=== PATIENT | male | born 1945 | race Caucasian/White ===

== ENCOUNTER 2017-05-05 11:49 | Emergency (ER) | payer MEDICARE, SELFPAY ==
[2017-05-05 11:52] VITALS: BP 142/60; PULSE 94; RESP 20; TEMP 36.6; O2SAT 94; BMI 39.5
--- NOTE | 2017-05-05 12:15 | ED.VISSUMM ---
- ER Visit Summary Date of Service: 05/05/17 Chief Complaint: [] History of Present Illness: The patient is a 72 M [] Physical Examination: [] Test Results: [] Emergency Department Course and Treatment: [] Treatment Plan: [] Disposition: [] Impression: [] This note was generated with [employer] dictation software. It may contain incorrect words, spelling, and punctuation that were not noted in review of the chart prior to signing ED Disposition - Plan for ED Patient: Chief Complaint: Wound Check Instructions: ED Infec Skin Cellulitis Prescriptions: Clindamycin HCl 300 mg PO TID #30 capsule Referrals: Jovani Mendez PA [Primary Care Provider] - Additional Instructions: come back in 24 hours if not better
--- NOTE | 2017-05-05 12:18 | ED.VISSUMM ---
- ER Visit Summary Date of Service: 05/05/17 Chief Complaint: Cellulitis History of Present Illness: The patient is a 72 M presenting with left lower extremity cellulitis. He has chronic edema of his lower extremities and states that that is no worse than usual. He has chronic stasis dermatitis changes in both legs but the left leg has not been red and warm for the past 2 days. It started gradually. No associated pain. No or swelling. No shortness of breath or orthopnea. Physical Examination: He does have approximately 2+ bilateral symmetric lower extremity edema. No tenderness along the lower extremity venous system, palpable cords, or other evidence of DVT. There is erythema and warmth on the lateral aspect of the left leg approximately 8 x 12 cm consistent with a cellulitis. There is no crepitus. He has a strong distal pulse. The right lower extremity has only minimal erythema and does not appear infected at this time. Test Results: None performed Emergency Department Course and Treatment: We discussed checking lab tests and admitting to the hospital but he really does not want to stay in the hospital. He states that when this happened in the past, he improved with oral antibiotics and did not require admission. He would like to go that route again. He does not want an IV antibiotic and would prefer to be started on oral clindamycin and come back in 24 hours if not worse. I think this is reasonable given the early course of his illness. He assures me that he will come back if he is not better or if he progresses at all today. Treatment Plan: Oral clindamycin Disposition: Home in stable condition Impression: Initial encounter acute left lower extremity cellulitis in the setting of chronic lower extremity edema This note was generated with [employer] dictation software. It may contain incorrect words, spelling, and punctuation that were not noted in review of the chart prior to signing ED Disposition - Plan for ED Patient: Chief Complaint: Wound Check Instructions: ED Infec Skin Cellulitis Prescriptions: Clindamycin HCl 300 mg PO TID #30 capsule Referrals: Jovani Mendez PA [Primary Care Provider] - Additional Instructions: come back in 24 hours if not better
[2017-05-05] MEDS: Clindamycin HCl 150 MG Capsule 300 MG PO (12:33)
== END 2017-05-05 12:33 | disposition home or self-care (01) ==
LOC: ED 12:19
PROVIDERS: Emergency Provider Emergency Medicine; Family Provider Physician Assistant; PCP Physician Assistant
DX: L03.116 Cellulitis of left lower limb (principal); R60.0 Localized edema; I11.0 Hypertensive heart disease with heart failure; I50.9 Heart failure, unspecified; E78.00 Pure hypercholesterolemia, unspecified; E11.9 Type 2 diabetes mellitus without complications; Z79.84 Long term (current) use of oral hypoglycemic drugs; Z79.899 Other long term (current) drug therapy
CPT/HCPCS: 99283

== ENCOUNTER 2017-05-08 10:28 | Emergency (ER) | payer MEDICARE, SELFPAY ==
[2017-05-08 10:29] VITALS: BP 161/88; PULSE 80; RESP 92; TEMP 37.1; BMI 40.3
--- NOTE | 2017-05-08 10:48 | ED.DCSUM_ITS ---
- ER Visit Summary Date of Service: 05/08/17 Chief Complaint: Left leg is still discolored History of Present Illness: The patient is a 72 M seen on May 05, 2017 for cellulitis and treated with clindamycin. He states he is compliant with the medication. He denies fever, chills night sweats. He is concerned because there still discoloration and swelling. He apparently sits and stands a lot. He is not very active. He denies any chest pain or shortness of breath. He denies orthopnea or PND. There is no history of trauma. Physical Examination: Vital signs remarkable for blood pressure 161/88. Respiratory rate is 12 and not 92 is documented by triage. Patient has bilateral pitting edema of the lower extremity with venous stasis dermatitis left greater than right. DP pulses palpable bilaterally but diminished. There is no popliteal or inguinal lymphadenopathy. There is no erythema, warmth, induration, fluctuance or crepitus. Test Results: None Emergency Department Course and Treatment: She was informed he has lymphedema secondary to sitting standing a lot and secondary to heart failure. Patient was told he needs to wear compressive hoses. He states he cannot put them on. He was also informed that he should keep his feet elevated and to expedite the return to normal he initially should elevate his feet above his nose. He also was referred to the wound clinic for evaluation to treat his chronic lymphedema with venous stasis dermatitis. Treatment Plan: Referral to wound clinic/lymphedema clinic Disposition: Discharged home Impression: Bilateral lower extremity lymphedema with venous stasis dermatitis Hypertension and known hypertensive patient Type 2 diabetes History of hypercholesterolemia History of congestive heart failure History of hypothyroidism History of benign prostatic hypertrophy This note was generated with [employer] dictation software. It may contain incorrect words, spelling, and punctuation that were not noted in review of the chart prior to signing ED Disposition - Plan for ED Patient: Disposition: Home or Assisted Living Chief Complaint: Cellulitis Instructions: ED Ulcer Venous Leg, ED Lymphedema Referrals: Jovani Mendez PA [Primary Care Provider] - 5-7 Days Clinic,Wound [None] - 3-5 Days Additional Instructions: Recommend you contact the wound center/lymphedema clinic for treatment.
== END 2017-05-08 11:01 | disposition home or self-care (01) ==
LOC: ED 10:55
PROVIDERS: Emergency Provider Emergency Medicine; Family Provider Physician Assistant; PCP Physician Assistant
DX: I89.0 Lymphedema, not elsewhere classified (principal); I87.2 Venous insufficiency (chronic) (peripheral); I11.0 Hypertensive heart disease with heart failure; I50.9 Heart failure, unspecified; E11.9 Type 2 diabetes mellitus without complications; Z79.84 Long term (current) use of oral hypoglycemic drugs; E03.9 Hypothyroidism, unspecified; E78.00 Pure hypercholesterolemia, unspecified; N40.0 Benign prostatic hyperplasia without lower urinary tract symptoms; E66.9 Obesity, unspecified; Z68.41 Body mass index [BMI] 40.0-44.9, adult; Z79.899 Other long term (current) drug therapy
CPT/HCPCS: 99282

== ENCOUNTER 2017-05-21 11:46 | Emergency (ER) | payer MEDICARE, SELFPAY ==
[2017-05-21 11:48] VITALS: BP 156/65; PULSE 82; RESP 28; TEMP 37; O2SAT 96; BMI 40.4
--- NOTE | 2017-05-21 12:49 | EKG12_ITS ---
Test Reason : SOB Blood Pressure : / mmHG Vent. Rate : 080 BPM Atrial Rate : 080 BPM P-R Int : 170 ms QRS Dur : 154 ms QT Int : 444 ms P-R-T Axes : 053 -79 041 degrees QTc Int : 512 ms Normal sinus rhythm Right bundle branch block Left anterior fascicular block Bifascicular block Abnormal ECG Confirmed by SANDRA CARDOSO, PRIETO ([id number]), video editor DUY BAR ([id number] on 05/24/2017 12:55:40 PM Referred By: LACIE Confirmed By:PRIETO FLORES MD
--- NOTE | 2017-05-21 12:50 | RAD_ITS ---
STUDY: X-RAY CHEST REASON FOR EXAM: Male, 72 years old. Cough. TECHNIQUE: PA and lateral views of the chest. COMPARISON: Comparison is made with prior study dated January 26, 2017. FINDINGS: Scattered calcified granulomas. Hyperinflation. Stable mild increased markings at the lung bases suggestive of scarring. There is no demonstrated pleural abnormality. Normal size heart. Normal mediastinum and shauna. Normal visualized pulmonary arteries. There is atherosclerotic calcification of the aortic arch with tortuosity. There is demineralization of the osseous structures. Normal visualized ribs, clavicles, and shoulders. There is no demonstrated abnormality of the visualized soft tissue structures of the upper abdomen. RAD/Chest PA and Lateral IMPRESSION: Hyperinflation. Mild increased markings at the bases suggestive of mild scarring. Electronically Signed: Wing Jeronimo MD at 14:12 EST Tel [phone], Service support ,
[2017-05-21 13:13] LABS: Absolute Lymphocyte Count 1.14 X10^3/ul (0.83-4.51); Absolute Neutrophil Count 3.3 X10^3/uL (2.0-7.7); Basophil# 0.05 X10^3/uL; Basophil% 0.9 % (0-1); Eosinophil# 0.12 X10^3/uL; Eosinophils% 2.2 % (0-5); Hematocrit 37.2 % (40-54); Hemoglobin 12.1 g/dl (13.0-16.5); Lymphocyte # 1.14 X10^3/ul (4.0); Lymphocyte % 20.8 % (19-41); Mean Corp Hgb Conc 32.5 g/gl (32-36); Mean Corpuscular Hgb 29.6 pg (27.0-32.0); Monocyte# 0.84 X10^3/uL; Monocyte% 15.3 % (0-10); Neutrophil % 60.1 % (47-70); POSITIVE COUNT NO; POSITIVE DIFFERENTIAL NO; POSITIVE MORPHOLOGY NO; Platelet Count 160 K/mm3 (150-450); RBC Distribution Width CV 15.9 % (11.6-14.6); RBC Distribution Width SD 51.4 fl (35.1-43.9); Red Blood Count 4.09 M/mm3 (4.6-6.2); White Blood Count 5.5 K/mm3 (4.4-11.0)
[2017-05-21] MEDS: Ipratropium/Albuterol Sulfate 3 ML AMPUL.NEB INHALATION (13:17)
[2017-05-21 13:19] VITALS: PULSE 82; RESP 24; O2SAT 97
[2017-05-21 13:33] LABS: Anion Gap 7 (5-15); BUN 10 mg/dL (7-18); BUN/Creat Ratio 14.9 RATIO (10-20); Calcium,Total 8.6 mg/dL (8.5-10.1); Chloride 100 mmol/L (98-107); Creatinine, Serum 0.67 mg/dL (0.70-1.30); EST Glomerular Filtration Rate 124 mL/min (>60); Est Glom Filt Rate - Afr Amer 150 mL/min (>60); Estimated Creatinine Clearance 55.09 ml/min; Glucose 231 mg/dL (74-106); Sodium Level 135 mmol/L (136-145)
[2017-05-21 14:55] VITALS: PULSE 78; RESP 20; RESP 22; O2SAT 97
[2017-05-21 14:59] VITALS: O2SAT 94
[2017-05-21 15:16] LABS: BNP,B-Type NATRIURETIC PEPTIDE 12.4 pg/mL (0-100)
--- NOTE | 2017-05-21 15:38 | ED.DCSUM_ITS ---
- ER Visit Summary Date of Service: 05/21/17 Chief Complaint: I think I got bronchitis History of Present Illness: The patient is a 72 M 3 of COPD and CHF. He presents with a productive cough for the last several days. He said it feels similar to usual bronchitis. He has also been wheezing but this does get better with his breathing treatments at home. Denies any other symptoms. No chest pain or increased lower extremity edema. It does not feel like his CHF. No body aches or fever/chills. Physical Examination: Not in distress. Neck supple. Heart tones regular without murmur. Pulse oximetry normal on room air. Lungs clear bilaterally except for faint end expiratory wheezing. No lower extremity edema or evidence of DVT Test Results: Labs basically within normal limits. No significant leukocytosis. Chest x-ray negative for infiltrate. Flu swab negative. Emergency Department Course and Treatment: He looks well. No evidence of pneumonia. Pulse ox normal on room air. He basically feels that he needs to be placed on antibiotics and steroids. He has breathing treatments at home and did not want one year. His pulse ox is nearly 100% on room air. No evidence of CHF exacerbation. I feel he can safely be discharged home Treatment Plan: Oral antibiotics and steroids Disposition: Stable condition Impression: Initial encounter COPD exacerbation secondary to lower respiratory tract infection/bronchitis This note was generated with [employer] dictation software. It may contain incorrect words, spelling, and punctuation that were not noted in review of the chart prior to signing ED Disposition - Plan for ED Patient: Chief Complaint: Shortness of Breath Instructions: ED Bronchitis Asthmatic Ch Prescriptions: Prednisone 40 mg PO DAILY 5 Days #10 tablet Doxycycline Monohydrate 100 mg PO BID #20 capsule Referrals: Jovani Mendez PA [Primary Care Provider] -
[2017-05-21] MEDS: Doxycycline 100 MG CAPSULE PO (15:49)
[2017-05-21 15:53] VITALS: BP 142/76; PULSE 81; RESP 16; O2SAT 95
== END 2017-05-21 15:53 | disposition home or self-care (01) ==
PROVIDERS: Emergency Provider Emergency Medicine; Family Provider Physician Assistant; PCP Physician Assistant
DX: J44.0 Chronic obstructive pulmonary disease with (acute) lower respiratory infection (principal); J20.9 Acute bronchitis, unspecified; J44.1 Chronic obstructive pulmonary disease with (acute) exacerbation; I50.9 Heart failure, unspecified; E78.00 Pure hypercholesterolemia, unspecified; E11.9 Type 2 diabetes mellitus without complications; Z79.84 Long term (current) use of oral hypoglycemic drugs; Z79.899 Other long term (current) drug therapy
CPT/HCPCS: 71046; 80048; 83880; 85025; 87804; 93005; 94640; 94760; 99285; A4216

== ENCOUNTER → 2017-06-08 11:35 | Outpatient (CLI) | payer MEDICARE, SELFPAY ==
[2017-06-08 13:29] LABS: Amphetamine Urine VISTA NEGATIVE (<1000 ng/mL); Barbiturate Urine VISTA NEGATIVE (< 200 ng/mL); Benzodiazepine Urine VISTA NEGATIVE (< 200 ng/mL); Cocaine Urine VISTA NEGATIVE (< 300 ng/mL); Ecstacy Urine VISTA NEGATIVE (< 500 ng/mL); Methadone Urine VISTA NEGATIVE (< 300 ng/mL); PCP Urine VISTA NEGATIVE (< 25 ng/mL); THC Urine VISTA NEGATIVE (< 50 ng/mL); Vista UDS pH Range 5
== END ==
PROVIDERS: Family Provider Physician Assistant; PCP Physician Assistant; Visit Provider Anesthesiology Pain Medicine
DX: F11.20 Opioid dependence, uncomplicated (principal)
CPT/HCPCS: 80307

== ENCOUNTER 2017-07-01 09:10 | Outpatient (RCR) | payer MEDICARE, SELFPAY ==
[2017-07-01 09:37] VITALS: BP 153/70; PULSE 79; RESP 22; TEMP 36.4; O2SAT 87
[2017-07-01 13:35] LABS: Absolute Lymphocyte Count 1.47 X10^3/ul (0.83-4.51); Absolute Neutrophil Count 4.1 X10^3/uL (2.0-7.7); Basophil# 0.02 X10^3/uL; Basophil% 0.3 % (0-1); Eosinophil# 0.15 X10^3/uL; Eosinophils% 2.4 % (0-5); Hematocrit 37.9 % (40-54); Lymphocyte # 1.47 X10^3/ul (4.0); Mean Corp Hgb Conc 31.7 g/gl (32-36); Mean Corpuscular Hgb 29.7 pg (27.0-32.0); Mean Corpuscular Volume 93.8 fL (80-94); Mean Platelet Vol. 10.8 fl (6.2-12.0); Monocyte# 0.58 X10^3/uL; Monocyte% 9.1 % (0-10); Neutrophil # 4.13 X10^3/uL (2.7-7.7); Neutrophil % 64.7 % (47-70); POSITIVE COUNT NO; POSITIVE DIFFERENTIAL NO; POSITIVE MORPHOLOGY NO; Platelet Count 126 K/mm3 (150-450); RBC Distribution Width CV 15.4 % (11.6-14.6); RBC Distribution Width SD 50.8 fl (35.1-43.9); Red Blood Count 4.04 M/mm3 (4.6-6.2); White Blood Count 6.4 K/mm3 (4.4-11.0)
--- NOTE | 2017-07-01 13:47 | HP.PCM_ITS ---
(1) Ulcer of left lower extremity with fat layer exposed Status: Acute Current Visit: Yes Code(s): L97.922 - Non-pressure chronic ulcer of unspecified part of left lower leg with fat layer exposed (2) PVD (peripheral vascular disease) Status: Acute Current Visit: Yes Code(s): I73.9 - Peripheral vascular disease, unspecified (3) Venous insufficiency Status: Suspected Current Visit: Yes Code(s): I87.2 - Venous insufficiency ( chronic) (peripheral) (4) Type 2 diabetes mellitus with diabetic polyneuropathy Status: Acute Current Visit: Yes Code(s): E11.42 - Type 2 diabetes mellitus with diabetic polyneuropathy (5) Malnutrition Status: Acute Current Visit: Yes Code(s): E46 - Unspecified protein-calorie malnutrition (6) Obesity Status: Acute Current Visit: Yes Code(s): E66.9 - Obesity, unspecified History of Present Illness Date of Service: 07/01/17 Chief Complaint: Non healing ulcer to left lower leg. History of Wound: This patient presents to wound center after being referred by primary care for some blistering and ulcer to left lower leg. Patient is a poor historian and it is hard to get any information from him. He is unsure exactly how long he has has the ulcer to his left lower leg. He says his lower legs are always swollen usually and that he does not use compression. He says there has been some slight clearish drainage that he has noticed, but he says he has not done much to treat or dress the area on his own because he cannot get down to his legs easily. Again, this patient is a very poor historian so it was hard to get a clear picture of his wound history. Patient currently denies any feelings of nausea, vomiting, fever, or chills. Past Medical History Past Medical History: Chronic Problems Hypothyroid (Chronic) Diabetes (Chronic) Allergies/Adverse Reactions: Allergies bee venom protein (honey bee) Allergy (Verified 07/01/17 10:04) Angioedema Penicillins Allergy (Verified 07/01/17 10:04) Rash acetaminophen [From Vicodin] Adverse Reaction (Verified 07/01/17 10:04) Itching hydrocodone bitartrate [From Vicodin] Adverse Reaction (Verified 07/01/17 10:04) Itching Home Medications: Ambulatory Orders Medication Instructions Recorded Levothyroxine [Synthroid] 112 mcg PO DAILY 09/10/13 Metformin HCl [Glucophage] 1,000 mg PO BIDCM 09/10/13 Tamsulosin HCl [Flomax] 0.4 mg PO DAILY 01/08/17 Atorvastatin Calcium [Lipitor] 20 mg PO QHS 01/16/17 Oxycodone HCl/Acetaminophen 1 tablet PO Q6H PRN PRN #12 tablet 01/31/17 [Percocet 5/325] Doxycycline Monohydrate 100 mg PO BID #20 capsule 05/21/17 Furosemide [Lasix] 20 mg PO DAILY 07/01/17 Omeprazole [Prilosec] 40 mg PO DAILY 07/01/17 - Family History Maternal Diabetes, - - colon cancer. Smoking Status: Former smoker Review of Systems Constitutional: Denies: Chills, Fever Cardiovascular: Denies: Chest Pain, Palpitations Respiratory: Reports: Shortness of Breath - 02 sat was lower when he got to clinic and he was given oxygen. Denies: Cough Skin: Reports: Wounds - left lower leg - Physical Exam Vital Signs Temp Pulse Resp BP Pulse Ox 97.5 F L 79 22 H 153/70 H 87 07/01/17 09:37 07/01/17 09:37 07/01/17 09:37 07/01/17 09:37 07/01/17 09:37 General: Alert, Oriented x3, Cooperative, No apparent distress Extremities: Capillary Refill Less than 3 Seconds, No Calf Tenderness - negative dayanara and block sign bilateral, Diminished Peripheral Pulses - DP and PT pulses non palpable due to edema, Edema - bilateral lower extremity pitting edema Skin: Ulcer/ Wound - Ulcer to left lower lateral leg. Measurements discussed in clinical pannel. Ulcer base is a mixture of grandular tissue, fibrin, biofilm, and slough with some hyperkeratotic skin as well. There is no probing, tracking , undermining noted. There is no extending cellulitis, malodor, purulent drainage appreciated. There is some slight surrounding erythema. There is also bilateral hemosideren deposit skin changes to lower legs. Wound Measurements and Assessment WC - Nurse 1 - General Ulcer Measurement Start: 07/01/17 09:21 Freq: Status: Active Protocol: Activity Type Activity Date Activity User E-Sign Co-Sign Detail Recorded Client Recorded Date Recorded By Document 07/01/17 09:37 DL [id number] 07/01/17 09:59 DL 07/01/17 09:37 Wound Center Nurse 1 [Ulcer Assessment] #2 L Lat LE -Current Size (cm) - Length 2.5 -Current Size (cm) - Width 2 -Current Size (cm) - Depth 0.1 -Total Square Cm 5.0 -Photo Taken Yes -Classification - Thickness Partial Thickness -Exudate Amt Small (1-33%) -Exudate Type Serosanguineous -Wound Margin Indistinct, Non -Visible -Granulation Amt Small (1-33%) -Granulation Quality Red -Necrosis Amt None Present (0 %) -Structure Exposed N/A -Texture (Genet-wound Skin Appearance) Localized Edema Scarring -Moisture (Genet-wound Skin Appearance Dry/Scaly ) -Color (Genet-wound Skin Appearance) Erythema -Temperature (Genet-wound Skin No Abnormality Appearance) (Pt Warm) -Tenderness on Palpation (Genet-wound Yes Skin Appearance) -Ulcer Cleansing Wound Cleanser -Foul Odor after Cleansing No -Anesthetic Used 4% Lidocaine Solution [Edema Assessment] -Right Calf (cm) 43.5 -Right Ankle (cm) 26 -Left Calf (cm) 44 -Left Ankle (cm) 26 WC - Nurse 2 - General Ulcer CM Notes Start: 07/01/17 09:21 Freq: Status: Active Protocol: Activity Type Activity Date Activity User E-Sign Co-Sign Detail Recorded Client Recorded Date Recorded By Document 07/01/17 11:13 MW [id number] 07/01/17 11:26 MW 07/01/17 11:13 Wound Center Nurse 2 [Procedure/Treatment] #2 L Lat LE -Time 11:14 -Correct Patient Yes -Correct Side, Site, Position Yes -Correct Procedure Yes -Procedure Performed Yes -Type of Procedure Debridement -Clinical Debridement Selective -Post Debridement Size (cm) - Length 10.0 -Post Debridement Size (cm) - Width 2.5 -Post Debridement Size (cm) - Depth 0.1 -Total Square Cm 25.00 -Wound/Ulcer Outcome Not Healed -Ulcer Cleansing Rinsed/ Irrigated with Saline -Foul Odor after Cleansing No -Bioengineered Tissue No -Bleeding Controlled with Pressure -Treatment Response Procedure Tolerated Well [See Physician Procedure note for Specifics] Pain Scale: 0-10 Numeric [Pain] -Is Patient Pain Free? Yes Musculoskeletal: No Tenderness to Palpation of Joints or Extremities Neurological: - - epicritic sensation grossly absent to bilateral lower extremities Psych/Mental Status: Normal Affect, Appropriate Debridement Note Post-Debridement Measurements/Treatment WC - Nurse 2 - General Ulcer CM Notes Start: 07/01/17 09:21 Freq: Status: Active Protocol: Activity Type Activity Date Activity User E-Sign Co-Sign Detail Recorded Client Recorded Date Recorded By Document 07/01/17 11:13 MW [id number] 07/01/17 11:26 MW 07/01/17 11:13 Wound Center Nurse 2 #2 L Lat LE -Time 11:14 -Correct Patient Yes -Correct Side, Site, Position Yes -Correct Procedure Yes -Procedure Performed Yes -Type of Procedure Debridement -Clinical Debridement Selective -Post Debridement Size (cm) - Length 10.0 -Post Debridement Size (cm) - Width 2.5 -Post Debridement Size (cm) - Depth 0.1 -Total Square Cm 25.00 -Wound/Ulcer Outcome Not Healed -Ulcer Cleansing Rinsed/ Irrigated with Saline -Foul Odor after Cleansing No -Bioengineered Tissue No -Bleeding Controlled with Pressure -Treatment Response Procedure Tolerated Well Pain Scale: 0-10 Numeric Is Patient Pain Free? Yes Wound debrided: left lower lateral leg Laterality: Left Type of Debridement: Selective debridement Anesthesia Used: 4% Lidocaine Solution Depth: in the subcutaneous layer Percentage of wound debrided: 100 Instrument Used: 5mm curette Tissue Removed: slough, biofilm, hyperkeratotic tissue Severity: Fat Layer Exposed Amount of bleeding with debridement: Mild Bleeding Controlled with: Pressure Patient tolerated procedure well Assessment/Plan Active Problems Ulcer of left lower extremity with fat layer exposed (Acute) PVD (peripheral vascular disease) (Acute) Type 2 diabetes mellitus with diabetic polyneuropathy (Acute) Malnutrition (Acute) Obesity (Acute) Assessment: Ulcer left lower leg, PVD, DM among other issues. Plan: Initial patient examination and evaluation was performed today. A selective debridement was perfomred as ntoed in the clinical panel. Silvercel was applied to the ulcer base, followed by dry sterile dressing. Patient is to have this dressing changed every other day by home health care, which was also ordered today. Light compression tubigrip also applied to bilateral lower extremities today. He was instructed to keep pressure off of this area. Baseline labwork was ordered today including CBC with diff, CPM, Hemoglibin a1c , and pre albumin. LEAS and bilateral venous doppler exams were ordered as well. All of these results will be reviewed prior to the patient's next visit. I suggested the patient have a diet high in protein to help optimize ulcer healing. Patient was educated on all signs and symptoms of local and systemic infection and was instructed to go to the ER immediately should he notice any. All other questions answered to the patient's satisfaction. He will follow up in clinic in one week, or sooner if needed.
[2017-07-01 14:05] LABS: ALB/GLOB Ratio 0.8 RATIO (0.9-2.4); AST(SGOT) 32 U/L (15-37); Alanine Aminotransfer ALT/SGPT 57 U/L (16-61); Albumin, Serum 3.2 g/dL (3.2-5.0); Alkaline Phosphatase 191 U/L (45-117); Anion Gap 7 (5-15); BUN 18 mg/dL (7-18); BUN/Creat Ratio 28.1 RATIO (10-20); Calcium,Total 8.6 mg/dL (8.5-10.1); Chloride 102 mmol/L (98-107); Creatinine, Serum 0.64 mg/dL (0.70-1.30); EST Glomerular Filtration Rate 130 mL/min (>60); Est Glom Filt Rate - Afr Amer 158 mL/min (>60); Globulin 3.9 g/dL (2.2-4.2); Glucose 257 mg/dL (74-106); Potassium 3.8 mmol/L (3.5-5.1); Prealbumin 20.7 mg/dL (20.0-40.0); Protein, Total 7.1 g/dL (6.4-8.2); Sodium Level 139 mmol/L (136-145)
[2017-07-01 14:15] LABS: Hemoglobin A1c 9.6 % (4.2-6.3)
== END 2017-07-03 23:59 ==
LOC: WC 09:10
PROVIDERS: Family Provider Physician Assistant; PCP Physician Assistant; Visit Provider Podiatrist
DX: E11.622 Type 2 diabetes mellitus with other skin ulcer (principal); E11.42 Type 2 diabetes mellitus with diabetic polyneuropathy; E11.51 Type 2 diabetes mellitus with diabetic peripheral angiopathy without gangrene; L97.822 Non-pressure chronic ulcer of other part of left lower leg with fat layer exposed; E66.9 Obesity, unspecified; Z79.84 Long term (current) use of oral hypoglycemic drugs; Z79.899 Other long term (current) drug therapy; Z87.891 Personal history of nicotine dependence
CPT/HCPCS: 36415; 80053; 83036; 84134; 85025; 97597; 99203; G0463

== ENCOUNTER 2017-07-03 22:04 | Emergency (ER) | payer MEDICARE, SELFPAY ==
[2017-07-03 22:05] VITALS: BP 125/82; PULSE 79; RESP 22; TEMP 36.9; O2SAT 97; BMI 33.3
--- NOTE | 2017-07-03 22:31 | ED.VISSUMM ---
- ER Visit Summary Date of Service: 07/03/17 Chief Complaint: [] Penile pain/dysuria History of Present Illness: The patient is a 72 M [] complaining of dysuria and discomfort at the head of the penis. Patient is a diabetic uncircumcised morbidly obese male. He does report us that he is scheduled to have a circumcision later in a few weeks. He reports having difficulty cleaning the area affected. Reports he still able to urinate but does have slight dysuria. Physical Examination: [] Morbidly obese elderly male in no acute distress. Examination of the penis reveals uncircumcised male with balanoposthitis. No obvious cellulitis or phimosis. No signs of Teresa's. Remainder of exam is unremarkable. Test Results: [] None. Emergency Department Course and Treatment: [] Patient was given first dose of clotrimazole/betamethasone cream was applied by the nurse copiously to the affected area. Patient was provided with the remainder of this tube to use 3 times a day for the next 5 days. He was encouraged to return should symptoms worsen. He reports that he might have difficulty applying the cream to the affected area. He requested oral pills however there is no suggested/approved oral regimen for antifungal treatment for this localized skin condition. Treatment Plan: [] Apply provided cream to the affected area. Return if symptoms worsen. Disposition: [] Discharge, stable. Impression: [] Balanoposthitis This note was generated with [employer] dictation software. It may contain incorrect words, spelling, and punctuation that were not noted in review of the chart prior to signing ED Disposition - Plan for ED Patient: Chief Complaint: Complaint Referrals: Jovani Mendez PA [Primary Care Provider] -
--- NOTE | 2017-07-03 22:34 | ED.DEP ---
ED Disposition - Plan for ED Patient: Disposition: Home or Assisted Living Chief Complaint: Complaint Instructions: ED Balanoposthitis Referrals: Jovani Mendez PA [Primary Care Provider] -
[2017-07-03] MEDS: Clotrimazole/Betamethasone 1 Tube 1 APPLIC TOPICAL (22:53)
[2017-07-03 23:35] VITALS: RESP 22
== END 2017-07-03 23:36 | disposition home or self-care (01) ==
LOC: ED 22:45
PROVIDERS: Emergency Provider Emergency Medicine; Family Provider Physician Assistant; PCP Physician Assistant
DX: N47.6 Balanoposthitis (principal); N48.89 Other specified disorders of penis; E66.01 Morbid (severe) obesity due to excess calories; Z68.33 Body mass index [BMI] 33.0-33.9, adult; E11.9 Type 2 diabetes mellitus without complications; Z79.84 Long term (current) use of oral hypoglycemic drugs; Z79.899 Other long term (current) drug therapy
CPT/HCPCS: 99282

== ENCOUNTER 2017-07-29 10:00 | Outpatient (RCR) | payer MEDICARE, SELFPAY ==
[2017-07-04 01:24] VITALS: PULSE 79; RESP 22; TEMP 36.4; O2SAT 87
[2017-07-08 08:50] VITALS: BP 141/61; PULSE 81; RESP 18; TEMP 36.6
--- NOTE | 2017-07-08 09:58 | PCM.WC.PN ---
(1) Ulcer of left lower extremity with fat layer exposed Status: Acute Current Visit: No Code(s): L97.922 - Non-pressure chronic ulcer of unspecified part of left lower leg with fat layer exposed (2) PVD (peripheral vascular disease) Status: Acute Current Visit: No Code(s): I73.9 - Peripheral vascular disease, unspecified (3) Venous insufficiency Status: Suspected Current Visit: No Code(s): I87.2 - Venous insufficiency (chronic) (peripheral) (4) Type 2 diabetes mellitus with diabetic polyneuropathy Status: Acute Current Visit: No Code(s): E11.42 - Type 2 diabetes mellitus with diabetic polyneuropathy (5) Malnutrition Status: Acute Current Visit: No Code(s): E46 - Unspecified protein-calorie malnutrition (6) Obesity Status: Acute Current Visit: No Code(s): E66.9 - Obesity, unspecified Type of Wound Date of Service: 07/08/17 Chief Complaint: Non healing ulcer to left lower leg. History of Wound: This patient presents to wound center after being referred by primary care for some blistering and ulcer to left lower leg. Patient is a poor historian and it is hard to get any information from him. He is unsure exactly how long he has has the ulcer to his left lower leg. He says his lower legs are always swollen usually and that he does not use compression. He says there has been some slight clearish drainage that he has noticed, but he says he has not done much to treat or dress the area on his own because he cannot get down to his legs easily. Again, this patient is a very poor historian so it was hard to get a clear picture of his wound history. Patient currently denies any feelings of nausea, vomiting, fever, or chills. Progress of Wound: Ulcer to the patients left lateral lower leg has shown some slight improvement since last week. Patient has left the same dressings on this week that he had put on last week. There was a mix up with home health care. He will start being seen by home health this week. Patient denies any feelings of nausea, vomiting, fever, or chills. - Physical Exam Vital Signs Temp Pulse Resp BP Pulse Ox 97.8 F 81 18 141/61 H 87 07/08/17 08:50 07/08/17 08:50 07/08/17 08:50 07/08/17 08:50 07/04/17 01:24 General: Alert, Oriented x3, Cooperative, No apparent distress Extremities: Capillary Refill Less than 3 Seconds, No Calf Tenderness - negative dayanara and block sign, Diminished Peripheral Pulses - DP and PT pulses non palpable today, Edema - bilateral pitting lower extremity edema Skin: Ulcer/ Wound - Ulcer to left lower lateral leg. Measurements discussed in clinical pannel. Ulcer base is a mixture of grandular tissue, fibrin, biofilm, and slough with some hyperkeratotic skin as well. There is no probing, tracking, undermining noted. There is no extending cellulitis, malodor, purulent drainage appreciated. There is some slight surrounding erythema. There is also bilateral hemosideren deposit skin changes to lower legs. Wound Measurements and Assessment WC - Nurse 1 - General Ulcer Measurement Start: 07/08/17 08:50 Freq: Status: Active Protocol: Activity Type Activity Date Activity User E-Sign Co-Sign Detail Recorded Client Recorded Date Recorded By Document 07/08/17 08:50 [email or web address] 07/08/17 08:56 07/08/17 08:50 Wound Center Nurse 1 [Ulcer Assessment] #2 L Lat LE -Combined with other wound No -Current Size (cm) - Length 2.0 -Current Size (cm) - Width 1.0 -Current Size (cm) - Depth 0.1 -Total Square Cm 2.00 -Photo Taken No -Epithelialization Large 67-100% -Tunneling No -Undermining/Tunneling No -Circular Undermining No -Classification - Thickness Full Thickness without Exposed Support Structure -Exudate Amt Small (1-33%) -Exudate Type Serosanguineous -Wound Margin Distinct, Outline Attached -Granulation Amt Medium (34-66%) -Granulation Quality [place] -Slough/Fibrin Yes -Necrosis Amt Medium (34-66%) -Necrotic Tissue Type Adherent Slough -Structure Exposed Fascia Fat Layer Exposed -Texture (Genet-wound Skin Appearance) Localized Edema Scarring -Moisture (Genet-wound Skin Appearance Dry/Scaly ) -Color (Genet-wound Skin Appearance) Erythema Hemosiderin Staining -Temperature (Genet-wound Skin No Abnormality Appearance) (Pt Warm) -Tenderness on Palpation (Genet-wound No Skin Appearance) -Ulcer Cleansing hibiclens -Foul Odor after Cleansing No -Anesthetic Used 4% Lidocaine Solution [Edema Assessment] -Lower Limb Edema Present Yes -Right Calf (cm) 44.2 -Right Ankle (cm) 25.4 -Left Calf (cm) 42.0 -Left Ankle (cm) 27.0 LÓPEZ - Nurse 2 - General Ulcer CM Notes Start: 07/08/17 08:50 Freq: Status: Active Protocol: Activity Type Activity Date Activity User E-Sign Co-Sign Detail Recorded Client Recorded Date Recorded By Document 07/08/17 09:16 MW [email or web address] 07/08/17 09:21 MW 07/08/17 09:16 Wound Center Nurse 2 [Procedure/Treatment] #2 L Lat LE -Time 09:17 -Correct Patient Yes -Correct Side, Site, Position Yes -Correct Procedure Yes -Procedure Performed Yes -Type of Procedure Debridement -Clinical Debridement Selective -Post Debridement Size (cm) - Length 4.0 -Post Debridement Size (cm) - Width 1.6 -Post Debridement Size (cm) - Depth 0.1 -Total Square Cm 6.40 -Wound/Ulcer Outcome Not Healed -Ulcer Cleansing Rinsed/ Irrigated with Saline -Foul Odor after Cleansing No -Bioengineered Tissue No -Bleeding Controlled with Pressure -Treatment Response Procedure Tolerated Well [See Physician Procedure note for Specifics] Pain Scale: 0-10 Numeric [Pain] -Is Patient Pain Free? Yes Musculoskeletal: No Tenderness to Palpation of Joints or Extremities Neurological: - - epicritic sensation grossly absent to bilateral lower extremities Psych/Mental Status: Normal Affect, Appropriate Debridement Note Post-Debridement Measurements/Treatment LÓPEZ - Nurse 2 - General Ulcer CM Notes Start: 07/08/17 08:50 Freq: Status: Active Protocol: Activity Type Activity Date Activity User E-Sign Co-Sign Detail Recorded Client Recorded Date Recorded By Document 07/08/17 09:16 MW [id number] 07/08/17 09:21 MW 07/08/17 09:16 Wound Center Nurse 2 #2 L Lat LE -Time 09:17 -Correct Patient Yes -Correct Side, Site, Position Yes -Correct Procedure Yes -Procedure Performed Yes -Type of Procedure Debridement -Clinical Debridement Selective -Post Debridement Size (cm) - Length 4.0 -Post Debridement Size (cm) - Width 1.6 -Post Debridement Size (cm) - Depth 0.1 -Total Square Cm 6.40 -Wound/Ulcer Outcome Not Healed -Ulcer Cleansing Rinsed/ Irrigated with Saline -Foul Odor after Cleansing No -Bioengineered Tissue No -Bleeding Controlled with Pressure -Treatment Response Procedure Tolerated Well Pain Scale: 0-10 Numeric Is Patient Pain Free? Yes Wound debrided: left lower lateral leg Laterality: Left Type of Debridement: Selective debridement Anesthesia Used: 4% Lidocaine Solution Depth: in the subcutaneous layer Percentage of wound debrided: 100 Instrument Used: 3mm curette Tissue Removed: slough, biofilm, hyperkeratotic tissue Severity: Fat Layer Exposed Amount of bleeding with debridement: Mild Bleeding Controlled with: Pressure Patient tolerated procedure well Assessment/Plan Assessment: Ulcer left lower leg, PVD, DM among other issues. Plan: Patient was again examined and evaluated today. A selective debridement was perfomred as ntoed in the clinical panel. Silvercel was applied to the ulcer base, followed by dry sterile dressing. Patient is to have this dressing changed every other day by home health care, which was also ordered again today, since there was an issue last week getting home health care coordinated. Light compression tubigrip also applied to bilateral lower extremities today. He was instructed to keep pressure off of this area. Baseline labwork was ordered last week and the results were reviwed. LEAS and bilateral venous doppler exams were ordered as well last week and the patient will have them completed on July 15. I suggested the patient have a diet high in protein to help optimize ulcer healing. Patient was educated on all signs and symptoms of local and systemic infection and was instructed to go to the ER immediately should he notice any. All other questions answered to the patient's satisfaction. He will follow up in clinic in one week, or sooner if needed.
--- NOTE | 2017-07-08 10:10 | PN.PCM_ITS ---
(1) Ulcer of left lower extremity with fat layer exposed Status: Acute Current Visit: No Code(s): L97.922 - Non-pressure chronic ulcer of unspecified part of left lower leg with fat layer exposed (2) PVD (peripheral vascular disease) Status: Acute Current Visit: No Code(s): I73.9 - Peripheral vascular disease , unspecified (3) Venous insufficiency Status: Suspected Current Visit: No Code(s): I87.2 - Venous insufficiency ( chronic) (peripheral) (4) Type 2 diabetes mellitus with diabetic polyneuropathy Status: Acute Current Visit: No Code(s): E11.42 - Type 2 diabetes mellitus with diabetic polyneuropathy (5) Malnutrition Status: Acute Current Visit: No Code(s): E46 - Unspecified protein-calorie malnutrition (6) Obesity Status: Acute Current Visit: No Code(s): E66.9 - Obesity, unspecified Type of Wound Date of Service: 07/08/17 Chief Complaint: Non healing ulcer to left lower leg. History of Wound: This patient presents to wound center after being referred by primary care for some blistering and ulcer to left lower leg. Patient is a poor historian and it is hard to get any information from him. He is unsure exactly how long he has has the ulcer to his left lower leg. He says his lower legs are always swollen usually and that he does not use compression. He says there has been some slight clearish drainage that he has noticed, but he says he has not done much to treat or dress the area on his own because he cannot get down to his legs easily. Again, this patient is a very poor historian so it was hard to get a clear picture of his wound history. Patient currently denies any feelings of nausea, vomiting, fever, or chills. Progress of Wound: Ulcer to the patients left lateral lower leg has shown some slight improvement since last week. Patient has left the same dressings on this week that he had put on last week. There was a mix up with home health care. He will start being seen by home health this week. Patient denies any feelings of nausea, vomiting, fever, or chills. - Physical Exam Vital Signs Temp Pulse Resp BP Pulse Ox 97.8 F 81 18 141/61 H 87 07/08/17 08:50 07/08/17 08:50 07/08/17 08:50 07/08/17 08:50 07/04/17 01:24 General: Alert, Oriented x3, Cooperative, No apparent distress Extremities: Capillary Refill Less than 3 Seconds, No Calf Tenderness - negative dayanara and block sign, Diminished Peripheral Pulses - DP and PT pulses non palpable today, Edema - bilateral pitting lower extremity edema Skin: Ulcer/ Wound - Ulcer to left lower lateral leg. Measurements discussed in clinical pannel. Ulcer base is a mixture of grandular tissue, fibrin, biofilm, and slough with some hyperkeratotic skin as well. There is no probing, tracking , undermining noted. There is no extending cellulitis, malodor, purulent drainage appreciated. There is some slight surrounding erythema. There is also bilateral hemosideren deposit skin changes to lower legs. Wound Measurements and Assessment WC - Nurse 1 - General Ulcer Measurement Start: 07/08/17 08:50 Freq: Status: Active Protocol: Activity Type Activity Date Activity User E-Sign Co-Sign Detail Recorded Client Recorded Date Recorded By Document 07/08/17 08:50 [email or web address] 07/08/17 08:56 07/08/17 08:50 Wound Center Nurse 1 [Ulcer Assessment] #2 L Lat LE -Combined with other wound No -Current Size (cm) - Length 2.0 -Current Size (cm) - Width 1.0 -Current Size (cm) - Depth 0.1 -Total Square Cm 2.00 -Photo Taken No -Epithelialization Large 67-100% -Tunneling No -Undermining/Tunneling No -Circular Undermining No -Classification - Thickness Full Thickness without Exposed Support Structure -Exudate Amt Small (1-33%) -Exudate Type Serosanguineous -Wound Margin Distinct, Outline Attached -Granulation Amt Medium (34-66%) -Granulation Quality [place] -Slough/Fibrin Yes -Necrosis Amt Medium (34-66%) -Necrotic Tissue Type Adherent Slough -Structure Exposed Fascia Fat Layer Exposed -Texture (Genet-wound Skin Appearance) Localized Edema Scarring -Moisture (Genet-wound Skin Appearance Dry/Scaly ) -Color (Genet-wound Skin Appearance) Erythema Hemosiderin Staining -Temperature (Genet-wound Skin No Abnormality Appearance) (Pt Warm) -Tenderness on Palpation (Genet-wound No Skin Appearance) -Ulcer Cleansing hibiclens -Foul Odor after Cleansing No -Anesthetic Used 4% Lidocaine Solution [Edema Assessment] -Lower Limb Edema Present Yes -Right Calf (cm) 44.2 -Right Ankle (cm) 25.4 -Left Calf (cm) 42.0 -Left Ankle (cm) 27.0 LÓPEZ - Nurse 2 - General Ulcer CM Notes Start: 07/08/17 08:50 Freq: Status: Active Protocol: Activity Type Activity Date Activity User E-Sign Co-Sign Detail Recorded Client Recorded Date Recorded By Document 07/08/17 09:16 MW [email or web address] 07/08/17 09:21 MW 07/08/17 09:16 Wound Center Nurse 2 [Procedure/Treatment] #2 L Lat LE -Time 09:17 -Correct Patient Yes -Correct Side, Site, Position Yes -Correct Procedure Yes -Procedure Performed Yes -Type of Procedure Debridement -Clinical Debridement Selective -Post Debridement Size (cm) - Length 4.0 -Post Debridement Size (cm) - Width 1.6 -Post Debridement Size (cm) - Depth 0.1 -Total Square Cm 6.40 -Wound/Ulcer Outcome Not Healed -Ulcer Cleansing Rinsed/ Irrigated with Saline -Foul Odor after Cleansing No -Bioengineered Tissue No -Bleeding Controlled with Pressure -Treatment Response Procedure Tolerated Well [See Physician Procedure note for Specifics] Pain Scale: 0-10 Numeric [Pain] -Is Patient Pain Free? Yes Musculoskeletal: No Tenderness to Palpation of Joints or Extremities Neurological: - - epicritic sensation grossly absent to bilateral lower extremities Psych/Mental Status: Normal Affect, Appropriate Debridement Note Post-Debridement Measurements/Treatment LÓPEZ - Nurse 2 - General Ulcer CM Notes Start: 07/08/17 08:50 Freq: Status: Active Protocol: Activity Type Activity Date Activity User E-Sign Co-Sign Detail Recorded Client Recorded Date Recorded By Document 07/08/17 09:16 MW [id number] 07/08/17 09:21 MW 07/08/17 09:16 Wound Center Nurse 2 #2 L Lat LE -Time 09:17 -Correct Patient Yes -Correct Side, Site, Position Yes -Correct Procedure Yes -Procedure Performed Yes -Type of Procedure Debridement -Clinical Debridement Selective -Post Debridement Size (cm) - Length 4.0 -Post Debridement Size (cm) - Width 1.6 -Post Debridement Size (cm) - Depth 0.1 -Total Square Cm 6.40 -Wound/Ulcer Outcome Not Healed -Ulcer Cleansing Rinsed/ Irrigated with Saline -Foul Odor after Cleansing No -Bioengineered Tissue No -Bleeding Controlled with Pressure -Treatment Response Procedure Tolerated Well Pain Scale: 0-10 Numeric Is Patient Pain Free? Yes Wound debrided: left lower lateral leg Laterality: Left Type of Debridement: Selective debridement Anesthesia Used: 4% Lidocaine Solution Depth: in the subcutaneous layer Percentage of wound debrided: 100 Instrument Used: 3mm curette Tissue Removed: slough, biofilm, hyperkeratotic tissue Severity: Fat Layer Exposed Amount of bleeding with debridement: Mild Bleeding Controlled with: Pressure Patient tolerated procedure well Assessment/Plan Assessment: Ulcer left lower leg, PVD, DM among other issues. Plan: Patient was again examined and evaluated today. A selective debridement was perfomred as ntoed in the clinical panel. Silvercel was applied to the ulcer base, followed by dry sterile dressing. Patient is to have this dressing changed every other day by home health care, which was also ordered again today , since there was an issue last week getting home health care coordinated. Light compression tubigrip also applied to bilateral lower extremities today. He was instructed to keep pressure off of this area. Baseline labwork was ordered last week and the results were reviwed. LEAS and bilateral venous doppler exams were ordered as well last week and the patient will have them completed on July 15. I suggested the patient have a diet high in protein to help optimize ulcer healing. Patient was educated on all signs and symptoms of local and systemic infection and was instructed to go to the ER immediately should he notice any. All other questions answered to the patient's satisfaction. He will follow up in clinic in one week, or sooner if needed.
[2017-07-22 11:21] VITALS: BP 145/62; PULSE 79; RESP 18; TEMP 36.8
--- NOTE | 2017-07-22 14:26 | PCM.WC.PN ---
(1) Ulcer of left lower extremity with fat layer exposed Status: Acute Current Visit: No Code(s): L97.922 - Non-pressure chronic ulcer of unspecified part of left lower leg with fat layer exposed (2) PVD (peripheral vascular disease) Status: Acute Current Visit: No Code(s): I73.9 - Peripheral vascular disease, unspecified (3) Venous insufficiency Status: Suspected Current Visit: No Code(s): I87.2 - Venous insufficiency (chronic) (peripheral) (4) Type 2 diabetes mellitus with diabetic polyneuropathy Status: Acute Current Visit: No Code(s): E11.42 - Type 2 diabetes mellitus with diabetic polyneuropathy (5) Malnutrition Status: Acute Current Visit: No Code(s): E46 - Unspecified protein-calorie malnutrition (6) Obesity Status: Acute Current Visit: No Code(s): E66.9 - Obesity, unspecified Type of Wound Date of Service: 07/22/17 Chief Complaint: Non healing ulcer to left lower leg. History of Wound: This patient presents to wound center after being referred by primary care for some blistering and ulcer to left lower leg. Patient is a poor historian and it is hard to get any information from him. He is unsure exactly how long he has has the ulcer to his left lower leg. He says his lower legs are always swollen usually and that he does not use compression. He says there has been some slight clearish drainage that he has noticed, but he says he has not done much to treat or dress the area on his own because he cannot get down to his legs easily. Again, this patient is a very poor historian so it was hard to get a clear picture of his wound history. Patient currently denies any feelings of nausea, vomiting, fever, or chills. Progress of Wound: Ulcer to the patients left lateral lower leg has shown some slight improvement since last visit. Patient says he has been having his dressing changed by home health. He says he has been trying to keep compression on the legs. Patient denies any feelings of nausea, vomiting, fever, or chills. - Physical Exam Vital Signs Temp Pulse Resp BP Pulse Ox 98.2 F 79 18 145/62 H 87 07/22/17 11:21 07/22/17 11:21 07/22/17 11:21 07/22/17 11:21 07/04/17 01:24 General: Alert, Oriented x3, Cooperative, No apparent distress Extremities: Capillary Refill Less than 3 Seconds, No Calf Tenderness - negative dayanara and block sign, Diminished Peripheral Pulses, Edema - Bilateral pitting lower extremity edema Skin: Ulcer/ Wound - Ulcer to left lower lateral leg. Measurements noted in clinical pannel. Ulcer base is a mixture of grandular tissue, fibrin, biofilm, and slough with some hyperkeratotic skin as well. There is no probing, tracking, undermining noted. There is no extending cellulitis, malodor, purulent drainage appreciated. There is some slight surrounding erythema. There is also bilateral hemosideren deposit skin changes to lower legs. Wound Measurements and Assessment WC - Nurse 1 - General Ulcer Measurement Start: 07/08/17 08:50 Freq: Status: Active Protocol: Activity Type Activity Date Activity User E-Sign Co-Sign Detail Recorded Client Recorded Date Recorded By Document 07/22/17 11:21 RB [id number] 07/22/17 11:38 RB 07/22/17 11:21 Wound Center Nurse 1 [Ulcer Assessment] #2 L Lat LE -Combined with other wound No -Current Size (cm) - Length 2 -Current Size (cm) - Width 4 -Current Size (cm) - Depth 0.1 -Total Square Cm 8 -Photo Taken No -Tunneling No -Undermining/Tunneling No -Circular Undermining No -Classification - Thickness Full Thickness without Exposed Support Structure -Exudate Amt Small (1-33%) -Exudate Type Serosanguineous -Wound Margin Distinct, Outline Attached -Granulation Amt Medium (34-66%) -Granulation Quality [place] -Slough/Fibrin Yes -Necrosis Amt Medium (34-66%) -Necrotic Tissue Type Adherent Slough -Structure Exposed N/A -Texture (Genet-wound Skin Appearance) Assessed -Moisture (Genet-wound Skin Appearance Assessed ) Dry/Scaly -Color (Genet-wound Skin Appearance) Assessed -Temperature (Genet-wound Skin No Abnormality Appearance) (Pt Warm) -Tenderness on Palpation (Genet-wound No Skin Appearance) -Ulcer Cleansing Wound Cleanser -Foul Odor after Cleansing No -Anesthetic Used 5% Lidocaine Gel [Edema Assessment] -Lower Limb Edema Present Yes -Right Calf (cm) 45 -Right Ankle (cm) 27 -Left Calf (cm) 44 -Left Ankle (cm) 27.5 WC - Nurse 2 - General Ulcer CM Notes Start: 07/08/17 08:50 Freq: Status: Active Protocol: Activity Type Activity Date Activity User E-Sign Co-Sign Detail Recorded Client Recorded Date Recorded By Document 07/22/17 12:19 MW [id number] 07/22/17 12:24 MW 07/22/17 12:19 Wound Center Nurse 2 [Procedure/Treatment] #2 L Lat LE -Time 12:19 -Correct Patient Yes -Correct Side, Site, Position Yes -Correct Procedure Yes -Procedure Performed Yes -Type of Procedure Debridement -Clinical Debridement Subcutaneous -Post Debridement Size (cm) - Length 1.8 -Post Debridement Size (cm) - Width 3.6 -Post Debridement Size (cm) - Depth 0.1 -Total Square Cm 6.48 -Wound/Ulcer Outcome Not Healed -Ulcer Cleansing Rinsed/ Irrigated with Saline -Foul Odor after Cleansing No -Bioengineered Tissue No -Bleeding Controlled with Pressure -Treatment Response Procedure Tolerated Well [See Physician Procedure note for Specifics] Pain Scale: 0-10 Numeric [Pain] -Is Patient Pain Free? Yes Musculoskeletal: No Tenderness to Palpation of Joints or Extremities Neurological: - - epicritic sensation grossly absent to bilateral lower extremities Psych/Mental Status: Normal Affect, Appropriate Debridement Note Post-Debridement Measurements/Treatment WC - Nurse 2 - General Ulcer CM Notes Start: 07/08/17 08:50 Freq: Status: Active Protocol: Activity Type Activity Date Activity User E-Sign Co-Sign Detail Recorded Client Recorded Date Recorded By Document 07/08/17 09:16 MW [id number] 07/08/17 09:21 MW Document 07/22/17 12:19 MW [id number] 07/22/17 12:24 MW 07/08/17 07/22/17 09:16 12:19 Wound Center Nurse 2 #2 L Lat LE -Time 09:17 12:19 -Correct Patient Yes Yes -Correct Side, Site, Position Yes Yes -Correct Procedure Yes Yes -Procedure Performed Yes Yes -Type of Procedure Debridement Debridement -Clinical Debridement Selective Subcutaneous -Post Debridement Size (cm) - Length 4.0 1.8 -Post Debridement Size (cm) - Width 1.6 3.6 -Post Debridement Size (cm) - Depth 0.1 0.1 -Total Square Cm 6.40 6.48 -Wound/Ulcer Outcome Not Healed Not Healed -Ulcer Cleansing Rinsed/ Rinsed/ Irrigated with Irrigated with Saline Saline -Foul Odor after Cleansing No No -Bioengineered Tissue No No -Bleeding Controlled with Pressure Pressure -Treatment Response Procedure Procedure Tolerated Well Tolerated Well Pain Scale: 0-10 Numeric Is Patient Pain Free? Yes Yes Wound debrided: Left lower lateral leg Laterality: Left Type of Debridement: Excisional debridement Anesthesia Used: 4% Lidocaine Solution Depth: in the subcutaneous layer Percentage of wound debrided: 100 Instrument Used: 5mm curette Tissue Removed: slough, biofilm, hyperkeratotic tissue Severity: Fat Layer Exposed Amount of bleeding with debridement: Mild Bleeding Controlled with: Pressure Patient tolerated procedure well Assessment/Plan Assessment: Ulcer left lower leg, PVD, DM among other issues. Plan: Patient was again examined and evaluated today. A subcutaneous debridement was perfomred as ntoed in the clinical panel. Silvercel was applied to the ulcer base, followed by dry sterile dressing. Patient is to have this dressing changed every other day by home health care. Light compression tubigrip also applied to bilateral lower extremities today. He was instructed to keep pressure off of this area. Baseline labwork was ordered last week and the results were reviwed. Patient appears to have never had his LEAS or venous doppler studies completed. I suggested the patient have a diet high in protein to help optimize ulcer healing. Patient was educated on all signs and symptoms of local and systemic infection and was instructed to go to the ER immediately should he notice any. All other questions answered to the patient's satisfaction. He will follow up in clinic in one week, or sooner if needed.
--- NOTE | 2017-07-22 14:32 | PN.PCM_ITS ---
(1) Ulcer of left lower extremity with fat layer exposed Status: Acute Current Visit: No Code(s): L97.922 - Non-pressure chronic ulcer of unspecified part of left lower leg with fat layer exposed (2) PVD (peripheral vascular disease) Status: Acute Current Visit: No Code(s): I73.9 - Peripheral vascular disease , unspecified (3) Venous insufficiency Status: Suspected Current Visit: No Code(s): I87.2 - Venous insufficiency ( chronic) (peripheral) (4) Type 2 diabetes mellitus with diabetic polyneuropathy Status: Acute Current Visit: No Code(s): E11.42 - Type 2 diabetes mellitus with diabetic polyneuropathy (5) Malnutrition Status: Acute Current Visit: No Code(s): E46 - Unspecified protein-calorie malnutrition (6) Obesity Status: Acute Current Visit: No Code(s): E66.9 - Obesity, unspecified Type of Wound Date of Service: 07/22/17 Chief Complaint: Non healing ulcer to left lower leg. History of Wound: This patient presents to wound center after being referred by primary care for some blistering and ulcer to left lower leg. Patient is a poor historian and it is hard to get any information from him. He is unsure exactly how long he has has the ulcer to his left lower leg. He says his lower legs are always swollen usually and that he does not use compression. He says there has been some slight clearish drainage that he has noticed, but he says he has not done much to treat or dress the area on his own because he cannot get down to his legs easily. Again, this patient is a very poor historian so it was hard to get a clear picture of his wound history. Patient currently denies any feelings of nausea, vomiting, fever, or chills. Progress of Wound: Ulcer to the patients left lateral lower leg has shown some slight improvement since last visit. Patient says he has been having his dressing changed by home health. He says he has been trying to keep compression on the legs. Patient denies any feelings of nausea, vomiting, fever, or chills. - Physical Exam Vital Signs Temp Pulse Resp BP Pulse Ox 98.2 F 79 18 145/62 H 87 07/22/17 11:21 07/22/17 11:21 07/22/17 11:21 07/22/17 11:21 07/04/17 01:24 General: Alert, Oriented x3, Cooperative, No apparent distress Extremities: Capillary Refill Less than 3 Seconds, No Calf Tenderness - negative dayanara and block sign, Diminished Peripheral Pulses, Edema - Bilateral pitting lower extremity edema Skin: Ulcer/ Wound - Ulcer to left lower lateral leg. Measurements noted in clinical pannel. Ulcer base is a mixture of grandular tissue, fibrin, biofilm, and slough with some hyperkeratotic skin as well. There is no probing, tracking , undermining noted. There is no extending cellulitis, malodor, purulent drainage appreciated. There is some slight surrounding erythema. There is also bilateral hemosideren deposit skin changes to lower legs. Wound Measurements and Assessment WC - Nurse 1 - General Ulcer Measurement Start: 07/08/17 08:50 Freq: Status: Active Protocol: Activity Type Activity Date Activity User E-Sign Co-Sign Detail Recorded Client Recorded Date Recorded By Document 07/22/17 11:21 RB [id number] 07/22/17 11:38 RB 07/22/17 11:21 Wound Center Nurse 1 [Ulcer Assessment] #2 L Lat LE -Combined with other wound No -Current Size (cm) - Length 2 -Current Size (cm) - Width 4 -Current Size (cm) - Depth 0.1 -Total Square Cm 8 -Photo Taken No -Tunneling No -Undermining/Tunneling No -Circular Undermining No -Classification - Thickness Full Thickness without Exposed Support Structure -Exudate Amt Small (1-33%) -Exudate Type Serosanguineous -Wound Margin Distinct, Outline Attached -Granulation Amt Medium (34-66%) -Granulation Quality [place] -Slough/Fibrin Yes -Necrosis Amt Medium (34-66%) -Necrotic Tissue Type Adherent Slough -Structure Exposed N/A -Texture (Genet-wound Skin Appearance) Assessed -Moisture (Genet-wound Skin Appearance Assessed ) Dry/Scaly -Color (Genet-wound Skin Appearance) Assessed -Temperature (Genet-wound Skin No Abnormality Appearance) (Pt Warm) -Tenderness on Palpation (Genet-wound No Skin Appearance) -Ulcer Cleansing Wound Cleanser -Foul Odor after Cleansing No -Anesthetic Used 5% Lidocaine Gel [Edema Assessment] -Lower Limb Edema Present Yes -Right Calf (cm) 45 -Right Ankle (cm) 27 -Left Calf (cm) 44 -Left Ankle (cm) 27.5 WC - Nurse 2 - General Ulcer CM Notes Start: 07/08/17 08:50 Freq: Status: Active Protocol: Activity Type Activity Date Activity User E-Sign Co-Sign Detail Recorded Client Recorded Date Recorded By Document 07/22/17 12:19 MW [id number] 07/22/17 12:24 MW 07/22/17 12:19 Wound Center Nurse 2 [Procedure/Treatment] #2 L Lat LE -Time 12:19 -Correct Patient Yes -Correct Side, Site, Position Yes -Correct Procedure Yes -Procedure Performed Yes -Type of Procedure Debridement -Clinical Debridement Subcutaneous -Post Debridement Size (cm) - Length 1.8 -Post Debridement Size (cm) - Width 3.6 -Post Debridement Size (cm) - Depth 0.1 -Total Square Cm 6.48 -Wound/Ulcer Outcome Not Healed -Ulcer Cleansing Rinsed/ Irrigated with Saline -Foul Odor after Cleansing No -Bioengineered Tissue No -Bleeding Controlled with Pressure -Treatment Response Procedure Tolerated Well [See Physician Procedure note for Specifics] Pain Scale: 0-10 Numeric [Pain] -Is Patient Pain Free? Yes Musculoskeletal: No Tenderness to Palpation of Joints or Extremities Neurological: - - epicritic sensation grossly absent to bilateral lower extremities Psych/Mental Status: Normal Affect, Appropriate Debridement Note Post-Debridement Measurements/Treatment WC - Nurse 2 - General Ulcer CM Notes Start: 07/08/17 08:50 Freq: Status: Active Protocol: Activity Type Activity Date Activity User E-Sign Co-Sign Detail Recorded Client Recorded Date Recorded By Document 07/08/17 09:16 MW [id number] 07/08/17 09:21 MW Document 07/22/17 12:19 MW [id number] 07/22/17 12:24 MW 07/08/17 07/22/17 09:16 12:19 Wound Center Nurse 2 #2 L Lat LE -Time 09:17 12:19 -Correct Patient Yes Yes -Correct Side, Site, Position Yes Yes -Correct Procedure Yes Yes -Procedure Performed Yes Yes -Type of Procedure Debridement Debridement -Clinical Debridement Selective Subcutaneous -Post Debridement Size (cm) - Length 4.0 1.8 -Post Debridement Size (cm) - Width 1.6 3.6 -Post Debridement Size (cm) - Depth 0.1 0.1 -Total Square Cm 6.40 6.48 -Wound/Ulcer Outcome Not Healed Not Healed -Ulcer Cleansing Rinsed/ Rinsed/ Irrigated with Irrigated with Saline Saline -Foul Odor after Cleansing No No -Bioengineered Tissue No No -Bleeding Controlled with Pressure Pressure -Treatment Response Procedure Procedure Tolerated Well Tolerated Well Pain Scale: 0-10 Numeric Is Patient Pain Free? Yes Yes Wound debrided: Left lower lateral leg Laterality: Left Type of Debridement: Excisional debridement Anesthesia Used: 4% Lidocaine Solution Depth: in the subcutaneous layer Percentage of wound debrided: 100 Instrument Used: 5mm curette Tissue Removed: slough, biofilm, hyperkeratotic tissue Severity: Fat Layer Exposed Amount of bleeding with debridement: Mild Bleeding Controlled with: Pressure Patient tolerated procedure well Assessment/Plan Assessment: Ulcer left lower leg, PVD, DM among other issues. Plan: Patient was again examined and evaluated today. A subcutaneous debridement was perfomred as ntoed in the clinical panel. Silvercel was applied to the ulcer base, followed by dry sterile dressing. Patient is to have this dressing changed every other day by home health care. Light compression tubigrip also applied to bilateral lower extremities today. He was instructed to keep pressure off of this area. Baseline labwork was ordered last week and the results were reviwed. Patient appears to have never had his LEAS or venous doppler studies completed. I suggested the patient have a diet high in protein to help optimize ulcer healing. Patient was educated on all signs and symptoms of local and systemic infection and was instructed to go to the ER immediately should he notice any. All other questions answered to the patient's satisfaction. He will follow up in clinic in one week, or sooner if needed.
[2017-07-29 09:48] VITALS: BP 148/68; PULSE 68; RESP 18; TEMP 36.3
--- NOTE | 2017-07-29 13:55 | PCM.WC.PN ---
(1) Ulcer of left lower extremity with fat layer exposed Status: Acute Current Visit: No Code(s): L97.922 - Non-pressure chronic ulcer of unspecified part of left lower leg with fat layer exposed (2) PVD (peripheral vascular disease) Status: Acute Current Visit: No Code(s): I73.9 - Peripheral vascular disease, unspecified (3) Venous insufficiency Status: Suspected Current Visit: No Code(s): I87.2 - Venous insufficiency (chronic) (peripheral) (4) Type 2 diabetes mellitus with diabetic polyneuropathy Status: Acute Current Visit: No Code(s): E11.42 - Type 2 diabetes mellitus with diabetic polyneuropathy (5) Malnutrition Status: Acute Current Visit: No Code(s): E46 - Unspecified protein-calorie malnutrition (6) Obesity Status: Acute Current Visit: No Code(s): E66.9 - Obesity, unspecified Type of Wound Date of Service: 07/29/17 Chief Complaint: Non healing ulcer to left lower leg. History of Wound: This patient presents to wound center after being referred by primary care for some blistering and ulcer to left lower leg. Patient is a poor historian and it is hard to get any information from him. He is unsure exactly how long he has has the ulcer to his left lower leg. He says his lower legs are always swollen usually and that he does not use compression. He says there has been some slight clearish drainage that he has noticed, but he says he has not done much to treat or dress the area on his own because he cannot get down to his legs easily. Again, this patient is a very poor historian so it was hard to get a clear picture of his wound history. Patient currently denies any feelings of nausea, vomiting, fever, or chills. Progress of Wound: Ulcer to the patients left lateral lower leg has shown some slight improvement again this week since last visit. Patient says he has been having his dressing changed by home health. He says he has been trying to keep compression on the legs. Patient denies any feelings of nausea, vomiting, fever, or chills. - Physical Exam Vital Signs Temp Pulse Resp BP Pulse Ox 97.3 F L 68 18 148/68 H 87 07/29/17 09:48 07/29/17 09:48 07/29/17 09:48 07/29/17 09:48 07/04/17 01:24 General: Alert, Oriented x3, Cooperative, No apparent distress Extremities: Capillary Refill Less than 3 Seconds, No Calf Tenderness - negative dayanara and block sign, Diminished Peripheral Pulses, Edema - Bilateral pitting lower extremity edema Skin: Ulcer/ Wound - Ulcer to left lower lateral leg. Measurements noted below. Ulcer base is noted to be a mixture of granular tissue, fibrin, biofilm, and adherent slough with some slight hyperkeratotic tissue noted as well. There is no probing, no tracking, no undermining appreciated at this time. There is no extending cellulitis, no malodor no purulent drainage, and no significant increase in warmth. There is bilateral hemosiderin deposit skin changes noted to the lower legs. Wound Measurements and Assessment WC - Nurse 1 - General Ulcer Measurement Start: 07/08/17 08:50 Freq: Status: Active Protocol: Activity Type Activity Date Activity User E-Sign Co-Sign Detail Recorded Client Recorded Date Recorded By Document 07/29/17 09:48 [id number] 07/29/17 09:52 07/29/17 09:48 Wound Center Nurse 1 [Ulcer Assessment] #2 L Lat LE -Combined with other wound No -Current Size (cm) - Length 1.0 -Current Size (cm) - Width 0.8 -Current Size (cm) - Depth 0.1 -Total Square Cm 0.80 -Photo Taken No -Epithelialization Small 1-33% -Tunneling No -Undermining/Tunneling No -Circular Undermining No -Classification - Thickness Full Thickness without Exposed Support Structure -Exudate Amt Small (1-33%) -Exudate Type Serosanguineous -Wound Margin Distinct, Outline Attached -Granulation Amt Large (67-100%) -Granulation Quality Red -Slough/Fibrin Yes -Necrosis Amt Small (1-33%) -Necrotic Tissue Type Adherent Slough -Structure Exposed Fascia Fat Layer Exposed -Texture (Genet-wound Skin Appearance) Localized Edema Scarring -Moisture (Genet-wound Skin Appearance Dry/Scaly ) -Color (Genet-wound Skin Appearance) Erythema Hemosiderin Staining -Temperature (Genet-wound Skin No Abnormality Appearance) (Pt Warm) -Tenderness on Palpation (Genet-wound No Skin Appearance) -Ulcer Cleansing Rinsed/ Irrigated with Saline -Foul Odor after Cleansing No -Anesthetic Used 5% Lidocaine Gel [Edema Assessment] -Lower Limb Edema Present Yes -Left Calf (cm) 45.0 -Left Ankle (cm) 29.0 LÓPEZ - Nurse 2 - General Ulcer CM Notes Start: 07/08/17 08:50 Freq: Status: Active Protocol: Activity Type Activity Date Activity User E-Sign Co-Sign Detail Recorded Client Recorded Date Recorded By Document 07/29/17 10:42 MW [id number] 07/29/17 10:45 MW 07/29/17 10:42 Wound Center Nurse 2 [Procedure/Treatment] #2 L Lat LE -Time 10:42 -Correct Patient Yes -Correct Side, Site, Position Yes -Correct Procedure Yes -Procedure Performed Yes -Type of Procedure Debridement -Clinical Debridement Selective -Post Debridement Size (cm) - Length 0.8 -Post Debridement Size (cm) - Width 2.1 -Post Debridement Size (cm) - Depth 0.1 -Total Square Cm 1.68 -Wound/Ulcer Outcome Not Healed -Ulcer Cleansing Rinsed/ Irrigated with Saline -Foul Odor after Cleansing No -Bioengineered Tissue No -Bleeding Controlled with Pressure -Treatment Response Procedure Tolerated Well [See Physician Procedure note for Specifics] Pain Scale: 0-10 Numeric [Pain] -Is Patient Pain Free? Yes Musculoskeletal: No Tenderness to Palpation of Joints or Extremities Neurological: - - Epicritic sensation grossly absent to bilateral lower extremities Psych/Mental Status: Normal Affect, Appropriate Debridement Note Post-Debridement Measurements/Treatment [id number] - Nurse 2 - General Ulcer CM Notes Start: 07/08/17 08:50 Freq: Status: Active Protocol: Activity Type Activity Date Activity User E-Sign Co-Sign Detail Recorded Client Recorded Date Recorded By Document 07/08/17 09:16 MW [id number] 07/08/17 09:21 MW Document 07/22/17 12:19 MW [id number] 07/22/17 12:24 MW Document 07/29/17 10:42 MW [id number] 07/29/17 10:45 MW 07/08/17 07/22/17 07/29/17 09:16 12:19 10:42 Wound Center Nurse 2 #2 L Lat LE -Time 09:17 12:19 10:42 -Correct Patient Yes Yes Yes -Correct Side, Site, Position Yes Yes Yes -Correct Procedure Yes Yes Yes -Procedure Performed Yes Yes Yes -Type of Procedure Debridement Debridement Debridement -Clinical Debridement Selective Subcutaneous Selective -Post Debridement Size (cm) - Length 4.0 1.8 0.8 -Post Debridement Size (cm) - Width 1.6 3.6 2.1 -Post Debridement Size (cm) - Depth 0.1 0.1 0.1 -Total Square Cm 6.40 6.48 1.68 -Wound/Ulcer Outcome Not Healed Not Healed Not Healed -Ulcer Cleansing Rinsed/ Rinsed/ Rinsed/ Irrigated with Irrigated with Irrigated with Saline Saline Saline -Foul Odor after Cleansing No No No -Bioengineered Tissue No No No -Bleeding Controlled with Pressure Pressure Pressure -Treatment Response Procedure Procedure Procedure Tolerated Well Tolerated Well Tolerated Well Pain Scale: 0-10 Numeric Is Patient Pain Free? Yes Yes Yes Wound debrided: Left lower lateral leg Laterality: Left Type of Debridement: Selective debridement Anesthesia Used: 4% Lidocaine Solution Depth: in the subcutaneous layer Percentage of wound debrided: 100 Instrument Used: 5mm curette Tissue Removed: Adherent slough, biofilm, hyperkeratotic tissue Severity: Fat Layer Exposed Amount of bleeding with debridement: Mild Bleeding Controlled with: Pressure Patient tolerated procedure well Assessment/Plan Assessment: Ulcer left lower leg, PVD, DM among other issues. Plan: Patient was again examined and evaluated today. A selective debridement was perfomred as ntoed in the clinical panel. Silvercel was applied to the ulcer base, followed by dry sterile dressing. Patient is to have this dressing changed every other day by home health care. Light compression tubigrip also applied to bilateral lower extremities today. He was instructed to keep pressure off of this area. Baseline labwork was ordered last week and the results were reviwed. Patient appears to have never had his LEAS or venous doppler studies completed. These two tests were reordered for the patient today and he will be notified of his appointment time for these. We will review the results once complete. I suggested the patient have a diet high in protein to help optimize ulcer healing. Patient was educated on all signs and symptoms of local and systemic infection and was instructed to go to the ER immediately should he notice any. All other questions answered to the patient's satisfaction. He will follow up in clinic in one week, or sooner if needed.
--- NOTE | 2017-07-29 14:05 | PN.PCM_ITS ---
(1) Ulcer of left lower extremity with fat layer exposed Status: Acute Current Visit: No Code(s): L97.922 - Non-pressure chronic ulcer of unspecified part of left lower leg with fat layer exposed (2) PVD (peripheral vascular disease) Status: Acute Current Visit: No Code(s): I73.9 - Peripheral vascular disease , unspecified (3) Venous insufficiency Status: Suspected Current Visit: No Code(s): I87.2 - Venous insufficiency ( chronic) (peripheral) (4) Type 2 diabetes mellitus with diabetic polyneuropathy Status: Acute Current Visit: No Code(s): E11.42 - Type 2 diabetes mellitus with diabetic polyneuropathy (5) Malnutrition Status: Acute Current Visit: No Code(s): E46 - Unspecified protein-calorie malnutrition (6) Obesity Status: Acute Current Visit: No Code(s): E66.9 - Obesity, unspecified Type of Wound Date of Service: 07/29/17 Chief Complaint: Non healing ulcer to left lower leg. History of Wound: This patient presents to wound center after being referred by primary care for some blistering and ulcer to left lower leg. Patient is a poor historian and it is hard to get any information from him. He is unsure exactly how long he has has the ulcer to his left lower leg. He says his lower legs are always swollen usually and that he does not use compression. He says there has been some slight clearish drainage that he has noticed, but he says he has not done much to treat or dress the area on his own because he cannot get down to his legs easily. Again, this patient is a very poor historian so it was hard to get a clear picture of his wound history. Patient currently denies any feelings of nausea, vomiting, fever, or chills. Progress of Wound: Ulcer to the patients left lateral lower leg has shown some slight improvement again this week since last visit. Patient says he has been having his dressing changed by home health. He says he has been trying to keep compression on the legs. Patient denies any feelings of nausea, vomiting, fever , or chills. - Physical Exam Vital Signs Temp Pulse Resp BP Pulse Ox 97.3 F L 68 18 148/68 H 87 07/29/17 09:48 07/29/17 09:48 07/29/17 09:48 07/29/17 09:48 07/04/17 01:24 General: Alert, Oriented x3, Cooperative, No apparent distress Extremities: Capillary Refill Less than 3 Seconds, No Calf Tenderness - negative dayanara and block sign, Diminished Peripheral Pulses, Edema - Bilateral pitting lower extremity edema Skin: Ulcer/ Wound - Ulcer to left lower lateral leg. Measurements noted below. Ulcer base is noted to be a mixture of granular tissue, fibrin, biofilm , and adherent slough with some slight hyperkeratotic tissue noted as well. There is no probing, no tracking, no undermining appreciated at this time. There is no extending cellulitis, no malodor no purulent drainage, and no significant increase in warmth. There is bilateral hemosiderin deposit skin changes noted to the lower legs. Wound Measurements and Assessment WC - Nurse 1 - General Ulcer Measurement Start: 07/08/17 08:50 Freq: Status: Active Protocol: Activity Type Activity Date Activity User E-Sign Co-Sign Detail Recorded Client Recorded Date Recorded By Document 07/29/17 09:48 [id number] 07/29/17 09:52 07/29/17 09:48 Wound Center Nurse 1 [Ulcer Assessment] #2 L Lat LE -Combined with other wound No -Current Size (cm) - Length 1.0 -Current Size (cm) - Width 0.8 -Current Size (cm) - Depth 0.1 -Total Square Cm 0.80 -Photo Taken No -Epithelialization Small 1-33% -Tunneling No -Undermining/Tunneling No -Circular Undermining No -Classification - Thickness Full Thickness without Exposed Support Structure -Exudate Amt Small (1-33%) -Exudate Type Serosanguineous -Wound Margin Distinct, Outline Attached -Granulation Amt Large (67-100%) -Granulation Quality Red -Slough/Fibrin Yes -Necrosis Amt Small (1-33%) -Necrotic Tissue Type Adherent Slough -Structure Exposed Fascia Fat Layer Exposed -Texture (Genet-wound Skin Appearance) Localized Edema Scarring -Moisture (Genet-wound Skin Appearance Dry/Scaly ) -Color (Genet-wound Skin Appearance) Erythema Hemosiderin Staining -Temperature (Genet-wound Skin No Abnormality Appearance) (Pt Warm) -Tenderness on Palpation (Genet-wound No Skin Appearance) -Ulcer Cleansing Rinsed/ Irrigated with Saline -Foul Odor after Cleansing No -Anesthetic Used 5% Lidocaine Gel [Edema Assessment] -Lower Limb Edema Present Yes -Left Calf (cm) 45.0 -Left Ankle (cm) 29.0 LÓPEZ - Nurse 2 - General Ulcer CM Notes Start: 07/08/17 08:50 Freq: Status: Active Protocol: Activity Type Activity Date Activity User E-Sign Co-Sign Detail Recorded Client Recorded Date Recorded By Document 07/29/17 10:42 MW [id number] 07/29/17 10:45 MW 07/29/17 10:42 Wound Center Nurse 2 [Procedure/Treatment] #2 L Lat LE -Time 10:42 -Correct Patient Yes -Correct Side, Site, Position Yes -Correct Procedure Yes -Procedure Performed Yes -Type of Procedure Debridement -Clinical Debridement Selective -Post Debridement Size (cm) - Length 0.8 -Post Debridement Size (cm) - Width 2.1 -Post Debridement Size (cm) - Depth 0.1 -Total Square Cm 1.68 -Wound/Ulcer Outcome Not Healed -Ulcer Cleansing Rinsed/ Irrigated with Saline -Foul Odor after Cleansing No -Bioengineered Tissue No -Bleeding Controlled with Pressure -Treatment Response Procedure Tolerated Well [See Physician Procedure note for Specifics] Pain Scale: 0-10 Numeric [Pain] -Is Patient Pain Free? Yes Musculoskeletal: No Tenderness to Palpation of Joints or Extremities Neurological: - - Epicritic sensation grossly absent to bilateral lower extremities Psych/Mental Status: Normal Affect, Appropriate Debridement Note Post-Debridement Measurements/Treatment [id number] - Nurse 2 - General Ulcer CM Notes Start: 07/08/17 08:50 Freq: Status: Active Protocol: Activity Type Activity Date Activity User E-Sign Co-Sign Detail Recorded Client Recorded Date Recorded By Document 07/08/17 09:16 MW [id number] 07/08/17 09:21 MW Document 07/22/17 12:19 MW [id number] 07/22/17 12:24 MW Document 07/29/17 10:42 MW [id number] 07/29/17 10:45 MW 07/08/17 07/22/17 07/29/17 09:16 12:19 10:42 Wound Center Nurse 2 #2 L Lat LE -Time 09:17 12:19 10:42 -Correct Patient Yes Yes Yes -Correct Side, Site, Position Yes Yes Yes -Correct Procedure Yes Yes Yes -Procedure Performed Yes Yes Yes -Type of Procedure Debridement Debridement Debridement -Clinical Debridement Selective Subcutaneous Selective -Post Debridement Size (cm) - Length 4.0 1.8 0.8 -Post Debridement Size (cm) - Width 1.6 3.6 2.1 -Post Debridement Size (cm) - Depth 0.1 0.1 0.1 -Total Square Cm 6.40 6.48 1.68 -Wound/Ulcer Outcome Not Healed Not Healed Not Healed -Ulcer Cleansing Rinsed/ Rinsed/ Rinsed/ Irrigated with Irrigated with Irrigated with Saline Saline Saline -Foul Odor after Cleansing No No No -Bioengineered Tissue No No No -Bleeding Controlled with Pressure Pressure Pressure -Treatment Response Procedure Procedure Procedure Tolerated Well Tolerated Well Tolerated Well Pain Scale: 0-10 Numeric Is Patient Pain Free? Yes Yes Yes Wound debrided: Left lower lateral leg Laterality: Left Type of Debridement: Selective debridement Anesthesia Used: 4% Lidocaine Solution Depth: in the subcutaneous layer Percentage of wound debrided: 100 Instrument Used: 5mm curette Tissue Removed: Adherent slough, biofilm, hyperkeratotic tissue Severity: Fat Layer Exposed Amount of bleeding with debridement: Mild Bleeding Controlled with: Pressure Patient tolerated procedure well Assessment/Plan Assessment: Ulcer left lower leg, PVD, DM among other issues. Plan: Patient was again examined and evaluated today. A selective debridement was perfomred as ntoed in the clinical panel. Silvercel was applied to the ulcer base, followed by dry sterile dressing. Patient is to have this dressing changed every other day by home health care. Light compression tubigrip also applied to bilateral lower extremities today. He was instructed to keep pressure off of this area. Baseline labwork was ordered last week and the results were reviwed. Patient appears to have never had his LEAS or venous doppler studies completed. These two tests were reordered for the patient today and he will be notified of his appointment time for these. We will review the results once complete. I suggested the patient have a diet high in protein to help optimize ulcer healing. Patient was educated on all signs and symptoms of local and systemic infection and was instructed to go to the ER immediately should he notice any. All other questions answered to the patient's satisfaction. He will follow up in clinic in one week, or sooner if needed.
== END 2017-08-02 23:59 ==
LOC: WC 10:00
PROVIDERS: Family Provider Physician Assistant; PCP Physician Assistant; Visit Provider Podiatrist
DX: E11.622 Type 2 diabetes mellitus with other skin ulcer (principal); E11.51 Type 2 diabetes mellitus with diabetic peripheral angiopathy without gangrene; E11.42 Type 2 diabetes mellitus with diabetic polyneuropathy; E66.9 Obesity, unspecified; Z71.3 Dietary counseling and surveillance; L97.822 Non-pressure chronic ulcer of other part of left lower leg with fat layer exposed
CPT/HCPCS: 11042; 97597; 99212; G0463

== ENCOUNTER 2017-08-07 17:21 | Emergency (ER) | payer MEDICARE, SELFPAY ==
[2017-08-07 17:23] VITALS: BP 151/63; PULSE 91; RESP 22; TEMP 36.6; O2SAT 90; BMI 39.0
--- NOTE | 2017-08-07 17:30 | CT_ITS ---
STUDY: CT BRAIN WITHOUT CONTRAST REASON FOR EXAM: Male, 72 years old. Closed head injury after falling last evening. Patient has abrasions to nose and forehead. RADIATION DOSAGE (If Supplied By Facility): CTDIvol = ( 44.99 ) mGy, DLP = ( 711.75 ) mGycm TECHNIQUE: Transaxial CT imaging of the brain was performed without administration of intravenous contrast material. Multiplanar reformations are submitted for interpretation. Individualized dose optimization techniques were used for this CT. COMPARISON: None. FINDINGS: Normal soft tissue structures. Normal calvarium. There is mild cerebral atrophy with widening of the extra-axial spaces and ventricular dilatation. There are areas of decreased attenuation within the white matter tracts of the supratentorial brain, consistent with microvascular disease changes. Normal basal ganglia and thalami. Normal brainstem. Normal cerebellum. There is no intracranial hemorrhage. There are no findings of an acute ischemic infarction. Normal visualized paranasal sinuses. CT/Brain/Head without Contrast IMPRESSION: No CT evidence of acute intracranial hemorrhage. Electronically Signed: Jossie Arnold MD at 18:50 EDT , Service support ,
--- NOTE | 2017-08-07 17:30 | CT_ITS ---
STUDY: CT FACIAL BONES WITHOUT CONTRAST REASON FOR EXAM: Male, 72 years old. Recent fall last evening with facial trauma.. RADIATION DOSAGE (If Supplied By Facility): CTDIvol = ( 29.38 ) mGy, DLP = ( 576.84 ) mGycm TECHNIQUE: The patient was scanned in a multi detector CT scanner. Sagittal and coronal images were reconstructed. Individualized dose optimization techniques were used for this CT. COMPARISON: None. FINDINGS: Normal soft tissue structures. Normal orbital love and orbital contents. Normal nasal bones and anterior nasal spine. The love of frontal sinuses, love of maxillary sinuses, zygomatic arches, pterygoid plates and mandible have a normal appearance. There is no demonstrated fracture. Normal visualized paranasal sinuses. There is multilevel degenerative disc disease of the imaged cervical spine. Patient is edentulous. CT/Sinus/Facial Bone IMPRESSION: No CT evidence of acute facial bone fracture. Electronically Signed: Jossie Arnold MD at 18:54 EDT , Service support ,
--- NOTE | 2017-08-07 17:34 | ED.VISSUMM ---
- ER Visit Summary Date of Service: 08/07/17 Chief Complaint: Fall History of Present Illness: The patient is a 72 M presenting after fall which occurred last night. Patient states he was in bed and he rolled over and he rolled too far. He fell to the floor. He is unsure if he lost consciousness. He complains of pain in his nose and forehead. Denies other injury. He has been able to ambulate. He is not on any anticoagulants. He took Advil today with some improvement. His tetanus is up-to-date. Physical Examination: Vitals are stable. Patient is afebrile. Alert no acute distress. GCS 15 HEENT exam: abrasion to the nose and middle forehead. No septal hematoma. No hemotympanum. Midface is stable. Neck is nontender Lungs are clear and equal bilaterally. Heart is regular rate and rhythm. Abdomen is soft nontender nondistended. Extremities are unremarkable. Skin is warm and dry. No focal neurologic deficit. Remainder of exam is unremarkable. Emergency Department Course and Treatment: CT head and facial bones show no acute process. He is given an ice pack. Advised to follow-up with his primary care physician. Advised head injury instructions. Advised return to ED if worsening complaints. Disposition: Discharge home Impression: Status post mechanical fall, closed head injury, facial abrasion This note was generated with [employer] dictation software. It may contain incorrect words, spelling, and punctuation that were not noted in review of the chart prior to signing ED Disposition - Plan for ED Patient: Chief Complaint: Fall Instructions: ED Mechanical Fall, ED Head Injury Closed Referrals: Jovani Mendez PA [Primary Care Provider] -
--- NOTE | 2017-08-07 18:56 | ED.DEP ---
ED Disposition - Plan for ED Patient: Chief Complaint: Fall Instructions: ED Mechanical Fall, ED Head Injury Closed Referrals: Jovani Mendez PA [Primary Care Provider] -
[2017-08-07 19:04] VITALS: BP 140/60; PULSE 76; RESP 19; O2SAT 93
--- NOTE | 2017-08-07 19:04 | ED.RN ---
pt given written and verbal discharge instructions. pt educated by dr. cat on proper advil medication dosing. pt verbalizes understanding and ambulates out of dept without assistance from staff.
== END 2017-08-07 19:06 | disposition home or self-care (01) ==
PROVIDERS: Emergency Provider Emergency Medicine; Family Provider Physician Assistant; PCP Physician Assistant
DX: S00.31XA Abrasion of nose, initial encounter (principal); S00.81XA Abrasion of other part of head, initial encounter; W06.XXXA Fall from bed, initial encounter; Y93.9 Activity, unspecified; Y92.9 Unspecified place or not applicable; I50.9 Heart failure, unspecified; I73.9 Peripheral vascular disease, unspecified; E78.00 Pure hypercholesterolemia, unspecified; E11.9 Type 2 diabetes mellitus without complications; E03.9 Hypothyroidism, unspecified; Z79.84 Long term (current) use of oral hypoglycemic drugs; Z79.899 Other long term (current) drug therapy
CPT/HCPCS: 70450; 70486; 99282

== ENCOUNTER 2017-08-13 12:57 | Emergency (ER) | payer MEDICARE, SELFPAY ==
[2017-08-13 12:58] VITALS: BP 149/72; PULSE 80; RESP 28; TEMP 36.9; O2SAT 96; BMI 45.3
--- NOTE | 2017-08-13 13:10 | EKG12_ITS ---
Test Reason : SOB/PAINFUL INSPIRAT Blood Pressure : / mmHG Vent. Rate : 080 BPM Atrial Rate : 080 BPM P-R Int : 168 ms QRS Dur : 152 ms QT Int : 432 ms P-R-T Axes : 054 -70 034 degrees QTc Int : 498 ms Normal sinus rhythm Right bundle branch block Left anterior fascicular block Bifascicular block Abnormal ECG Confirmed by JENNIFER CARDOSO, LIZ ([id number]), editor sound DUY BAR ([id number]) on 08/17/2017 1:58:11 PM Referred By: Confirmed By:LIZ RODRIGUEZ MD
--- NOTE | 2017-08-13 13:10 | RAD_ITS ---
STUDY: X-RAY CHEST REASON FOR EXAM: Male, 72 years old. Increasing shortness of breath and chest pain. TECHNIQUE: AP and lateral views of the chest. COMPARISON: Comparison is made with prior study dated May 21, 2017. FINDINGS: EKG electrodes are seen. The lungs are clear and expanded. There is no demonstrated pleural abnormality. There is moderate cardiac enlargement. Normal mediastinum and shauna. Normal visualized pulmonary arteries. Normal visualized aortic arch and descending thoracic aorta. Normal visualized thoracic spine. There is degenerative osteoarthritis of the bilateral shoulders. There is no demonstrated abnormality of the visualized soft tissue structures of the upper abdomen. RAD/Chest PA and Lateral IMPRESSION: Cardiomegaly. Electronically Signed: Wing Jeronimo MD at 14:14 EDT Tel [phone], Service support ,
[2017-08-13 13:19] VITALS: BP 153/59; PULSE 79; RESP 20; O2SAT 93
--- NOTE | 2017-08-13 13:20 | ED.DCSUM_ITS ---
- ER Visit Summary Date of Service: 08/13/17 Chief Complaint: Per triage shortness of breath, wheezing and chest pain History of Present Illness: The patient is a 72 M who presents because he states he is wheezing and it hurts in here . He points to his chest. He also complains of shortness of breath. He denies orthopnea. He does report pedal edema. This is a chronic issue. He denies fever, chills night sweats. He has a mild cough which is nonproductive. He denies headache, visual disturbance, runny nose, congestion, postnasal drainage, sore throat or earache. He denies any abdominal pain. Denies nausea, vomiting diarrhea. He denies any urologic symptoms. Review of prior records indicates patient has history of chronic chest pain. He also has history of congestive heart failure , type 2 diabetes, vascular disease, venous stasis and hypothyroidism. Physical Examination: Vital signs are remarkable for a blood pressure 149/72. BMI is 45.4. Patient is breathing and abnormal and unnatural way which produces abnormal sound which was interpreted as wheezing and is actually upper airway. When patient is told to stop breathing as he is there is no abnormal sounds noted and there is no stridor noted on inspiration or expiration with auscultation of the neck. Head is atraumatic normal cephalic. There is mild exopthalmosis. TMs are normal. Trachea is midline. Lungs are clear to auscultation with good move air bilaterally. Heart is regular without murmur, gallop or rub. Abdomen is prominent with no tenderness. He has dermatologic changes consist with venous stasis and lower extremity and significant pitting edema bilaterally. He is alert oriented. Patient became angry and upset when I informed him that he is not having any wheezing. He yelled I am to having chest pain right here . I informed the patient I am not doubting whether he is having chest pain. I am telling you that your breathing is not abnormal. Test Results: G reveals a sinus rhythm rate of 80 with a right bundle branch block and a left anterior fascicular block and unchanged from May 21, 2017. Two-view chest x-ray reveals chronic changes and unchanged from May 21, 2017. H&H 10.6 and 30.6, which is baseline. Glucose elevated to 68. Troponin is less than 0.015. Emergency Department Course and Treatment: Since patient is a poor informant elderly with medical problems EKG, chest x-ray appropriate blood work was obtained to evaluate his symptoms. Treatment Plan: Patient had multiple admissions for chest pain with no determine etiology. Since his workup was unremarkable and he is causing himself to have expiratory stridor will discharge to home. Of note he does have history of anxiety disorder. Disposition: Discharged home in stable condition Impression: 1. Dyspnea 2. Anxiety 3. Chest pain unknown etiology 4. History of diabetes 5. History of congestive heart failure 6. History of hypothyroidism This note was generated with [employer]Model dictation software. It may contain incorrect words, spelling, and punctuation that were not noted in review of the chart prior to signing ED Disposition - Plan for ED Patient: Disposition: Home or Assisted Living Chief Complaint: Shortness of Breath Instructions: ED Dyspnea Shortness of Breath, ED Chest Pain NonCardiac Referrals: Jovani Mendez PA [Primary Care Provider] - 3-5 Days
[2017-08-13 13:26] LABS: Absolute Lymphocyte Count 1.45 X10^3/ul (0.83-4.51); Absolute Neutrophil Count 3.9 X10^3/uL (2.0-7.7); Basophil# 0.01 X10^3/uL; Basophil% 0.2 % (0-1); Eosinophil# 0.14 X10^3/uL; Eosinophils% 2.3 % (0-5); Hematocrit 33.6 % (40-54); Hemoglobin 10.6 g/dl (13.0-16.5); Lymphocyte # 1.45 X10^3/ul (4.0); Lymphocyte % 24.3 % (19-41); Mean Corp Hgb Conc 31.5 g/gl (32-36); Mean Corpuscular Hgb 29.3 pg (27.0-32.0); Mean Corpuscular Volume 92.8 fL (80-94); Monocyte% 8.4 % (0-10); Neutrophil # 3.85 X10^3/uL (2.7-7.7); Neutrophil % 64.6 % (47-70); POSITIVE COUNT NO; POSITIVE DIFFERENTIAL NO; POSITIVE MORPHOLOGY NO; Platelet Count 127 K/mm3 (150-450); RBC Distribution Width CV 14.9 % (11.6-14.6); RBC Distribution Width SD 50.7 fl (35.1-43.9); Red Blood Count 3.62 M/mm3 (4.6-6.2)
[2017-08-13 13:39] VITALS: O2SAT 96
[2017-08-13 13:41] LABS: Anion Gap 7 (5-15); BUN 21 mg/dL (7-18); BUN/Creat Ratio 28.4 RATIO (10-20); Chloride 103 mmol/L (98-107); Creatinine, Serum 0.74 mg/dL (0.70-1.30); EST Glomerular Filtration Rate 110 mL/min (>60); Est Glom Filt Rate - Afr Amer 133 mL/min (>60); Estimated Creatinine Clearance 48.67 ml/min; Glucose 268 mg/dL (74-106); Sodium Level 139 mmol/L (136-145)
[2017-08-13 14:06] VITALS: RESP 20
== END 2017-08-13 14:07 | disposition home or self-care (01) ==
PROVIDERS: Emergency Provider Emergency Medicine; Family Provider Physician Assistant; PCP Physician Assistant
DX: R06.00 Dyspnea, unspecified (principal); F41.9 Anxiety disorder, unspecified; R07.9 Chest pain, unspecified; G89.29 Other chronic pain; E11.9 Type 2 diabetes mellitus without complications; I50.9 Heart failure, unspecified; E03.9 Hypothyroidism, unspecified; I87.8 Other specified disorders of veins; I73.9 Peripheral vascular disease, unspecified; E66.9 Obesity, unspecified; Z68.42 Body mass index [BMI] 45.0-49.9, adult; Z79.84 Long term (current) use of oral hypoglycemic drugs; Z79.899 Other long term (current) drug therapy; Z87.891 Personal history of nicotine dependence
CPT/HCPCS: 71046; 80048; 84484; 85025; 93005; 99284

== ENCOUNTER 2017-08-20 10:02 | Emergency (ER) | payer MEDICARE, SELFPAY ==
[2017-08-20 10:03] VITALS: BP 144/46; PULSE 79; RESP 18; TEMP 36.8; O2SAT 92; BMI 42.5
--- NOTE | 2017-08-20 10:35 | ED.VISSUMM ---
- ER Visit Summary Date of Service: 08/20/17 Chief Complaint: Ruptured blister left lower leg History of Present Illness: The patient is a 72 M has chronic swelling of venous insufficiency that is treated the wound care center. He also has a history of diabetes. He had a blister rupture in his left lower leg today. He wanted wound care to have it evaluated and they were unable to see him because it have an appointment they were busy. They were happy to reschedule him for next week when he became upset and came to the ER. He denies any fever. Her pus. Physical Examination: Well appearing older male. Vital signs are stable afebrile. No acute distress. H EENT exam unremarkable. Neck nontender. Lungs clear to auscultation bilaterally. Heart regular rhythm no murmur. Abdomen soft obese nontender normal bowel sounds no peritoneal signs. He is moving all 4 extremities. Neurovascular intact. He does have venous insufficiency chronic edema both lower extremities. There is chronic skin changes and redness but not acute cellulitis bilaterally lower shins. It is equal and symmetrical. He had a quarter size blister on the left lower lateral leg rupture. There is no bleeding. No pus. It is not acutely infected. Dorsi and plantar flexion is intact. DP pulses are intact. His feet are warm and have normal sensation. Test Results: None Emergency Department Course and Treatment: Nurses will clean and dress the wound. Currently is not infected. Treatment Plan: Follow-up of wound care center next week. Watch for any signs of infection. Disposition: Discharge Impression: Left lower leg wound. History of plt-yhugxlj-becjihmwd diabetes. History of chronic bilateral lower extremity edema and venous insufficiency This note was generated with [employer] dictation software. It may contain incorrect words, spelling, and punctuation that were not noted in review of the chart prior to signing ED Disposition - Plan for ED Patient: Chief Complaint: Wound Referrals: Jovani Mendez PA [Primary Care Provider] -
--- NOTE | 2017-08-20 10:38 | ED.DCSUM_ITS ---
- ER Visit Summary Date of Service: 08/20/17 Chief Complaint: Ruptured blister left lower leg History of Present Illness: The patient is a 72 M has chronic swelling of venous insufficiency that is treated the wound care center. He also has a history of diabetes. He had a blister rupture in his left lower leg today. He wanted wound care to have it evaluated and they were unable to see him because it have an appointment they were busy. They were happy to reschedule him for next week when he became upset and came to the ER. He denies any fever. Her pus. Physical Examination: Well appearing older male. Vital signs are stable afebrile. No acute distress. H EENT exam unremarkable. Neck nontender. Lungs clear to auscultation bilaterally. Heart regular rhythm no murmur. Abdomen soft obese nontender normal bowel sounds no peritoneal signs. He is moving all 4 extremities. Neurovascular intact. He does have venous insufficiency chronic edema both lower extremities. There is chronic skin changes and redness but not acute cellulitis bilaterally lower shins. It is equal and symmetrical. He had a quarter size blister on the left lower lateral leg rupture. There is no bleeding. No pus. It is not acutely infected. Dorsi and plantar flexion is intact. DP pulses are intact. His feet are warm and have normal sensation. Test Results: None Emergency Department Course and Treatment: Nurses will clean and dress the wound. Currently is not infected. Treatment Plan: Follow-up of wound care center next week. Watch for any signs of infection. Disposition: Discharge Impression: Left lower leg wound. History of aog-alwbczg-sajmtkgpi diabetes. History of chronic bilateral lower extremity edema and venous insufficiency This note was generated with [employer] dictation software. It may contain incorrect words, spelling, and punctuation that were not noted in review of the chart prior to signing ED Disposition - Plan for ED Patient: Chief Complaint: Wound Referrals: Jovani Mendez PA [Primary Care Provider] -
--- NOTE | 2017-08-20 10:38 | ED.DEP ---
ED Disposition - Plan for ED Patient: Disposition: Home or Assisted Living Chief Complaint: Wound Instructions: Discharge Instructions: Caring for Your Wound Additional Instructions: Keep wound clean. Apply antibiotic ointment twice daily. Watch for any signs of infection. Call and follow-up with wound care center next week.
[2017-08-20 11:03] VITALS: PULSE 91; RESP 24; O2SAT 94
--- NOTE | 2017-08-20 11:04 | ED.RN ---
THIS NURSE REVIEWED D/C INSTRUCTIONS WITH PT. PT VERBALIZED UNDERSTANDING OF INSTRUCTIONS. PT DENIES FURTHER NEEDS OR QUESTIONS AT THIS TIME. PT AMBULATES FROM ROOM ON OWN WITHOUT ASSISTANCE FROM STAFF
== END 2017-08-20 11:05 | disposition home or self-care (01) ==
PROVIDERS: Emergency Provider Emergency Medicine; Family Provider Physician Assistant; PCP Physician Assistant
DX: S80.822A Blister (nonthermal), left lower leg, initial encounter (principal); X58.XXXA Exposure to other specified factors, initial encounter; Y93.9 Activity, unspecified; Y92.9 Unspecified place or not applicable; I87.2 Venous insufficiency (chronic) (peripheral); E11.9 Type 2 diabetes mellitus without complications; R60.0 Localized edema; Z79.84 Long term (current) use of oral hypoglycemic drugs; Z79.899 Other long term (current) drug therapy
CPT/HCPCS: 99282

== ENCOUNTER 2017-09-02 09:15 | Outpatient (RCR) | payer MEDICARE, SELFPAY ==
[2017-08-03 01:02] VITALS: PULSE 68; RESP 18; TEMP 36.3; O2SAT 87
[2017-08-05 11:12] VITALS: BP 143/73; PULSE 78; RESP 20; TEMP 37.1
--- NOTE | 2017-08-05 14:38 | PCM.WC.PN ---
(1) Ulcer of left lower extremity with fat layer exposed Status: Acute Current Visit: No Code(s): L97.922 - Non-pressure chronic ulcer of unspecified part of left lower leg with fat layer exposed (2) PVD (peripheral vascular disease) Status: Acute Current Visit: No Code(s): I73.9 - Peripheral vascular disease, unspecified (3) Venous insufficiency Status: Suspected Current Visit: No Code(s): I87.2 - Venous insufficiency (chronic) (peripheral) (4) Type 2 diabetes mellitus with diabetic polyneuropathy Status: Acute Current Visit: No Code(s): E11.42 - Type 2 diabetes mellitus with diabetic polyneuropathy (5) Malnutrition Status: Acute Current Visit: No Code(s): E46 - Unspecified protein-calorie malnutrition (6) Obesity Status: Acute Current Visit: No Code(s): E66.9 - Obesity, unspecified Type of Wound Date of Service: 08/05/17 Chief Complaint: Non healing ulcer to left lower leg. History of Wound: This patient presents to wound center after being referred by primary care for some blistering and ulcer to left lower leg. Patient is a poor historian and it is hard to get any information from him. He is unsure exactly how long he has has the ulcer to his left lower leg. He says his lower legs are always swollen usually and that he does not use compression. He says there has been some slight clearish drainage that he has noticed, but he says he has not done much to treat or dress the area on his own because he cannot get down to his legs easily. Again, this patient is a very poor historian so it was hard to get a clear picture of his wound history. Patient currently denies any feelings of nausea, vomiting, fever, or chills. Progress of Wound: Ulcer to the patients left lateral lower leg appears to be healed soon. Patient says he has been having his dressing changed by home health. He says he has been trying to keep compression on the legs. Patient denies any feelings of nausea, vomiting, fever, or chills. - Physical Exam Vital Signs Temp Pulse Resp BP Pulse Ox 98.7 F 78 20 H 143/73 H 87 08/05/17 11:12 08/05/17 11:12 08/05/17 11:12 08/05/17 11:12 08/03/17 01:02 General: Alert, Oriented x3, Cooperative, No apparent distress Extremities: Capillary Refill Less than 3 Seconds, No Calf Tenderness - Negative Yehuda and Tomlinson sign, Diminished Peripheral Pulses, Edema - Bilateral pitting lower extremity edema Skin: Ulcer/ Wound - Ulcer to left lower lateral leg appears to be healed today. There is no extending cellulitis or any other signs of local infection noted. Wound Measurements and Assessment WC - Nurse 1 - General Ulcer Measurement Start: 08/05/17 11:12 Freq: Status: Active Protocol: Activity Type Activity Date Activity User E-Sign Co-Sign Detail Recorded Client Recorded Date Recorded By Document 08/05/17 11:15 SANIA [id number] 08/05/17 11:29 SANIA 08/05/17 11:15 Wound Center Nurse 1 [Ulcer Assessment] #2 L Lat LE -Combined with other wound No -Current Size (cm) - Length 0.1 -Current Size (cm) - Width 0.1 -Current Size (cm) - Depth 0.1 -Total Square Cm 0.01 -Date of Last Picture (Recall this 08/05/17 field) -Photo Taken Yes -Epithelialization Small 1-33% -Tunneling No -Undermining/Tunneling No -Circular Undermining No -Classification - Thickness Full Thickness without Exposed Support Structure -Change in Wound Grade/Stage No Query Text:If change please identify the Stage/Grade in the comment (ie. S2 G3) -Exudate Amt Small (1-33%) -Exudate Type Serosanguineous -Wound Margin Distinct, Outline Attached -Granulation Amt Small (1-33%) -Granulation Quality Red -Slough/Fibrin Yes -Necrosis Amt None Present (0 %) -Necrotic Tissue Type Adherent Slough -Structure Exposed Fascia Fat Layer Exposed -Texture (Genet-wound Skin Appearance) Localized Edema -Moisture (Genet-wound Skin Appearance No Abnormality ) -Color (Genet-wound Skin Appearance) Hemosiderin Staining -Temperature (Genet-wound Skin No Abnormality Appearance) (Pt Warm) -Tenderness on Palpation (Genet-wound No Skin Appearance) -Ulcer Cleansing Rinsed/ Irrigated with Saline -Foul Odor after Cleansing No -Anesthetic Used 4% Lidocaine Solution [Edema Assessment] -Lower Limb Edema Present Yes -Right Calf (cm) 44.5 -Right Ankle (cm) 29.5 -Left Calf (cm) 44.5 -Left Ankle (cm) 28.5 WC - Nurse 2 - General Ulcer CM Notes Start: 08/05/17 11:12 Freq: Status: Active Protocol: Activity Type Activity Date Activity User E-Sign Co-Sign Detail Recorded Client Recorded Date Recorded By Document 08/05/17 11:53 MW [id number] 08/05/17 11:54 MW 08/05/17 11:53 Wound Center Nurse 2 [Procedure/Treatment] #2 L Lat LE -Time 11:53 -Correct Patient Yes -Correct Side, Site, Position Yes -Correct Procedure Yes -Procedure Performed No -Post Debridement Size (cm) - Length 0 -Post Debridement Size (cm) - Width 0 -Post Debridement Size (cm) - Depth 0 -Total Square Cm 0 -Wound/Ulcer Outcome Healed- Epithelialized -Ulcer Cleansing Not Cleansed -Foul Odor after Cleansing No -Bleeding Controlled with NA -Treatment Response Procedure Tolerated Well [See Physician Procedure note for Specifics] Musculoskeletal: No Tenderness to Palpation of Joints or Extremities Neurological: - - Epicritic sensation grossly absent to bilateral lower extremities Psych/Mental Status: Normal Affect, Appropriate Debridement Note Post-Debridement Measurements/Treatment WC - Nurse 2 - General Ulcer CM Notes Start: 08/05/17 11:12 Freq: Status: Active Protocol: Activity Type Activity Date Activity User E-Sign Co-Sign Detail Recorded Client Recorded Date Recorded By Document 08/05/17 11:53 MW [id number] 08/05/17 11:54 MW 08/05/17 11:53 Wound Center Nurse 2 #2 L Lat LE -Time 11:53 -Correct Patient Yes -Correct Side, Site, Position Yes -Correct Procedure Yes -Procedure Performed No -Post Debridement Size (cm) - Length 0 -Post Debridement Size (cm) - Width 0 -Post Debridement Size (cm) - Depth 0 -Total Square Cm 0 -Wound/Ulcer Outcome Healed- Epithelialized -Ulcer Cleansing Not Cleansed -Foul Odor after Cleansing No -Bleeding Controlled with NA -Treatment Response Procedure Tolerated Well No debridement was completed today Assessment/Plan Assessment: Ulcer left lower leg, PVD, DM among other issues. Plan: Patient was again examined and evaluated today. Patient's ulcer appears to be healed at this time with no signs of infection appreciated currently. Light compression tubigrip also applied to bilateral lower extremities today and he was educated on the importance of wearing these in order to prevent the ulcers from reopening. I suggested the patient continue to have a diet high in protein to help optimize ulcer healing. Patient was educated on all signs and symptoms of local and systemic infection and was instructed to go to the ER immediately should he notice any. All other questions answered to the patient's satisfaction. He will be discharged at this time and will follow up on an as needed basis.
--- NOTE | 2017-08-05 14:44 | PN.PCM_ITS ---
(1) Ulcer of left lower extremity with fat layer exposed Status: Acute Current Visit: No Code(s): L97.922 - Non-pressure chronic ulcer of unspecified part of left lower leg with fat layer exposed (2) PVD (peripheral vascular disease) Status: Acute Current Visit: No Code(s): I73.9 - Peripheral vascular disease , unspecified (3) Venous insufficiency Status: Suspected Current Visit: No Code(s): I87.2 - Venous insufficiency ( chronic) (peripheral) (4) Type 2 diabetes mellitus with diabetic polyneuropathy Status: Acute Current Visit: No Code(s): E11.42 - Type 2 diabetes mellitus with diabetic polyneuropathy (5) Malnutrition Status: Acute Current Visit: No Code(s): E46 - Unspecified protein-calorie malnutrition (6) Obesity Status: Acute Current Visit: No Code(s): E66.9 - Obesity, unspecified Type of Wound Date of Service: 08/05/17 Chief Complaint: Non healing ulcer to left lower leg. History of Wound: This patient presents to wound center after being referred by primary care for some blistering and ulcer to left lower leg. Patient is a poor historian and it is hard to get any information from him. He is unsure exactly how long he has has the ulcer to his left lower leg. He says his lower legs are always swollen usually and that he does not use compression. He says there has been some slight clearish drainage that he has noticed, but he says he has not done much to treat or dress the area on his own because he cannot get down to his legs easily. Again, this patient is a very poor historian so it was hard to get a clear picture of his wound history. Patient currently denies any feelings of nausea, vomiting, fever, or chills. Progress of Wound: Ulcer to the patients left lateral lower leg appears to be healed soon. Patient says he has been having his dressing changed by home health. He says he has been trying to keep compression on the legs. Patient denies any feelings of nausea, vomiting, fever, or chills. - Physical Exam Vital Signs Temp Pulse Resp BP Pulse Ox 98.7 F 78 20 H 143/73 H 87 08/05/17 11:12 08/05/17 11:12 08/05/17 11:12 08/05/17 11:12 08/03/17 01:02 General: Alert, Oriented x3, Cooperative, No apparent distress Extremities: Capillary Refill Less than 3 Seconds, No Calf Tenderness - Negative Yehuda and Tomlinson sign, Diminished Peripheral Pulses, Edema - Bilateral pitting lower extremity edema Skin: Ulcer/ Wound - Ulcer to left lower lateral leg appears to be healed today. There is no extending cellulitis or any other signs of local infection noted. Wound Measurements and Assessment WC - Nurse 1 - General Ulcer Measurement Start: 08/05/17 11:12 Freq: Status: Active Protocol: Activity Type Activity Date Activity User E-Sign Co-Sign Detail Recorded Client Recorded Date Recorded By Document 08/05/17 11:15 SANIA [id number] 08/05/17 11:29 SANIA 08/05/17 11:15 Wound Center Nurse 1 [Ulcer Assessment] #2 L Lat LE -Combined with other wound No -Current Size (cm) - Length 0.1 -Current Size (cm) - Width 0.1 -Current Size (cm) - Depth 0.1 -Total Square Cm 0.01 -Date of Last Picture (Recall this 08/05/17 field) -Photo Taken Yes -Epithelialization Small 1-33% -Tunneling No -Undermining/Tunneling No -Circular Undermining No -Classification - Thickness Full Thickness without Exposed Support Structure -Change in Wound Grade/Stage No Query Text:If change please identify the Stage/Grade in the comment (ie. S2 G3) -Exudate Amt Small (1-33%) -Exudate Type Serosanguineous -Wound Margin Distinct, Outline Attached -Granulation Amt Small (1-33%) -Granulation Quality Red -Slough/Fibrin Yes -Necrosis Amt None Present (0 %) -Necrotic Tissue Type Adherent Slough -Structure Exposed Fascia Fat Layer Exposed -Texture (Genet-wound Skin Appearance) Localized Edema -Moisture (Genet-wound Skin Appearance No Abnormality ) -Color (Genet-wound Skin Appearance) Hemosiderin Staining -Temperature (Genet-wound Skin No Abnormality Appearance) (Pt Warm) -Tenderness on Palpation (Genet-wound No Skin Appearance) -Ulcer Cleansing Rinsed/ Irrigated with Saline -Foul Odor after Cleansing No -Anesthetic Used 4% Lidocaine Solution [Edema Assessment] -Lower Limb Edema Present Yes -Right Calf (cm) 44.5 -Right Ankle (cm) 29.5 -Left Calf (cm) 44.5 -Left Ankle (cm) 28.5 WC - Nurse 2 - General Ulcer CM Notes Start: 08/05/17 11:12 Freq: Status: Active Protocol: Activity Type Activity Date Activity User E-Sign Co-Sign Detail Recorded Client Recorded Date Recorded By Document 08/05/17 11:53 MW [id number] 08/05/17 11:54 MW 08/05/17 11:53 Wound Center Nurse 2 [Procedure/Treatment] #2 L Lat LE -Time 11:53 -Correct Patient Yes -Correct Side, Site, Position Yes -Correct Procedure Yes -Procedure Performed No -Post Debridement Size (cm) - Length 0 -Post Debridement Size (cm) - Width 0 -Post Debridement Size (cm) - Depth 0 -Total Square Cm 0 -Wound/Ulcer Outcome Healed- Epithelialized -Ulcer Cleansing Not Cleansed -Foul Odor after Cleansing No -Bleeding Controlled with NA -Treatment Response Procedure Tolerated Well [See Physician Procedure note for Specifics] Musculoskeletal: No Tenderness to Palpation of Joints or Extremities Neurological: - - Epicritic sensation grossly absent to bilateral lower extremities Psych/Mental Status: Normal Affect, Appropriate Debridement Note Post-Debridement Measurements/Treatment WC - Nurse 2 - General Ulcer CM Notes Start: 08/05/17 11:12 Freq: Status: Active Protocol: Activity Type Activity Date Activity User E-Sign Co-Sign Detail Recorded Client Recorded Date Recorded By Document 08/05/17 11:53 MW [id number] 08/05/17 11:54 MW 08/05/17 11:53 Wound Center Nurse 2 #2 L Lat LE -Time 11:53 -Correct Patient Yes -Correct Side, Site, Position Yes -Correct Procedure Yes -Procedure Performed No -Post Debridement Size (cm) - Length 0 -Post Debridement Size (cm) - Width 0 -Post Debridement Size (cm) - Depth 0 -Total Square Cm 0 -Wound/Ulcer Outcome Healed- Epithelialized -Ulcer Cleansing Not Cleansed -Foul Odor after Cleansing No -Bleeding Controlled with NA -Treatment Response Procedure Tolerated Well No debridement was completed today Assessment/Plan Assessment: Ulcer left lower leg, PVD, DM among other issues. Plan: Patient was again examined and evaluated today. Patient's ulcer appears to be healed at this time with no signs of infection appreciated currently. Light compression tubigrip also applied to bilateral lower extremities today and he was educated on the importance of wearing these in order to prevent the ulcers from reopening. I suggested the patient continue to have a diet high in protein to help optimize ulcer healing. Patient was educated on all signs and symptoms of local and systemic infection and was instructed to go to the ER immediately should he notice any. All other questions answered to the patient's satisfaction. He will be discharged at this time and will follow up on an as needed basis.
[2017-08-26 09:37] VITALS: BP 150/68; PULSE 85; RESP 19; TEMP 36.4
--- NOTE | 2017-08-26 14:18 | PCM.WC.PN ---
(1) Ulcer of left lower extremity with fat layer exposed Status: Acute Current Visit: No Code(s): L97.922 - Non-pressure chronic ulcer of unspecified part of left lower leg with fat layer exposed (2) PVD (peripheral vascular disease) Status: Acute Current Visit: No Code(s): I73.9 - Peripheral vascular disease, unspecified (3) Venous insufficiency Status: Suspected Current Visit: No Code(s): I87.2 - Venous insufficiency (chronic) (peripheral) (4) Type 2 diabetes mellitus with diabetic polyneuropathy Status: Acute Current Visit: No Code(s): E11.42 - Type 2 diabetes mellitus with diabetic polyneuropathy (5) Malnutrition Status: Acute Current Visit: No Code(s): E46 - Unspecified protein-calorie malnutrition (6) Obesity Status: Acute Current Visit: No Code(s): E66.9 - Obesity, unspecified Type of Wound Date of Service: 08/26/17 Chief Complaint: Non healing ulcer to left lower leg. History of Wound: This patient presents to wound center after being referred by primary care for some blistering and ulcer to left lower leg. Patient is a poor historian and it is hard to get any information from him. He is unsure exactly how long he has has the ulcer to his left lower leg. He says his lower legs are always swollen usually and that he does not use compression. He says there has been some slight clearish drainage that he has noticed, but he says he has not done much to treat or dress the area on his own because he cannot get down to his legs easily. Again, this patient is a very poor historian so it was hard to get a clear picture of his wound history. Patient currently denies any feelings of nausea, vomiting, fever, or chills. Progress of Wound: Ulcer to the patients left lateral lower leg has opened back up. Patient says he was unable to keep compression at all times on his lower legs without help. He says he has been trying to keep compression on the legs. Patient denies any feelings of nausea, vomiting, fever, or chills. - Physical Exam Vital Signs Temp Pulse Resp BP Pulse Ox 97.6 F L 85 19 H 150/68 H 87 08/26/17 09:37 08/26/17 09:37 08/26/17 09:37 08/26/17 09:37 08/03/17 01:02 General: Alert, Oriented x3, Cooperative, No apparent distress Extremities: Capillary Refill Less than 3 Seconds, No Calf Tenderness - Negative Yehuda and Tomlinson sign, Diminished Peripheral Pulses, Edema - Bilateral pitting lower extremity edema Skin: Ulcer/ Wound - Ulcer to the left lower lateral leg. Measurements are noted below. Ulcer base is again a mixture of granular tissue, fibrin, biofilm and adherent slough. There are slight areas of hyperkeratotic tissue also noted. There is no purulence, no malodor, no extending cellulitis, no significant increase in warmth, no probing, no tracking, no undermining appreciated at this time. There is bilateral hemosiderin deposits skin changes appreciated to the lower legs. Wound Measurements and Assessment WC - Nurse 1 - General Ulcer Measurement Start: 08/05/17 11:12 Freq: Status: Active Protocol: Activity Type Activity Date Activity User E-Sign Co-Sign Detail Recorded Client Recorded Date Recorded By Document 08/26/17 09:37 AKI [id number] 08/26/17 09:42 DL 08/26/17 09:37 Wound Center Nurse 1 [Edema Assessment] -Right Calf (cm) 43.5 -Right Ankle (cm) 28.5 -Left Calf (cm) 45.3 -Left Ankle (cm) 29 WC - Nurse 2 - General Ulcer CM Notes Start: 08/05/17 11:12 Freq: Status: Active Protocol: Activity Type Activity Date Activity User E-Sign Co-Sign Detail Recorded Client Recorded Date Recorded By Document 08/26/17 10:56 SANIA [id number] 08/26/17 11:01 SANIA 08/26/17 10:56 Wound Center Nurse 2 [Procedure/Treatment] #2 L Lat LE -Time 10:56 -Correct Patient Yes -Correct Side, Site, Position Yes -Correct Procedure Yes -Procedure Performed Yes -Type of Procedure Debridement -Clinical Debridement Selective -Post Debridement Size (cm) - Length 4.4 -Post Debridement Size (cm) - Width 2.7 -Post Debridement Size (cm) - Depth 0.1 -Total Square Cm 11.88 -Wound/Ulcer Outcome Not Healed -Ulcer Cleansing Rinsed/ Irrigated with Saline -Bioengineered Tissue No -Topical Lidocaine (%) 4 -Lidocaine (ml) 5 -Bleeding Controlled with NA -Treatment Response Procedure Tolerated Well [See Physician Procedure note for Specifics] Pain Scale: 0-10 Numeric [Pain] -Is Patient Pain Free? Yes Musculoskeletal: No Tenderness to Palpation of Joints or Extremities Neurological: - - Epicritic sensation grossly absent bilateral lower extremities Psych/Mental Status: Normal Affect, Appropriate Debridement Note Post-Debridement Measurements/Treatment WC - Nurse 2 - General Ulcer CM Notes Start: 08/05/17 11:12 Freq: Status: Active Protocol: Activity Type Activity Date Activity User E-Sign Co-Sign Detail Recorded Client Recorded Date Recorded By Document 08/05/17 11:53 MW [id number] 08/05/17 11:54 MW Document 08/26/17 10:56 JS [id number] 08/26/17 11:01 JS 08/05/17 08/26/17 11:53 10:56 Wound Center Nurse 2 #2 L Lat LE -Time 11:53 10:56 -Correct Patient Yes Yes -Correct Side, Site, Position Yes Yes -Correct Procedure Yes Yes -Procedure Performed No Yes -Type of Procedure Debridement -Clinical Debridement Selective -Post Debridement Size (cm) - Length 0 4.4 -Post Debridement Size (cm) - Width 0 2.7 -Post Debridement Size (cm) - Depth 0 0.1 -Total Square Cm 0 11.88 -Wound/Ulcer Outcome Healed- Not Healed Epithelialized -Ulcer Cleansing Not Cleansed Rinsed/ Irrigated with Saline -Foul Odor after Cleansing No -Bioengineered Tissue No -Topical Lidocaine (%) 4 -Lidocaine (ml) 5 -Bleeding Controlled with NA NA -Treatment Response Procedure Procedure Tolerated Well Tolerated Well Pain Scale: 0-10 Numeric Is Patient Pain Free? Yes Wound debrided: Left lower lateral leg Laterality: Left Type of Debridement: Selective debridement Anesthesia Used: 4% Lidocaine Solution Depth: in the subcutaneous layer Percentage of wound debrided: 100 Instrument Used: 5mm curette Tissue Removed: Adherent slough, biofilm, hyperkeratotic tissue, fibrin Severity: Fat Layer Exposed Amount of bleeding with debridement: Mild Bleeding Controlled with: Pressure Patient tolerated procedure well Assessment/Plan Assessment: Ulcer left lower leg, PVD, DM among other issues. Plan: Patient was again examined and evaluated today. A selective debridement was performed as noted in the clinical panel. Silver cell was applied to the ulcer base followed by a dry sterile dressing, as this helped heal the patient the last time he was in clinic. The patient is to have these dressings changed every other day by home health care. Home health care was again applied for today, along with dressing supplies. Compression Tubigrip's were also applied to bilateral lower extremities again today. The patient never had his LEAS for venous duplex studies performed. We will look into reordering these in the future. I suggest the patient have a diet high in protein to continue to optimize his ulcer healing potential. Patient was instructed again on the importance of keeping compression to the area. The patient was educated on all signs and symptoms of local and systemic infection and was instructed to go to the ER immediately should he notice any of these. All questions were answered to the patient's satisfaction today. The patient will follow up in clinic in 1 week, or sooner if needed.
--- NOTE | 2017-08-26 14:26 | PN.PCM_ITS ---
(1) Ulcer of left lower extremity with fat layer exposed Status: Acute Current Visit: No Code(s): L97.922 - Non-pressure chronic ulcer of unspecified part of left lower leg with fat layer exposed (2) PVD (peripheral vascular disease) Status: Acute Current Visit: No Code(s): I73.9 - Peripheral vascular disease , unspecified (3) Venous insufficiency Status: Suspected Current Visit: No Code(s): I87.2 - Venous insufficiency ( chronic) (peripheral) (4) Type 2 diabetes mellitus with diabetic polyneuropathy Status: Acute Current Visit: No Code(s): E11.42 - Type 2 diabetes mellitus with diabetic polyneuropathy (5) Malnutrition Status: Acute Current Visit: No Code(s): E46 - Unspecified protein-calorie malnutrition (6) Obesity Status: Acute Current Visit: No Code(s): E66.9 - Obesity, unspecified Type of Wound Date of Service: 08/26/17 Chief Complaint: Non healing ulcer to left lower leg. History of Wound: This patient presents to wound center after being referred by primary care for some blistering and ulcer to left lower leg. Patient is a poor historian and it is hard to get any information from him. He is unsure exactly how long he has has the ulcer to his left lower leg. He says his lower legs are always swollen usually and that he does not use compression. He says there has been some slight clearish drainage that he has noticed, but he says he has not done much to treat or dress the area on his own because he cannot get down to his legs easily. Again, this patient is a very poor historian so it was hard to get a clear picture of his wound history. Patient currently denies any feelings of nausea, vomiting, fever, or chills. Progress of Wound: Ulcer to the patients left lateral lower leg has opened back up. Patient says he was unable to keep compression at all times on his lower legs without help. He says he has been trying to keep compression on the legs. Patient denies any feelings of nausea, vomiting, fever, or chills. - Physical Exam Vital Signs Temp Pulse Resp BP Pulse Ox 97.6 F L 85 19 H 150/68 H 87 08/26/17 09:37 08/26/17 09:37 08/26/17 09:37 08/26/17 09:37 08/03/17 01:02 General: Alert, Oriented x3, Cooperative, No apparent distress Extremities: Capillary Refill Less than 3 Seconds, No Calf Tenderness - Negative Yehuda and Tomlinson sign, Diminished Peripheral Pulses, Edema - Bilateral pitting lower extremity edema Skin: Ulcer/ Wound - Ulcer to the left lower lateral leg. Measurements are noted below. Ulcer base is again a mixture of granular tissue, fibrin, biofilm and adherent slough. There are slight areas of hyperkeratotic tissue also noted. There is no purulence, no malodor, no extending cellulitis, no significant increase in warmth, no probing, no tracking, no undermining appreciated at this time. There is bilateral hemosiderin deposits skin changes appreciated to the lower legs. Wound Measurements and Assessment WC - Nurse 1 - General Ulcer Measurement Start: 08/05/17 11:12 Freq: Status: Active Protocol: Activity Type Activity Date Activity User E-Sign Co-Sign Detail Recorded Client Recorded Date Recorded By Document 08/26/17 09:37 AKI [id number] 08/26/17 09:42 DL 08/26/17 09:37 Wound Center Nurse 1 [Edema Assessment] -Right Calf (cm) 43.5 -Right Ankle (cm) 28.5 -Left Calf (cm) 45.3 -Left Ankle (cm) 29 WC - Nurse 2 - General Ulcer CM Notes Start: 08/05/17 11:12 Freq: Status: Active Protocol: Activity Type Activity Date Activity User E-Sign Co-Sign Detail Recorded Client Recorded Date Recorded By Document 08/26/17 10:56 SANIA [id number] 08/26/17 11:01 SANIA 08/26/17 10:56 Wound Center Nurse 2 [Procedure/Treatment] #2 L Lat LE -Time 10:56 -Correct Patient Yes -Correct Side, Site, Position Yes -Correct Procedure Yes -Procedure Performed Yes -Type of Procedure Debridement -Clinical Debridement Selective -Post Debridement Size (cm) - Length 4.4 -Post Debridement Size (cm) - Width 2.7 -Post Debridement Size (cm) - Depth 0.1 -Total Square Cm 11.88 -Wound/Ulcer Outcome Not Healed -Ulcer Cleansing Rinsed/ Irrigated with Saline -Bioengineered Tissue No -Topical Lidocaine (%) 4 -Lidocaine (ml) 5 -Bleeding Controlled with NA -Treatment Response Procedure Tolerated Well [See Physician Procedure note for Specifics] Pain Scale: 0-10 Numeric [Pain] -Is Patient Pain Free? Yes Musculoskeletal: No Tenderness to Palpation of Joints or Extremities Neurological: - - Epicritic sensation grossly absent bilateral lower extremities Psych/Mental Status: Normal Affect, Appropriate Debridement Note Post-Debridement Measurements/Treatment WC - Nurse 2 - General Ulcer CM Notes Start: 08/05/17 11:12 Freq: Status: Active Protocol: Activity Type Activity Date Activity User E-Sign Co-Sign Detail Recorded Client Recorded Date Recorded By Document 08/05/17 11:53 MW [id number] 08/05/17 11:54 MW Document 08/26/17 10:56 JS [id number] 08/26/17 11:01 JS 08/05/17 08/26/17 11:53 10:56 Wound Center Nurse 2 #2 L Lat LE -Time 11:53 10:56 -Correct Patient Yes Yes -Correct Side, Site, Position Yes Yes -Correct Procedure Yes Yes -Procedure Performed No Yes -Type of Procedure Debridement -Clinical Debridement Selective -Post Debridement Size (cm) - Length 0 4.4 -Post Debridement Size (cm) - Width 0 2.7 -Post Debridement Size (cm) - Depth 0 0.1 -Total Square Cm 0 11.88 -Wound/Ulcer Outcome Healed- Not Healed Epithelialized -Ulcer Cleansing Not Cleansed Rinsed/ Irrigated with Saline -Foul Odor after Cleansing No -Bioengineered Tissue No -Topical Lidocaine (%) 4 -Lidocaine (ml) 5 -Bleeding Controlled with NA NA -Treatment Response Procedure Procedure Tolerated Well Tolerated Well Pain Scale: 0-10 Numeric Is Patient Pain Free? Yes Wound debrided: Left lower lateral leg Laterality: Left Type of Debridement: Selective debridement Anesthesia Used: 4% Lidocaine Solution Depth: in the subcutaneous layer Percentage of wound debrided: 100 Instrument Used: 5mm curette Tissue Removed: Adherent slough, biofilm, hyperkeratotic tissue, fibrin Severity: Fat Layer Exposed Amount of bleeding with debridement: Mild Bleeding Controlled with: Pressure Patient tolerated procedure well Assessment/Plan Assessment: Ulcer left lower leg, PVD, DM among other issues. Plan: Patient was again examined and evaluated today. A selective debridement was performed as noted in the clinical panel. Silver cell was applied to the ulcer base followed by a dry sterile dressing, as this helped heal the patient the last time he was in clinic. The patient is to have these dressings changed every other day by home health care. Home health care was again applied for today, along with dressing supplies. Compression Tubigrip's were also applied to bilateral lower extremities again today. The patient never had his LEAS for venous duplex studies performed. We will look into reordering these in the future. I suggest the patient have a diet high in protein to continue to optimize his ulcer healing potential. Patient was instructed again on the importance of keeping compression to the area. The patient was educated on all signs and symptoms of local and systemic infection and was instructed to go to the ER immediately should he notice any of these. All questions were answered to the patient's satisfaction today. The patient will follow up in clinic in 1 week, or sooner if needed.
[2017-09-02 09:24] VITALS: BP 143/74; PULSE 78; RESP 22; TEMP 36.1
--- NOTE | 2017-09-02 12:07 | PCM.WC.PN ---
(1) Ulcer of left lower extremity with fat layer exposed Status: Acute Current Visit: No Code(s): L97.922 - Non-pressure chronic ulcer of unspecified part of left lower leg with fat layer exposed (2) PVD (peripheral vascular disease) Status: Acute Current Visit: No Code(s): I73.9 - Peripheral vascular disease, unspecified (3) Venous insufficiency Status: Suspected Current Visit: No Code(s): I87.2 - Venous insufficiency (chronic) (peripheral) (4) Type 2 diabetes mellitus with diabetic polyneuropathy Status: Acute Current Visit: No Code(s): E11.42 - Type 2 diabetes mellitus with diabetic polyneuropathy (5) Malnutrition Status: Acute Current Visit: No Code(s): E46 - Unspecified protein-calorie malnutrition (6) Obesity Status: Acute Current Visit: No Code(s): E66.9 - Obesity, unspecified Type of Wound Date of Service: 09/02/17 Chief Complaint: Non healing ulcer to left lower leg. History of Wound: This patient presents to wound center after being referred by primary care for some blistering and ulcer to left lower leg. Patient is a poor historian and it is hard to get any information from him. He is unsure exactly how long he has has the ulcer to his left lower leg. He says his lower legs are always swollen usually and that he does not use compression. He says there has been some slight clearish drainage that he has noticed, but he says he has not done much to treat or dress the area on his own because he cannot get down to his legs easily. Again, this patient is a very poor historian so it was hard to get a clear picture of his wound history. Patient currently denies any feelings of nausea, vomiting, fever, or chills. Progress of Wound: Patient seen again for ulcer to the patients left lateral lower leg. Patient has tried his best to keep compression to lower extremity even though he has not had home health out yet to help. Patient denies any feelings of nausea, vomiting, fever, or chills. - Physical Exam Vital Signs Temp Pulse Resp BP Pulse Ox 97 F L 78 22 H 143/74 H 87 09/02/17 09:24 09/02/17 09:24 09/02/17 09:24 09/02/17 09:24 08/03/17 01:02 General: Alert, Oriented x3, Cooperative, No apparent distress Extremities: Capillary Refill Less than 3 Seconds, No Calf Tenderness - Negative Yehuda and Tomlinson sign, Diminished Peripheral Pulses, Edema - Bilateral pitting lower extremity edema Skin: Ulcer/ Wound - Ulcer to left lower lateral leg. Measurements noted below. The base continues to be a mixture of granular tissue, fibrin, biofilm and adherent slough. Some dryness to the skin appreciated. There continues to be no purulence, no malodor, no ascending cellulitis, no increase in warmth, as well as no probing or tracking or undermining. There is bilateral hemosiderin deposits skin changes appreciated bilateral lower extremities. Wound Measurements and Assessment WC - Nurse 1 - General Ulcer Measurement Start: 08/05/17 11:12 Freq: Status: Active Protocol: Activity Type Activity Date Activity User E-Sign Co-Sign Detail Recorded Client Recorded Date Recorded By Document 09/02/17 09:24 SANIA [id number] 09/02/17 09:35 SANIA 09/02/17 09:24 Wound Center Nurse 1 [Ulcer Assessment] #2 L Lat LE -Current Size (cm) - Length 0.1 -Current Size (cm) - Width 0.1 -Current Size (cm) - Depth 0.1 -Total Square Cm 0.01 -Photo Taken No -Exudate Amt None Present (0 %) -Wound Margin Flat & Intact -Granulation Amt Small (1-33%) -Granulation Quality [place] -Necrosis Amt Small (1-33%) -Necrotic Tissue Type Adherent Slough -Structure Exposed N/A -Texture ([place]-wound Skin Appearance) Localized Edema Scarring -Moisture ([place]-wound Skin Appearance No Abnormality ) -Color (Genet-wound Skin Appearance) Erythema Hemosiderin Staining -Temperature ([place]et-wound Skin No Abnormality Appearance) (Pt Warm) -Ulcer Cleansing Wound Cleanser -Foul Odor after Cleansing No -Anesthetic Used 4% Lidocaine Solution [Edema Assessment] -Right Calf (cm) 41 -Right Ankle (cm) 27 -Left Calf (cm) 45.5 -Left Ankle (cm) 26.2 WC - Nurse 2 - General Ulcer CM Notes Start: 08/05/17 11:12 Freq: Status: Active Protocol: Activity Type Activity Date Activity User E-Sign Co-Sign Detail Recorded Client Recorded Date Recorded By Document 09/02/17 10:16 [id number] 09/02/17 10:37 09/02/17 10:16 Wound Center Nurse 2 [Procedure/Treatment] #2 L Lat LE -Time 10:16 -Correct Patient Yes -Correct Side, Site, Position Yes -Correct Procedure Yes -Procedure Performed Yes -Type of Procedure Debridement -Clinical Debridement Selective -Post Debridement Size (cm) - Length 0.1 -Post Debridement Size (cm) - Width 0.1 -Post Debridement Size (cm) - Depth 0.1 -Total Square Cm 0.01 -Wound/Ulcer Outcome Not Healed -Ulcer Cleansing Rinsed/ Irrigated with Saline -Foul Odor after Cleansing No -Topical Lidocaine (%) 4 -Lidocaine (ml) 5 -Bleeding Controlled with NA -Treatment Response Procedure Tolerated Well [See Physician Procedure note for Specifics] Pain Scale: 0-10 Numeric [Pain] -Is Patient Pain Free? Yes Musculoskeletal: No Tenderness to Palpation of Joints or Extremities Neurological: - - Epicritic sensation grossly absent to bilateral lower extremities Psych/Mental Status: Normal Affect, Appropriate Debridement Note Post-Debridement Measurements/Treatment WC - Nurse 2 - General Ulcer CM Notes Start: 08/05/17 11:12 Freq: Status: Active Protocol: Activity Type Activity Date Activity User E-Sign Co-Sign Detail Recorded Client Recorded Date Recorded By Document 08/05/17 11:53 MW [id number] 08/05/17 11:54 MW Document 08/26/17 10:56 [id number] 08/26/17 11:01 Document 09/02/17 10:16 [id number] 09/02/17 10:37 08/05/17 08/26/17 09/02/17 11:53 10:56 10:16 Wound Center Nurse 2 #2 L [facility] LE -Time 11:53 10:56 10:16 -Correct Patient Yes Yes Yes -Correct Side, Site, Position Yes Yes Yes -Correct Procedure Yes Yes Yes -Procedure Performed No Yes Yes -Type of Procedure Debridement Debridement -Clinical Debridement Selective Selective -Post Debridement Size (cm) - Length 0 4.4 0.1 -Post Debridement Size (cm) - Width 0 2.7 0.1 -Post Debridement Size (cm) - Depth 0 0.1 0.1 -Total Square Cm 0 11.88 0.01 -Wound/Ulcer Outcome Healed- Not Healed Not Healed Epithelialized -Ulcer Cleansing Not Cleansed Rinsed/ Rinsed/ Irrigated with Irrigated with Saline Saline -Foul Odor after Cleansing No No -Bioengineered Tissue No -Topical Lidocaine (%) 4 4 -Lidocaine (ml) 5 5 -Bleeding Controlled with NA NA NA -Treatment Response Procedure Procedure Procedure Tolerated Well Tolerated Well Tolerated Well Pain Scale: 0-10 Numeric Is Patient Pain Free? Yes Yes Wound debrided: Left lower lateral leg Laterality: Left Type of Debridement: Selective debridement Anesthesia Used: 4% Lidocaine Solution Depth: Down to and including healthy tissue, in the subcutaneous layer Percentage of wound debrided: 100 Instrument Used: 5mm curette Tissue Removed: Adherent slough, fibrin, biofilm, hyperkeratotic tissue Severity: Fat Layer Exposed Amount of bleeding with debridement: Mild Bleeding Controlled with: Pressure Patient tolerated procedure well Assessment/Plan Assessment: Ulcer left lower leg, PVD, DM among other issues. Plan: Patient was again examined and evaluated today. Another selective debridement was performed as noted in the clinical panel. Silver cell was applied to the ulcer base followed by a dry sterile dressing. The patient is to have these dressings changed every other day by home health care. Home health care was again applied for today, along with dressing supplies, and the patient will be seen by them within a couple of days. Compression Tubigrip's were also applied to bilateral lower extremities again today. The patient never had his LEAS for venous duplex studies performed. These were rescheduled for him on September 14. I suggest the patient have a diet high in protein to continue to optimize his ulcer healing potential. Patient was instructed again on the importance of keeping compression to the area. The patient was educated on all signs and symptoms of local and systemic infection and was instructed to go to the ER immediately should he notice any of these. All questions were answered to the patient's satisfaction today. The patient will follow up in clinic in 2 weeks, or sooner if needed.
--- NOTE | 2017-09-02 12:15 | PN.PCM_ITS ---
(1) Ulcer of left lower extremity with fat layer exposed Status: Acute Current Visit: No Code(s): L97.922 - Non-pressure chronic ulcer of unspecified part of left lower leg with fat layer exposed (2) PVD (peripheral vascular disease) Status: Acute Current Visit: No Code(s): I73.9 - Peripheral vascular disease , unspecified (3) Venous insufficiency Status: Suspected Current Visit: No Code(s): I87.2 - Venous insufficiency ( chronic) (peripheral) (4) Type 2 diabetes mellitus with diabetic polyneuropathy Status: Acute Current Visit: No Code(s): E11.42 - Type 2 diabetes mellitus with diabetic polyneuropathy (5) Malnutrition Status: Acute Current Visit: No Code(s): E46 - Unspecified protein-calorie malnutrition (6) Obesity Status: Acute Current Visit: No Code(s): E66.9 - Obesity, unspecified Type of Wound Date of Service: 09/02/17 Chief Complaint: Non healing ulcer to left lower leg. History of Wound: This patient presents to wound center after being referred by primary care for some blistering and ulcer to left lower leg. Patient is a poor historian and it is hard to get any information from him. He is unsure exactly how long he has has the ulcer to his left lower leg. He says his lower legs are always swollen usually and that he does not use compression. He says there has been some slight clearish drainage that he has noticed, but he says he has not done much to treat or dress the area on his own because he cannot get down to his legs easily. Again, this patient is a very poor historian so it was hard to get a clear picture of his wound history. Patient currently denies any feelings of nausea, vomiting, fever, or chills. Progress of Wound: Patient seen again for ulcer to the patients left lateral lower leg. Patient has tried his best to keep compression to lower extremity even though he has not had home health out yet to help. Patient denies any feelings of nausea, vomiting, fever, or chills. - Physical Exam Vital Signs Temp Pulse Resp BP Pulse Ox 97 F L 78 22 H 143/74 H 87 09/02/17 09:24 09/02/17 09:24 09/02/17 09:24 09/02/17 09:24 08/03/17 01:02 General: Alert, Oriented x3, Cooperative, No apparent distress Extremities: Capillary Refill Less than 3 Seconds, No Calf Tenderness - Negative Yehuda and Tomlinson sign, Diminished Peripheral Pulses, Edema - Bilateral pitting lower extremity edema Skin: Ulcer/ Wound - Ulcer to left lower lateral leg. Measurements noted below. The base continues to be a mixture of granular tissue, fibrin, biofilm and adherent slough. Some dryness to the skin appreciated. There continues to be no purulence, no malodor, no ascending cellulitis, no increase in warmth, as well as no probing or tracking or undermining. There is bilateral hemosiderin deposits skin changes appreciated bilateral lower extremities. Wound Measurements and Assessment WC - Nurse 1 - General Ulcer Measurement Start: 08/05/17 11:12 Freq: Status: Active Protocol: Activity Type Activity Date Activity User E-Sign Co-Sign Detail Recorded Client Recorded Date Recorded By Document 09/02/17 09:24 SANIA [id number] 09/02/17 09:35 SANIA 09/02/17 09:24 Wound Center Nurse 1 [Ulcer Assessment] #2 L Lat LE -Current Size (cm) - Length 0.1 -Current Size (cm) - Width 0.1 -Current Size (cm) - Depth 0.1 -Total Square Cm 0.01 -Photo Taken No -Exudate Amt None Present (0 %) -Wound Margin Flat & Intact -Granulation Amt Small (1-33%) -Granulation Quality [place] -Necrosis Amt Small (1-33%) -Necrotic Tissue Type Adherent Slough -Structure Exposed N/A -Texture (Genet-wound Skin Appearance) Localized Edema Scarring -Moisture ([place]et-wound Skin Appearance No Abnormality ) -Color (Genet-wound Skin Appearance) Erythema Hemosiderin Staining -Temperature (Genet-wound Skin No Abnormality Appearance) (Pt Warm) -Ulcer Cleansing Wound Cleanser -Foul Odor after Cleansing No -Anesthetic Used 4% Lidocaine Solution [Edema Assessment] -Right Calf (cm) 41 -Right Ankle (cm) 27 -Left Calf (cm) 45.5 -Left Ankle (cm) 26.2 WC - Nurse 2 - General Ulcer CM Notes Start: 08/05/17 11:12 Freq: Status: Active Protocol: Activity Type Activity Date Activity User E-Sign Co-Sign Detail Recorded Client Recorded Date Recorded By Document 09/02/17 10:16 [id number] 09/02/17 10:37 09/02/17 10:16 Wound Center Nurse 2 [Procedure/Treatment] #2 L Lat LE -Time 10:16 -Correct Patient Yes -Correct Side, Site, Position Yes -Correct Procedure Yes -Procedure Performed Yes -Type of Procedure Debridement -Clinical Debridement Selective -Post Debridement Size (cm) - Length 0.1 -Post Debridement Size (cm) - Width 0.1 -Post Debridement Size (cm) - Depth 0.1 -Total Square Cm 0.01 -Wound/Ulcer Outcome Not Healed -Ulcer Cleansing Rinsed/ Irrigated with Saline -Foul Odor after Cleansing No -Topical Lidocaine (%) 4 -Lidocaine (ml) 5 -Bleeding Controlled with NA -Treatment Response Procedure Tolerated Well [See Physician Procedure note for Specifics] Pain Scale: 0-10 Numeric [Pain] -Is Patient Pain Free? Yes Musculoskeletal: No Tenderness to Palpation of Joints or Extremities Neurological: - - Epicritic sensation grossly absent to bilateral lower extremities Psych/Mental Status: Normal Affect, Appropriate Debridement Note Post-Debridement Measurements/Treatment WC - Nurse 2 - General Ulcer CM Notes Start: 08/05/17 11:12 Freq: Status: Active Protocol: Activity Type Activity Date Activity User E-Sign Co-Sign Detail Recorded Client Recorded Date Recorded By Document 08/05/17 11:53 MW [id number] 08/05/17 11:54 MW Document 08/26/17 10:56 [id number] 08/26/17 11:01 Document 09/02/17 10:16 [id number] 09/02/17 10:37 08/05/17 08/26/17 09/02/17 11:53 10:56 10:16 Wound Center Nurse 2 #2 L [facility] LE -Time 11:53 10:56 10:16 -Correct Patient Yes Yes Yes -Correct Side, Site, Position Yes Yes Yes -Correct Procedure Yes Yes Yes -Procedure Performed No Yes Yes -Type of Procedure Debridement Debridement -Clinical Debridement Selective Selective -Post Debridement Size (cm) - Length 0 4.4 0.1 -Post Debridement Size (cm) - Width 0 2.7 0.1 -Post Debridement Size (cm) - Depth 0 0.1 0.1 -Total Square Cm 0 11.88 0.01 -Wound/Ulcer Outcome Healed- Not Healed Not Healed Epithelialized -Ulcer Cleansing Not Cleansed Rinsed/ Rinsed/ Irrigated with Irrigated with Saline Saline -Foul Odor after Cleansing No No -Bioengineered Tissue No -Topical Lidocaine (%) 4 4 -Lidocaine (ml) 5 5 -Bleeding Controlled with NA NA NA -Treatment Response Procedure Procedure Procedure Tolerated Well Tolerated Well Tolerated Well Pain Scale: 0-10 Numeric Is Patient Pain Free? Yes Yes Wound debrided: Left lower lateral leg Laterality: Left Type of Debridement: Selective debridement Anesthesia Used: 4% Lidocaine Solution Depth: Down to and including healthy tissue, in the subcutaneous layer Percentage of wound debrided: 100 Instrument Used: 5mm curette Tissue Removed: Adherent slough, fibrin, biofilm, hyperkeratotic tissue Severity: Fat Layer Exposed Amount of bleeding with debridement: Mild Bleeding Controlled with: Pressure Patient tolerated procedure well Assessment/Plan Assessment: Ulcer left lower leg, PVD, DM among other issues. Plan: Patient was again examined and evaluated today. Another selective debridement was performed as noted in the clinical panel. Silver cell was applied to the ulcer base followed by a dry sterile dressing. The patient is to have these dressings changed every other day by home health care. Home health care was again applied for today, along with dressing supplies, and the patient will be seen by them within a couple of days. Compression Tubigrip's were also applied to bilateral lower extremities again today. The patient never had his LEAS for venous duplex studies performed. These were rescheduled for him on September 14. I suggest the patient have a diet high in protein to continue to optimize his ulcer healing potential. Patient was instructed again on the importance of keeping compression to the area. The patient was educated on all signs and symptoms of local and systemic infection and was instructed to go to the ER immediately should he notice any of these. All questions were answered to the patient's satisfaction today. The patient will follow up in clinic in 2 weeks, or sooner if needed.
== END 2017-09-02 23:59 ==
LOC: WC 09:15
PROVIDERS: Family Provider Physician Assistant; PCP Physician Assistant; Visit Provider Podiatrist
DX: L97.922 Non-pressure chronic ulcer of unspecified part of left lower leg with fat layer exposed (principal); I73.9 Peripheral vascular disease, unspecified; I87.2 Venous insufficiency (chronic) (peripheral); E11.42 Type 2 diabetes mellitus with diabetic polyneuropathy; E46 Unspecified protein-calorie malnutrition; E66.9 Obesity, unspecified
CPT/HCPCS: 97597; 99212; G0463

== ENCOUNTER 2017-09-12 07:00 | Emergency (ER) | payer MEDICARE, SELFPAY ==
--- NOTE | 2017-09-12 07:00 | DT_ITS ---
This patient was seen during an EMR downtime September 06, 2017 - September 13, 2017. This patient may have a combination of paper and electronic documentation or all paper documentation. All documentation is viewable within the e-chart portion of [employer] for each patient visit.
== END 2017-09-12 08:55 | disposition home or self-care (01) ==
LOC: ED 19:51
PROVIDERS: Emergency Provider Emergency Medicine; Family Provider Physician Assistant; PCP Physician Assistant
DX: J02.9 Acute pharyngitis, unspecified (principal); E11.9 Type 2 diabetes mellitus without complications; I50.9 Heart failure, unspecified; Z86.79 Personal history of other diseases of the circulatory system; Z86.39 Personal history of other endocrine, nutritional and metabolic disease; Z87.891 Personal history of nicotine dependence
CPT/HCPCS: 99282

== ENCOUNTER 2017-09-23 11:00 | Outpatient (RCR) | payer MEDICARE, SELFPAY ==
[2017-09-03 00:52] VITALS: BP 143/74; PULSE 78; RESP 22; TEMP 36.1; O2SAT 87
[2017-09-23 09:19] VITALS: RESP 20; TEMP 36
--- NOTE | 2017-09-23 09:58 | PCM.WC.PN ---
(1) Ulcer of left lower extremity with fat layer exposed Status: Acute Current Visit: No Code(s): L97.922 - Non-pressure chronic ulcer of unspecified part of left lower leg with fat layer exposed (2) PVD (peripheral vascular disease) Status: Acute Current Visit: No Code(s): I73.9 - Peripheral vascular disease, unspecified (3) Venous insufficiency Status: Suspected Current Visit: No Code(s): I87.2 - Venous insufficiency (chronic) (peripheral) (4) Type 2 diabetes mellitus with diabetic polyneuropathy Status: Acute Current Visit: No Code(s): E11.42 - Type 2 diabetes mellitus with diabetic polyneuropathy (5) Malnutrition Status: Acute Current Visit: No Code(s): E46 - Unspecified protein-calorie malnutrition (6) Obesity Status: Acute Current Visit: No Code(s): E66.9 - Obesity, unspecified Type of Wound Date of Service: 09/23/17 Chief Complaint: Non healing ulcer to left lower leg. History of Wound: This patient presents to wound center after being referred by primary care for some blistering and ulcer to left lower leg. Patient is a poor historian and it is hard to get any information from him. He is unsure exactly how long he has has the ulcer to his left lower leg. He says his lower legs are always swollen usually and that he does not use compression. He says there has been some slight clearish drainage that he has noticed, but he says he has not done much to treat or dress the area on his own because he cannot get down to his legs easily. Again, this patient is a very poor historian so it was hard to get a clear picture of his wound history. Patient currently denies any feelings of nausea, vomiting, fever, or chills. Progress of Wound: Patient seen again for ulcer to the patients left lateral lower leg. Patient has been trying to keep compression on the best he can, but was discharged from home health care. Patient appears healed today and is pleased with his progress agin. Patient denies any feelings of nausea, vomiting, fever, or chills. - Physical Exam Vital Signs Temp Pulse Resp BP Pulse Ox 96.8 F L 78 20 H 143/74 H 87 09/23/17 09:19 09/03/17 00:52 09/23/17 09:19 09/03/17 00:52 09/03/17 00:52 General: Alert, Oriented x3, Cooperative, No apparent distress Extremities: Capillary Refill Less than 3 Seconds, No Calf Tenderness, Diminished Peripheral Pulses, Edema - lower extremity edema Skin: Ulcer/ Wound - ulcer to left lateral lower lateral leg is healed at this time with no signs of local bacterial infection appreciated. Wound Measurements and Assessment WC - Nurse 1 - General Ulcer Measurement Start: 09/16/17 11:11 Freq: Status: Active Protocol: Activity Type Activity Date Activity User E-Sign Co-Sign Detail Recorded Client Recorded Date Recorded By Document 09/23/17 09:19 [email or web address] 09/23/17 09:31 09/23/17 09:19 Wound Center Nurse 1 [Ulcer Assessment] #2 L Lat LE -Combined with other wound No -Current Size (cm) - Length 0.1 -Current Size (cm) - Width 0.1 -Current Size (cm) - Depth 0.1 -Total Square Cm 0.01 -Date of Last Picture (Recall this 09/23/17 field) -Photo Taken Yes [Edema Assessment] -Lower Limb Edema Present Yes -Right Calf (cm) 44.6 -Right Ankle (cm) 29 -Left Calf (cm) 41.3 -Left Ankle (cm) 28.6 WC - Nurse 2 - General Ulcer CM Notes Start: 09/16/17 11:11 Freq: Status: Active Protocol: Activity Type Activity Date Activity User E-Sign Co-Sign Detail Recorded Client Recorded Date Recorded By Document 09/23/17 09:47 [id number] 09/23/17 09:51 09/23/17 09:47 Wound Center Nurse 2 [Procedure/Treatment] #2 L Lat LE -Time 09:48 -Post Debridement Size (cm) - Length 0 -Post Debridement Size (cm) - Width 0 -Post Debridement Size (cm) - Depth 0 -Total Square Cm 0 -Wound/Ulcer Outcome Healed- Epithelialized [See Physician Procedure note for Specifics] Pain Scale: 0-10 Numeric [Pain] -Is Patient Pain Free? Yes Musculoskeletal: - - Patient denies tenderness with lower leg palpation Neurological: - - epicritic sensation grossly absent to lower extremity Psych/Mental Status: Normal Affect, Appropriate Debridement Note Post-Debridement Measurements/Treatment WC - Nurse 2 - General Ulcer CM Notes Start: 09/16/17 11:11 Freq: Status: Active Protocol: Activity Type Activity Date Activity User E-Sign Co-Sign Detail Recorded Client Recorded Date Recorded By Document 09/23/17 09:47 [id number] 09/23/17 09:51 09/23/17 09:47 Wound Center Nurse 2 #2 L Lat LE -Time 09:48 -Post Debridement Size (cm) - Length 0 -Post Debridement Size (cm) - Width 0 -Post Debridement Size (cm) - Depth 0 -Total Square Cm 0 -Wound/Ulcer Outcome Healed- Epithelialized Pain Scale: 0-10 Numeric Is Patient Pain Free? Yes No debridement was completed today Assessment/Plan Assessment: Ulcer left lower leg, PVD, DM among other issues. Plan: Patient was again examined and evaluated today. His ulcer site is healed at this time. Compression Tubigrip's were also applied to bilateral lower extremities again today. The patient never had his LEAS for venous duplex studies performed. These were rescheduled for him on September 14, and he did not go to these either. I suggest the patient have a diet high in protein to continue to optimize his ulcer healing potential. Patient was instructed again on the importance of keeping compression to the area. He says he is going to go to [facility] to get a pair of compression stockings with zippers. The patient was educated on all signs and symptoms of local and systemic infection and was instructed to go to the ER immediately should he notice any of these. All questions were answered to the patient's satisfaction today. The patient will be discharged again today from the wound healing center, but is to call the office should any problems or issues arise.
--- NOTE | 2017-09-23 10:07 | PN.PCM_ITS ---
(1) Ulcer of left lower extremity with fat layer exposed Status: Acute Current Visit: No Code(s): L97.922 - Non-pressure chronic ulcer of unspecified part of left lower leg with fat layer exposed (2) PVD (peripheral vascular disease) Status: Acute Current Visit: No Code(s): I73.9 - Peripheral vascular disease , unspecified (3) Venous insufficiency Status: Suspected Current Visit: No Code(s): I87.2 - Venous insufficiency ( chronic) (peripheral) (4) Type 2 diabetes mellitus with diabetic polyneuropathy Status: Acute Current Visit: No Code(s): E11.42 - Type 2 diabetes mellitus with diabetic polyneuropathy (5) Malnutrition Status: Acute Current Visit: No Code(s): E46 - Unspecified protein-calorie malnutrition (6) Obesity Status: Acute Current Visit: No Code(s): E66.9 - Obesity, unspecified Type of Wound Date of Service: 09/23/17 Chief Complaint: Non healing ulcer to left lower leg. History of Wound: This patient presents to wound center after being referred by primary care for some blistering and ulcer to left lower leg. Patient is a poor historian and it is hard to get any information from him. He is unsure exactly how long he has has the ulcer to his left lower leg. He says his lower legs are always swollen usually and that he does not use compression. He says there has been some slight clearish drainage that he has noticed, but he says he has not done much to treat or dress the area on his own because he cannot get down to his legs easily. Again, this patient is a very poor historian so it was hard to get a clear picture of his wound history. Patient currently denies any feelings of nausea, vomiting, fever, or chills. Progress of Wound: Patient seen again for ulcer to the patients left lateral lower leg. Patient has been trying to keep compression on the best he can, but was discharged from home health care. Patient appears healed today and is pleased with his progress agin. Patient denies any feelings of nausea, vomiting , fever, or chills. - Physical Exam Vital Signs Temp Pulse Resp BP Pulse Ox 96.8 F L 78 20 H 143/74 H 87 09/23/17 09:19 09/03/17 00:52 09/23/17 09:19 09/03/17 00:52 09/03/17 00:52 General: Alert, Oriented x3, Cooperative, No apparent distress Extremities: Capillary Refill Less than 3 Seconds, No Calf Tenderness, Diminished Peripheral Pulses, Edema - lower extremity edema Skin: Ulcer/ Wound - ulcer to left lateral lower lateral leg is healed at this time with no signs of local bacterial infection appreciated. Wound Measurements and Assessment WC - Nurse 1 - General Ulcer Measurement Start: 09/16/17 11:11 Freq: Status: Active Protocol: Activity Type Activity Date Activity User E-Sign Co-Sign Detail Recorded Client Recorded Date Recorded By Document 09/23/17 09:19 [id number] 09/23/17 09:31 09/23/17 09:19 Wound Center Nurse 1 [Ulcer Assessment] #2 L Lat LE -Combined with other wound No -Current Size (cm) - Length 0.1 -Current Size (cm) - Width 0.1 -Current Size (cm) - Depth 0.1 -Total Square Cm 0.01 -Date of Last Picture (Recall this 09/23/17 field) -Photo Taken Yes [Edema Assessment] -Lower Limb Edema Present Yes -Right Calf (cm) 44.6 -Right Ankle (cm) 29 -Left Calf (cm) 41.3 -Left Ankle (cm) 28.6 WC - Nurse 2 - General Ulcer CM Notes Start: 09/16/17 11:11 Freq: Status: Active Protocol: Activity Type Activity Date Activity User E-Sign Co-Sign Detail Recorded Client Recorded Date Recorded By Document 09/23/17 09:47 [id number] 09/23/17 09:51 09/23/17 09:47 Wound Center Nurse 2 [Procedure/Treatment] #2 L Lat LE -Time 09:48 -Post Debridement Size (cm) - Length 0 -Post Debridement Size (cm) - Width 0 -Post Debridement Size (cm) - Depth 0 -Total Square Cm 0 -Wound/Ulcer Outcome Healed- Epithelialized [See Physician Procedure note for Specifics] Pain Scale: 0-10 Numeric [Pain] -Is Patient Pain Free? Yes Musculoskeletal: - - Patient denies tenderness with lower leg palpation Neurological: - - epicritic sensation grossly absent to lower extremity Psych/Mental Status: Normal Affect, Appropriate Debridement Note Post-Debridement Measurements/Treatment WC - Nurse 2 - General Ulcer CM Notes Start: 09/16/17 11:11 Freq: Status: Active Protocol: Activity Type Activity Date Activity User E-Sign Co-Sign Detail Recorded Client Recorded Date Recorded By Document 09/23/17 09:47 [id number] 09/23/17 09:51 09/23/17 09:47 Wound Center Nurse 2 #2 L Lat LE -Time 09:48 -Post Debridement Size (cm) - Length 0 -Post Debridement Size (cm) - Width 0 -Post Debridement Size (cm) - Depth 0 -Total Square Cm 0 -Wound/Ulcer Outcome Healed- Epithelialized Pain Scale: 0-10 Numeric Is Patient Pain Free? Yes No debridement was completed today Assessment/Plan Assessment: Ulcer left lower leg, PVD, DM among other issues. Plan: Patient was again examined and evaluated today. His ulcer site is healed at this time. Compression Tubigrip's were also applied to bilateral lower extremities again today. The patient never had his LEAS for venous duplex studies performed. These were rescheduled for him on September 14, and he did not go to these either. I suggest the patient have a diet high in protein to continue to optimize his ulcer healing potential. Patient was instructed again on the importance of keeping compression to the area. He says he is going to go to [facility] to get a pair of compression stockings with zippers. The patient was educated on all signs and symptoms of local and systemic infection and was instructed to go to the ER immediately should he notice any of these. All questions were answered to the patient's satisfaction today. The patient will be discharged again today from the wound healing center, but is to call the office should any problems or issues arise.
== END 2017-10-02 23:59 ==
LOC: WC 11:00
PROVIDERS: Family Provider Physician Assistant; PCP Physician Assistant; Visit Provider Podiatrist
DX: Z09 Encounter for follow-up examination after completed treatment for conditions other than malignant neoplasm (principal); E11.42 Type 2 diabetes mellitus with diabetic polyneuropathy; E11.51 Type 2 diabetes mellitus with diabetic peripheral angiopathy without gangrene; E66.9 Obesity, unspecified; Z71.3 Dietary counseling and surveillance
CPT/HCPCS: 99211; G0463

== ENCOUNTER 2018-08-10 20:58 | Emergency (ER) | payer MEDICARE, SELFPAY ==
[2018-08-10 20:58] VITALS: BMI 40.3
[2018-08-10 20:59] VITALS: BP 140/70; PULSE 81; RESP 20; TEMP 36.6; O2SAT 92; BMI 44.4
--- NOTE | 2018-08-10 21:41 | ED.VISSUMM ---
- ER Visit Summary Date of Service: 08/10/18 Chief Complaint: Bee sting possible allergic reaction History of Present Illness: The patient is a 73 M reportedly history of allergies to bee stings. Also diabetic. Patient states at 5:00 he was stung in the left moderate by a bleed. Please have allergic reaction. Denies any swelling to his lips or tongue. No wheezing. Physical Examination: Older male no acute distress. Vital signs are stable and afebrile. His pulse ox 92% on room air no signs of hypoxia. HEENT exam unremarkable. Lips and tongue are not swollen. No trouble swallowing or breathing. No distress. Neck nontender no lymphadenopathy. No JVD. Lungs clear to auscultation bilaterally. No rales rhonchi or wheezing. Equal symmetrical. Heart regular rhythm no murmur. Rate about 80. Abdomen morbidly obese but soft nontender normal bowel sounds no peritoneal signs. Remedies moves all 4. His left buttock skin is normal. I do not see any signs of an allergic reaction or bee sting. There is no swelling redness or warmth. There is no signs of any abscess or other skin abnormality. Neurologically is awake and alert with no focal motor deficits. Patient is moving all 4 extremities. There is no focal motor deficits. Test Results: None Emergency Department Course and Treatment: Clinically patient looks fine. I do not see any signs of systemic or a local allergic reaction. Will be given 1 Benadryl to use at home. Treatment Plan: Ice to the area. Return if worse. Follow-up with your doctor as needed. Disposition: Discharge Impression: Bee sting left buttock This note was generated with [employer] dictation software. It may contain incorrect words, spelling, and punctuation that were not noted in review of the chart prior to signing ED Disposition - Plan for ED Patient: Referrals: Jovani Mendez PA [Primary Care Provider] -
--- NOTE | 2018-08-10 21:45 | ED.DEP ---
ED Disposition - Plan for ED Patient: Disposition: Home or Assisted Living Instructions: ED Bite Sting Insect Local Allergic React Referrals: Jovani Mendez PA [Primary Care Provider] - As Needed Additional Instructions: Ice to your left buttock. Benadryl when you get home.
[2018-08-10] MEDS: DiphenhydrAMINE 25 MG Capsule PO (21:52)
--- NOTE | 2018-08-10 21:55 | ED.RN ---
pt sent home with tablet for benadryl per dr. carcamo verbal order and as printed on discharge instructions. pt educated on side effects and use. verbalizes understanding. pt denies any further questions. pt ambulates out of dept by self.
[2018-08-10 21:57] VITALS: PULSE 83; RESP 18; O2SAT 93
== END 2018-08-10 21:58 | disposition home or self-care (01) ==
LOC: ED 21:53
PROVIDERS: Emergency Provider Emergency Medicine; Family Provider Physician Assistant; PCP Physician Assistant
DX: T63.441A Toxic effect of venom of bees, accidental (unintentional), initial encounter (principal); Y92.9 Unspecified place or not applicable; E11.9 Type 2 diabetes mellitus without complications; Z79.84 Long term (current) use of oral hypoglycemic drugs; Z79.899 Other long term (current) drug therapy
CPT/HCPCS: 99283

== ENCOUNTER 2018-08-12 09:06 | Emergency (ER) | payer MEDICARE, SELFPAY ==
[2018-08-12 09:07] VITALS: BP 147/47; PULSE 84; RESP 16; TEMP 36.4; O2SAT 93; BMI 40.8
[2018-08-12 09:28] VITALS: O2SAT 92
--- NOTE | 2018-08-12 09:28 | EKG12_ITS ---
Test Reason : COUGH Blood Pressure : / mmHG Vent. Rate : 078 BPM Atrial Rate : 078 BPM P-R Int : 176 ms QRS Dur : 156 ms QT Int : 418 ms P-R-T Axes : 051 -76 058 degrees QTc Int : 476 ms Sinus rhythm with Fusion complexes Right bundle branch block Left anterior fascicular block Bifascicular block Abnormal ECG Confirmed by ISMAEL VAIL ([id number]), photographic editor YULISA WILLARD ([id number]) on 08/15/2018 1:58:59 PM Referred By: RYLAN Confirmed By:ISMAEL VAIL
[2018-08-12 09:40] VITALS: PULSE 76; RESP 18
[2018-08-12] MEDS: Ipratropium/Albuterol Sulfate 3 ML AMPUL.NEB INHALATION (09:40)
[2018-08-12 09:50] LABS: Absolute Lymphocyte Count 1.94 X10^3/ul (0.83-4.51); Absolute Neutrophil Count 5.5 X10^3/uL (2.0-7.7); Basophil# 0.04 X10^3/uL; Basophil% 0.5 % (0-1); Eosinophil# 0.32 X10^3/uL; Eosinophils% 3.8 % (0-5); Hematocrit 34.1 % (40-54); Lymphocyte # 1.94 X10^3/ul (4.0); Lymphocyte % 22.8 % (19-41); Mean Corp Hgb Conc 32.3 g/gl (32-36); Mean Corpuscular Hgb 29.8 pg (27.0-32.0); Mean Corpuscular Volume 92.4 fL (80-94); Mean Platelet Vol. 10.1 fl (6.2-12.0); Monocyte# 0.68 X10^3/uL; Neutrophil # 5.48 X10^3/uL (2.7-7.7); Neutrophil % 64.2 % (47-70); Platelet Count 175 K/mm3 (150-450); RBC Distribution Width CV 15.1 % (11.6-14.6); RBC Distribution Width SD 51.1 fl (35.1-43.9); Red Blood Count 3.69 M/mm3 (4.6-6.2); White Blood Count 8.5 K/mm3 (4.4-11.0)
[2018-08-12 09:51] LABS: POSITIVE COUNT NO; POSITIVE DIFFERENTIAL NO; POSITIVE MORPHOLOGY NO
[2018-08-12] MEDS: MethylPREDNISolone 125 MG/2 ML Vial IV (09:51)
[2018-08-12 09:53] VITALS: PULSE 78; RESP 20; O2SAT 95
--- NOTE | 2018-08-12 09:57 | RAD_ITS ---
STUDY: X-RAY CHEST REASON FOR EXAM: Male, 73 years old. Chest pain. TECHNIQUE: PA and lateral views of the chest. COMPARISON: Comparison is made with prior examination dated August 13, 2017. FINDINGS: EKG electrodes are seen. Hyperinflation. Scattered calcified granulomas. Stable mild increased markings at the lung bases suggestive of mild bibasilar scarring. There is no demonstrated pleural abnormality. Normal size heart. Normal mediastinum and shauna. Normal visualized pulmonary arteries. There is atherosclerotic tortuosity of the aortic arch and descending thoracic aorta. There is demineralization of the osseous structures. Normal visualized ribs, clavicles, and shoulders. There is no demonstrated abnormality of the visualized soft tissue structures of the upper abdomen. RAD/Chest PA and Lateral IMPRESSION: Stable mild increased linear markings at the lung bases suggestive of scarring. Electronically Signed: Wing Jeronimo, at 10:16 EDT , Service support ,
[2018-08-12 10:14] LABS: Anion Gap 8 (5-15); BUN 20 mg/dL (7-18); BUN/Creat Ratio 22.1 RATIO (10-20); Calcium,Total 8.9 mg/dL (8.5-10.1); Chloride 102 mmol/L (98-107); Creatinine, Serum 0.91 mg/dL (0.70-1.30); EST Glomerular Filtration Rate 87 mL/min (>60); Est Glom Filt Rate - Afr Amer 105 mL/min (>60); Estimated Creatinine Clearance 57.32 ml/min; Glucose 192 mg/dL (74-106); Potassium 3.9 mmol/L (3.5-5.1); Sodium Level 141 mmol/L (136-145)
[2018-08-12] MEDS: Acetaminophen 325 MG Tablet 650 MG PO (10:20)
--- NOTE | 2018-08-12 10:40 | ED.VISSUMM ---
- ER Visit Summary Date of Service: 08/12/18 Chief Complaint: [Cough and shortness of breath] History of Present Illness: The patient is a 73 M [presents to the emergency department for cough that started yesterday. Patient was seen in the primary care physician's office today by Dr. Gabriel and referred to the emergency department. Patient had an albuterol aerosol and afterwards was noted to have a pulse ox in the upper 80s. Patient tells me that he does have a history of COPD. Patient has home O2 but just wears it as needed. Patient states that he has a nebulizer at home but it is broken and he needs a new one. Patient denies any fever. Cough at times productive of some yellow sputum. He denies any chest pain.] Physical Examination: [HEENT-PERRLA, EOMI. Cranial nerves II through XII grossly intact. TMs clear. Mucous membranes moist. No adenopathy. Cardiovascular-regular rate and rhythm without murmur or ectopy Lungs-decreased breath sounds bilaterally in the bases. He has some faint expiratory wheezes. No accessory muscle use or retractions. At rest his O2 sat is in the low 90s and with ambulation it drops down to 88%. Abdomen-normoactive bowel sounds, soft, nontender, no rebound or rigidity, no peritoneal signs. Extremities-intact ?4, normal range of motion, normal pulses, atraumatic] Test Results: [EKG obtained arrival shows sinus rhythm with a ventricular rate of 78 bpm with a right bundle branch block and left anterior fascicular block. CBC with differential showed a normal white count of 8.5, hemoglobin 11, hematocrit 34, placed 175. Chemistries unremarkable. Troponin is less than 0.015. Chest x-ray showed some scarring in both bases otherwise nothing acute.] Emergency Department Course and Treatment: [Patient was given a DuoNeb aerosol and started on Solu-Medrol 125 mg IV. Patient was given a dose of doxycycline.] Treatment Plan: [Patient looks well and does not want to be admitted at this time. Patient does have home O2 as needed and I will order a nebulizer for him for home. I will also dispense an albuterol MDI. Patient will be started on prednisone and doxycycline. Advised to follow-up with primary care physician within next 3 to 5 days. Patient advised to return if increasing shortness of breath or condition should worsen anyway.] Disposition: Discharged home stable condition, patient advised to return if increasing shortness of breath or condition should worsen anyway.] Impression: [COPD exacerbation.] This note was generated with [employer] dictation software. It may contain incorrect words, spelling, and punctuation that were not noted in review of the chart prior to signing ED Disposition - Plan for ED Patient: Referrals: Jovani Mendez PA [Primary Care Provider] -
--- NOTE | 2018-08-12 10:44 | ED.DEP ---
ED Disposition - Plan for ED Patient: Instructions: ED COPD Flare Prescriptions: Albuterol Aerosols [Ventolin Aerosols] 2.5 mg INHALATION Q4H PRN #25 vial Doxycycline 100 mg PO BID #20 cap Prednisone [Deltasone] 20 mg PO BID #10 tab Referrals: Jovani Mendez PA [Primary Care Provider] - 3-5 Days
[2018-08-12] MEDS: Doxycycline 100 MG CAPSULE PO (10:56)
[2018-08-12 10:57] VITALS: PULSE 78; RESP 18; O2SAT 92
== END 2018-08-12 11:01 | disposition home or self-care (01) ==
LOC: ED 10:13
PROVIDERS: Emergency Provider Emergency Medicine; Family Provider Physician Assistant; PCP Physician Assistant
DX: J44.1 Chronic obstructive pulmonary disease with (acute) exacerbation (principal); Z99.81 Dependence on supplemental oxygen; I45.2 Bifascicular block; I50.9 Heart failure, unspecified; I73.9 Peripheral vascular disease, unspecified; E03.9 Hypothyroidism, unspecified; E11.9 Type 2 diabetes mellitus without complications; Z79.84 Long term (current) use of oral hypoglycemic drugs; Z79.899 Other long term (current) drug therapy
CPT/HCPCS: 71046; 80048; 84484; 85025; 93005; 94640; 94664; 96374; 99285; A4216

== ENCOUNTER 2018-08-29 11:27 | Emergency (ER) | payer MEDICARE, SELFPAY ==
[2018-08-29 11:29] VITALS: BP 141/95; PULSE 79; RESP 16; TEMP 36.9; O2SAT 95; BMI 33.3
--- NOTE | 2018-08-29 12:07 | ED.VISSUMM ---
- ER Visit Summary Date of Service: 08/29/18 Chief Complaint: [] Painful penis status post surgery at [facility] by urology circumcision History of Present Illness: The patient is a 73 M [] poor historian indicates he had what he believes was a circumcision at [facility] by urology about 7 to 10 days ago, related to the fact he could not urinate he indicates it has pain in the penis since the procedure indicates his next appointment is not till September 15 he is out of his pain medications, he was seen by [place] [facility] because there was no local [place] urologist to see him he otherwise reports he is been doing well Physical Examination: [] vsigns within normal range afebrile General, no distress resting comfortably does complain of pain around his penis HEENT is generally unremarkable The neck is supple no adenopathy Cardiovascular, regular rate and rhythm Lungs, clear bilateral Abdomen, soft nontender nondistended nontender exam is black and blue discoloration around the shaft the penis the tip of the penis the testicles in the general perineum this area is generally not tender there is no fluctuance or subcu air, over the shaft of his penis is tender there appears to be what appears to be a dressing that is potentially covered with scab old blood that is circular around the shaft of the penis, to some degree, distressing or what ever this debris was was removed completely so we could completely examine the shaft the penis once this apparatus was removed this after the penis appeared pink there was some beefy granulation tissue around the skin there is no signs of infection or crepitance indicates his he is able to void through his urethra without difficulty and again the testicles are nontender as is the perineum he is complaining just of pain around the penile shaft Extremities, no clubbing cyanosis or edema Neurologic, awake alert answering questions appropriately moving all 4 extremities Test Results: [] Emergency Department Course and Treatment: [] Explained all of this to the patient I explained that we should transfer him to [facility] today so he can be seen by urology given the protracted nature of his pain he does not wish to do that, he understands the concept of postoperative process infection complication necrosis sepsis and , additional surgery but he does not wish to be transferred or go by himself to [facility], he drove here by himself so his pain management slightly complicated, at this time we are trying to contact identify the urologist who saw him and discussed the case with them Treatment Plan: [] I spoke with Dr. Puga urologist playground monitor at [place], was able to confirm through medical record review that the patient did not fact have a circumcision due to severe phimosis, at this time they are happy to see the patient for follow-up I explained the patient does not wish to be transferred or go to [place] now, at this time will apply a dressing to the area which will include some lidocaine jelly Dr. Puga agreed to provide the patient 10 additional Percocet tablets and asked the patient call the office tomorrow for follow-up appointment this week I explained all this the patient he agreed to this plan is resting comfortably the bed and he understands to follow-up as soon as possible with his urologist Disposition: [] Impression: [] Status post circumcision with postoperative pain This note was generated with [employer] dictation software. It may contain incorrect words, spelling, and punctuation that were not noted in review of the chart prior to signing ED Disposition - Plan for ED Patient: Referrals: Jovani Mendez PA [Primary Care Provider] -
--- NOTE | 2018-08-29 12:12 | ED.DCSUM_ITS ---
- ER Visit Summary Date of Service: 08/29/18 Chief Complaint: [] Painful penis status post surgery at [facility] by urology circumcision History of Present Illness: The patient is a 73 M [] poor historian indicates he had what he believes was a circumcision at [facility] by urology about 7 to 10 days ago, related to the fact he could not urinate he indicates it has pain in the penis since the procedure indicates his next appointment is not till September 15 he is out of his pain medications, he was seen by [place] [facility] because there was no local [place] urologist to see him he otherwise reports he is been doing well Physical Examination: [] vsigns within normal range afebrile General, no distress resting comfortably does complain of pain around his penis HEENT is generally unremarkable The neck is supple no adenopathy Cardiovascular, regular rate and rhythm Lungs, clear bilateral Abdomen, soft nontender nondistended nontender exam is black and blue discoloration around the shaft the penis the tip of the penis the testicles in the general perineum this area is generally not tender there is no fluctuance or subcu air, over the shaft of his penis is tender there appears to be what appears to be a dressing that is potentially covered with scab old blood that is circular around the shaft of the penis, to some degree, distressing or what ever this debris was was removed completely so we could completely examine the shaft the penis once this apparatus was removed this after the penis appeared pink there was some beefy granulation tissue around the skin there is no signs of infection or crepitance indicates his he is able to void through his urethra without difficulty and again the testicles are nontender as is the perineum he is complaining just of pain around the penile shaft Extremities, no clubbing cyanosis or edema Neurologic, awake alert answering questions appropriately moving all 4 extremities Test Results: [] Emergency Department Course and Treatment: [] Explained all of this to the patient I explained that we should transfer him to [facility] today so he can be seen by urology given the protracted nature of his pain he does not wish to do that, he understands the concept of postoperative process infection complication necrosis sepsis and , additional surgery but he does not wish to be transferred or go by himself to [facility], he drove here by himself so his pain management slightly complicated, at this time we are trying to contact identify the urologist who saw him and discussed the case with them Treatment Plan: [] I spoke with Dr. Puga urologist front load trash truck driver at [place], was able to confirm through medical record review that the patient did not fact have a circumcision due to severe phimosis, at this time they are happy to see the patient for follow-up I explained the patient does not wish to be transferred or go to [place] now, at this time will apply a dressing to the area which will include some lidocaine jelly Dr. Puga agreed to provide the patient 10 additional Percocet tablets and asked the patient call the office tomorrow for follow-up appointment this week I explained all this the patient he agreed to this plan is resting comfortably the bed and he understands to follow-up as soon as possible with his urologist Disposition: [] Impression: [] Status post circumcision with postoperative pain This note was generated with [employer] dictation software. It may contain incorrect words, spelling, and punctuation that were not noted in review of the chart prior to signing ED Disposition - Plan for ED Patient: Referrals: Jovani Mendez PA [Primary Care Provider] -
--- NOTE | 2018-08-29 13:03 | ED.DEP ---
ED Disposition - Plan for ED Patient: Instructions: ED Wound Check Post Op Bleeding, ED Post Op Pain Prescriptions: Oxycodone HCl/Acetaminophen [Percocet 5/325] 1 tab PO Q6H PRN PRN 3 Days #10 tab PRN Reason: Pain Referrals: Jovani Mendez PA [Primary Care Provider] - Additional Instructions: Call your urologist tomorrow to get a follow-up appointment as soon as possible continue your Bactrim medicine return for change in symptoms
[2018-08-29 13:28] VITALS: BP 128/84; PULSE 73; RESP 15; O2SAT 96
== END 2018-08-29 13:30 | disposition home or self-care (01) ==
LOC: ED 12:30
PROVIDERS: Emergency Provider Emergency Medicine; Family Provider Physician Assistant; PCP Physician Assistant
DX: N48.89 Other specified disorders of penis (principal); G89.18 Other acute postprocedural pain
CPT/HCPCS: 99282

== ENCOUNTER 2019-01-08 20:07 | Emergency (ER) | payer MEDICARE, SELFPAY ==
[2019-01-08 20:08] VITALS: BP 196/89; PULSE 105; RESP 18; TEMP 36.4; O2SAT 93; BMI 41.6
[2019-01-08] MEDS: Mixture 30 ML Bottle 20 ML TOPICAL (20:30)
--- NOTE | 2019-01-08 20:44 | ED.VIS.GEN ---
History of Present Illness Chief Complaint: Nosebleed Informant: Patient Onset: Today Context: Sudden Onset Timing: Continuous Quality: Red blood Location: Left knee ears Current Severity: Mild Maximum Severity: Moderate Worsened by: Possible blunt trauma Relieved by: Nothing Associated Symptoms: No associated symptoms Narrative: Patient is an elderly male who presents with epistaxis. Uncertain if he bumped his nose or not. He is on no anticoagulant. He has had nosebleeds in the past. He states his bleeding from the left side. He denies bleeding easily. He denies throat pain. He denies rhinorrhea, congestion or postnasal drainage. He denies ear pain, decreased hearing or ringing in his ears. He denies cardiac or respiratory symptoms. Prior similar symptoms: Yes Recent Illness/Hospitalization: No - Past Medical History (1) CHF (congestive heart failure) Status: Acute (2) Obesity Status: Acute (3) PVD (peripheral vascular disease) Status: Acute (4) Type 2 diabetes mellitus with diabetic polyneuropathy Status: Acute (5) Ulcer of left lower extremity with fat layer exposed Status: Acute (6) Hypothyroid Status: Chronic (7) Venous insufficiency Status: Suspected Past Medical History - Allergies and Home Meds Allergies/Adverse Reactions: Allergies bee venom protein (honey bee) Allergy (Verified 08/29/18 11:31) Angioedema Penicillins Allergy (Verified 08/29/18 11:31) Rash acetaminophen [From Vicodin] Adverse Reaction (Verified 08/29/18 11:31) Itching hydrocodone bitartrate [From Vicodin] Adverse Reaction (Verified 08/29/18 11:31) Itching Primary Care Physician: Jovani Mendez PA [Primary Care Provider] - Prior records reviewed: Yes Surgical History: noncontributory Lives: Alone Smoking Status: Never smoker Alcohol: None Drugs: None - Family History Maternal Family History: Reports: Diabetes, - - colon cancer. Review of Systems General: Denies: Chills, Fever, Malaise, Sweats Eyes: Denies: Visual changes - bilaterally, Blurred Vision - bilaterally, Diplopia ENT: Reports: - - Bleeding from left naris. Denies: Bilateral ear pain, Rhinorrhea, Sore throat Cardiovascular: Denies: Chest pain, Palpitations Respiratory: Denies: Dyspnea, Cough, Dyspnea on exertion Gastrointestinal: Denies: Abdominal pain, Nausea, Vomiting, Diarrhea, Melena, Hematochezia Musculoskeletal: Denies: Myalgias, Arthralgias, Neck pain, Back pain Neurological: Denies: Weakness, Parasthesia, Numbness Psych: Reports: Anxiety Hematologic: Denies: Easy bruising, Easy bleeding Allergy: Denies: Uticaria, Swelling of the mouth, Swelling of the tongue Physical Exam Vital Signs/Narrative: Vital Signs Temp Pulse Resp BP Pulse Ox 01/08/19 20:08 97.5 F L 105 H 18 196/89 H 93 Inital Vital Signs reviewed: Yes General: Well nourished, Well developed, Unkempt, No Acute Distress Head: Normocephalic, Atraumatic Eyes: Perrl, EOMI. Negative for: Pale conjunctiva, Scleral icterus ENT: Moist mucous membranes, No rhinorrhea, TM's clear, - - Blood noted left nares. Neck: Supple, Nontender, No lymphadenopathy, No JVD Cardiovascular: Regular rate, Regular rhythm, No murmurs, Normal S1, Normal S2 Respiratory: No distress, CTA bilaterally, Chest nontender Back: Nontender, Normal Inspection Extremities: Nontender, No edema, - - Amputation left lower extremity Skin: Normal color, No rash, No Trauma. Negative for: Cyanosis, Diaphoresis, Jaundice Neurological: Alert, Oriented x3, Cranial nerves II-XII grossly intact, Normal Strength, Normal Sensation Psychological: - - Anxious Diagnostic/Tx/Re-eval - Medical Decision Making Noted left nares and minimal amount of blood posterior pharynx. Nares was cleared. The nostril was anesthetized using Yajaira solution. Cotton was saturated with anesthetic solution and loosely packed left naris. Patient was reexamined 10 minutes later. There is a small clot noted middle of Molly box plexus. Procedures Procedure(s): Teary epistaxis with bleeding source left buttocks plexus. Area was cauterized using silver nitrate. Patient tolerated procedure well and there is no further bleeding. ED Disposition - Plan for ED Patient: Disposition: Home or Assisted Living Diagnosis: Acute anterior epistaxis Instructions: Nosebleed Referrals: Jovani Mendez PA [Primary Care Provider] - Marlo Sanchez MD [STAFF PHYSICIAN] - 3-5 Days
[2019-01-08] MEDS: Silver Nitrate (BKC) 3 EACH TOPICAL (21:22)
[2019-01-08 21:29] VITALS: BP 140/60; PULSE 80; RESP 16
== END 2019-01-08 21:32 | disposition home or self-care (01) ==
PROVIDERS: Emergency Provider Emergency Medicine; Family Provider Physician Assistant; PCP Physician Assistant
DX: R04.0 Epistaxis (principal); I50.9 Heart failure, unspecified; E03.9 Hypothyroidism, unspecified; I87.2 Venous insufficiency (chronic) (peripheral); E11.42 Type 2 diabetes mellitus with diabetic polyneuropathy; E11.51 Type 2 diabetes mellitus with diabetic peripheral angiopathy without gangrene; E66.9 Obesity, unspecified; Z79.84 Long term (current) use of oral hypoglycemic drugs; Z79.899 Other long term (current) drug therapy
CPT/HCPCS: 30901; 99284

== ENCOUNTER 2019-02-23 02:32 | Emergency (ER) | payer MEDICARE, SELFPAY ==
[2019-02-23 02:33] VITALS: BP 210/78; PULSE 92; RESP 18; TEMP 36.7; O2SAT 94; BMI 45.7
--- NOTE | 2019-02-23 02:57 | EKG12_ITS ---
Test Reason : CP Blood Pressure : / mmHG Vent. Rate : 091 BPM Atrial Rate : 091 BPM P-R Int : 162 ms QRS Dur : 150 ms QT Int : 414 ms P-R-T Axes : 048 -76 046 degrees QTc Int : 509 ms Normal sinus rhythm Right bundle branch block Left anterior fascicular block Bifascicular block Abnormal ECG Confirmed by AIDA CARDOSO, IRVIN ([id number]), purchasing expeditor MEGA VALENTINE ([id number]) on 02/27/2019 9:13:03 AM Referred By: MARY Confirmed By:COLLETTE PARRA MD
--- NOTE | 2019-02-23 02:57 | RAD_ITS ---
HISTORY: CPChest PainRAD - Chest ADDITIONAL HISTORY: None provided. COMPARISON: 08/12/2018 TECHNIQUE: Frontal and lateral chest radiographs. Number of images including paperwork: 2 FINDINGS: LUNGS AND PLEURA: No consolidation, mass or pleural effusion. Mild linear bibasilar opacities appear similar, likely scarring. Hyperinflation. CARDIAC SILHOUETTE: Stable. MEDIASTINUM AND ANTOLIN: Stable. UPPER ABDOMEN: Unremarkable. SKELETON AND SOFT TISSUES: No acute findings. Degenerative changes. OTHER DEVICES AND HARDWARE: None. RAD/Chest PA and Lateral IMPRESSION: No acute cardiopulmonary abnormality. at 0327 Reported and signed by: Shila Almanzar MD Electronically Signed: Shila Almanzar MD at 3:27 EST Tel , Service support ,
--- NOTE | 2019-02-23 02:58 | ED.DCSUM_ITS ---
History of Present Illness Chief Complaint: Chest Pain Informant: Patient Onset: Days - 3 Timing: Continuous Quality: Pressure, Tightness Worsened By: Nothing Relieved By: Nothing Associated Symptoms: Cough Narrative: Patient is a 73-year-old male with history including insulin-dependent diabetes mellitus, COPD and hyperlipidemia presenting with chest tightness. Patient states he feels that he has bronchitis. He states he has had a cough for the past 3 days. He states is intimately productive of yellow sputum. He has associated chest tightness. He came in because of the chest pain. He states is been unchanged over the past few days. Patient does not feel short of breath however he does not like to lay back because it makes his chest tightness worse. He denies any worsening swelling of his legs. He denies any fever or chills. He denies any nausea, vomiting or abdominal pain. Patient denies any other complaints at this time. CVD Risk Factors: Diabetes, Hypercholesterolemia Past Medical History - Allergies and Home Meds Allergies/Adverse Reactions: Allergies bee venom protein (honey bee) Allergy (Verified 02/23/19 02:36) Angioedema Penicillins Allergy (Verified 02/23/19 02:36) Rash acetaminophen [From Vicodin] Adverse Reaction (Verified 02/23/19 02:36) Itching hydrocodone bitartrate [From Vicodin] Adverse Reaction (Verified 02/23/19 02:36) Itching Primary Care Physician: Jovani Mendez PA [Primary Care Provider] - Past Medical History: - - Diabetes mellitus, hyperlipidemia, COPD Surgical History: noncontributory Smoking Status: Former smoker - Family History Maternal Family History: Reports: Diabetes, - - colon cancer. Review of Systems General: Denies: Chills, Fever, Sweats Eyes: Denies: Visual changes - bilaterally, Diplopia ENT: Denies: Rhinorrhea, Sore throat Cardiovascular: Reports: Chest pain. Denies: Palpitations Respiratory: Reports: Dyspnea, Cough, Sputum, Orthopnea. Denies: Dyspnea on exertion Gastrointestinal: Denies: Abdominal pain, Nausea, Vomiting, Diarrhea, Melena, Hematochezia Genitourinary: Denies: Dysuria, Hematuria, Frequency Musculoskeletal: Denies: Back pain, Extremity Pain Skin: Denies: Rash, Wounds Neurological: Denies: Headache, Weakness, Numbness Physical Exam Vital Signs/Narrative: Vital Signs Temp Pulse Resp BP Pulse Ox 02/23/19 02:33 98.0 F 92 18 210/78 H 94 Inital Vital Signs reviewed: Yes General: Well nourished, Well developed, Obese, No Acute Distress Head: Normocephalic, Atraumatic Eyes: Perrl, EOMI ENT: Moist mucous membranes, No rhinorrhea, TM's clear Neck: Supple, Nontender, No lymphadenopathy, No JVD Cardiovascular: Regular rate, Regular rhythm, No murmurs Respiratory: No distress, CTA bilaterally, Chest nontender, Diminished - Bilaterally- mild . Negative for: Rales, Rhonchi, Wheezing, Decreased Air Movement Abdomen: Soft, Nontender, Nondistended, Normal bowel sounds Back: Nontender, Normal Inspection Extremities: Nontender, Edema - 2+ bilateral pretibial edema up to mid black Skin: Normal color, No rash, - - Chronic skin changes of the lower extremities consistent with venous stasis Neurological: Alert, Oriented x3, Cranial nerves II-XII grossly intact, Normal Strength, Normal Sensation Psychological: Normal affect, Normal Mood Diagnostic/Tx/Re-eval Chest X-Ray - ED: 2 View, Read by ED Physician, Read by Radiologist, No Acute Disease Clinical Impression(s) from Imaging Studies Chest X-Ray 02/23/19 02:57 IMPRESSION: No acute cardiopulmonary abnormality. at 0327 Reported and signed by: Shila Almanzar MD Electronically Signed: Shila Almanzar MD at 3:27 EST Tel , Service support , Laboratory Data 02/23/19 02/23/19 02/23/19 02:35 02:35 02:35 WBC 9.9 RBC 4.09 L Hgb 12.6 L Hct 38.5 L MCV 94.1 H MCH 30.8 MCHC 32.7 RDW Std Deviation 48.5 H RDW Coeff of Emili 14.4 Plt Count 186 MPV 10.7 Immature Gran % (Auto) 1.200 H Neut % (Auto) 83.6 H Lymph % (Auto) 11.5 L [place] % (Auto) 1.4 Eos % (Auto) 2.0 Baso % (Auto) 0.3 Absolute Neuts (auto) 8.2 H Absolute Lymphs (auto) 1.13 Nucleated RBC % 0 Sodium 136 Potassium 4.2 Chloride 96 L Carbon Dioxide 28.0 Anion Gap 12 BUN 22 H Creatinine 0.95 Estim Creat Clear Calc 59.34 Est GFR (MDRD) Af Amer 100 Est GFR (MDRD) Non-Af 82 BUN/Creatinine Ratio 23.2 H Glucose 285 H Calcium 8.9 Troponin I < 0.015 B-Natriuretic Peptide 49.1 - Rhythm Strip Rhythm Strip: Sinus Rhythm Rate: 91 Ectopy: None - EKG Initial EKG Interpretation: Sinus Rhythm, - - Normal sinus rhythm at a rate of 91 Right bundle branch block Left anterior fascicular block LA interval 162 QRS 150 QTC 509 Left axis deviation Nonspecific ST segment changes No change compared to prior EKG on 08/12/2018 - Medical Decision Making Patient checks in for the complaint of chest pain. He goes on to state he has had chest tightness for the past 3 days associated cough. Patient appears nontoxic in no acute distress. Initial vital signs are significant for hypertension but otherwise normal. Patient has slightly diminished breath sounds but they are otherwise clear. He does not have any crackles, JVD or tachypnea. He does not have any wheezing on respiratory exam. Chest x-ray shows no acute process. Troponin is negative. EKG does not show any dynamic changes. CBC normal. BMP remarkable for hyperglycemia with normal anion gap. Patient is ambulated and his O2 saturation does not go below 93%. He states he feels fine. He is no longer complain of any chest pain. Patient states that he was prescribed medications by his doctor couple days ago would like me to review them. He gets them and they are prednisone and Mucinex. I suspect patient was previously diagnosed with URI and the reason he is not wheezing and appears well is because he is already treated for it. He does not require further intervention at this time. He does not require antibiotics he does not appear to have a pneumonia or other acute infiltrate. Patient is counseled that at this time I feel that he is safe to be discharged home. He does not have a significant cough. He states that he has nebulizer and plenty of albuterol solution to be used as needed at home. Patient is encouraged to follow-up with his primary care doctor. His chest pain is likely more respiratory, has been present for 3 days and he has a negative troponin. I do not think this is ACS. Patient is counseled on signs and symptoms requiring return to the emergency room. Patient verbalizes agreement and understand this plan. Patient discharged home in stable and improved condition. ED Disposition - Plan for ED Patient: Disposition: Home or Assisted Living Diagnosis: Viral bronchitis Instructions: Acute Bronchitis Referrals: Jovani Mendez PA [Primary Care Provider] - Additional Instructions: You are already on appropriate medication to treat bronchitis. I think the medicines are working well. Continue taking them as prescribed. You do not have any signs of a heart attack or other more serious process today. Call your primary care doctor for follow-up. Return to the emergency room if you develop any worsening symptoms.
[2019-02-23] MEDS: Aspirin 81 MG TAB.CHEW 324 MG PO (03:02)
[2019-02-23 03:06] LABS: Absolute Lymphocyte Count 1.13 X10^3/uL (0.83-4.51); Absolute Neutrophil Count 8.2 X10^3/uL (2.0-7.7); Basophil# 0.03 X10^3/uL; Basophil% 0.3 % (0-1); Hematocrit 38.5 % (40-54); Hemoglobin 12.6 g/dL (13.0-16.5); Lymphocyte # 1.13 X10^3/ul (4.0); Lymphocyte % 11.5 % (19-41); Mean Corp Hgb Conc 32.7 g/dL (32-36); Mean Corpuscular Hgb 30.8 pg (27.0-32.0); Mean Corpuscular Volume 94.1 fL (80-94); Mean Platelet Vol. 10.7 fl (6.2-12.0); Monocyte# 0.14 X10^3/uL; Monocyte% 1.4 % (0-10); NRBC Flagged by Analyzer 0 % (0-5); Neutrophil # 8.24 X10^3/uL (2.7-7.7); Neutrophil % 83.6 % (47-70); Platelet Count 186 K/mm3 (150-450); RBC Distribution Width CV 14.4 % (11.6-14.6); RBC Distribution Width SD 48.5 fl (35.1-43.9); Red Blood Count 4.09 M/mm3 (4.6-6.2); White Blood Count 9.9 K/mm3 (4.4-11.0)
[2019-02-23 03:25] LABS: Anion Gap 12 (5-15); BUN 22 mg/dL (7-18); BUN/Creat Ratio 23.2 RATIO (10-20); Calcium,Total 8.9 mg/dL (8.5-10.1); Chloride 96 mmol/L (98-107); Creatinine, Serum 0.95 mg/dL (0.70-1.30); EST Glomerular Filtration Rate 82 mL/min (>60); Est Glom Filt Rate - Afr Amer 100 mL/min (>60); Estimated Creatinine Clearance 59.34 ml/min; Glucose 285 mg/dL (74-106); Potassium 4.2 mmol/L (3.5-5.1); Sodium Level 136 mmol/L (136-145)
[2019-02-23 03:34] LABS: BNP,B-Type NATRIURETIC PEPTIDE 49.1 pg/mL (0-100)
[2019-02-23 03:50] VITALS: BP 162/69; PULSE 82; RESP 18; O2SAT 92; O2SAT 93
[2019-02-23 04:18] VITALS: BP 162/69; PULSE 82; RESP 18; O2SAT 93
== END 2019-02-23 04:18 | disposition home or self-care (01) ==
PROVIDERS: Emergency Provider Emergency Medicine; Family Provider Physician Assistant; PCP Physician Assistant
DX: J44.0 Chronic obstructive pulmonary disease with (acute) lower respiratory infection (principal); J20.8 Acute bronchitis due to other specified organisms; E11.9 Type 2 diabetes mellitus without complications; E78.5 Hyperlipidemia, unspecified; E78.00 Pure hypercholesterolemia, unspecified; E66.9 Obesity, unspecified; Z68.42 Body mass index [BMI] 45.0-49.9, adult; Z79.4 Long term (current) use of insulin; Z79.84 Long term (current) use of oral hypoglycemic drugs; Z79.899 Other long term (current) drug therapy; Z87.891 Personal history of nicotine dependence
CPT/HCPCS: 71046; 80048; 83880; 84484; 85025; 93005; 99285; A4216

== ENCOUNTER 2019-04-23 20:41 | Emergency (ER) | payer MEDICARE, SELFPAY ==
[2019-04-23 20:43] VITALS: BP 162/80; PULSE 89; RESP 24; TEMP 36.6; O2SAT 95; BMI 46.4
--- NOTE | 2019-04-23 21:03 | EKG12_ITS ---
Test Reason : DYSRHYTHMIA Blood Pressure : / mmHG Vent. Rate : 092 BPM Atrial Rate : 092 BPM P-R Int : 150 ms QRS Dur : 146 ms QT Int : 416 ms P-R-T Axes : 030 -78 057 degrees QTc Int : 514 ms Normal sinus rhythm Right bundle branch block Left anterior fascicular block Bifascicular block Abnormal ECG Confirmed by JENNIFER CARDOSO, LIZ ([id number]), editorial cartoonist MEGA VALENTINE ([id number]) on 04/25/2019 11:28:04 AM Referred By: CATE Confirmed By:LIZ RODRIGUEZ MD
[2019-04-23 21:15] VITALS: PULSE 87; RESP 20
[2019-04-23] MEDS: Ipratropium/Albuterol Sulfate 3 ML AMPUL.NEB INHALATION (21:15)
[2019-04-23] MEDS: MethylPREDNISolone 125 MG/2 ML Vial IV (21:17)
[2019-04-23 21:27] LABS: Absolute Lymphocyte Count 1.22 X10^3/uL (0.83-4.51); Absolute Neutrophil Count 3.7 X10^3/uL (2.0-7.7); Basophil# 0.03 X10^3/uL; Basophil% 0.5 % (0-1); Eosinophil# 0.16 X10^3/uL; Eosinophils% 2.8 % (0-5); Hematocrit 36.3 % (40-54); Hemoglobin 11.5 g/dL (13.0-16.5); Lymphocyte # 1.22 X10^3/ul (4.0); Lymphocyte % 21.5 % (19-41); Mean Corp Hgb Conc 31.7 g/dL (32-36); Mean Corpuscular Hgb 30.3 pg (27.0-32.0); Mean Corpuscular Volume 95.8 fL (80-94); Mean Platelet Vol. 10.4 fl (6.2-12.0); Monocyte# 0.47 X10^3/uL; Monocyte% 8.3 % (0-10); NRBC Flagged by Analyzer 0 % (0-5); Neutrophil # 3.74 X10^3/uL (2.7-7.7); Neutrophil % 65.8 % (47-70); Platelet Count 148 K/mm3 (150-450); RBC Distribution Width CV 15.1 % (11.6-14.6); RBC Distribution Width SD 51.8 fl (35.1-43.9); Red Blood Count 3.79 M/mm3 (4.6-6.2); White Blood Count 5.7 K/mm3 (4.4-11.0)
--- NOTE | 2019-04-23 21:40 | RAD_ITS ---
STUDY: X-RAY CHEST REASON FOR EXAM: Male, 74 years old. Cough and chest pain TECHNIQUE: Frontal and lateral views of the chest. COMPARISON: 02/23/2019. FINDINGS: There is hyperinflation of the lungs consistent with chronic obstructive lung disease (COPD). No infiltrates or effusions. There is no demonstrated pleural abnormality. There is borderline cardiomegaly. Normal mediastinum and shauna. Normal visualized pulmonary arteries. Normal visualized aortic arch and descending thoracic aorta. Normal visualized thoracic spine. Several old right rib fractures are seen, stable. There is no demonstrated abnormality of the visualized soft tissue structures of the upper abdomen. RAD/Chest PA and Lateral IMPRESSION: There are findings consistent with COPD. There is no evidence of acute chest disease. Electronically Signed: Arnold Romo MD at 22:13 EST , Service support ,
[2019-04-23 21:43] LABS: Anion Gap 6 (5-15); BUN 21 mg/dL (7-18); BUN/Creat Ratio 22.3 RATIO (10-20); Calcium,Total 8.3 mg/dL (8.5-10.1); Chloride 105 mmol/L (98-107); Creatinine, Serum 0.94 mg/dL (0.70-1.30); EST Glomerular Filtration Rate 83 mL/min (>60); Est Glom Filt Rate - Afr Amer 101 mL/min (>60); Estimated Creatinine Clearance 100.19 ml/min; Glucose 149 mg/dL (74-106); Potassium 4.7 mmol/L (3.5-5.1); Sodium Level 140 mmol/L (136-145)
[2019-04-23 22:03] LABS: BNP,B-Type NATRIURETIC PEPTIDE 32.2 pg/mL (0-100)
--- NOTE | 2019-04-23 22:26 | ED.VISSUMM ---
- ER Visit Summary Date of Service: 04/23/19 Chief Complaint: Cough History of Present Illness: The patient is a 74 M who sees Brian Mendez. He reports he has a cough that began 3 to 4 days ago. Is productive yellow sputum without blood. He denies any fever, chills, or chest pain. However, he reports he has been shortness of breath. He reports this is moderate and is worsened by lying flat or coughing. It is relieved by albuterol. He reports he had similar symptoms previously with bronchitis. Physical Examination: Vitals: Stable. Afebrile. General: Well-nourished and well-developed. Head: Normocephalic atraumatic. Neck: Supple, no lymphadenopathy. No JVD. Nontender. Cardiovascular: Regular rate and rhythm. No murmurs. Respiratory: No respiratory distress. Mild end expiratory wheezing bilaterally with decreased air movement. Abdominal: Soft, nontender, nondistended, normal bowel sounds. No guarding, rebound, or peritoneal signs. Back: Nontender. Extremities: Nontender, 2+ pitting edema lower extremities bilaterally. Skin: Normal color, no rash. Neurologic: Alert and oriented ?3. Cranial nerves II through XII are intact. Normal strength and sensation. Psych: Normal affect. Test Results: EKG is sinus at 92 with right bundle branch block and left anterior fascicular block. Nonspecific ST changes. Is unchanged from February of last year. Troponin is negative. Chem-7 shows a BUN of 21, glucose 149, calcium of 8.3. CBC shows an H&H 11.5 36.3, platelets 148, immature granulocytes 1.1%. Clinical Impression(s) from Imaging Studies Chest X-Ray 04/23/19 21:40 IMPRESSION: There are findings consistent with COPD. There is no evidence of acute chest disease. Electronically Signed: Arnold Romo MD at 22:13 EST , Service support , Emergency Department Course and Treatment: Patient treated albuterol and Atrovent aerosol. He was given prednisone and Zithromax p.o. He is resting comfortably and would like to go home. Treatment Plan: Patient be discharged on a 5-day burst of prednisone and Zithromax. He has a nebulizer at home. Instructed to follow-up his primary care physician in 3 to 5 days if not improving. Return to the emergency department for any worsening symptoms. Disposition: To home in improved and stable condition. Impression: 1. URI. This note was generated with [employer] dictation software. It may contain incorrect words, spelling, and punctuation that were not noted in review of the chart prior to signing ED Disposition - Plan for ED Patient: Disposition: Home or Assisted Living Instructions: BRONCHITIS, Antiobiotic Treatment (Adult) Prescriptions: Prednisone [Deltasone] 40 mg PO DAILY #10 tab Prescription Printed Azithromycin [Zithromax] 250 mg PO DAILY #4 tab Prescription Printed Referrals: Jovani Mendez PA [Primary Care Provider] - 3-5 Days if not improving
[2019-04-23] MEDS: Azithromycin 250 MG Tablet 500 MG PO (22:37)
[2019-04-23 22:40] VITALS: RESP 20; O2SAT 94
== END 2019-04-23 22:41 | disposition home or self-care (01) ==
LOC: ED 21:23
PROVIDERS: Emergency Provider Emergency Medicine; PCP Physician Assistant
DX: J06.9 Acute upper respiratory infection, unspecified (principal); R06.02 Shortness of breath; I45.2 Bifascicular block; E11.9 Type 2 diabetes mellitus without complications; E03.9 Hypothyroidism, unspecified; R60.9 Edema, unspecified; E66.9 Obesity, unspecified; Z79.84 Long term (current) use of oral hypoglycemic drugs; Z79.899 Other long term (current) drug therapy
CPT/HCPCS: 71046; 80048; 83880; 84484; 85025; 87804; 93005; 94640; 96374; 99285; A4216

== ENCOUNTER → 2020-01-04 17:32 | Outpatient (CLI) | payer MEDICARE, MEDICAID, SELFPAY ==
[2020-01-04 18:23] LABS: Color, Urine Yellow (Yellow); Glucose, Dipstick Normal (Normal); Ketone-Dipstick Negative (Negative); Leukocyte Esterase-Dipstick 500 /ul (Negative); Nitrite-Dipstick Negative (Negative); Occult Blood-Urine 250 /ul (Negative); Protein-Dipstick 100 mg/dl (Negative); Specific Gravity, Urine 1.015 (1.002-1.030); Urine Bilirubin Dipstick Negative (Negative); Urine Clarity Cloudy (Clear); Urine Urobilinogen Normal (Normal)
== END ==
PROVIDERS: PCP Physician Assistant; Referring Provider Physician Assistant; Visit Provider Physician Assistant
DX: R30.0 Dysuria (principal)
CPT/HCPCS: 81002; 87086

== ENCOUNTER 2020-01-17 13:28 | Emergency (ER) | payer MEDICARE, MEDICAID, SELFPAY ==
[2020-01-17 13:29] VITALS: BP 189/73; PULSE 68; RESP 18; TEMP 36.3; O2SAT 94; BMI 44.9
--- NOTE | 2020-01-17 13:47 | CT_ITS ---
STUDY: CT ABDOMEN AND PELVIS WITHOUT CONTRAST REASON FOR EXAM: Male, 74 years old. Bilateral flank pain x days, hematuria. Prior hernia. RADIATION DOSAGE (If Supplied By Facility): CTDIvol = ( 22.33 ) mGy, DLP = ( 1171.69 ) mGycm TECHNIQUE: Transaxial images were obtained from the dome of the diaphragm to the symphysis pubis without oral contrast, and without intravenous contrast. Sagittal and coronal images were reconstructed. Individualized dose optimization techniques were used for this CT. COMPARISON: Comparison is made with prior examination dated 01/20/2017. FINDINGS: Minimal increased markings at the right lung base suggestive of atelectasis and/or scarring. Coronary artery calcification. Calcification of the mitral valve annulus. Calcified granuloma in the left lobe of the liver. Mildly distended gallbladder. Low-level densities are seen within the gallbladder. This may represent either sludge or tiny gallstones. There is a focal 6.2 mm soft tissue density along the medial aspect of the wall of the gallbladder. This may represent a small polyp. There are multiple benign calcified granulomata of the spleen. Normal pancreas. Normal bilateral adrenal glands. Scattered right intrarenal calculi. The largest is in the mid pole portion of the kidney and measures 5.7 mm. Normal left kidney. Normal visualized stomach. Normal small intestine. Normal colon. The appendix is visualized and appears normal. There is scattered atherosclerotic calcification of the abdominal aorta, without a demonstrated aneurysm. Normal inferior vena cava. There is borderline retroperitoneal lymphadenopathy with enlarged nodes no greater than 10mm in the short axis diameter. Contracted urinary bladder with diffuse thickening of the bladder wall. There are prostatic calcifications. There is a small umbilical hernia containing fat. There are degenerative changes of the visualized lumbar spine. Stable Schmorl''s node in the left side of the superior endplate of the L4 vertebrae. CT/Abdomen/Pelvis without Cont IMPRESSION: Mild distention of the gallbladder with the findings suggestive of sludge or tiny gallstones. Stable focal density along the medial wall of the gallbladder suggestive of a polyp. Nonobstructive right intrarenal calculi. Bladder wall thickening. Electronically Signed: Wing Jeronimo, at 15:00 EDT , Service support ,
--- NOTE | 2020-01-17 13:50 | ED.VIS.GEN ---
History of Present Illness Chief Complaint: Other, Pain/Inj Informant: Patient Onset: Days Context: Gradual Onset Current Severity: Mild Maximum Severity: Moderate Narrative: Patient presents with pain to his bilateral sides. He points to the anterolateral surface of the lower ribs and describing his area of pain. He states he first noted a couple days ago. He had the same pain approximate 20 years ago that he states was treated with some kind of medicine. He denies central chest pain or shortness of breath. He denies urinary symptoms. It is noted that the patient went to the restroom just after my initial exam and was noted to have hematuria. Patient states he had not noted this at home. - Past Medical History (1) CHF (congestive heart failure) Status: Chronic (2) PVD (peripheral vascular disease) Status: Chronic (3) Type 2 diabetes mellitus with diabetic polyneuropathy Status: Chronic (4) Hypothyroid Status: Chronic Past Medical History - Allergies and Home Meds Allergies/Adverse Reactions: Allergies bee venom protein (honey bee) Allergy (Verified 01/17/20 13:32) Angioedema Penicillins Allergy (Verified 01/17/20 13:32) Rash acetaminophen [From Vicodin] Adverse Reaction (Verified 01/17/20 13:32) Itching hydrocodone bitartrate [From Vicodin] Adverse Reaction (Verified 01/17/20 13:32) Itching Primary Care Physician: Jovani Mendez, PA [Primary Care Provider] - Prior records reviewed: Yes Surgical History: noncontributory Smoking Status: Former smoker - Family History Maternal Family History: Reports: Diabetes, - - colon cancer. Review of Systems General: Denies: Chills, Fever Eyes: Denies: Visual changes - bilaterally ENT: Denies: Bilateral ear pain Cardiovascular: Reports: Chest pain - Bilateral lower rib pain Respiratory: Denies: Dyspnea, Cough Gastrointestinal: Reports: Abdominal pain. Denies: Nausea, Vomiting, Diarrhea Genitourinary: Reports: Hematuria. Denies: Dysuria Musculoskeletal: Denies: Extremity Pain Neurological: Denies: Headache Hematologic: Denies: Easy bruising, Easy bleeding Allergy: Denies: Uticaria Physical Exam Vital Signs/Narrative: Vital Signs Temp Pulse Resp BP Pulse Ox 01/17/20 13:29 97.4 F L 68 18 189/73 H 94 Inital Vital Signs reviewed: Yes General: Well nourished, Well developed Head: Normocephalic ENT: Moist mucous membranes Neck: Supple Cardiovascular: Regular rate, Regular rhythm Respiratory: No distress, CTA bilaterally, Chest tenderness - Mild tenderness in the lateral lower ribs and upper abdomen. No overlying skin change. Abdomen: Soft, Tender - Tenderness in the bilateral upper quadrants laterally. Back: Nontender Extremities: Nontender Skin: Normal color Neurological: Alert, Oriented x3 Psychological: Normal affect Diagnostic/Tx/Re-eval Impressions Abdomen/Pelvis CT 01/17/20 13:47 IMPRESSION: Mild distention of the gallbladder with the findings suggestive of sludge or tiny gallstones. Stable focal density along the medial wall of the gallbladder suggestive of a polyp. Nonobstructive right intrarenal calculi. Bladder wall thickening. Electronically Signed: Wing Jeronimo, at 15:00 EDT , Service support , 01/17/20 13:47 Abdomen/Pelvis without Cont [CT] Stat Laboratory Results 01/17/20 01/17/20 01/17/20 14:05 14:05 14:15 WBC 8.5 RBC 3.63 L Hgb 11.2 L Hct 35.3 L MCV 97.2 H MCH 30.9 MCHC 31.7 L RDW Std Deviation 51.8 H RDW Coeff of Emili 14.6 Plt Count 171 MPV 9.7 Immature Gran % (Auto) 2.500 H Neut % (Auto) 69.2 Lymph % (Auto) 16.9 L Cuming % (Auto) 7.3 Eos % (Auto) 3.4 Baso % (Auto) 0.7 Absolute Neuts (auto) 5.9 Absolute Lymphs (auto) 1.44 Nucleated RBC % 0 Sodium 138 Potassium 3.8 Chloride 103 Carbon Dioxide 27.0 Anion Gap 8 BUN 31 H Creatinine 1.03 Estim Creat Clear Calc 45.84 Est GFR (MDRD) Af Amer 90 Est GFR (MDRD) Non-Af 75 BUN/Creatinine Ratio 30.1 H Glucose 208 H Calcium 8.5 Urine Color Brown Urine Clarity Cloudy Urine pH 6.0 Ur Specific [place] 1.020 Urine Protein 100 H Urine Glucose (UA) 50 H Urine Ketones Negative Urine Occult Blood 250 H Urine Nitrite Negative Urine Bilirubin Negative Urine Urobilinogen Normal Ur Leukocyte Esterase 500 H Urine RBC > 100 SEEN Urine WBC >100 SEEN Ur Squamous Epith Cells 0 SEEN Urine Bacteria 0 SEEN Urine Mucus 0 SEEN - Medical Decision Making Patient was given 50 mg of Toradol to help with pain. On repeat evaluation he is resting comfortably. Test results discussed with him. He does have greater than 100 whites and red cells in his urine. Urine culture was sent and he will be covered with antibiotics. He will also be given Toradol tabs as well as a refill of his nitroglycerin pills. ED Disposition - Plan for ED Patient: Disposition: Home or Assisted Living Diagnosis: Bilateral flank pain, UTI (urinary tract infection) Instructions: ED CYSTITIS Male Adult, ED Flank Pain Uncertain Cause Prescriptions: Smz/Tmp Ds [Bactrim Ds] 1 tab PO BID #6 tab Transmission Status: Pending to [facility] #30 Nitroglycerin 0.4 mg SL TID PRN PRN #20 tab.subl PRN Reason: Pain Score 4-10 Transmission Status: Pending to [facility] Ketorolac [Toradol] 10 mg PO Q12H PRN #10 tab PRN Reason: Pain Score 4-10 Transmission Status: Pending to [facility] Referrals: Jovani Mendez PA [Primary Care Provider] - 3-5 Days if not improving
[2020-01-17] MEDS: Ketorolac 15 MG/ML Vial IV (14:11)
[2020-01-17 14:12] LABS: Absolute Lymphocyte Count 1.44 X10^3/uL (0.83-4.51); Absolute Neutrophil Count 5.9 X10^3/uL (2.0-7.7); Basophil# 0.06 X10^3/uL; Basophil% 0.7 % (0-1); Eosinophil# 0.29 X10^3/uL; Eosinophils% 3.4 % (0-5); Hematocrit 35.3 % (40-54); Hemoglobin 11.2 g/dL (13.0-16.5); Lymphocyte # 1.44 X10^3/ul (4.0); Lymphocyte % 16.9 % (19-41); Mean Corp Hgb Conc 31.7 g/dL (32-36); Mean Corpuscular Hgb 30.9 pg (27.0-32.0); Mean Corpuscular Volume 97.2 fL (80-94); Mean Platelet Vol. 9.7 fl (6.2-12.0); Monocyte# 0.62 X10^3/uL; Monocyte% 7.3 % (0-10); NRBC Flagged by Analyzer 0 % (0-5); Neutrophil # 5.91 X10^3/uL (2.7-7.7); Neutrophil % 69.2 % (47-70); Platelet Count 171 K/mm3 (150-450); RBC Distribution Width CV 14.6 % (11.6-14.6); RBC Distribution Width SD 51.8 fl (35.1-43.9); Red Blood Count 3.63 M/mm3 (4.6-6.2); White Blood Count 8.5 K/mm3 (4.4-11.0)
[2020-01-17 14:19] LABS: Bacteria 0 SEEN /hpf (None Seen); Mucous, Urine 0 SEEN /hpf (<or=2+); Squamous Epithelial Cells - UA 0 SEEN /hpf (0-5)
[2020-01-17 14:22] LABS: Color, Urine Brown (Yellow); Glucose, Dipstick 50 mg/dl (Normal); Ketone-Dipstick Negative (Negative); Leukocyte Esterase-Dipstick 500 /ul (Negative); Nitrite-Dipstick Negative (Negative); Occult Blood-Urine 250 /ul (Negative); Protein-Dipstick 100 mg/dl (Negative); Urine Bilirubin Dipstick Negative (Negative); Urine Clarity Cloudy (Clear); Urine Urobilinogen Normal (Normal)
[2020-01-17 14:24] LABS: Anion Gap 8 (5-15); BUN 31 mg/dL (7-18); BUN/Creat Ratio 30.1 RATIO (10-20); Calcium,Total 8.5 mg/dL (8.5-10.1); Chloride 103 mmol/L (98-107); Creatinine, Serum 1.03 mg/dL (0.70-1.30); EST Glomerular Filtration Rate 75 mL/min (>60); Est Glom Filt Rate - Afr Amer 90 mL/min (>60); Estimated Creatinine Clearance 45.84 ml/min; Glucose 208 mg/dL (74-106); Potassium 3.8 mmol/L (3.5-5.1); Sodium Level 138 mmol/L (136-145)
[2020-01-17 14:28] LABS: Red Blood Cells-Urine > 100 SEEN /hpf (0-5); White Blood Cells >100 SEEN /hpf (0-5)
[2020-01-17 15:13] VITALS: BP 120/66
[2020-01-17] MEDS: Smz/Tmp Ds Tablet 1 TABLET PO (15:48)
== END 2020-01-17 15:49 | disposition home or self-care (01) ==
PROVIDERS: Emergency Provider Emergency Medicine; PCP Physician Assistant
DX: R10.9 Unspecified abdominal pain (principal); N39.0 Urinary tract infection, site not specified; E03.9 Hypothyroidism, unspecified; E11.42 Type 2 diabetes mellitus with diabetic polyneuropathy; E11.51 Type 2 diabetes mellitus with diabetic peripheral angiopathy without gangrene; Z79.84 Long term (current) use of oral hypoglycemic drugs; Z87.891 Personal history of nicotine dependence
CPT/HCPCS: 74176; 80048; 81001; 85025; 87086; 96374; 99281; 99284; A4216

== ENCOUNTER 2020-01-22 10:12 | Emergency (ER) | payer MEDICARE, MEDICAID, SELFPAY ==
[2020-01-22 10:13] VITALS: BP 211/84; PULSE 87; RESP 21; TEMP 36.1; O2SAT 95; BMI 41.1
--- NOTE | 2020-01-22 10:27 | RAD_ITS ---
STUDY: X-RAY CHEST REASON FOR EXAM: Male, 74 years old. COUGH,SOB, TECHNIQUE: Single AP portable view of the chest. COMPARISON: Comparison is made with prior study dated 04/23/2019. FINDINGS: Hyperinflation. Stable minimal increased markings at the left lung base suggests scarring. There is no demonstrated pleural abnormality. Normal size heart. Normal mediastinum and shauna. Normal visualized pulmonary arteries. Normal visualized aortic arch and descending thoracic aorta. Normal visualized thoracic spine. Normal visualized ribs, clavicles, and shoulders. There is no demonstrated abnormality of the visualized soft tissue structures of the upper abdomen. RAD/Chest 1 View (Portable) IMPRESSION: Hyperinflation. Mild linear scarring at the left lung base. Electronically Signed: Wing Jeronimo, at 11:14 EDT , Service support ,
--- NOTE | 2020-01-22 10:28 | ED.VIS.GEN ---
History of Present Illness Chief Complaint: Cough Informant: Patient Narrative: Patient presents to the emergency department with a chief complaint of runny nose, cough, sore throat, and chest soreness from coughing of 2-3 day duration. He tells me that he is unable to see his doctor until February because the paperwork he last received from them stated his next appointment was in February. He has not called them to see if he can be seen for this illness. He is not sure but he thinks he may have a history of asthma. He states that he usually gets bronchitis. He denies any change in chronic leg swelling or weight gain no orthopnea. (History of CHF) he denies any fevers. - Past Medical History (1) Obesity Status: Chronic (2) CHF (congestive heart failure) Status: Chronic (3) Diabetes Status: Chronic (4) Hypothyroid Status: Chronic (5) PVD (peripheral vascular disease) Status: Chronic (6) Type 2 diabetes mellitus with diabetic polyneuropathy Status: Chronic (7) Venous insufficiency Status: Chronic Past Medical History - Allergies and Home Meds Allergies/Adverse Reactions: Allergies bee venom protein (honey bee) Allergy (Verified 01/22/20 10:12) Angioedema Penicillins Allergy (Verified 01/22/20 10:12) Rash acetaminophen [From Vicodin] Adverse Reaction (Verified 01/22/20 10:12) Itching hydrocodone bitartrate [From Vicodin] Adverse Reaction (Verified 01/22/20 10:12) Itching Primary Care Physician: Jovani Mendez PA [Primary Care Provider] - 1 Week if not improving Prior records reviewed: Yes Surgical History: noncontributory Smoking Status: Former smoker Drugs: None - Family History Maternal Family History: Reports: Diabetes, - - colon cancer. Review of Systems General: Denies: Chills, Fever, Sweats Eyes: Denies: Visual changes - bilaterally, Diplopia ENT: Reports: Rhinorrhea, Sore throat Cardiovascular: Reports: Chest pain. Denies: Palpitations Respiratory: Reports: Cough, Sputum - yellow sputum. Denies: Dyspnea, Dyspnea on exertion Gastrointestinal: Denies: Abdominal pain, Nausea, Vomiting, Diarrhea, Melena, Hematochezia Genitourinary: Denies: Dysuria, Hematuria, Frequency Musculoskeletal: Denies: Back pain, Extremity Pain Skin: Denies: Rash, Wounds Neurological: Denies: Headache, Weakness, Numbness Physical Exam Vital Signs/Narrative: Vital Signs Temp Pulse Resp BP Pulse Ox 01/22/20 10:13 97 F L 87 21 H 211/84 H 95 Inital Vital Signs reviewed: Yes General: Well nourished, Well developed, Obese, No Acute Distress Head: Normocephalic, Atraumatic Eyes: Perrl, EOMI ENT: Moist mucous membranes, Nasal congestion Neck: Supple, Nontender Cardiovascular: Regular rate, Regular rhythm, No murmurs Respiratory: No distress, CTA bilaterally, Chest nontender Abdomen: Soft, Nontender, Nondistended, Normal bowel sounds Back: Nontender, Normal Inspection Extremities: Nontender, Edema - Symmetric Skin: Normal color, No rash Neurological: Alert, Oriented x3, Cranial nerves II-XII grossly intact, Normal Strength, Normal Sensation Psychological: Normal affect, Normal Mood Diagnostic/Tx/Re-eval Clinical Impression(s) from Imaging Studies Chest X-Ray 01/22/20 10:27 IMPRESSION: Hyperinflation. Mild linear scarring at the left lung base. Electronically Signed: Wing Jeronimo, at 11:14 EDT , Service support , - Medical Decision Making Chest x-ray is negative for acute. We will swab him for COVID-19. [address] him on azithromycin and albuterol MDI. Or Motrin for his chest soreness. he will follow up with primary care. The patient actually refuses being swabbed for Covid stating that he does not want anything up his nose. ED Disposition - Plan for ED Patient: Disposition: Home or Assisted Living Diagnosis: Bronchitis Instructions: Acute Bronchitis Prescriptions: Albuterol Inhaler [Ventolin Hfa] 2 puff INHALATION Q4H PRN PRN #1 inhaler PRN Reason: Wheezing Transmission Status: Received by [facility] #30 Azithromycin [Zithromax Z-Gerardo] 250 mg PO UD #1 box Transmission Status: Received by [facility]30 Referrals: Jovani Mendez PA [Primary Care Provider] - 1 Week if not improving Additional Instructions: Your COVID-19 test will be back in a couple days. Until then it is recommended that you self isolate and limit exposure to people to help prevent the spread of the disease
[2020-01-22 10:56] VITALS: BP 156/78
--- NOTE | 2020-01-22 11:31 | ED.RN ---
pt refused covid swab
== END 2020-01-22 11:31 | disposition home or self-care (01) ==
LOC: ED 11:27
PROVIDERS: PCP Physician Assistant
DX: J40 Bronchitis, not specified as acute or chronic (principal); E66.9 Obesity, unspecified
CPT/HCPCS: 71045; 99282

== ENCOUNTER 2020-02-06 19:57 | Emergency (ER) | payer MEDICARE, MEDICAID, SELFPAY ==
[2020-02-06 19:57] VITALS: BP 167/65; PULSE 87; RESP 28; TEMP 35.6; O2SAT 93; BMI 42.0
[2020-02-06 20:01] VITALS: BP 167/65; PULSE 89; RESP 28; TEMP 35.6; O2SAT 93
[2020-02-06 20:57] VITALS: BP 133/90; PULSE 93; RESP 24; TEMP 37.1; O2SAT 90; O2SAT 93
[2020-02-06 21:00] VITALS: BP 157/47; PULSE 94; RESP 18; TEMP 37.1; O2SAT 94
--- NOTE | 2020-02-06 21:15 | RAD_ITS ---
STUDY: X-RAY CHEST REASON FOR EXAM: Male, 74 years old. shortness of breath TECHNIQUE: Single frontal view of the chest. COMPARISON: 01/22/2020 FINDINGS: The lungs are clear and expanded. There is no demonstrated pleural abnormality. Cardiomegaly. Normal mediastinum and shauna. Normal visualized pulmonary arteries. Normal visualized aortic arch and descending thoracic aorta. Normal visualized thoracic spine. Normal visualized ribs, clavicles, and shoulders. There is no demonstrated abnormality of the visualized soft tissue structures of the upper abdomen. RAD/Chest 1 View (Portable) IMPRESSION: No acute disease Electronically Signed: Lucian Pena MD at 21:34 EST , Service support ,
[2020-02-06 21:22] VITALS: PULSE 106; RESP 26
[2020-02-06] MEDS: Ipratropium/Albuterol Sulfate 3 ML AMPUL.NEB INHALATION (21:22)
[2020-02-06] MEDS: predniSONE 20 MG Tablet 60 MG PO (21:27)
--- NOTE | 2020-02-06 21:31 | ED.VIS.GEN ---
History of Present Illness Chief Complaint: Shortness of Breath Informant: Patient Narrative: 74-year-old male resents to the emergency department stating that his bronchitis is acting up on him. He states for the past 2 days he has had a cough that is occasionally productive. He denies any chest pain. He states he wears home oxygen and takes breathing treatments at home. He tells me he has asthma. No fevers, diarrhea, loss of smell or taste, rashes, vomiting, or headaches. He does not wish to be swabbed for Covid. He was treated with antibiotics approximately 2 weeks ago. - Past Medical History (1) Hypoxemia Status: Chronic (2) CHF (congestive heart failure) Status: Chronic (3) Diabetes Status: Chronic (4) Hypothyroid Status: Chronic (5) Obesity Status: Chronic (6) PVD (peripheral vascular disease) Status: Chronic (7) Type 2 diabetes mellitus with diabetic polyneuropathy Status: Chronic (8) Venous insufficiency Status: Chronic Past Medical History - Allergies and Home Meds Allergies/Adverse Reactions: Allergies bee venom protein (honey bee) Allergy (Verified 01/22/20 10:12) Angioedema Penicillins Allergy (Verified 01/22/20 10:12) Rash acetaminophen [From Vicodin] Adverse Reaction (Verified 01/22/20 10:12) Itching hydrocodone bitartrate [From Vicodin] Adverse Reaction (Verified 01/22/20 10:12) Itching Primary Care Physician: Jovani Mendez PA [Primary Care Provider] - As soon as possible Prior records reviewed: Yes Surgical History: noncontributory Smoking Status: Former smoker - Family History Maternal Family History: Reports: Diabetes, - - colon cancer. Review of Systems General: Denies: Chills, Fever, Sweats Eyes: Denies: Visual changes - bilaterally, Diplopia ENT: Denies: Rhinorrhea, Sore throat Cardiovascular: Denies: Chest pain, Palpitations Respiratory: Reports: Cough. Denies: Dyspnea, Dyspnea on exertion Gastrointestinal: Denies: Abdominal pain, Nausea, Vomiting, Diarrhea, Melena, Hematochezia Genitourinary: Denies: Dysuria, Hematuria, Frequency Musculoskeletal: Denies: Back pain, Extremity Pain Skin: Denies: Rash, Wounds Neurological: Denies: Headache, Weakness, Numbness Physical Exam Vital Signs/Narrative: Vital Signs Temp Pulse Resp BP Pulse Ox 11/03/20 21:00 98.8 F 94 18 157/47 H 94 02/06/20 20:57 98.8 F 93 24 H 133/90 H 90 02/06/20 20:01 96.1 F L 89 28 H 167/65 H 93 02/06/20 19:57 96.1 F L 87 28 H 167/65 H 93 Inital Vital Signs reviewed: Yes General: Well nourished, Well developed, Obese, No Acute Distress Head: Normocephalic, Atraumatic Eyes: Perrl, EOMI ENT: Moist mucous membranes, No rhinorrhea Neck: Supple, Nontender Cardiovascular: Regular rate, Regular rhythm, No murmurs Respiratory: No distress, Chest nontender, Wheezing - mild expiratory Abdomen: Soft, Nontender, Nondistended, Normal bowel sounds Back: Nontender, Normal Inspection Extremities: Nontender, No edema Skin: Normal color, No rash Neurological: Alert, Oriented x3, Cranial nerves II-XII grossly intact, Normal Strength, Normal Sensation Psychological: Normal affect, Normal Mood Diagnostic/Tx/Re-eval Clinical Impression(s) from Imaging Studies Chest X-Ray 02/06/20 21:15 IMPRESSION: No acute disease Electronically Signed: Lucian Pena MD at 21:34 EST , Service support , - Medical Decision Making Chest x-ray was negative for infiltrate. Patient received a breathing treatment and a dose of prednisone. He should continue to do breathing treatments at home and will continue the prednisone for the next couple days. I have asked that he please follow-up with his doctor. ED Disposition - Plan for ED Patient: Disposition: Home or Assisted Living Diagnosis: Bronchitis Instructions: Acute Bronchitis Prescriptions: predniSONE tablet 60 mg PO DAILY #12 tab Prescription Printed Referrals: Jovani Mendez PA [Primary Care Provider] - As soon as possible Additional Instructions: I would recommend you use your inhaler 2 puffs every 2-3 hours. As discussed prednisone will make your blood sugars rise temporarily.
--- NOTE | 2020-02-06 21:45 | CPS ---
Pt. put poor effort with breathing tx.; he continually stopped his tx. to talk and had to be constantly reminded to focus on slow, deep breathing during the duration of his tx.
[2020-02-06 22:03] VITALS: PULSE 96; RESP 18; O2SAT 95
== END 2020-02-06 22:06 | disposition home or self-care (01) ==
LOC: ED 22:02
PROVIDERS: Emergency Provider Emergency Medicine; PCP Physician Assistant
DX: J40 Bronchitis, not specified as acute or chronic (principal); E11.9 Type 2 diabetes mellitus without complications; E03.9 Hypothyroidism, unspecified; Z87.891 Personal history of nicotine dependence; Z79.84 Long term (current) use of oral hypoglycemic drugs
CPT/HCPCS: 71045; 94640; 99283

== ENCOUNTER 2020-02-09 15:04 | Inpatient (IN) | payer MEDICARE, MEDICAID, SELFPAY ==
[2020-02-09] VITALS (22 sets, daily range): BP systolic 114–161; BP diastolic 49–71; PULSE 80–102; RESP 12–25; TEMP 36.6–37.2; O2SAT 88–98; BMI 34.3; BMI 42.2
--- NOTE | 2020-02-09 16:44 | EKG12_ITS ---
Test Reason : SOB Blood Pressure : / mmHG Vent. Rate : 086 BPM Atrial Rate : 086 BPM P-R Int : 162 ms QRS Dur : 104 ms QT Int : 340 ms P-R-T Axes : 000 224 016 degrees QTc Int : 406 ms Consider Right Sided ECG Possible Sinus Rhythm Consider Limb Lead Misplacement Recommend repeat ECG Confirmed by SANDRA CARDOSO, PRIETO ([id number]), film editor supervisor MEGA VALENTINE ([id number]) on 02/12/2020 2:12:38 PM Referred By: Ada Ramon Confirmed By:PRIETO FLORES MD
--- NOTE | 2020-02-09 16:46 | ED.VIS.GEN ---
History of Present Illness Chief Complaint: Shortness of Breath Informant: Patient Narrative: 74-year-old male with past medical history of oxygen dependent COPD, hypertension, diabetes presents with concern for cough and shortness of breath. States is been present for 1 week. Patient seen 3 days ago and started on prednisone. Patient states that he has pain in his chest when he exerts himself. It is aching in nature. Denies any fever, chills, nausea, vomiting, diaphoresis. Past Medical History - Allergies and Home Meds Allergies/Adverse Reactions: Allergies bee venom protein (honey bee) Allergy (Verified 01/22/20 10:12) Angioedema Penicillins Allergy (Verified 01/22/20 10:12) Rash acetaminophen [From Vicodin] Adverse Reaction (Verified 01/22/20 10:12) Itching hydrocodone bitartrate [From Vicodin] Adverse Reaction (Verified 01/22/20 10:12) Itching Past Medical History: - - HTN, DM, CHF, COPD Surgical History: noncontributory Lives: Alone Smoking Status: Former smoker Alcohol: None Drugs: None - Family History Maternal Family History: Reports: Diabetes, - - colon cancer. Review of Systems General: Denies: Chills, Fever, Sweats Eyes: Denies: Visual changes - bilaterally, Diplopia ENT: Denies: Rhinorrhea, Sore throat Cardiovascular: Reports: Chest pain. Denies: Palpitations Respiratory: Reports: Dyspnea, Cough. Denies: Dyspnea on exertion Gastrointestinal: Denies: Abdominal pain, Nausea, Vomiting, Diarrhea, Melena, Hematochezia Genitourinary: Denies: Dysuria, Hematuria, Frequency Musculoskeletal: Denies: Back pain, Extremity Pain Skin: Denies: Rash, Wounds Neurological: Denies: Headache, Weakness, Numbness Physical Exam Vital Signs/Narrative: Vital Signs Temp Pulse Resp BP Pulse Ox 02/09/20 16:36 83 18 98 02/09/20 15:56 98.2 F 85 18 114/55 L 88 Inital Vital Signs reviewed: Yes General: Well nourished, Well developed, No Acute Distress Head: Normocephalic, Atraumatic Eyes: Perrl, EOMI ENT: Moist mucous membranes, No rhinorrhea Neck: Supple, Nontender Cardiovascular: Regular rate, Regular rhythm, No murmurs Respiratory: No distress, Chest nontender, - - BL expiratory wheezing. Abdomen: Soft, Nontender, Nondistended, Normal bowel sounds Back: Nontender, - - BL lower extremity edema 3+ pitting Extremities: Nontender, No edema Skin: Normal color, No rash Neurological: Alert, Oriented x3, Cranial nerves II-XII grossly intact, Normal Strength, Normal Sensation Psychological: Normal affect, Normal Mood Diagnostic/Tx/Re-eval Clinical Impression(s) from Imaging Studies Chest X-Ray 02/09/20 18:30 IMPRESSION: Question mild cardiac failure Electronically Signed: Odin Ott DO at 18:51 EST Tel [phone], Service support , Laboratory Data 02/09/20 02/09/20 02/09/20 17:00 17:00 17:00 WBC 20.3 H RBC 1.51 L Hgb 4.8 L* Hct 15.9 L MCV 105.3 H MCH 31.8 MCHC 30.2 L RDW Std Deviation 63.4 H RDW Coeff of Emili 17.5 H Plt Count 327 MPV 10.5 Neut % (Auto) Not Reportable Absolute Neuts (auto) 17.1 H Absolute Lymphs (auto) 3.25 Total Counted 100 Neutrophils % (Manual) 82 H Band Neutrophils % 2 Lymphocytes % (Manual) 16 L Diff Path Review May foll Platelet Estimate ADEQUATE Hypochromasia 2+ Anisocytosis 1+ Macrocytosis 1+ PT INR APTT Sodium 129 L Potassium 4.5 Chloride 96 L Carbon Dioxide 23.0 Anion Gap 10 BUN 91 H Creatinine 1.79 H Estim Creat Clear Calc 29.86 Est GFR (MDRD) Af Amer 48 L Est GFR (MDRD) Non-Af 40 L BUN/Creatinine Ratio 50.8 H Glucose 737 H* Calcium 8.0 L Troponin I 9.070 H* B-Natriuretic Peptide 317.7 H Blood Type Antibody Screen Crossmatch 02/09/20 02/09/20 02/09/20 17:00 17:42 17:42 WBC RBC Hgb Hct MCV MCH MCHC RDW Std Deviation RDW Coeff of Emili Plt Count MPV Neut % (Auto) Absolute Neuts (auto) Absolute Lymphs (auto) Total Counted Neutrophils % (Manual) Band Neutrophils % Lymphocytes % (Manual) Diff Path Review Platelet Estimate Hypochromasia Anisocytosis Macrocytosis PT 13.1 INR 1.0 APTT 22.7 L Sodium Potassium Chloride Carbon Dioxide Anion Gap BUN Creatinine Estim Creat Clear Calc Est GFR (MDRD) Af Amer Est GFR (MDRD) Non-Af BUN/Creatinine Ratio Glucose Calcium Troponin I B-Natriuretic Peptide Blood Type O NEGATIVE O NEGATIVE Antibody Screen NEGATIVE NEGATIVE Crossmatch See Detail See Detail - Rhythm Strip Rhythm Strip: Sinus Rhythm Rate: 77 Ectopy: None - EKG Initial EKG Interpretation: Sinus Rhythm - Sinus rhythm at 77 bpm. NH interval of 160 ms. QTC of [address] depression in V2 through V6. Follow-up EKG Interpretation: Sinus Rhythm - Normal sinus rhythm at 86 bpm. Evidence of elevation in the lateral leads. This is a posterior EKG. Acute STEMI. - Medical Decision Making Patient appears ill and toxic. Pale. EKG concerning for posterior STEMI. Posterior EKG confirms acute STEMI. At roughly the same time patient's blood work came back with a hemoglobin of approximately 4. Spoke with cardiology who suggested no coagulation or aspirin at this time. Patient will not go for emergent catheterization. Patient was given 2 units of O- packed red blood cells. This did improve the patient's symptoms. Chest x-ray shows no significant change. Other lab work shows acute renal insufficiency. Troponin significantly elevated. Coronavirus negative. Black stool on rectal exam. Patient given Protonix. Spoke with surgery Dr. Mckeon who was agreeable with admission to hospitalist. Patient will be given another 2 units of packed red blood cells. Patient was given Lasix given concern for his significant CHF. She also has a significantly elevated blood glucose. No significant gap or acidosis. Cannot receive significant fluid resuscitation given his CHF. Will be given insulin. Patient will be admitted to the ICU for further treatment and evaluation. Impression: 1. Posterior STEMI 2. CHF exacerbation 3. GIB 4. Acute blood loss anemia 5. Acute renal insufficiency 6. Hyperglycemia - Critical Care Time Critical care time (excluding procedures): 30-74 minutes, Discussing w/Patient &/or Family/Explosive Ordnance Technician, Discussing w/Consultants, Arranging Admission or Transfer, Performing Direct Patient Care at Bedside ED Disposition - Plan for ED Patient: Disposition: [facility]
[2020-02-09] MEDS: Albuterol 2.5 MG/3 ML VIAL.NEB. INHALATION (17:02)
[2020-02-09] MEDS: Ipratropium/Albuterol Sulfate 3 ML AMPUL.NEB INHALATION (17:02)
[2020-02-09] MEDS: MethylPREDNISolone 125 MG/2 ML Vial IV (17:07)
--- NOTE | 2020-02-09 17:17 | EKG12_ITS ---
Test Reason : SOB Blood Pressure : / mmHG Vent. Rate : 077 BPM Atrial Rate : 077 BPM P-R Int : 160 ms QRS Dur : 152 ms QT Int : 446 ms P-R-T Axes : 057 -50 001 degrees QTc Int : 504 ms Normal sinus rhythm Right bundle branch block Left anterior fascicular block Bifascicular block T wave abnormality, consider lateral ischemia Abnormal ECG Confirmed by SANDRA CARDOSO, PRIETO ([id number]), assistant editor MEGA VALENTINE ([id number]) on 02/12/2020 2:12:54 PM Referred By: Ada Ramon Confirmed By:PRIETO FLORES MD
[2020-02-09 17:21] LABS: Hematocrit 15.9 % (40-54); Mean Corp Hgb Conc 30.2 g/dL (32-36); Mean Corpuscular Hgb 31.8 pg (27.0-32.0); Mean Corpuscular Volume 105.3 fL (80-94); Mean Platelet Vol. 10.5 fl (6.2-12.0); POSITIVE COUNT YES; POSITIVE MORPHOLOGY YES; Platelet Count 327 K/mm3 (150-450); RBC Distribution Width CV 17.5 % (11.6-14.6); RBC Distribution Width SD 63.4 fl (35.1-43.9); Red Blood Count 1.51 M/mm3 (4.6-6.2); White Blood Count 20.3 K/mm3 (4.4-11.0)
[2020-02-09 17:25] LABS: Differential Indicated MANUAL DIFF
[2020-02-09 17:26] LABS: Hemoglobin 4.8 g/dL (13.0-16.5)
[2020-02-09 17:49] LABS: Partial Thromboplast Time 22.7 Seconds (24.1-36.2); Prothrombin Time (Protime)PT. 13.1 SECONDS (11.7-14.9)
[2020-02-09 17:53] LABS: Lymphocyte 16 % (19-41); Neutrophil-Band 2 % (0-5); Neutrophil-Segmented 82 % (47-70); Total Cells Counted 100 (MANUAL DIFF)
[2020-02-09 17:54] LABS: Hypochromasia 2+; Macrocytosis 1+
[2020-02-09 17:55] LABS: Anisocytosis 1+
[2020-02-09 17:56] LABS: Platelet Estimate ADEQUATE (ADEQ)
[2020-02-09 17:58] LABS: Absolute Lymphocyte Count 3.25 X10^3/uL (0.83-4.51); Absolute Neutrophil Count 17.1 X10^3/uL (2.0-7.7)
[2020-02-09] MEDS: Furosemide 100 MG/10 ML Vial 80 MG IV (17:59)
[2020-02-09 18:12] LABS: Anion Gap 10 (5-15); BUN 91 mg/dL (7-18); BUN/Creat Ratio 50.8 RATIO (10-20); Chloride 96 mmol/L (98-107); Creatinine, Serum 1.79 mg/dL (0.70-1.30); EST Glomerular Filtration Rate 40 mL/min (>60); Est Glom Filt Rate - Afr Amer 48 mL/min (>60); Estimated Creatinine Clearance 29.86 ml/min; Glucose 737 mg/dL (74-106); Potassium 4.5 mmol/L (3.5-5.1); Sodium Level 129 mmol/L (136-145)
[2020-02-09 18:15] LABS: BNP,B-Type NATRIURETIC PEPTIDE 317.7 pg/mL (0-100)
--- NOTE | 2020-02-09 18:30 | RAD_ITS ---
STUDY: X-RAY CHEST REASON FOR EXAM: Male, 74 years old. Shortness of breath for 3 days. TECHNIQUE: Single AP portable view of the chest. COMPARISON: None. FINDINGS: The lungs are hypoexpanded. There is minimal interstitial prominence. There is no demonstrated pleural abnormality. The heart is enlarged. Normal mediastinum and shauna. Mild central vascular prominence. Normal visualized aortic arch and descending thoracic aorta. The thoracic spine is obscured by the mediastinum. There is degenerative osteoarthritis of the bilateral shoulders. There is no demonstrated abnormality of the visualized soft tissue structures of the upper abdomen. RAD/Chest 1 View (Portable) IMPRESSION: Question mild cardiac failure Electronically Signed: Odin Ott DO at 18:51 EST Tel [phone], Service support ,
--- NOTE | 2020-02-09 19:17 | PCM.HP.STD ---
Problem List (1) GI bleed Status: Acute Qualifiers: GI bleed type/associated pathology: unspecified gastrointestinal hemorrhage type Qualified Code(s): K92.2 - Gastrointestinal hemorrhage, unspecified (2) STEMI (ST elevation myocardial infarction) Status: Acute Qualifiers: Involved coronary artery: unspecified coronary artery Qualified Code(s): I21.3 - ST elevation (STEMI) myocardial infarction of unspecified site (3) COPD exacerbation Status: Acute (4) Decompensated heart failure Status: Acute (5) Type 2 diabetes mellitus with hyperglycemia Status: Acute Qualifiers: Diabetes mellitus retirement insulin use: without rodent exterminator use Qualified Code(s): E11.65 - Type 2 diabetes mellitus with hyperglycemia (6) Acute kidney injury Status: Acute (7) Chronic respiratory failure with hypoxia Status: Chronic (8) Morbid obesity Status: Chronic (9) Hypothyroidism Status: Chronic Qualifiers: Hypothyroidism type: unspecified Qualified Code(s): E03.9 - Hypothyroidism, unspecified (10) Hyperlipidemia Status: Chronic Qualifiers: Hyperlipidemia type: unspecified Qualified Code(s): E78.5 - Hyperlipidemia, unspecified (11) Former tobacco use Status: Chronic History of Present Illness Date of Admission: 02/09/20 Chief Complaint: Dyspnea, cough, wheezing, fatigue and weakness The patient is a 74 y/o M w/ PMHx: Former Tobacco use, Obesity, Chronic COPD with chronic hypoxic respiratory failure, Diabetes mellitus type II, Hypothyroidism who presents to the [facility] ED on 02/09/20 with history of approximately 1 week of cough, dyspnea, wheezing, chest discomfort noted to be more pleuritic in nature, worse with certain activity, across the chest but notes worse midsternal, worse dyspnea and discomfort in the chest with exertion and wheezing seen approximately 3 days prior to current presentation with diagnosis of COPD exacerbation at that time with initiation of antibiotic therapy and prednisone taper however patient has had ongoing worsening symptoms in addition to pleuritic discomfort in his chest, worse with activity and aching in nature with no recent fever, chills, nausea, emesis or diaphoresis. Patient has been having ongoing black stools but cannot give timeline. Patient admits to orthopnea and worsening lower extremity edema concurrently. ED evaluation with noted black stools. Patient is also had recent falls secondary to his fatigue and weakness with various abrasions. In the ED included T 98.2, heart rate is 85, BP 114/55, respiratory rate 18, initially 88% on room air upon presentation with most current vital signs heart rate 88, BP 129/49, respiratory rate 18, 96% on 2 L nasal cannula, CBC with WBC 20.3, hemoglobin 4.8 noted to most recently be 11.2 on 01/17/2020, MCV 105.3, platelets 327 with left shift with concurrent lymphopenia, coags with PT 13.1, INR 1.0, PTT 22.7, BMP with sodium 129, chloride 96, BUN/creatinine 91/1.79, glucose 737, calcium 8, troponin 9.070, BNP 317.7, positive occult stool, COVID-19 Ag rapid negative, pending rapid influenza, chest x-ray with questionable mild congestion, ED initiated PRBC transfusion of 2 unit, EKG initial concerning for posterior STEMI, confirmed on posterior EKG. Additionally in the ED patient ministered DuoNeb therapy, Lasix 80 mg IV x1, Solu-Medrol 125 mg IV x1, Protonix 80 mg bolus x1. Past Medical History Past Medical History (Chronic Problems): Chronic Problems PVD (peripheral vascular disease) (Chronic) Venous insufficiency (Chronic) Type 2 diabetes mellitus with diabetic polyneuropathy (Chronic) Obesity (Chronic) Chronic respiratory failure with hypoxia (Chronic) Morbid obesity (Chronic) Hypothyroidism (Chronic) Hyperlipidemia (Chronic) Former tobacco use (Chronic) Hypoxemia (Chronic) Hypothyroid (Chronic) Diabetes (Chronic) CHF (congestive heart failure) (Chronic) Allergies bee venom protein (honey bee) Allergy (Verified 01/22/20 10:12) Angioedema Penicillins Allergy (Verified 01/22/20 10:12) Rash acetaminophen [From Vicodin] Adverse Reaction (Verified 01/22/20 10:12) Itching hydrocodone bitartrate [From Vicodin] Adverse Reaction (Verified 01/22/20 10:12) Itching Home Medications: Ambulatory Orders Medication Instructions Recorded Levothyroxine [Synthroid] 112 mcg PO DAILY 09/10/13 metFORMIN HCl [Glucophage] 1,000 mg PO BIDCM 09/10/13 Atorvastatin Calcium [Lipitor] 20 mg PO QHS 01/16/17 Nitroglycerin 0.4 mg SL TID PRN PRN #20 tab.subl 01/17/20 Albuterol Inhaler [Ventolin Hfa] 2 puff INHALATION Q4H PRN PRN #1 01/22/20 inhaler predniSONE tablet 60 mg PO DAILY #12 tab 02/06/20 Cefuroxime Axetil [Cefuroxime] 500 mg PO BID 02/09/20 Furosemide [Lasix] 20 mg PO DAILY 02/09/20 Tizanidine HCl [Zanaflex] 4 mg PO TID PRN 02/09/20 Surgical History: noncontributory, - - Umbilical hernia repair, penile foreskin surgery. Psychiatric History: No pertinent psych hx Lives: Alone Smoking Status: Former smoker - Patient noted quitting cigarette tobacco usage approximately 6 years prior. Tobacco Use: Non-smoker Alcohol: Occasional - Patient notes occasional beer intake. Drugs: None - *Family History Maternal History Items: Cancer - Mother with history of colon cancer., Diabetes Paternal History Items: - - Patient denies any market paternal family history including heart disease, diabetes, cancer. Review of Systems Constitutional: Reports: Anorexia, Malaise, Weakness, Fatigue. Denies: Chills, Fever, Weight Change HEENT: Denies: Head Aches, Sinus Congestion, Sinus Drainage Cardiovascular: Reports: Chest Pain, Edema, Orthopnea. Denies: Chest Pressure, Chest Tightness, Light Headedness, Palpitations, Syncope Respiratory: Reports: Cough, Shortness of Breath, Shortness of breath upon exertion, Sputum production, Wheezing. Denies: Shortness of breath at rest Gastrointestinal: Reports: - - Patient notes his stools have been dark but unclear timeline.. Denies: Abdominal Pain, Nausea, Vomiting Genitourinary: Denies: Dysuria Musculoskeletal: Reports: Joint Pain. Denies: Joint Tenderness Skin: Denies: Rash, Wounds Neurological: Denies: Numbness, Tingling, Focal weakness Psychiatric: Denies: Anxiety, Depression, Homicidal Ideations, Suicidal Ideations Hematologic/ Lymphatic: Reports: Anemia. Denies: Easy Bruising, Easy Bleeding VTE Information - Inpt Only VTE Present on Admission: No VTE Mechan Device Prophylaxis: SCD's VTE Pharm Prophylaxis ordered?: No Reason prophylaxis not ordered:: Medical Contraindication Patient Problems: Active and Suspected Problems GI bleed (Acute) STEMI (ST elevation myocardial infarction) (Acute) COPD exacerbation (Acute) Decompensated heart failure (Acute) Type 2 diabetes mellitus with hyperglycemia (Acute) Acute kidney injury (Acute) Subjective: Patient seated in the ED bed, ill-appearing, pale, fatigued, notes still feeling short of breath. Objective: Physical Examination: General: awake, alert, oriented x 3 and remains cooperative but irritable about having to be admitted despite severity of presentation, seated upright in the ED bed, fatigued and ill-appearing, pale. Skin: Pale color, normal turgor, no icterus, no cyanosis, notable bilateral lower extremity chronic venous stasis skin changes and some scarring on the upper chest, occasional abrasion. HEENT: AT/NC, EOMI, PERRLA, dry MM, no carotid bruits, difficult to assess JVD given thickened neck. Lungs: Diminished breath sounds, greater bases, increased respiratory rate with any movement in the bed, increased effort, mild rales bases, occasional end expiratory wheezing very tight, no rhonchi. Heart: Regular rate and rhythm; no gallop, rub audible. Abdomen: soft, morbidly obese, no obvious tenderness to palpation, difficult to assess distention given morbidly obese habitus, mildly hyperactive bowel sounds, unable to discern HSM secondary to habitus. Extremities: no cyanosis, no clubbing, see skin, significant 3+ pedal to proximal black pitting edema. Neurological: patient awake, alert, oriented as noted; cognitive function intact; pupils equally reactive to light and accomodation; cranial nerves II-XII grossly normal, moving all 4 extremities, no focal deficits, strength severely global decrease secondary to acute presentation. Psychiatric: affect appears irritable, uncomfortable, no acute evidence of depressive or anxiety feelings. - Physical Exam Vitals/I&O's: Vital Signs Temp Pulse Resp BP Pulse Ox 99.0 F 88 18 129/49 H 96 02/09/20 18:56 02/09/20 19:03 02/09/20 19:03 02/09/20 19:03 02/09/20 19:03 Oxygen Flow Rate (L/min) 2 Oxygen Delivery Method Nasal Cannula Weight: 200 lb Body Mass Index (BMI) 34.3 Finger Stick Blood Glucose 298 Intake and Output for Last 24 Hours 02/07/20 02/08/20 02/09/20 23:59 23:59 23:59 Intake Total 835 / 835 Balance 835 / 835 Microbiology Past 72 Hours 02/09/20 15:45 Stool Stool Occult Blood (CLOTILDE) - Final Occult Blood Positive 02/09/20 16:54 Mucosa - Nasopharyngeal - Final Laboratory Results 02/09/20 17:00: WBC 20.3 H, RBC 1.51 L, Hgb 4.8 L*, Hct 15.9 L, MCV 105.3 H, MCH 31.8, MCHC 30.2 L, RDW Std Deviation 63.4 H, RDW Coeff of Emili 17.5 H, Plt Count 327, MPV 10.5, Neut % (Auto) Not Reportable, Absolute Neuts (auto) 17.1 H, Absolute Lymphs (auto) 3.25, Total Counted 100, Neutrophils % (Manual) 82 H, Band Neutrophils % 2, Lymphocytes % (Manual) 16 L, Diff Path Review August, Platelet Estimate ADEQUATE, Hypochromasia 2+, Anisocytosis 1+, Macrocytosis 1+ 02/09/20 17:00: Sodium 129 L, Potassium 4.5, Chloride 96 L, Carbon Dioxide 23.0, Anion Gap 10, BUN 91 H, Creatinine 1.79 H, Estim Creat Clear Calc 29.86, Est GFR (MDRD) Af Amer 48 L, Est GFR (MDRD) Non-Af 40 L, BUN/Creatinine Ratio 50.8 H, Glucose 737 H*, Calcium 8.0 L, Troponin I 9.070 H* 02/09/20 17:00: B-Natriuretic Peptide 317.7 H 02/09/20 17:00: PT 13.1, INR 1.0, APTT 22.7 L 02/09/20 17:42: Blood Type O NEGATIVE, Antibody Screen NEGATIVE, Crossmatch See Detail 02/09/20 17:42: Blood Type O NEGATIVE, Antibody Screen NEGATIVE, Crossmatch See Detail Assessment/Plan All Active Problems Ulcer of left lower extremity with fat layer exposed (Acute) Malnutrition (Acute) GI bleed (Acute) STEMI (ST elevation myocardial infarction) (Acute) COPD exacerbation (Acute) Decompensated heart failure (Acute) Type 2 diabetes mellitus with hyperglycemia (Acute) Acute kidney injury (Acute) Abdominal pain (Acute) Chest pain (Acute) The patient is a 74 y/o M w/ PMHx: Former Tobacco use, Obesity, Chronic COPD with chronic hypoxic respiratory failure, Diabetes mellitus type II, Hypothyroidism who presents to the [facility] ED on 02/09/20 with history of approximately 1 week of cough, dyspnea, chest discomfort with worsening symptoms despite PCP evaluation and initiation of abx therapy and steroid taper. 1. Acute GI Bleed w/ resultant Acute Blood Loss Anemia: Will admit to ICU, maintain on IVFs, obtain serial H+H q 6 hours, obtain T+S w/ cross for PRBC administration if appropriate (2 u trauma blood) and planned 2 additional PRBC, maintain on IV PPI. GI consulted, Dr. Mckeon. 2. Chest Pain w/ Acute STEMI: EKG in ED w/ evidence posterior STEMI, CXR w/ evidence of mild congestion. Trop elevated, 9.07. Will maintain on a monitored bed, continue serial cardiac enzymes and EKGs. Obtain magnesium level upon admission. Continue medical management as able except hold asa, hold any addition of JAMES inhibitor or beta-chivo given CHUY and also low BPs with acute presentation, statin w/ AM FLP. ECHO requested. Cardiology consulted, no plan for cardiac catheterization, planned deferral of ASA, anticoagulation. 3. Acute on chronic COPD exacerbation w/ Chronic Hypoxic Respiratory Failure: CXR with congested appearance, will maintain on oxygen with wean as tolerated to home oxygen supplementation, continue ATC duonebs, PRN albuterol, IV methylprednisolone, HOB, IS parameters, IV rocephin with pending viral panel and sputum cultures. COVID negative, pending rapid influenza. 4. Acute Decompensated CHF, Unclear type: CXR obtained in the ED w/ congested appearance. Patient administered IV lasix in the ED, maintain on cardiac telemetry obtain cardiac enzyme series, obtain serial EKGs, continue IV lasix diuresis, monitor I/Os, maintain on intake restriction, continue medical therapy as able given #1, obtain TSH and magnesium level, ECHO. Cardiology consulted, pending. 5. Hyperglycemia with history of Diabetes mellitus type II: Hold oral home regimen, will obtain hemoglobin A1c, possibly elevated secondary to stress response, anion gap normal at 10, n.p.o. status given presentation with every 6 hours planned accu checks w/ ISS. 6. Acute kidney injury: Secondary to presentation as noted #1, #2, #3, #4. Admission BUN/Cr 91/1.79, prior baseline creatinine noted to be 0.7-0.9. Given appearance CHF will defer IVFs, cautiously diuresing and will trend renal function. 7. Hypothyroidism: We will continue patient home Synthroid regimen, TSH and free T4 pending given above. 8. Hyperlipidemia: We will continue patient on statin regimen, FLP in AM. 9. Former tobacco use: We will encourage continued tobacco cessation. 10. DVT prophylaxis: SCDs, defer chemoprophylaxis given acute presentation as noted. 11. 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 Patient reticent to discuss these items but given presentation and severity discussed CODE status at length including difference between FULL code, DNR-CCA and DNR-CC status. Following discussions about the differences in these status, requested Full Code status. Advanced Care Planning Face to Face Time: 16 minutes. Inpatient E&M: 26696 Init Hosp L3 Procedures: 79017 Advncd Care Plan 30 Min
[2020-02-09 22:00] LABS: Magnesium 2.3 mg/dL (1.6-2.6)
[2020-02-09] MEDS: Insulin Lispro 100 UNIT/ML INSULN.PEN 20 UNIT SC (22:41)
[2020-02-09] MEDS: Atorvastatin Calcium 20 MG Tablet PO (22:47)
[2020-02-09 22:50] LABS: Bedside Glucose > 500 mg/dL (70-110)
[2020-02-09] MEDS: 0.9% Saline Lock 10 ML Syringe IV (22:54)
[2020-02-09] MEDS: LORazepam 2 MG/ML Syringe 0.5 MG IV (22:54)
[2020-02-09 23:54] LABS: Glucose 665 mg/dL (74-106)
[2020-02-10] VITALS (14 sets, daily range): BP systolic 126–152; BP diastolic 56–118; PULSE 74–94; RESP 14–20; TEMP 36.4–37; O2SAT 87–99
[2020-02-10] MEDS: Insulin Lispro 100 UNIT/ML INSULN.PEN 20 UNIT SC (00:15)
--- NOTE | 2020-02-10 01:19 | ED.RN ---
ON TRIAGE PT REPORTS TO THIS RN THAT HE IS INCONTINENT OF STOOL AND URINE. PT ARRIVES TO DEPT ON ROOM AIR, IS PLACED ON NASAL CANNULA, ASSISTED TO STAND. THIS RN ASSISTS PT IN REMOVING SOILED CLOTHES AND CLEANING PT WITH BATH WIPES. PT IMPATIENT TRYING TO LUNDY RN, AND SPREADING STOOL THROUGHOUT ROOM. THIS RN INSTRUCTS PT TO WAIT, PT NEEDS TO BE CLEANED BEFORE SITTING BACK IN WHEELCHAIR. PT WITH DIFFICULTY FOLLOWING DIRECTIONS. PT PLACED IN ATTEND, NEW GOWN AND RETURNED TO WHEELCHAIR. PT AWAITING ROOM.
[2020-02-10 02:39] LABS: Hematocrit 27.6 % (40-54); Hemoglobin 8.9 g/dL (13.0-16.5)
[2020-02-10] MEDS: Levothyroxine 112 MCG Tablet PO (05:09)
[2020-02-10] MEDS: Insulin Lispro 100 UNIT/ML INSULN.PEN SC (05:09)
[2020-02-10] MEDS: 0.9% Saline Lock 10 ML Syringe IV (05:10)
[2020-02-10 05:16] LABS: Bedside Glucose 444 mg/dL (70-110)
--- NOTE | 2020-02-10 05:49 | CON.PCM_ITS ---
Reason for Consult Date of Consultation: 02/10/20 Reason for Consultation: GI bleed, STEMI, CHUY, COPD, CHF History of Present Illness: The patient is a 74-year-old male, with a history as outlined below, who presented to the emergency department on February 08 with worsening shortness of breath and chest pain. The patient has an apparent history of COPD of unknown severity and chronic hypoxemic respiratory failure. The patient had recently been diagnosed with a COPD exacerbation 3 days prior to presentation and was started on antimicrobials and prednisone. The patient reports that he does utilize inhalers at home but is unable to tell me their names. He does have a prior smoking history. He utilizes 2 L/min of supplemental oxygen at his baseline. He does report that he has had melanotic stools over the course of the last week. He denies any current shortness of breath or chest pain. On presentation to the emergency department, the patient was noted to be afebrile and hemodynamically stable. Laboratory evaluation revealed an elevated white blood cell count to 20,000. Hemoglobin was noted to be 4.8 g/dL. The patient had a hemoglobin of 11 in mid January 2020. Chemistry profile was notable for a sodium of 129, chloride of 96 and creatinine of 1.79. Glucose was significantly elevated to 737. Troponin was increased to 9.070. BNP was elevated to 317. EKG obtained in the emergency department was concerning for posterior STEMI. The case was reviewed with cardiology and general surgery. The patient received IV Lasix and Protonix and was subsequently admitted to the medical intensive care unit. Overnight, the patient has remained hemodynamically stable. He remains on scheduled bronchodilators, antimicrobials and IV Lasix. The patient was transfused a total of 4 units of packed red blood cells. Hemoglobin is stable this morning at 8.9 g/dL. Troponin continues to rise and is currently 12.4. Past Medical History Past Medical History (Chronic Problems): Chronic Problems PVD (peripheral vascular disease) (Chronic) Venous insufficiency (Chronic) Type 2 diabetes mellitus with diabetic polyneuropathy (Chronic) Obesity (Chronic) Chronic respiratory failure with hypoxia (Chronic) Morbid obesity (Chronic) Hypothyroidism (Chronic) Hyperlipidemia (Chronic) Former tobacco use (Chronic) Hypoxemia (Chronic) Hypothyroid (Chronic) Diabetes (Chronic) CHF (congestive heart failure) (Chronic) Allergies bee venom protein (honey bee) Allergy (Verified 01/22/20 10:12) Angioedema Penicillins Allergy (Verified 01/22/20 10:12) Rash acetaminophen [From Vicodin] Adverse Reaction (Verified 01/22/20 10:12) Itching hydrocodone bitartrate [From Vicodin] Adverse Reaction (Verified 01/22/20 10:12) Itching Home Medications: Ambulatory Orders Medication Instructions Recorded Levothyroxine [Synthroid] 112 mcg PO DAILY 09/10/13 metFORMIN HCl [Glucophage] 1,000 mg PO BIDCM 09/10/13 Atorvastatin Calcium [Lipitor] 20 mg PO QHS 01/16/17 Nitroglycerin 0.4 mg SL TID PRN PRN #20 tab.subl 01/17/20 Albuterol Inhaler [Ventolin Hfa] 2 puff INHALATION Q4H PRN PRN #1 01/22/20 inhaler predniSONE tablet 60 mg PO DAILY #12 tab 02/06/20 Cefuroxime Axetil [Cefuroxime] 500 mg PO BID 02/09/20 Furosemide [Lasix] 20 mg PO DAILY 02/09/20 Tizanidine HCl [Zanaflex] 4 mg PO TID PRN 02/09/20 Surgical History: noncontributory, - - Umbilical hernia repair, penile foreskin surgery. Psychiatric History: No pertinent psych hx Lives: Alone Smoking Status: Former smoker Tobacco Use: Non-smoker Alcohol: Occasional - Patient notes occasional beer intake. Drugs: None - *Family History Maternal History Items: Cancer - Mother with history of colon cancer., Diabetes Paternal History Items: - - Patient denies any market paternal family history including heart disease, diabetes, cancer. Review of Systems Constitutional: Reports: Fatigue. Denies: Chills, Fever Eyes: Denies: Blurred vision, Double vision HEENT: Denies: Head Aches, Sinus Congestion, Sinus Drainage Cardiovascular: Reports: Chest Pain Respiratory: Reports: Shortness of Breath Gastrointestinal: Reports: Melena Genitourinary: Denies: Dysuria Musculoskeletal: Denies: Joint Pain, Joint Tenderness Neurological: Denies: Numbness, Tingling, Focal weakness Psychiatric: Denies: Anxiety, Depression, Homicidal Ideations, Suicidal Ideations Hematologic/ Lymphatic: Reports: Anemia, Hx of blood transfusion Patient Problems: Active and Suspected Problems GI bleed (Acute) STEMI (ST elevation myocardial infarction) (Acute) COPD exacerbation (Acute) Decompensated heart failure (Acute) Type 2 diabetes mellitus with hyperglycemia (Acute) Acute kidney injury (Acute) Objective: The patient's most recent lab work, culture data and imaging studies have all been personally reviewed. Stool for occult blood was positive. Respiratory viral panel was negative. - Physical Exam Vitals/I&O's: Vital Signs Temp Pulse Resp BP Pulse Ox 97.9 F 80 15 149/57 H 94 02/10/20 05:00 02/10/20 05:00 02/10/20 05:00 02/10/20 05:00 02/10/20 05:00 Oxygen Flow Rate (L/min) 2 Oxygen Delivery Method Nasal Cannula Weight: 248 lb 7.375 oz Body Mass Index (BMI) 42.2 Finger Stick Blood Glucose 298 Intake and Output for Last 24 Hours 02/08/20 02/09/20 02/10/20 23:59 23:59 23:59 Intake Total 1515 / 1515 460 / 460 Output Total 2700 / 2950 1150 / 1150 Balance -1185 / -1435 -690 / -690 General: Alert, Cooperative, No apparent distress, - - Hard of hearing. HEENT: Atraumatic, Normocephalic Oral: No Gingival or Mucosal Lesions/ Ulcerations Neck: Supple, No Nodes, Trachea Midline Lungs: No rhonchi, No wheeze, No rales, Diminished Cardiovascular: Regular rate, Regular Rhythm, Murmur Abdomen: Bowel Sounds Present, Soft, Non Tender, Obese Extremities: No clubbing, No cyanosis, Edema Skin: - - Wrapped lower extremities. Musculoskeletal: No Muscle Wasting Lymphatic: No Cervical, Supraclavicular, or Inguinal Adenopathy Neurological: Cranial nerves II-XII grossly intact, Neuro grossly intact Psych/Mental Status: Normal Affect, Appropriate Labs (Last 48 Hours) 02/09/20 02/09/20 02/09/20 17:00 17:00 17:00 WBC 20.3 H RBC 1.51 L Hgb 4.8 L* Hct 15.9 L MCV 105.3 H MCH 31.8 MCHC 30.2 L RDW Std Deviation 63.4 H RDW Coeff of Emili 17.5 H Plt Count 327 MPV 10.5 Neut % (Auto) Not Reportable Absolute Neuts (auto) 17.1 H Absolute Lymphs (auto) 3.25 Total Counted 100 Neutrophils % (Manual) 82 H Band Neutrophils % 2 Lymphocytes % (Manual) 16 L Diff Path Review May foll Platelet Estimate ADEQUATE Hypochromasia 2+ Anisocytosis 1+ Macrocytosis 1+ PT INR APTT Sodium 129 L Potassium 4.5 Chloride 96 L Carbon Dioxide 23.0 Anion Gap 10 BUN 91 H Creatinine 1.79 H Estim Creat Clear Calc 29.86 Est GFR (MDRD) Af Amer 48 L Est GFR (MDRD) Non-Af 40 L BUN/Creatinine Ratio 50.8 H Glucose 737 H* Hemoglobin A1c Calcium 8.0 L Magnesium Total Bilirubin AST ALT Alkaline Phosphatase Troponin I 9.070 H* B-Natriuretic Peptide 317.7 H Total Protein Albumin Triglycerides Cholesterol LDL Cholesterol VLDL Cholesterol HDL Cholesterol TSH Free T4 POC Glucose Blood Type Antibody Screen Crossmatch 02/09/20 02/09/20 02/09/20 17:00 17:00 17:42 WBC RBC Hgb Hct MCV MCH MCHC RDW Std Deviation RDW Coeff of Emili Plt Count MPV Neut % (Auto) Absolute Neuts (auto) Absolute Lymphs (auto) Total Counted Neutrophils % (Manual) Band Neutrophils % Lymphocytes % (Manual) Diff Path Review Platelet Estimate Hypochromasia Anisocytosis Macrocytosis PT 13.1 INR 1.0 APTT 22.7 L Sodium Potassium Chloride Carbon Dioxide Anion Gap BUN Creatinine Estim Creat Clear Calc Est GFR (MDRD) Af Amer Est GFR (MDRD) Non-Af BUN/Creatinine Ratio Glucose Hemoglobin A1c Calcium Magnesium 2.3 Total Bilirubin AST ALT Alkaline Phosphatase Troponin I B-Natriuretic Peptide Total Protein Albumin Triglycerides Cholesterol LDL Cholesterol VLDL Cholesterol HDL Cholesterol TSH Free T4 POC Glucose Blood Type O NEGATIVE Antibody Screen NEGATIVE Crossmatch See Detail 02/09/20 02/09/20 02/09/20 17:42 17:42 22:14 WBC RBC Hgb Hct MCV MCH MCHC RDW Std Deviation RDW Coeff of Emili Plt Count MPV Neut % (Auto) Absolute Neuts (auto) Absolute Lymphs (auto) Total Counted Neutrophils % (Manual) Band Neutrophils % Lymphocytes % (Manual) Diff Path Review Platelet Estimate Hypochromasia Anisocytosis Macrocytosis PT INR APTT Sodium Potassium Chloride Carbon Dioxide Anion Gap BUN Creatinine Estim Creat Clear Calc Est GFR (MDRD) Af Amer Est GFR (MDRD) Non-Af BUN/Creatinine Ratio Glucose Hemoglobin A1c Calcium Magnesium Total Bilirubin AST ALT Alkaline Phosphatase Troponin I B-Natriuretic Peptide Total Protein Albumin Triglycerides Cholesterol LDL Cholesterol VLDL Cholesterol HDL Cholesterol TSH Free T4 POC Glucose > 500 H* Blood Type O NEGATIVE Antibody Screen NEGATIVE Crossmatch See Detail See Detail 02/09/20 02/09/20 02/10/20 22:35 22:35 02:20 WBC RBC Hgb 8.9 L Hct 27.6 L MCV MCH MCHC RDW Std Deviation RDW Coeff of Emili Plt Count MPV Neut % (Auto) Absolute Neuts (auto) Absolute Lymphs (auto) Total Counted Neutrophils % (Manual) Band Neutrophils % Lymphocytes % (Manual) Diff Path Review Platelet Estimate Hypochromasia Anisocytosis Macrocytosis PT INR APTT Sodium Potassium Chloride Carbon Dioxide Anion Gap BUN Creatinine Estim Creat Clear Calc Est GFR (MDRD) Af Amer Est GFR (MDRD) Non-Af BUN/Creatinine Ratio Glucose 665 H* Hemoglobin A1c Calcium Magnesium Total Bilirubin AST ALT Alkaline Phosphatase Troponin I 10.700 H* B-Natriuretic Peptide Total Protein Albumin Triglycerides Cholesterol LDL Cholesterol VLDL Cholesterol HDL Cholesterol TSH Free T4 POC Glucose Blood Type Antibody Screen Crossmatch 02/10/20 02/10/20 02/10/20 02:20 05:08 05:40 WBC Pending RBC Pending Hgb Pending Hct Pending MCV Pending MCH Pending MCHC Pending RDW Std Deviation Pending RDW Coeff of Emili Pending Plt Count Pending MPV Neut % (Auto) Pending Absolute Neuts (auto) Pending Absolute Lymphs (auto) Total Counted Neutrophils % (Manual) Band Neutrophils % Lymphocytes % (Manual) Diff Path Review Platelet Estimate Hypochromasia Anisocytosis Macrocytosis PT INR APTT Sodium Potassium Chloride Carbon Dioxide Anion Gap BUN Creatinine Estim Creat Clear Calc Est GFR (MDRD) Af Amer Est GFR (MDRD) Non-Af BUN/Creatinine Ratio Glucose Hemoglobin A1c Calcium Magnesium Total Bilirubin AST ALT Alkaline Phosphatase Troponin I 10.900 H* B-Natriuretic Peptide Total Protein Albumin Triglycerides Cholesterol LDL Cholesterol VLDL Cholesterol HDL Cholesterol TSH Free T4 POC Glucose 444 H Blood Type Antibody Screen Crossmatch 02/10/20 02/10/20 02/10/20 05:40 05:40 05:40 WBC RBC Hgb Hct MCV MCH MCHC RDW Std Deviation RDW Coeff of Emili Plt Count MPV Neut % (Auto) Absolute Neuts (auto) Absolute Lymphs (auto) Total Counted Neutrophils % (Manual) Band Neutrophils % Lymphocytes % (Manual) Diff Path Review Platelet Estimate Hypochromasia Anisocytosis Macrocytosis PT INR APTT Sodium Pending Potassium Pending Chloride Pending Carbon Dioxide Pending Anion Gap Pending BUN Pending Creatinine Pending Estim Creat Clear Calc Est GFR (MDRD) Af Amer Pending Est GFR (MDRD) Non-Af Pending BUN/Creatinine Ratio Pending Glucose Pending Hemoglobin A1c Pending Calcium Pending Magnesium Total Bilirubin Pending AST Pending ALT Pending Alkaline Phosphatase Pending Troponin I Pending B-Natriuretic Peptide Total Protein Pending Albumin Pending Triglycerides Pending Cholesterol Pending LDL Cholesterol Pending VLDL Cholesterol Pending HDL Cholesterol Pending TSH Pending Free T4 Pending POC Glucose Blood Type Antibody Screen Crossmatch Microbiology 02/09/20 23:05 Mucosa - Nasopharyngeal Respiratory Panel (PCR) - Final 02/09/20 19:05 Mucosa - Nasopharyngeal Influenza Types A,B Direct FA (CLOTILDE) - Final 02/09/20 15:45 Stool Stool Occult Blood (CLOTILDE) - Final Occult Blood Positive 02/09/20 16:54 Mucosa - Nasopharyngeal - Final Clinical Impression(s) from Imaging Studies Chest X-Ray 02/09/20 18:30 IMPRESSION: Question mild cardiac failure Electronically Signed: Odin Ott DO at 18:51 EST Tel [phone], Service support , Chest X-Ray 02/10/20 05:55 IMPRESSION: No significant interval change. at 0538 Reported and signed by: Shila Almanzar MD Electronically Signed: Shila Almanzar MD at 5:37 EST Tel , Service support , Current Medications Acetaminophen (Acetaminophen 325 Mg Tablet) 650 mg PO Q6H PRN PRN PRN Reason: Pain Score 1-10/Temp > 100.7 F Albuterol Sulfate (Albuterol 2.5 Mg/3 Ml Vial.Neb.) 2.5 mg INHALATION Q2H PRN PRN PRN Reason: Dyspnea, wheezing Albuterol/Ipratropium (Ipratropium/Albuterol Sulfate 3 Ml Ampul.Neb) 3 ml INHALATION Q4HWA.RT CEHRYL Atorvastatin Calcium (Atorvastatin Calcium 20 Mg Tablet) 20 mg PO QHS [facility] Last Admin: 02/09/20 22:47 Dose: 20 mg Documented by: Dextrose (Dextrose 50%-Water 25 Gm/50 Ml Disp.Syrin) 0 gm IV X1 PRN; Protocol PRN Reason: Hypoglycemia Furosemide (Furosemide 40 Mg/4 Ml Vial) 40 mg IV BID@1000,1800 [facility] Glucagon (Glucagon 1 Mg/Ml Syringe) 1 mg IM .X1 PRN PRN Reason: Hypoglycemia Guaifenesin (Guaifenesin 10 Ml Udc (200mg/10ml)) 10 ml PO Q4H PRN PRN PRN Reason: COUGH Hydralazine HCl (Hydralazine 20 Mg/Ml Vial) 10 mg IV Q4H PRN PRN PRN Reason: SBP > 160 Ceftriaxone Sodium 2 gm/ (Sodium Chloride) 50 mls @ 100 mls/hr IV Q24H [facility] Last Infusion: 02/09/20 23:28 Dose: Infused Documented by: Pantoprazole Sodium 40 mg/ (Sodium Chloride) 110 mls @ 330 mls/hr IV Q12 [facility] Last Infusion: 02/09/20 23:04 Dose: Infused Documented by: Sodium Chloride () 250 mls @ 15 mls/hr IV .[id number] PRN PRN Reason: Saline Flush Sodium Chloride () 250 mls @ 15 mls/hr IV .[id number] PRN PRN Reason: Additional IVPB Infusion Insulin Glargine (Insulin Glargine 100 Units/Ml Pen) 20 units SC BID [facility] Last Admin: 02/10/20 00:49 Dose: 20 u Documented by: Insulin Human Lispro (Insulin Lispro 100 Unit/Ml Insuln.Pen) 0 unit SC Q6 [facility]; Protocol Last Admin: 02/10/20 05:09 Dose: 16 u Documented by: Levothyroxine Sodium (Levothyroxine 112 Mcg Tablet) 112 mcg PO DAILY@0600 [facility] Last Admin: 02/10/20 05:09 Dose: 112 mcg Documented by: Lorazepam (Lorazepam 2 Mg/Ml Syringe) 0.5 mg IV Q4H PRN PRN PRN Reason: SEVERE AGITATION Last Admin: 02/09/20 22:54 Dose: 0.5 mg Documented by: Melatonin (Melatonin 3 Mg Tablet) 3 mg PO QHS PRN PRN PRN Reason: INSOMNIA Methylprednisolone (Methylprednisolone 40 Mg/Ml Vial) 40 mg IV Q8 [facility] Last Admin: 02/10/20 05:10 Dose: 40 mg Documented by: Morphine Sulfate (Morphine 2 Mg/Ml Syringe) 2 mg IV Q3H PRN PRN PRN Reason: Pain Score 6-10 Ondansetron HCl (Ondansetron 4 Mg/2 Ml Vial) 4 mg IV Q8H PRN PRN PRN Reason: NAUSEA/VOMITING Oxycodone HCl (Oxycodone 5 Mg Tablet) 5 mg PO Q4H PRN PRN PRN Reason: Pain Score 4-5 Prochlorperazine Edisylate (Prochlorperazine 10 Mg/2 Ml Vial) 5 mg IV Q4H PRN PRN PRN Reason: Breakthrough Nausea/Vomiting Sodium Chloride (0.9% Saline Lock 10 Ml Syringe) 10 - 40 ml IV UD PRN PRN Reason: SALINE FLUSH Last Admin: 02/10/20 05:10 Dose: 20 ml Documented by: Throat Lozenges (Benzocaine/Menthol 1 Lozenge) 1 lozenge MUCOUS MEM Q2H PRN PRN PRN Reason: SORE THROAT Tizanidine HCl (Tizanidine Hcl 2 Mg Tablet) 4 mg PO TID PRN PRN PRN Reason: MUSCLE SPASM Assessment/Plan Active and Suspected Problems GI bleed (Acute) STEMI (ST elevation myocardial infarction) (Acute) COPD exacerbation (Acute) Decompensated heart failure (Acute) Type 2 diabetes mellitus with hyperglycemia (Acute) Acute kidney injury (Acute) RECOMMENDATIONS: 1. Continue to monitor H&H with plans to transfuse if hemoglobin drops below 7 g/dL. 2. Discontinue IV steroids and antimicrobials. 3. Continue PPI therapy twice daily. 4. Continue diuretic therapy as tolerated by hemodynamics and renal function. 5. Obtain echocardiogram. 6. Cardiology and general surgery consultations are pending. 7. If the patient remains stable from a hemoglobin perspective today, he can be transferred out of the intensive care unit. IMPRESSIONS: 1. Acute blood loss anemia The patient presented with a hemoglobin of 4.8 along with a recent history of melanotic stools concerning for gastrointestinal blood loss. The patient has been transfused a total of 4 units of packed red blood cells with appropriate improvement in his blood counts. The patient has remained hemodynamically stable. He remains on PPI therapy twice daily. General surgery consultation is pending. I would recommend continuing to monitor his hemoglobin, with plans to transfuse if it drops below 7 g/dL. 2. Chest pain/STEMI Cardiology consultation is currently pending. Echocardiogram is pending. 3. Self-reported COPD of unknown severity/chronic hypoxemic respiratory failure The patient has a self-reported history of COPD of unknown severity along with a baseline 2 L/min oxygen requirement. He states that he only utilizes an inhaler at his baseline on an intermittent basis. I do not feel that the pat ient is currently in a state of COPD exacerbation and therefore steroids will be discontinued. 4. Possible acute decompensated heart failure Given the patient's radiographic findings on chest x-ray coupled with his mildly elevated BNP, there is concern for possible decompensated heart failure. The patient will be continued on diuretics as tolerated by hemodynamics and renal function. Echocardiogram is pending. Cardiology consultation is pending. 5. Acute kidney injury Likely secondary to #1. Continue to monitor urine output. No current indication for renal replacement therapy. 6. Diabetes mellitus/hypothyroidism/hyperlipidemia/tobacco dependency in remission/obesity Complicates care, management, recovery and prognosis. Continue Lantus and sliding scale insulin coverage. Continue Synthroid as ordered. This note was generated with [employer]) dictation software. It may contain incorrect words, spelling, and punctuation that were not noted in checking the note before signing. Inpatient E&M: 17299 Init Hosp L3
[2020-02-10 05:51] LABS: Hematocrit 27.9 % (40-54); Hemoglobin 8.9 g/dL (13.0-16.5); Mean Corp Hgb Conc 31.9 g/dL (32-36); Mean Corpuscular Hgb 30.7 pg (27.0-32.0); Mean Corpuscular Volume 96.2 fL (80-94); POSITIVE COUNT YES; POSITIVE MORPHOLOGY YES; Platelet Count 264 K/mm3 (150-450); RBC Distribution Width SD 57.8 fl (35.1-43.9); White Blood Count 21.8 K/mm3 (4.4-11.0)
--- NOTE | 2020-02-10 05:55 | RAD_ITS ---
HISTORY: Dyspnea, cough. ADDITIONAL HISTORY: None provided. EXAMINATION/TECHNIQUE: XR Chest 1 View AP/PA Number of images including paperwork: 1 COMPARISON: 02/09/2020 FINDINGS: LUNGS AND PLEURA: No dense consolidation. Minimal interstitial prominence. No sizable pleural effusion or pneumothorax. CARDIAC SILHOUETTE: Stably enlarged. MEDIASTINUM AND ANTOLIN: Stable. UPPER ABDOMEN: Unremarkable. SKELETON AND SOFT TISSUES: No acute skeletal findings. Degenerative changes. OTHER DEVICES AND HARDWARE: None. RAD/Chest 1 View (Portable) IMPRESSION: No significant interval change. at 0538 Reported and signed by: Shila Almanzar MD Electronically Signed: Shila Almanzar MD at 5:37 EST Tel , Service support ,
--- NOTE | 2020-02-10 05:55 | EKG12_ITS ---
Test Reason : AM EKG Blood Pressure : / mmHG Vent. Rate : 082 BPM Atrial Rate : 082 BPM P-R Int : 146 ms QRS Dur : 152 ms QT Int : 438 ms P-R-T Axes : 061 -61 061 degrees QTc Int : 511 ms Sinus rhythm with frequent Premature ventricular complexes Right bundle branch block Left anterior fascicular block Bifascicular block Abnormal ECG When compared with ECG of 23-APR-2019 20:55, Premature ventricular complexes are now Present Confirmed by JENNIFER CARDOSO, LIZ ([id number]), marketing editor YULISA WILLARD ([id number]) on 02/13/2020 11:06:17 AM Referred By: Ada Ramon Confirmed By:LIZ RODRIGUEZ MD
[2020-02-10 05:59] LABS: Differential Indicated MANUAL DIFF
[2020-02-10 06:25] LABS: Lymphocyte 5 % (19-41); Metamyelocyte 5 % (0-1); Monocyte 3 % (0-10); Neutrophil-Band 11 % (0-5); Neutrophil-Segmented 76 % (47-70); Total Cells Counted 100 (MANUAL DIFF)
[2020-02-10 06:27] LABS: ALB/GLOB Ratio 0.8 RATIO (0.9-2.4); AST(SGOT) 54 U/L (15-37); Absolute Lymphocyte Count 1.09 X10^3/uL (0.83-4.51); Alanine Aminotransfer ALT/SGPT 47 U/L (16-61); Albumin, Serum 3.1 g/dL (3.2-5.0); Alkaline Phosphatase 152 U/L (45-117); Anion Gap 7 (5-15); BUN 73 mg/dL (7-18); BUN/Creat Ratio 46.8 RATIO (10-20); Calcium,Total 7.9 mg/dL (8.5-10.1); Chloride 98 mmol/L (98-107); Cholesterol 135 mg/dL (200); Creatinine, Serum 1.56 mg/dL (0.70-1.30); EST Glomerular Filtration Rate 46 mL/min (>60); Est Glom Filt Rate - Afr Amer 56 mL/min (>60); Estimated Creatinine Clearance 34.26 ml/min; Globulin 3.9 g/dL (2.2-4.2); Glucose 410 mg/dL (74-106); High Density Lipoprotein 40 mg/dL; Lymphocyte # 1.09 X10^3/ul (4.0); Neutrophil # 18.97 X10^3/uL (2.7-7.7); Platelet Estimate ADEQUATE (ADEQ); Potassium 3.9 mmol/L (3.5-5.1); Sodium Level 136 mmol/L (136-145); T4 Free Direct 1.09 ng/dL (0.76-1.46); Thyroid Stim Hormone (TSH) 1.05 uIU/mL (0.358-3.74); Triglycerides 227 mg/dL; Very Low Density Lipoprotein 45 mg/dL (5-40)
[2020-02-10 06:28] LABS: Anisocytosis 1+; Macrocytosis 1+; Polychromasia RARE
--- NOTE | 2020-02-10 09:42 | CON.PCM_ITS ---
Problem List (1) GI bleed Status: Acute Qualifiers: GI bleed type/associated pathology: unspecified gastrointestinal hemorrhage type Qualified Code(s): K92.2 - Gastrointestinal hemorrhage, unspecified Reason for Consult Date of Consultation: 02/10/20 History of Present Illness: The patient is a 74 y/o M w/ PMHx: Former Tobacco use, Obesity, Chronic COPD with chronic hypoxic respiratory failure, Diabetes mellitus type II, Hypothyroidism who presents to the [facility] ED on 02/09/20 with history of approximately 1 week of cough, dyspnea, wheezing, chest discomfort noted to be more pleuritic in nature, worse with certain activity, across the chest but notes worse midsternal, worse dyspnea and discomfort in the chest with exertion and wheezing seen approximately 3 days prior to current presentation with di agnosis of COPD exacerbation at that time with initiation of antibiotic therapy and prednisone taper however patient has had ongoing worsening symptoms in addition to pleuritic discomfort in his chest, worse with activity and aching in nature with no recent fever, chills, nausea, emesis or diaphoresis. Patient has been having ongoing black stools but cannot give timeline. Patient admits to orthopnea and worsening lower extremity edema concurrently. ED evaluation with noted black stools. Patient is also had recent falls secondary to his fatigue and weakness with various abrasions. In the ED included T 98.2, heart rate is 85, BP 114/55, respiratory rate 18, initially 88% on room air upon presentation with most current vital signs heart rate 88, BP 129/49, respiratory rate 18, 96% on 2 L nasal cannula, CBC with WBC 20.3, hemoglobin 4.8 noted to most recently be 11.2 on 01/17/2020, MCV 105.3, platelets 327 with left shift with concurrent lymphopenia, coags with PT 13.1, INR 1.0, PTT 22.7, BMP with sodium 129, chloride 96, BUN/creatinine 91/1.79, glucose 737, calcium 8, troponin 9.070, BNP 317.7, positive occult stool, COVID-19 Ag rapid negative, pending rapid influenza, chest x-ray with questionable mild congestion, ED initiated PRBC transfusion of 2 unit, EKG initial concerning for posterior STEMI, confirmed on posterior EKG. Additionally in the ED patient ministered DuoNeb therapy, Lasix 80 mg IV x1, Solu-Medrol 125 mg IV x1, Protonix 80 mg bolus x1. While in the intensive care unit the patient is not complaining of anything he said no bloody bowel movements he has no abdominal pain and he wants to go home. Past Medical History Past Medical History (Chronic Problems): Chronic Problems PVD (peripheral vascular disease) (Chronic) Venous insufficiency (Chronic) Type 2 diabetes mellitus with diabetic polyneuropathy (Chronic) Obesity (Chronic) Chronic respiratory failure with hypoxia (Chronic) Morbid obesity (Chronic) Hypothyroidism (Chronic) Hyperlipidemia (Chronic) Former tobacco use (Chronic) Hypoxemia (Chronic) Hypothyroid (Chronic) Diabetes (Chronic) CHF (congestive heart failure) (Chronic) Allergies bee venom protein (honey bee) Allergy (Verified 01/22/20 10:12) Angioedema Penicillins Allergy (Verified 01/22/20 10:12) Rash acetaminophen [From Vicodin] Adverse Reaction (Verified 01/22/20 10:12) Itching hydrocodone bitartrate [From Vicodin] Adverse Reaction (Verified 01/22/20 10:12) Itching Home Medications: Ambulatory Orders Medication Instructions Recorded Levothyroxine [Synthroid] 112 mcg PO DAILY 09/10/13 metFORMIN HCl [Glucophage] 1,000 mg PO BIDCM 09/10/13 Atorvastatin Calcium [Lipitor] 20 mg PO QHS 01/16/17 Nitroglycerin 0.4 mg SL TID PRN PRN #20 tab.subl 01/17/20 Albuterol Inhaler [Ventolin Hfa] 2 puff INHALATION Q4H PRN PRN #1 01/22/20 inhaler predniSONE tablet 60 mg PO DAILY #12 tab 02/06/20 Cefuroxime Axetil [Cefuroxime] 500 mg PO BID 02/09/20 Furosemide [Lasix] 20 mg PO DAILY 02/09/20 Tizanidine HCl [Zanaflex] 4 mg PO TID PRN 02/09/20 Surgical History: noncontributory, - - Umbilical hernia repair, penile foreskin surgery. Psychiatric History: No pertinent psych hx Lives: Alone Smoking Status: Former smoker Tobacco Use: Non-smoker Alcohol: Occasional - Patient notes occasional beer intake. Drugs: None - *Family History Maternal History Items: Cancer - Mother with history of colon cancer., Diabetes Paternal History Items: - - Patient denies any market paternal family history including heart disease, diabetes, cancer. Review of Systems Constitutional: Denies: Chills, Fever, Weight Change Cardiovascular: Denies: Chest Pain, Chest Pressure, Chest Tightness, Palpitations Respiratory: Denies: Cough, Hemoptysis, Shortness of breath at rest, Shortness of breath upon exertion, Wheezing Gastrointestinal: Reports: Melena. Denies: Abdominal Pain, Constipation, Diarrhea, Hematemesis, Nausea, Vomiting Patient Problems: Active and Suspected Problems GI bleed (Acute) STEMI (ST elevation myocardial infarction) (Acute) COPD exacerbation (Acute) Decompensated heart failure (Acute) Type 2 diabetes mellitus with hyperglycemia (Acute) Acute kidney injury (Acute) - Physical Exam Vitals/I&O's: Vital Signs Temp Pulse Resp BP Pulse Ox 97.6 F L 76 15 143/75 H 91 02/10/20 07:00 02/10/20 08:00 02/10/20 07:00 02/10/20 07:00 02/10/20 07:52 Oxygen Flow Rate (L/min) 2 Oxygen Delivery Method Nasal Cannula Weight: 248 lb 7.375 oz Body Mass Index (BMI) 42.2 Finger Stick Blood Glucose 298 Intake and Output for Last 24 Hours 02/08/20 02/09/20 02/10/20 23:59 23:59 23:59 Intake Total 1515 / 1515 460 / 460 Output Total 2700 / 2950 1150 / 1150 Balance -1185 / -1435 -690 / -690 General: Alert, Oriented x3 Lungs: Clear to auscultation Cardiovascular: Regular rate, Regular Rhythm, No murmurs Abdomen: Bowel Sounds Present, Soft, Non Tender, Non-Distended Microbiology Past 72 Hours 02/09/20 23:05 Mucosa - Nasopharyngeal Respiratory Panel (PCR) - Final 02/09/20 19:05 Mucosa - Nasopharyngeal Influenza Types A,B Direct FA (CLOTILDE) - Final 02/09/20 15:45 Stool Stool Occult Blood (CLOTILDE) - Final Occult Blood Positive 02/09/20 16:54 Mucosa - Nasopharyngeal - Final Laboratory Results 02/09/20 17:00: WBC 20.3 H, RBC 1.51 L, Hgb 4.8 L*, Hct 15.9 L, MCV 105.3 H, MCH 31.8, MCHC 30.2 L, RDW Std Deviation 63.4 H, RDW Coeff of Emili 17.5 H, Plt Count 327, MPV 10.5, Neut % (Auto) Not Reportable, Absolute Neuts (auto) 17.1 H, Absolute Lymphs (auto) 3.25, Total Counted 100, Neutrophils % (Manual) 82 H, Band Neutrophils % 2, Lymphocytes % (Manual) 16 L, Diff Path Review August, Platelet Estimate ADEQUATE, Hypochromasia 2+, Anisocytosis 1+, Macrocytosis 1+ 02/09/20 17:00: Sodium 129 L, Potassium 4.5, Chloride 96 L, Carbon Dioxide 23.0, Anion Gap 10, BUN 91 H, Creatinine 1.79 H, Estim Creat Clear Calc 29.86, Est GFR (MDRD) Af Amer 48 L, Est GFR (MDRD) Non-Af 40 L, BUN/Creatinine Ratio 50.8 H , Glucose 737 H*, Calcium 8.0 L, Troponin I 9.070 H* 02/09/20 17:00: B-Natriuretic Peptide 317.7 H 02/09/20 17:00: PT 13.1, INR 1.0, APTT 22.7 L 02/09/20 17:00: Magnesium 2.3 02/09/20 17:42: Blood Type O NEGATIVE, Antibody Screen NEGATIVE, Crossmatch See Detail 02/09/20 17:42: Blood Type O NEGATIVE, Antibody Screen NEGATIVE, Crossmatch See Detail 02/09/20 17:42: Crossmatch See Detail 02/09/20 22:14: POC Glucose > 500 H* 02/09/20 22:35: Troponin I 10.700 H* 02/09/20 22:35: Glucose 665 H* 02/10/20 02:20: Hgb 8.9 L, Hct 27.6 L 02/10/20 02:20: Troponin I 10.900 H* 02/10/20 05:08: POC Glucose 444 H 02/10/20 05:40: WBC 21.8 H, RBC 2.90 L, Hgb 8.9 L, Hct 27.9 L, MCV 96.2 H D, MCH 30.7, MCHC 31.9 L D, RDW Std Deviation 57.8 H, RDW Coeff of Emili 18.0 H, Plt Count 264, MPV 10.0, Neut % (Auto) Not Reportable, Absolute Neuts (auto) 19.0 H, Absolute Lymphs (auto) 1.09, Total Counted 100, Neutrophils % (Manual) 76 H, Band Neutrophils % 11 H, Lymphocytes % (Manual) 5 L, Monocytes % (Manual) 3, Metamyelocytes % 5 H, Diff Path Review May foll, Platelet Estimate ADEQUATE, Polychromasia RARE, Anisocytosis 1+, Macrocytosis 1+ 02/10/20 05:40: Sodium 136, Potassium 3.9, Chloride 98, Carbon Dioxide 31.0, Anion Gap 7, BUN 73 H, Creatinine 1.56 H, Estim Creat Clear Calc 34.26, Est GFR (MDRD) Af Amer 56 L, Est GFR (MDRD) Non-Af 46 L, BUN/Creatinine Ratio 46.8 H, Glucose 410 H, Calcium 7.9 L, Total Bilirubin 0.60, AST 54 H, ALT 47, Alkaline Phosphatase 152 H, Total Protein 7.0, Albumin 3.1 L, Globulin 3.9, Albumin/Globulin Ratio 0.8 L, Triglycerides 227 H, Cholesterol 135, LDL Emili sterol 50, VLDL Cholesterol 45 H, HDL Cholesterol 40, TSH 1.05, Free T4 1.09 02/10/20 05:40: Hemoglobin A1c 7.0 H 02/10/20 05:40: Troponin I 12.400 H* Current Medications Acetaminophen (Acetaminophen 325 Mg Tablet) 650 mg PO Q6H PRN PRN PRN Reason: Pain Score 1-10/Temp > 100.7 F Albuterol Sulfate (Albuterol 2.5 Mg/3 Ml Vial.Neb.) 2.5 mg INHALATION Q2H PRN PRN PRN Reason: Dyspnea, wheezing Albuterol/Ipratropium (Ipratropium/Albuterol Sulfate 3 Ml Ampul.Neb) 3 ml INHALATION Q4HWA.RT CHERYL Atorvastatin Calcium (Atorvastatin Calcium 20 Mg Tablet) 20 mg PO QHS CHERYL Last Admin: 02/09/20 22:47 Dose: 20 mg Documented by: Dextrose (Dextrose 50%-Water 25 Gm/50 Ml Disp.Syrin) 0 gm IV X1 PRN; Protocol PRN Reason: Hypoglycemia Furosemide (Furosemide 40 Mg/4 Ml Vial) 40 mg IV BID@1000,1800 CHERYL Glucagon (Glucagon 1 Mg/Ml Syringe) 1 mg IM .X1 PRN PRN Reason: Hypoglycemia Guaifenesin (Guaifenesin 10 Ml Udc (200mg/10ml)) 10 ml PO Q4H PRN PRN PRN Reason: COUGH Hydralazine HCl (Hydralazine 20 Mg/Ml Vial) 10 mg IV Q4H PRN PRN PRN Reason: SBP > 160 Pantoprazole Sodium 40 mg/ (Sodium Chloride) 110 mls @ 330 mls/hr IV Q12 [facility] [place] Last Infusion: 02/09/20 23:04 Dose: Infused Documented by: Sodium Chloride () 250 mls @ 15 mls/hr IV .[id number] PRN PRN Reason: Saline Flush Sodium Chloride () 250 mls @ 15 mls/hr IV .[id number] PRN PRN Reason: Additional IVPB Infusion Insulin Glargine (Insulin Glargine 100 Units/Ml Pen) 20 units SC BID [facility] [place] Last Admin: 02/10/20 00:49 Dose: 20 u Documented by: Insulin Human Lispro (Insulin Lispro 100 Unit/Ml Insuln.Pen) 0 unit SC Q6 [facility] [place]; Protocol Last Admin: 02/10/20 05:09 Dose: 16 u Documented by: Levothyroxine Sodium (Levothyroxine 112 Mcg Tablet) 112 mcg PO DAILY@0600 [facility] [place] Last Admin: 02/10/20 05:09 Dose: 112 mcg Documented by: Lorazepam (Lorazepam 2 Mg/Ml Syringe) 0.5 mg IV Q4H PRN PRN PRN Reason: SEVERE AGITATION Last Admin: 02/09/20 22:54 Dose: 0.5 mg Documented by: Ondansetron HCl (Ondansetron 4 Mg/2 Ml Vial) 4 mg IV Q8H PRN PRN PRN Reason: NAUSEA/VOMITING Prochlorperazine Edisylate (Prochlorperazine 10 Mg/2 Ml Vial) 5 mg IV Q4H PRN PRN PRN Reason: Breakthrough Nausea/Vomiting Sodium Chloride (0.9% Saline Lock 10 Ml Syringe) 10 - 40 ml IV UD PRN PRN Reason: SALINE FLUSH Last Admin: 02/10/20 05:10 Dose: 20 ml Documented by: Throat Lozenges (Benzocaine/Menthol 1 Lozenge) 1 lozenge MUCOUS MEM Q2H PRN PRN PRN Reason: SORE THROAT Tizanidine HCl (Tizanidine Hcl 2 Mg Tablet) 4 mg PO TID PRN PRN PRN Reason: MUSCLE SPASM Assessment/Plan All Active Problems Ulcer of left lower extremity with fat layer exposed (Acute) Malnutrition (Acute) GI bleed (Acute) STEMI (ST elevation myocardial infarction) (Acute) COPD exacerbation (Acute) Decompensated heart failure (Acute) Type 2 diabetes mellitus with hyperglycemia (Acute) Acute kidney injury (Acute) Abdominal pain (Acute) Chest pain (Acute) Patient has had a stable hemoglobin after 4 units of blood. At this point he is on proton pump therapy. I do not have any intentions of doing any scopes on him at this time will more like seeing him in an outpatient and do both an upper and lower scope on him on an outpatient basis. Patient states he has never had a colonoscopy before. Office Visits / Consults: [id number] IP Consult [phone]
--- NOTE | 2020-02-10 10:10 | PCM.CONS.C ---
Problem List (1) STEMI (ST elevation myocardial infarction) Status: Acute Qualifiers: Involved coronary artery: unspecified coronary artery Qualified Code(s): I21.3 - ST elevation (STEMI) myocardial infarction of unspecified site (2) Hyperlipidemia Status: Chronic Qualifiers: Hyperlipidemia type: unspecified Qualified Code(s): E78.5 - Hyperlipidemia, unspecified (3) Type 2 diabetes mellitus with hyperglycemia Status: Acute Qualifiers: Diabetes mellitus superintendent terminal insulin use: without half-way use Qualified Code(s): E11.65 - Type 2 diabetes mellitus with hyperglycemia (4) Anemia Status: Acute (5) GI bleed Status: Acute Qualifiers: GI bleed type/associated pathology: unspecified gastrointestinal hemorrhage type Qualified Code(s): K92.2 - Gastrointestinal hemorrhage, unspecified (6) Obesity Status: Chronic Reason for Consult Date of Consultation: 02/10/20 History of Present Illness: The patient is a 74 year [id number]-rfe white male with a history of hyperlipidemia, diabetes mellitus, COPD, who presents for concerns of shortness of breath/dyspnea who was thought to be experiencing a STEMI and was found to have concerns of marked anemia thought secondary to GI bleed who is now in the ICU undergoing evaluation and care. He presented with concerns of shortness of breath/dyspnea. He does not recall any ongoing chest discomfort. He was evaluated in the emergency department. He had an initial troponin I level which was considered abnormal. He had an ECG that demonstrated the appearance of sinus rhythm with a left axis deviation with a right bundle branch block pattern and a left anterior fascicular block pattern and ST changes concerning for myocardial ischemia in the lateral distribution. He subsequently had a repeat ECG which was reported as a posterior ECG. Based upon review of that ECG it appeared he had underlying probable sinus rhythm with concern of limb lead misplacement (giving the suggestion of ST segment elevation in the high lateral limb leads) and low voltage QRS in the precordial leads compatible with a right sided ECG. A repeat ECG was performed which demonstrated sinus rhythm with left axis deviation with a right bundle branch block pattern and left anterior fascicular block with occasional PVCs. During this time his laboratory studies demonstrated that his hemoglobin was markedly low at 4.8 and his BUN and creatinine levels were elevated. His case was reported as being discussed with interventional cardiology who based upon the aforementioned findings and concerns recommended conservative medical management and not urgent/emergent diagnostic cardiac catheterization. Thus the was placed in the CDU for further evaluation and care. This morning he states he feels fine, is thirsty, is hungry, and wants to go home. He states he has chronic shortness of breath. He also has chronic lower extremity peripheral pitting edema. He has denied any ongoing palpitations. There has been no near syncope or syncope. He states he follows with [facility] primary care. He notes that they have been evaluating his lower extremity edema and wrapping them . Since being in the ICU he has been followed. His cardiac enzymes have trended up. His cardiac rhythm is demonstrated sinus rhythm with PVCs. Since being in the ICU he has been receiving PRBCs. He has received multiple PRBC units. His H&H has improved. [] Past Medical History Allergies/Adverse Reactions: Allergies bee venom protein (honey bee) Allergy (Verified 01/22/20 10:12) Angioedema Penicillins Allergy (Verified 01/22/20 10:12) Rash acetaminophen [From Vicodin] Adverse Reaction (Verified 01/22/20 10:12) Itching hydrocodone bitartrate [From Vicodin] Adverse Reaction (Verified 01/22/20 10:12) Itching Home Medications: Ambulatory Orders Medication Instructions Recorded Levothyroxine [Synthroid] 112 mcg PO DAILY 09/10/13 metFORMIN HCl [Glucophage] 1,000 mg PO BIDCM 09/10/13 Atorvastatin Calcium [Lipitor] 20 mg PO QHS 01/16/17 Nitroglycerin 0.4 mg SL TID PRN PRN #20 tab.subl 01/17/20 Albuterol Inhaler [Ventolin Hfa] 2 puff INHALATION Q4H PRN PRN #1 01/22/20 inhaler predniSONE tablet 60 mg PO DAILY #12 tab 02/06/20 Cefuroxime Axetil [Cefuroxime] 500 mg PO BID 02/09/20 Furosemide [Lasix] 20 mg PO DAILY 02/09/20 Tizanidine HCl [Zanaflex] 4 mg PO TID PRN 02/09/20 Past Medical History (Chronic Problems): Chronic Problems PVD (peripheral vascular disease) (Chronic) Venous insufficiency (Chronic) Type 2 diabetes mellitus with diabetic polyneuropathy (Chronic) Obesity (Chronic) Chronic respiratory failure with hypoxia (Chronic) Morbid obesity (Chronic) Hypothyroidism (Chronic) Hyperlipidemia (Chronic) Former tobacco use (Chronic) Hypoxemia (Chronic) Hypothyroid (Chronic) Diabetes (Chronic) CHF (congestive heart failure) (Chronic) Surgical History: noncontributory, - - Umbilical hernia repair, penile foreskin surgery. Psychiatric History: No pertinent psych hx - *Family History Maternal History Items: Cancer - Mother with history of colon cancer., Diabetes Paternal History Items: - - Patient denies any market paternal family history including heart disease, diabetes, cancer. Lives: Alone Smoking Status: Former smoker Tobacco Use: Non-smoker Alcohol: Occasional - Patient notes occasional beer intake. Drugs: None Review of Systems - Review of Systems General: Denies: Fever, Night Sweats, Fatigue Cardiovascular: Reports: Shortness of Breath, Shortness of Breath at Rest, Shortness of Breath with Exertion, Peripheral Edema. Denies: Chest Discomfort, Orthopnea, PND, Palpitations, Lightheadedness, Dizziness, Near Syncope, Syncope Respiratory: Reports: Shortness of Breath. Denies: Cough, Sputum Production, Hemoptysis Gastrointestinal: Denies: Hematemesis, Hematochezia, Melena Genitourinary: Denies: Dysuria, Hematuria Skin: Denies: Rash Subjectve: This is a 74-year-old hard of hearing white male who appears to be resting comfortably at the moment in no acute distress. Objective: Vital Signs Temp Pulse Resp BP Pulse Ox 97.8 F 77 18 135/118 H 90 02/10/20 10:00 02/10/20 10:00 02/10/20 10:00 02/10/20 10:00 02/10/20 10:00 Oxygen Flow Rate (L/min) 2 Oxygen Delivery Method Room Air Weight: 248 lb 7.375 oz Body Mass Index (BMI) 42.2 Finger Stick Blood Glucose 298 Intake and Output for Last 24 Hours 02/08/20 02/09/20 02/10/20 23:59 23:59 23:59 Intake Total 1515 / 1515 460 / 460 Output Total 2700 / 2950 1150 / 1150 Balance -1185 / -1435 -690 / -690 General: Awake, Alert, Oriented x 3, No Acute Distress, Obese HEENT: Atraumatic, Normocephalic, PERRL, EOMI, Sclera Non Icteric Neck: Supple, Good ROM, No JVD Lungs: Diminished Jesús Bases Cardiovascular: Regular Rhythm, Premature Ectopic Beats, Normal S1, Normal S2 Murmur Murmur: Grade 2/6, Harsh, Mid Systolic, LLSB, LVOT, Sternal Notch Vascular: No Carotid Bruits Abdomen: Bowel Sounds Present, Soft, Non Tender, Obese Extremities: Severe RLE Edema, Severe LLE Edema Psych/Mental Status: Appropriate 02/09/20 17:00: WBC 20.3 H, RBC 1.51 L, Hgb 4.8 L*, Hct 15.9 L, MCV 105.3 H, MCH 31.8, MCHC 30.2 L, Plt Count 327, MPV 10.5, Neut % (Auto) Not Reportable, Absolute Neuts (auto) 17.1 H, Total Counted 100, Neutrophils % (Manual) 82 H, Band Neutrophils % 2, Lymphocytes % (Manual) 16 L 02/09/20 17:00: Sodium 129 L, Potassium 4.5, Chloride 96 L, Carbon Dioxide 23.0, Anion Gap 10, BUN 91 H, Creatinine 1.79 H, Est GFR (MDRD) Af Amer 48 L, Est GFR (MDRD) Non-Af 40 L, BUN/Creatinine Ratio 50.8 H, Glucose 737 H*, Calcium 8.0 L, Troponin I 9.070 H* 02/09/20 17:00: B-Natriuretic Peptide 317.7 H 02/09/20 17:00: PT 13.1, INR 1.0, APTT 22.7 L 02/09/20 17:00: Magnesium 2.3 02/09/20 22:35: Troponin I 10.700 H* 02/09/20 22:35: Glucose 665 H* 02/10/20 02:20: Hgb 8.9 L, Hct 27.6 L 02/10/20 02:20: Troponin I 10.900 H* 02/10/20 05:40: WBC 21.8 H, RBC 2.90 L, Hgb 8.9 L, Hct 27.9 L, MCV 96.2 H D, MCH 30.7, MCHC 31.9 L D, Plt Count 264, MPV 10.0, Neut % (Auto) Not Reportable, Absolute Neuts (auto) 19.0 H, Total Counted 100, Neutrophils % (Manual) 76 H, Band Neutrophils % 11 H, Lymphocytes % (Manual) 5 L, Monocytes % (Manual) 3, Metamyelocytes % 5 H 02/10/20 05:40: Sodium 136, Potassium 3.9, Chloride 98, Carbon Dioxide 31.0, Anion Gap 7, BUN 73 H, Creatinine 1.56 H, Est GFR (MDRD) Af Amer 56 L, Est GFR (MDRD) Non-Af 46 L, BUN/Creatinine Ratio 46.8 H, Glucose 410 H, Calcium 7.9 L, Total Bilirubin 0.60, Triglycerides 227 H, Cholesterol 135, LDL Cholesterol 50, VLDL Cholesterol 45 H, HDL Cholesterol 40 02/10/20 05:40: Hemoglobin A1c 7.0 H 02/10/20 05:40: Troponin I 12.400 H* Rhythm: Sinus rhythm; PVCs EKG: As noted above Stress Test: 01-08-2017 Stress Test Report: Lexiscan EKG: Resting EKG: Normal sinus rhythm, right bundle branch block, left anterior hemiblock, no evidence of previous myocardial infarction. Lexiscan EKG the patient received regadenoson per protocol. During infusion the patient's heart rate essentially remained the same. Patient had rare PACs and a bigeminal pattern. Patient had no dynamic EKG changes to suggest ischemia. Conclusions normal adequate regular Nishant on EKG. Negative for ischemia by EKG criteria. No anginal symptoms noted. Rare PACs noted in a bigeminal pattern. MPI infusion to follow. Patient tolerated the procedure well. The nuclear imaging was reported by radiology as being negative for stress-induced myocardial ischemia CXR: Per radiology there was a question of mild heart failure . Assessment/Plan 1. STEMI versus non-STEMI The patient was reported as having concerns for an acute STEMI based upon his second ECG which was reported as a posterior ECG. However this ECG appeared to have the suggestion of limb lead misplacement which appeared to give the suggestion of an element of ST segment elevation. This was not appreciated on the prior or subsequent ECG. There was concern of ST segment changes compatible with myocardial ischemia. Thus it is not conclusive that the patient experienced a STEMI. However, based upon his other objective findings with respect to his cardiac enzymes he does appear to have experienced at least a non-STEMI. With respect to an acute coronary syndrome injury it is unclear whether this was a primary event versus being a type II supply demand mismatch event brought out by his marked anemia which is thought to be secondary to a GI bleeding process. At the present time the patient is being monitored. His cardiac enzymes and ECG can be followed. He has been asked to have an echocardiogram in attempt to evaluate his left ventricular wall motion and systolic function. Based upon his marked anemia he was not placed on antiplatelet therapy or anticoagulant therapy. He can be given nitrates as needed, be placed on beta-blockers, and be placed on lipid-lowering agents. Ideally he should be considered for further evaluation with diagnostic cardiac catheterization, however, this is on hold secondary to concerns of his marked anemia from a GI bleeding process that requires further evaluation and care. This process would limit him with respect to coronary revascularization procedures based upon not being able to be placed on medical therapy such as aspirin or antiplatelet therapy or anticoagulant therapy. Thus from a cardiac standpoint he is continuing conservative medical management at this time. 2. Hyperlipidemia The patient should continue cardiovascular risk factor evaluation and care and lipid-lowering therapy. 3. Diabetes mellitus Patient will continue evaluation care per internal medicine 4. Anemia The patient was found to be markedly anemic. They are concerned this is related to GI bleeding process. This may have exacerbated his underlying cardiovascular findings. He has received multiple PRBCs which hopefully will benefit his cardiovascular process. 5. GI bleed There is concerns patient has an underlying GI bleeding process. He will need to be evaluated by gastroenterology/general surgery. He would be considered, based upon his acute coronary syndrome condition at high risk for adverse cardiovascular events from a noncardiac surgical procedure at this time. 6. Obesity Unfortunately the patient is obese. This does not help his underlying cardiovascular risk factors. Comment: The patient's case was discussed and reviewed with the patient and Dr. Noel of the [facility] ICU staff. This note was generated using a voice recognition system and there may be incorrect words, spelling or punctuation that were not noted when reviewing the office note prior to saving.
--- NOTE | 2020-02-10 10:33 | CM.UR ---
DAMION OSORIO assessment: Face to Face with patient for initial transition planning/care coordination assessment. DAMION OSORIO introduced self and role at [facility], pt voices understanding and consents to assessment at this time. Pt is A/Ox4 at this time and answers all questions appropriately at this time. Pt is sitting in chair at this time. No distress at this time. Care providers, pharmacy, and demographics verified at this time. Presentation: Pt c/o increased SOB Admitting dx: CHF/COPD exac PCP: Dr. Mendez Specialists: Denies [facility] Insurance: [place] [place] [employer] [facility] Prescription Benefit: Yes. Denies any concerns obtaining/paying for medications. Living Will/HPOA: Pt states does not have LW/HPOA and declines AD info at this time. Living Arrangements: Pt states in a mobile home. States ramp to get in. Denies use of AD. Transportation: Pt states drives self and states no transportation concerns at this time. DME: Cane, Oxygen, shower chair, grab bars and ramp. Pt states no need for any further DME at this time. Patient cannot tell me where he gets his oxygen. Just states, I've had it a long time. HHC/SNF: Pt states he currently has [employer] but he cannot tell me her name, the agency she is coming from or his case fitter name. Denies ever being in a SNF. Pt states no concerns with going home at time of discharge with resumption of his [employer]. Per EMS report patient lives in deplorable conditions. States that he had dried fecal material on his feet and legs. Concerned about patient returning to living conditions. Alerted LAUREEN Garcia Pt Goal: Home Plan: Home Devante Vieira RN, CCM.
[2020-02-10] MEDS: Furosemide 40 MG/4 ML Vial IV (10:35)
[2020-02-10] MEDS: Ipratropium/Albuterol Sulfate 3 ML AMPUL.NEB INHALATION (11:15)
--- NOTE | 2020-02-10 13:04 | NURSING ---
patient refused echo, troponin, and blood sugar.
--- NOTE | 2020-02-10 14:08 | NURSING ---
1300 patient expressed that he wanted to leave against medical advice. Dr Al notified of patient wishes stated patient would need to sign AMA form. Patient signed AMA form see chart for documentation
--- NOTE | 2020-02-10 14:16 | NURSING ---
patient refusing blood sugar and medication. patient sighned out ama with Lay eduardo. patient discharge ama via wheelchair to [facility] per patient request.
--- NOTE | 2020-02-10 14:22 | DS.PCM_ITS ---
Discharge Date and Diagnosis - Problem List Patient Problems: Active and Suspected Problems GI bleed (Acute) STEMI (ST elevation myocardial infarction) (Acute) COPD exacerbation (Acute) Decompensated heart failure (Acute) Type 2 diabetes mellitus with hyperglycemia (Acute) Acute kidney injury (Acute) Anemia (Acute) Date of Admission: 02/09/20 Date of Discharge: 02/10/20 - Primary Discharge Diagnosis Acute Problems: Active Problems GI bleed (Acute) STEMI (ST elevation myocardial infarction) (Acute) COPD exacerbation (Acute) Decompensated heart failure (Acute) Type 2 diabetes mellitus with hyperglycemia (Acute) Acute kidney injury (Acute) Anemia (Acute) - Secondary Discharge Diagnosis Chronic Problems: Chronic Problems PVD (peripheral vascular disease) (Chronic) Venous insufficiency (Chronic) Type 2 diabetes mellitus with diabetic polyneuropathy (Chronic) Obesity (Chronic) Chronic respiratory failure with hypoxia (Chronic) Morbid obesity (Chronic) Hypothyroidism (Chronic) Hyperlipidemia (Chronic) Former tobacco use (Chronic) Hypoxemia (Chronic) Hypothyroid (Chronic) Diabetes (Chronic) CHF (congestive heart failure) (Chronic) Hospital Course and Treatment Imaging Results: 02/10/20 05:55 Chest 1 View (Portable) [RAD] AM (NON MEDS) Diagnostic Data Chest X-Ray 02/10/20 05:55 IMPRESSION: No significant interval change. at 0538 Reported and signed by: Shila Almanzar MD Electronically Signed: Shila Almanzar MD at 5:37 EST Tel , Service support , Operations: None Procedures: None Summary of Care Provided: The patient is a 74 year old M with a past medical history as outlined was admitted through the ED on 02/09/2020 with a complaint of worsening shortness of breath and chest pain. Patient had recently been diagnosed with COPD exacerbation 3 days prior to presentation and started on antibiotics and prednisone. Patient used 2 L of oxygen at home chronically. He also complained of dark stools over the course of the week. On admission white cell count was elevated at 20,000 and hemoglobin was 4.8. Last known hemoglobin was 11 in O ct2019. Chemistry showed sodium of 129 with chloride of 96 and creatinine of 1.79 and glucose was markedly elevated at 737. Troponin was 9.07 and BNP was 317. EKG done in the ED was concerning for posterior ST elevation FL. Cardiology and general surgery were consulted and patient was admitted and managed for ST elevation FL, acute anemia likely due to GI bleed and acute decompensated heart failure with unknown EF as well as hypoglycemia in a patient with a history of diabetes mellitus and CHUY as well. Patient was transfused with 2 units of packed red blood cells and started on IV Protonix. He was also started on IV Lasix. Critical care was also consulted and he was admitted to the ICU. 1 is continued to rise and peaked at 12.4. He was transfused a total of 4 units of packed red blood cells and hemoglobin on the morning of admission was 8.9. Cardiology reviewed patient and 2D echo was ordered. Antibiotics and steroids were also discontinued. Patient however adamantly refused to have 2D echo and insisted on leaving AGAINST MEDICAL ADVICE. Despite extensive counseling about how sick he was and how tenuous his health was, patient insisted that he was fine and did not want to stay in the hospital. Patient therefore signed out AGAINST MEDICAL ADVICE on 02/10/2020. Patient was seen and examined prior to discharge. Patient said he felt well and wanted to leave AGAINST MEDICAL ADVICE. Hospitalist counseled patient that he was very sick and had had a massive heart attack and would be prudent for him to stay in the hospital for complete work-up of his GI bleed and acute on chronic anemia as well as heart attack. Patient however refused and said he was going to leave and nobody could make him stay. Labs and vitals reviewed. O/E: Vital Signs Temp Pulse Resp BP Pulse Ox 97.8 F 83 20 H 135/118 H 90 02/10/20 10:00 02/10/20 11:25 02/10/20 11:25 02/10/20 10:00 02/10/20 10:00 General: Alert, Cooperative, No apparent distress, - -very hard of [place] HEENT: Atraumatic, Normocephalic Oral: No Gingival or Mucosal Lesions/ Ulcerations Neck: Supple, No Nodes, Trachea Midline Lungs: No rhonchi, No wheeze, No rales, Diminished breath sounds bibasally, no wheezes or crackles. Cardiovascular: Regular rate, Regular Rhythm, Murmur Abdomen: Bowel Sounds Present, Soft, Non Tender, Obese Extremities: No clubbing, No cyanosis, Edema Skin: - - Wrapped lower extremities. Musculoskeletal: No Muscle Wasting Lymphatic: No Cervical, Supraclavicular, or Inguinal Adenopathy Neurological: Cranial nerves II-XII grossly intact, Neuro grossly intact Psych/Mental Status: Normal Affect, Appropriate Patient insisted on signing out AGAINST MEDICAL ADVICE and signed the papers on 02/10/2020. Patient Problems: Active and Suspected Problems GI bleed (Acute) STEMI (ST elevation myocardial infarction) (Acute) COPD exacerbation (Acute) Decompensated heart failure (Acute) Type 2 diabetes mellitus with hyperglycemia (Acute) Acute kidney injury (Acute) Anemia (Acute) - Physical Exam Vitals/I&O's: Vital Signs Temp Pulse Resp BP Pulse Ox 97.8 F 83 20 H 135/118 H 90 02/10/20 10:00 02/10/20 11:25 02/10/20 11:25 02/10/20 10:00 02/10/20 10:00 Oxygen Flow Rate (L/min) 2 Oxygen Delivery Method Room Air Weight: 248 lb 7.375 oz Body Mass Index (BMI) 42.2 Finger Stick Blood Glucose 298 Intake and Output for Last 24 Hours 02/08/20 02/09/20 02/10/20 23:59 23:59 23:59 Intake Total 1515 / 1515 570 / 570 Output Total 2700 / 2950 1150 / 1150 Balance -1185 / -1435 -580 / -580 Microbiology Past 72 Hours 02/09/20 23:05 Mucosa - Nasopharyngeal Respiratory Panel (PCR) - Final 02/09/20 19:05 Mucosa - Nasopharyngeal Influenza Types A,B Direct FA (CLOTILDE) - Final 02/09/20 15:45 Stool Stool Occult Blood (CLOTILDE) - Final Occult Blood Positive 02/09/20 16:54 Mucosa - Nasopharyngeal - Final Laboratory Results 02/09/20 17:00: WBC 20.3 H, RBC 1.51 L, Hgb 4.8 L*, Hct 15.9 L, MCV 105.3 H, MCH 31.8, MCHC 30.2 L, RDW Std Deviation 63.4 H, RDW Coeff of Emili 17.5 H, Plt Count 327, MPV 10.5, Neut % (Auto) Not Reportable, Absolute Neuts (auto) 17.1 H, Absolute Lymphs (auto) 3.25, Total Counted 100, Neutrophils % (Manual) 82 H, Band Neutrophils % 2, Lymphocytes % (Manual) 16 L, Diff Path Review August, Platelet Estimate ADEQUATE, Hypochromasia 2+, Anisocytosis 1+, Macrocytosis 1+ 02/09/20 17:00: Sodium 129 L, Potassium 4.5, Chloride 96 L, Carbon Dioxide 23.0, Anion Gap 10, BUN 91 H, Creatinine 1.79 H, Estim Creat Clear Calc 29.86, Est GFR (MDRD) Af Amer 48 L, Est GFR (MDRD) Non-Af 40 L, BUN/Creatinine Ratio 50.8 H , Glucose 737 H*, Calcium 8.0 L, Troponin I 9.070 H* 02/09/20 17:00: B-Natriuretic Peptide 317.7 H 02/09/20 17:00: PT 13.1, INR 1.0, APTT 22.7 L 02/09/20 17:00: Magnesium 2.3 02/09/20 17:42: Blood Type O NEGATIVE, Antibody Screen NEGATIVE, Crossmatch See Detail 02/09/20 17:42: Blood Type O NEGATIVE, Antibody Screen NEGATIVE, Crossmatch See Detail 02/09/20 17:42: Crossmatch See Detail 02/09/20 22:14: POC Glucose > 500 H* 02/09/20 22:35: Troponin I 10.700 H* 02/09/20 22:35: Glucose 665 H* 02/10/20 02:20: Hgb 8.9 L, Hct 27.6 L 02/10/20 02:20: Troponin I 10.900 H* 02/10/20 05:08: POC Glucose 444 H 02/10/20 05:40: WBC 21.8 H, RBC 2.90 L, Hgb 8.9 L, Hct 27.9 L, MCV 96.2 H D, MCH 30.7, MCHC 31.9 L D, RDW Std Deviation 57.8 H, RDW Coeff of Emili 18.0 H, Plt Count 264, MPV 10.0, Neut % (Auto) Not Reportable, Absolute Neuts (auto) 19.0 H, Absolute Lymphs (auto) 1.09, Total Counted 100, Neutrophils % (Manual) 76 H, Band Neutrophils % 11 H, Lymphocytes % (Manual) 5 L, Monocytes % (Manual) 3, Metamyelocytes % 5 H, Diff Path Review May foll, Platelet Estimate ADEQUATE, Polychromasia RARE, Anisocytosis 1+, Macrocytosis 1+ 02/10/20 05:40: Sodium 136, Potassium 3.9, Chloride 98, Carbon Dioxide 31.0, Anion Gap 7, BUN 73 H, Creatinine 1.56 H, Estim Creat Clear Calc 34.26, Est GFR (MDRD) Af Amer 56 L, Est GFR (MDRD) Non-Af 46 L, BUN/Creatinine Ratio 46.8 H, Glucose 410 H, Calcium 7.9 L, Total Bilirubin 0.60, AST 54 H, ALT 47, Alkaline Phosphatase 152 H, Total Protein 7.0, Albumin 3.1 L, Globulin 3.9, Albumin/Globulin Ratio 0.8 L, Triglycerides 227 H, Cholesterol 135, LDL Cholesterol 50, VLDL Cholesterol 45 H, HDL Cholesterol 40, TSH 1.05, Free T4 1.09 02/10/20 05:40: Hemoglobin A1c 7.0 H 02/10/20 05:40: Troponin I 12.400 H* Current Medications Acetaminophen (Acetaminophen 325 Mg Tablet) 650 mg PO Q6H PRN PRN PRN Reason: Pain Score 1-10/Temp > 100.7 F Albuterol Sulfate (Albuterol 2.5 Mg/3 Ml Vial.Neb.) 2.5 mg INHALATION Q2H PRN PRN PRN Reason: Dyspnea, wheezing Albuterol/Ipratropium (Ipratropium/Albuterol Sulfate 3 Ml Ampul.Neb) 3 ml INHALATION Q4HWA.RT [facility] Last Admin: 02/10/20 11:15 Dose: 3 ml Documented by: Atorvastatin Calcium (Atorvastatin Calcium 20 Mg Tablet) 20 mg PO QHS [facility] Last Admin: 02/09/20 22:47 Dose: 20 mg Documented by: Dextrose (Dextrose 50%-Water 25 Gm/50 Ml Disp.Syrin) 0 gm IV X1 PRN; Protocol PRN Reason: Hypoglycemia Furosemide (Furosemide 40 Mg/4 Ml Vial) 40 mg IV BID@1000,1800 [facility] Last Admin: 02/10/20 10:35 Dose: 40 mg Documented by: Glucagon (Glucagon 1 Mg/Ml Syringe) 1 mg IM .X1 PRN PRN Reason: Hypoglycemia Guaifenesin (Guaifenesin 10 Ml Udc (200mg/10ml)) 10 ml PO Q4H PRN PRN PRN Reason: COUGH Hydralazine HCl (Hydralazine 20 Mg/Ml Vial) 10 mg IV Q4H PRN PRN PRN Reason: SBP > 160 Pantoprazole Sodium 40 mg/ (Sodium Chloride) 110 mls @ 330 mls/hr IV Q12 [facility] Last Infusion: 02/10/20 11:14 Dose: Infused Documented by: Sodium Chloride () 250 mls @ 15 mls/hr IV .[id number] PRN PRN Reason: Saline Flush Sodium Chloride () 250 mls @ 15 mls/hr IV .[id number] PRN PRN Reason: Additional IVPB Infusion Insulin Glargine (Insulin Glargine 100 Units/Ml Pen) 20 units SC BID [facility] Last Admin: 02/10/20 10:36 Dose: 20 u Documented by: Insulin Human Lispro (Insulin Lispro 100 Unit/Ml Insuln.Pen) 0 unit SC Q6 [facility]; Protocol Last Admin: 02/10/20 14:15 Dose: Not Given Documented by: Levothyroxine Sodium (Levothyroxine 112 Mcg Tablet) 112 mcg PO DAILY@0600 [facility] Last Admin: 02/10/20 05:09 Dose: 112 mcg Documented by: Lorazepam (Lorazepam 2 Mg/Ml Syringe) 0.5 mg IV Q4H PRN PRN PRN Reason: SEVERE AGITATION Last Admin: 02/09/20 22:54 Dose: 0.5 mg Documented by: Metoprolol Tartrate (Metoprolol Tartrate 25 Mg Tablet) 25 mg PO BID [facility] Last Admin: 02/10/20 14:15 Dose: Not Given Documented by: Ondansetron HCl (Ondansetron 4 Mg/2 Ml Vial) 4 mg IV Q8H PRN PRN PRN Reason: NAUSEA/VOMITING Prochlorperazine Edisylate (Prochlorperazine 10 Mg/2 Ml Vial) 5 mg IV Q4H PRN PRN PRN Reason: Breakthrough Nausea/Vomiting Sodium Chloride (0.9% Saline Lock 10 Ml Syringe) 10 - 40 ml IV UD PRN PRN Reason: SALINE FLUSH Last Admin: 02/10/20 05:10 Dose: 20 ml Documented by: Throat Lozenges (Benzocaine/Menthol 1 Lozenge) 1 lozenge MUCOUS MEM Q2H PRN PRN PRN Reason: SORE THROAT Tizanidine HCl (Tizanidine Hcl 2 Mg Tablet) 4 mg PO TID PRN PRN PRN Reason: MUSCLE SPASM Home Medications: Medications to take at Discharge Levothyroxine [Synthroid] 112 mcg PO DAILY 09/10/13 metFORMIN HCl [Glucophage] 1,000 mg PO BIDCM 09/10/13 Atorvastatin Calcium [Lipitor] 20 mg PO QHS 01/16/17 Nitroglycerin 0.4 mg SL TID PRN PRN #20 tab.subl 01/17/20 Albuterol Inhaler [Ventolin Hfa] 2 puff INHALATION Q4H PRN PRN #1 inhaler 01/22/20 predniSONE tablet 60 mg PO DAILY #12 tab 02/06/20 Cefuroxime Axetil [Cefuroxime] 500 mg PO BID 02/09/20 Furosemide [Lasix] 20 mg PO DAILY 02/09/20 Tizanidine HCl [Zanaflex] 4 mg PO TID PRN 02/09/20 Primary Care Physician: Jovani Mendez PA [Primary Care Provider] - Disposition: Against Medical Advice Minutes spent on discharge:: 50 Patient Condition:: Poor Medical Necessity - Tobacco Use Smoking Status: Former smoker Tobacco Use: Non-smoker Meaningful Use Info Meaningful Use Diagnoses (Choose all that apply): None applicable - AMI/Post PCI/Angioplasty Reason Antiplatelet Therapy not ordered:: left AMA Inpatient E&M: [id number] Disch Hosp
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
[2020-02-13 09:25] LABS: Pathologist Review Reviewed
[2020-02-13 09:25] LABS: Pathologist Review Reviewed
== END 2020-02-10 14:20 | disposition left against medical advice (07) | DRG 377 ==
LOC: ED 17:30 → ICU 20:09
PROVIDERS: Admitting Provider Family Medicine; Emergency Provider Emergency Medicine; PCP Physician Assistant; Referring Provider Family Medicine; Visit Provider Student in an Organized Health Care Education/Training Program
DX: K92.2 Gastrointestinal hemorrhage, unspecified (principal); I21.29 ST elevation (STEMI) myocardial infarction involving other sites; D62 Acute posthemorrhagic anemia; J44.1 Chronic obstructive pulmonary disease with (acute) exacerbation; J96.11 Chronic respiratory failure with hypoxia; Z68.41 Body mass index [BMI] 40.0-44.9, adult; N17.9 Acute kidney failure, unspecified; E11.65 Type 2 diabetes mellitus with hyperglycemia; I50.9 Heart failure, unspecified; I11.0 Hypertensive heart disease with heart failure; E11.42 Type 2 diabetes mellitus with diabetic polyneuropathy; E11.51 Type 2 diabetes mellitus with diabetic peripheral angiopathy without gangrene; E03.9 Hypothyroidism, unspecified; E78.5 Hyperlipidemia, unspecified; E66.01 Morbid (severe) obesity due to excess calories; Z99.81 Dependence on supplemental oxygen; Z87.891 Personal history of nicotine dependence; Z79.84 Long term (current) use of oral hypoglycemic drugs
CPT/HCPCS: 51702; 71045; 80048; 80053; 80061; 82274; 82947; 82962; 83036; 83735; 83880; 84439; 84443; 84484; 85014; 85018; 85025; 85610; 85730; 86850; 86900; 86901; 86920; 86922; 87426; 87633; 87804; 93005; 94640; 97161; 97165; 99251; 99283; 99285; J7040; P9016; Q9957; A4216; G0463; J0696; J1940; J3490

== ENCOUNTER 2020-02-15 10:47 | Emergency (ER) | payer MEDICARE, MEDICAID, SELFPAY ==
[2020-02-09 21:31] VITALS: BMI 42.2
[2020-02-15 10:48] VITALS: BP 192/89; PULSE 85; RESP 20; TEMP 35.8; O2SAT 94; BMI 48.4
[2020-02-15 10:51] VITALS: BP 192/89; PULSE 78; RESP 20; O2SAT 94
--- NOTE | 2020-02-15 11:03 | EKG12_ITS ---
Test Reason : Blood Pressure : / mmHG Vent. Rate : 080 BPM Atrial Rate : 080 BPM P-R Int : 154 ms QRS Dur : 152 ms QT Int : 406 ms P-R-T Axes : 043 -68 060 degrees QTc Int : 468 ms Sinus rhythm with Premature atrial complexes Right bundle branch block Left anterior fascicular block Bifascicular block Abnormal ECG Confirmed by SANDRA CARDOSO, PRIETO ([id number]), visual effects editor YULISA WILLARD ([id number]) on 02/16/2020 11:08:08 AM Referred By: ERIC Confirmed By:PRIETO FLORES MD
--- NOTE | 2020-02-15 11:08 | ED.DCSUM_ITS ---
History of Present Illness Chief Complaint: GI Bleed Informant: Patient Narrative: Patient is a 74-year-old male who presents to the emergency department for stating that his black stools have turned brown. He was seen in the hospital this past week and left AGAINST MEDICAL ADVICE. He had a STEMI versus an NSTEMI but did not get cathed because of his low hemoglobin. He did require multiple transfusions. He states that he is having black coffee-like stools over the past week prior to that. He states he has had an EGD many years ago which showed a ulcer. At this time he is currently denying any symptoms. Denies any chest pain or shortness of breath. No abdominal pain. He is not on any blood thinning medications. Past Medical History - Allergies and Home Meds Allergies/Adverse Reactions: Allergies bee venom protein (honey bee) Allergy (Verified 02/15/20 10:48) Angioedema Penicillins Allergy (Verified 02/15/20 10:48) Rash acetaminophen [From Vicodin] Adverse Reaction (Verified 02/15/20 10:48) Itching hydrocodone bitartrate [From Vicodin] Adverse Reaction (Verified 02/15/20 10:48) Itching Primary Care Physician: Efrain Mooney MD [NON-STAFF] - 2 Days Jovani Mendez PA [Primary Care Provider] - Prior records reviewed: Yes Past Medical History: - - Diabetes, COPD, CHF, hypothyroidism, hyperlipidemia, GI bleed Surgical History: noncontributory, - - Umbilical hernia repair, penile foreskin surgery. Smoking Status: Former smoker - Family History Maternal Family History: Reports: Cancer - Mother with history of colon cancer., Diabetes Paternal Family History: Reports: - - Patient denies any market paternal family history including heart disease, diabetes, cancer. Review of Systems All systems negative except as indicated General: Denies: Chills, Fever, Sweats Eyes: Denies: Visual changes - bilaterally, Diplopia ENT: Denies: Rhinorrhea, Sore throat Cardiovascular: Denies: Chest pain, Palpitations Respiratory: Reports: Dyspnea - At baseline. Denies: Cough, Dyspnea on exertion Gastrointestinal: Reports: Melena. Denies: Abdominal pain, Nausea, Vomiting, Diarrhea, Hematochezia Genitourinary: Denies: Dysuria, Hematuria, Frequency Musculoskeletal: Denies: Back pain, Extremity Pain Skin: Denies: Rash, Wounds Neurological: Denies: Headache, Weakness, Numbness Physical Exam Vital Signs/Narrative: Vital Signs Temp Pulse Resp BP Pulse Ox 02/15/20 10:51 78 20 H 192/89 H 94 02/15/20 10:48 96.5 F L 85 20 H 192/89 H 94 Inital Vital Signs reviewed: Yes General: Well nourished, Well developed, No Acute Distress Head: Normocephalic, Atraumatic Eyes: Perrl, EOMI ENT: Moist mucous membranes, No rhinorrhea Neck: Supple, Nontender Cardiovascular: Regular rate, Regular rhythm, No murmurs Respiratory: No distress, CTA bilaterally, Chest nontender Abdomen: Soft, Nontender, Nondistended, Normal bowel sounds Back: Nontender, Normal Inspection Extremities: Nontender, Edema - Bilateral, nonpitting Skin: Normal color, No rash Neurological: Alert, Oriented x3, Cranial nerves II-XII grossly intact, Normal Strength, Normal Sensation Psychological: Normal affect, Normal Mood Diagnostic/Tx/Re-eval - EKG Initial EKG Interpretation: - - Rate of 80 bpm and normal sinus rhythm. Prolonged QRS with a right bundle branch block. Left axis deviation. No significant ST elevations or depressions. - Medical Decision Making Patient presents to the emergency department for change in his stool. Actually has turned from black to brown which I informed him that this is a good thing. This is likely resolving GI bleed. He recently left the hospital AGAINST MEDICAL ADVICE. He was found to be anemic and had elevated troponins with EKG changes. He did not get a full work-up prior to leaving. This time will recheck basic lab work to make sure that his blood counts are trending in the right direction. He is denying any symptoms at this time. Patient's hemoglobin is stable from the discharge 5 days ago. His troponin has significantly decreased. He most likely suffered a type II NSTEMI given his severe anemia last visit. I did call discussed with the child welfare social worker who agrees and feels that he can be discharged from a cardiac standpoint. He is not having any symptoms. EKG does not show any signs of ischemia or arrhythmia. Patient's stool has changed from black to brown. This time I feel outpatient follow-up for an EGD is appropriate. Is given GI follow-up. His vitals have been stable throughout ED stay. He is up ambulating without difficulty. At this time he is discharged home in stable condition. Warning signs and symptoms for which to return to the emergency department including any black bowel movements, lightheadedness, chest pain or shortness of breath are reviewed. He understands and is agreeable this plan. All questions answered. ED Disposition - Plan for ED Patient: Disposition: Home or Assisted Living Diagnosis: Anemia, Elevated troponin Instructions: ED Bleed UGI Stable Referrals: Jovani Mendez PA [Primary Care Provider] - Efrain Mooney MD [NON-STAFF] - 2 Days
[2020-02-15 11:31] LABS: Absolute Lymphocyte Count 0.82 X10^3/uL (0.83-4.51); Absolute Neutrophil Count 6.7 X10^3/uL (2.0-7.7); Basophil# 0.04 X10^3/uL; Basophil% 0.5 % (0-1); Eosinophils% 2.3 % (0-5); Hematocrit 28.6 % (40-54); Hemoglobin 8.6 g/dL (13.0-16.5); Lymphocyte # 0.82 X10^3/ul (4.0); Lymphocyte % 9.3 % (19-41); Mean Corp Hgb Conc 30.1 g/dL (32-36); Mean Corpuscular Hgb 30.4 pg (27.0-32.0); Mean Corpuscular Volume 101.1 fL (80-94); Mean Platelet Vol. 9.9 fl (6.2-12.0); Monocyte# 0.85 X10^3/uL; Monocyte% 9.6 % (0-10); NRBC Flagged by Analyzer 0 % (0-5); Neutrophil # 6.68 X10^3/uL (2.7-7.7); Neutrophil % 75.5 % (47-70); Platelet Count 168 K/mm3 (150-450); RBC Distribution Width CV 16.2 % (11.6-14.6); RBC Distribution Width SD 59.5 fl (35.1-43.9); Red Blood Count 2.83 M/mm3 (4.6-6.2); White Blood Count 8.8 K/mm3 (4.4-11.0)
[2020-02-15 11:56] LABS: ALB/GLOB Ratio 0.7 RATIO (0.9-2.4); AST(SGOT) 36 U/L (15-37); Alanine Aminotransfer ALT/SGPT 66 U/L (16-61); Albumin, Serum 2.6 g/dL (3.2-5.0); Alkaline Phosphatase 220 U/L (45-117); Anion Gap 4 (5-15); BUN 23 mg/dL (7-18); BUN/Creat Ratio 24.7 RATIO (10-20); Calcium,Total 8.3 mg/dL (8.5-10.1); Chloride 104 mmol/L (98-107); Creatinine, Serum 0.93 mg/dL (0.70-1.30); EST Glomerular Filtration Rate 84 mL/min (>60); Est Glom Filt Rate - Afr Amer 102 mL/min (>60); Estimated Creatinine Clearance 48.54 ml/min; Globulin 3.6 g/dL (2.2-4.2); Glucose 223 mg/dL (74-106); Potassium 3.7 mmol/L (3.5-5.1); Protein, Total 6.2 g/dL (6.4-8.2); Sodium Level 140 mmol/L (136-145)
== END 2020-02-15 13:30 | disposition home or self-care (01) ==
PROVIDERS: Emergency Provider Emergency Medicine; PCP Physician Assistant
DX: D64.9 Anemia, unspecified (principal); J44.9 Chronic obstructive pulmonary disease, unspecified; E11.9 Type 2 diabetes mellitus without complications; I50.9 Heart failure, unspecified; E78.5 Hyperlipidemia, unspecified; E03.9 Hypothyroidism, unspecified; Z87.891 Personal history of nicotine dependence; Z79.84 Long term (current) use of oral hypoglycemic drugs
CPT/HCPCS: 80053; 84484; 85025; 93005; 99282; A4216

== ENCOUNTER 2020-02-16 11:40 | Emergency (ER) | payer MEDICARE, MEDICAID, SELFPAY ==
[2020-02-15 10:48] VITALS: BMI 48.4
[2020-02-16 11:42] VITALS: BP 156/90; PULSE 83; RESP 18; TEMP 36.6; O2SAT 93; BMI 48.4
--- NOTE | 2020-02-16 12:29 | ED.VIS.GEN ---
History of Present Illness Chief Complaint: Abd Pain Informant: Patient Narrative: 74-year-old male presents the emergency department states that he feels tired. Patient was admitted recently for GI bleed given transfusion. Also noted to have NSTEMI. Patient signed out AMA. He was seen again yesterday and his hemoglobin was 8.6 down from 8.9 on 02/09 when he left the hospital. The patient states that he does not want to stay in the hospital if it is more than 1 night. He cannot provide me a reason why other than he just does not to do it. He tells me that he just wants some medicine. He does not want an EGD. He does not want his heart evaluated. - Past Medical History (1) Anemia Status: Acute (2) COPD exacerbation Status: Chronic (3) Decompensated heart failure Status: Chronic (4) GI bleed Status: Chronic (5) STEMI (ST elevation myocardial infarction) Status: Chronic (6) Type 2 diabetes mellitus with hyperglycemia Status: Chronic (7) CHF (congestive heart failure) Status: Chronic (8) Chronic respiratory failure with hypoxia Status: Chronic (9) Diabetes Status: Chronic (10) Hyperlipidemia Status: Chronic (11) Hypothyroidism Status: Chronic (12) Hypoxemia Status: Chronic (13) Morbid obesity Status: Chronic (14) PVD (peripheral vascular disease) Status: Chronic (15) Venous insufficiency Status: Chronic Past Medical History - Allergies and Home Meds Allergies/Adverse Reactions: Allergies bee venom protein (honey bee) Allergy (Verified 02/16/20 12:01) Angioedema Penicillins Allergy (Verified 02/16/20 12:01) Rash acetaminophen [From Vicodin] Adverse Reaction (Verified 02/16/20 12:01) Itching hydrocodone bitartrate [From Vicodin] Adverse Reaction (Verified 02/16/20 12:01) Itching Primary Care Physician: Jovani Mendez PA [Primary Care Provider] - Prior records reviewed: Yes Surgical History: noncontributory, - - Umbilical hernia repair, penile foreskin surgery. Smoking Status: Former smoker Drugs: None - Family History Maternal Family History: Reports: Cancer - Mother with history of colon cancer., Diabetes Paternal Family History: Reports: - - Patient denies any market paternal family history including heart disease, diabetes, cancer. Review of Systems General: Reports: Malaise. Denies: Chills, Fever, Sweats Eyes: Denies: Visual changes - bilaterally, Diplopia ENT: Denies: Rhinorrhea, Sore throat Cardiovascular: Denies: Chest pain, Palpitations Respiratory: Denies: Dyspnea, Cough, Dyspnea on exertion Gastrointestinal: Denies: Abdominal pain, Nausea, Vomiting, Diarrhea, Melena, Hematochezia Genitourinary: Denies: Dysuria, Hematuria, Frequency Musculoskeletal: Denies: Back pain, Extremity Pain Skin: Denies: Rash, Wounds Neurological: Denies: Headache, Weakness, Numbness Physical Exam Vital Signs/Narrative: Vital Signs Temp Pulse Resp BP Pulse Ox 02/16/20 11:42 98 F 83 18 156/90 H 93 Inital Vital Signs reviewed: Yes General: Well nourished, Well developed, Obese, No Acute Distress Head: Normocephalic, Atraumatic Eyes: Perrl, EOMI ENT: Moist mucous membranes, No rhinorrhea Neck: Supple, Nontender Cardiovascular: Regular rate, Regular rhythm, No murmurs Respiratory: No distress, CTA bilaterally, Chest nontender Abdomen: Soft, Nontender, Nondistended, Normal bowel sounds Back: Nontender, Normal Inspection Extremities: Nontender, Edema - 2+ lower extremity edema Skin: Normal color, No rash Neurological: Alert, Oriented x3, Cranial nerves II-XII grossly intact, Normal Strength, Normal Sensation Psychological: Normal affect, Normal Mood Diagnostic/Tx/Re-eval - Medical Decision Making I spoke with the patient in the presence of nursing and informed him that simply prescribing medicine is not the appropriate treatment. He states he will stay in the hospital for more than 1 night. He does not want tests run. Patient appears to have the capacity to make this decision though I strongly disagree with it. Patient was advised that he may or suffer significant disability based upon this decision. I can write him Protonix and some Carafate. I had nursing perform any blood pressure and was not orthostatic. At this point I am going to have the patient to sign out AMA. He needs to follow-up with his doctors as soon as possible. ED Disposition - Plan for ED Patient: Disposition: Home or Assisted Living Diagnosis: Anemia, GI bleed, Weakness Instructions: ED Bleed UGI Stable Prescriptions: Sucralfate [Carafate] 1 gm PO 4X/DAY #40 tab Prescription Printed Pantoprazole Sodium [Protonix] 20 mg PO BID #20 tab Prescription Printed Referrals: Jovani Mendez PA [Primary Care Provider] - As soon as possible
[2020-02-16 12:46] VITALS: BP 159/56; PULSE 88; RESP 20; O2SAT 97
--- NOTE | 2020-02-16 13:02 | ED.RN ---
Dr. Delgado went ama paperwork with pt. pt signed ama paperwork. assisted via wheelchair to his car.
== END 2020-02-16 13:07 | disposition left against medical advice (07) ==
LOC: ED 12:45
PROVIDERS: Emergency Provider Emergency Medicine; PCP Physician Assistant
DX: D64.9 Anemia, unspecified (principal); K92.2 Gastrointestinal hemorrhage, unspecified; R53.1 Weakness; E66.01 Morbid (severe) obesity due to excess calories; J96.11 Chronic respiratory failure with hypoxia; E78.5 Hyperlipidemia, unspecified; E03.9 Hypothyroidism, unspecified; E11.51 Type 2 diabetes mellitus with diabetic peripheral angiopathy without gangrene; I50.9 Heart failure, unspecified; Z87.891 Personal history of nicotine dependence; Z79.84 Long term (current) use of oral hypoglycemic drugs
CPT/HCPCS: 99282

== ENCOUNTER 2020-02-18 19:03 | Emergency (ER) | payer MEDICARE, MEDICAID, SELFPAY ==
[2020-02-18 19:03] VITALS: BP 157/64; PULSE 89; RESP 28; TEMP 36.2; O2SAT 84; BMI 44.2
[2020-02-18 19:07] VITALS: BP 157/64; PULSE 89; RESP 28; TEMP 36.2; O2SAT 100
[2020-02-18 19:16] VITALS: BP 157/64; PULSE 89; RESP 28; TEMP 36.2; O2SAT 100; O2SAT 99
--- NOTE | 2020-02-18 19:20 | EKG12_ITS ---
Test Reason : SOB Blood Pressure : / mmHG Vent. Rate : 082 BPM Atrial Rate : 082 BPM P-R Int : 164 ms QRS Dur : 148 ms QT Int : 426 ms P-R-T Axes : 056 -59 096 degrees QTc Int : 497 ms Normal sinus rhythm Right bundle branch block Left anterior fascicular block Bifascicular block Abnormal ECG Confirmed by SANDRA CARDOSO, PRIETO ([id number]), pictures editor YULISA WILLARD ([id number]) on 02/20/2020 12:57:57 PM Referred By: OXANA JADE Confirmed By:PRIETO FLORES MD
--- NOTE | 2020-02-18 19:24 | ED.VIS.GEN ---
History of Present Illness Chief Complaint: Shortness of Breath Informant: Patient Onset: Today Current Severity: Mild Maximum Severity: Moderate Narrative: Patient presents secondary to shortness of breath that started this evening. He arrives to the ER without oxygen on and states he normally wears 2 L of oxygen at home. His O2 sat is 84% on room air on arrival. Patient reports shortness of breath just noted today. He was recently admitted, February 08 through the , for [place] and GI bleed. He signed out in the hospital AMA at that time. He is in back to the emergency room 2 times since then and would allow repeat blood work but declined hospital admission. Hemoglobin has been stable in the upper 8 range. He denies having black stool currently. He denies chest pain. - Past Medical History (1) CHF (congestive heart failure) Status: Chronic (2) Diabetes Status: Chronic (3) GI bleed Status: Resolved (4) Hyperlipidemia Status: Chronic (5) Hypothyroid Status: Chronic (6) PVD (peripheral vascular disease) Status: Chronic Past Medical History - Allergies and Home Meds Allergies/Adverse Reactions: Allergies bee venom protein (honey bee) Allergy (Verified 02/16/20 12:01) Angioedema Penicillins Allergy (Verified 02/16/20 12:01) Rash acetaminophen [From Vicodin] Adverse Reaction (Verified 02/16/20 12:01) Itching hydrocodone bitartrate [From Vicodin] Adverse Reaction (Verified 02/16/20 12:01) Itching Primary Care Physician: Jovani Mendez, PA [Primary Care Provider] - Prior records reviewed: Yes Surgical History: noncontributory, - - Umbilical hernia repair, penile foreskin surgery. Smoking Status: Former smoker - Family History Maternal Family History: Reports: Cancer - Mother with history of colon cancer., Diabetes Paternal Family History: Reports: - - Patient denies any market paternal family history including heart disease, diabetes, cancer. Review of Systems General: Denies: Chills, Fever Eyes: Denies: Visual changes - bilaterally ENT: Denies: Bilateral ear pain Cardiovascular: Denies: Chest pain Respiratory: Reports: Dyspnea, Cough Gastrointestinal: Denies: Abdominal pain, Nausea, Vomiting, Diarrhea Genitourinary: Denies: Dysuria Neurological: Denies: Headache Hematologic: Denies: Easy bruising, Easy bleeding Allergy: Denies: Uticaria Physical Exam Vital Signs/Narrative: Vital Signs Temp Pulse Resp BP Pulse Ox 02/18/20 19:16 97.1 F L 89 28 H 157/64 H 100 02/18/20 19:07 97.1 F L 89 28 H 157/64 H 100 02/18/20 19:03 97.1 F L 89 28 H 157/64 H 84 Inital Vital Signs reviewed: Yes General: Well nourished, Well developed Head: Normocephalic ENT: Moist mucous membranes Neck: Supple Cardiovascular: Regular rate, Regular rhythm Respiratory: No distress, CTA bilaterally Abdomen: Soft, Nontender, Hypoactive bowel sounds Extremities: Nontender Skin: Normal color Neurological: Alert, Oriented x3 Psychological: Normal affect Diagnostic/Tx/Re-eval Impressions Chest X-Ray 02/18/20 19:54 IMPRESSION: Bilateral interstitial opacities which may be due to infection or edema. Electronically Signed: Eliud Cedric, at 20:08 EST Tel , Service support , 02/18/20 19:54 Chest 1 View (Portable) [RAD] Stat Laboratory Results 02/18/20 02/18/20 02/18/20 19:35 19:35 19:35 WBC 9.9 RBC 2.75 L Hgb 8.2 L Hct 27.7 L MCV 100.7 H MCH 29.8 MCHC 29.6 L RDW Std Deviation 58.0 H RDW Coeff of Emili 16.0 H Plt Count 171 MPV 9.7 Immature Gran % (Auto) 2.100 H Neut % (Auto) 76.4 H Lymph % (Auto) 11.6 L Early % (Auto) 8.0 Eos % (Auto) 1.4 Baso % (Auto) 0.5 Absolute Neuts (auto) 7.6 Absolute Lymphs (auto) 1.15 Nucleated RBC % 0 PT 12.1 INR 0.9 APTT 26.5 Sodium 137 Potassium 4.4 Chloride 103 Carbon Dioxide 32.0 Anion Gap 2 L BUN 20 H Creatinine 0.93 Estim Creat Clear Calc 48.54 Est GFR (MDRD) Af Amer 101 Est GFR (MDRD) Non-Af 84 BUN/Creatinine Ratio 21.4 H Glucose 201 H Calcium 8.3 L Troponin I 0.360 H B-Natriuretic Peptide COVID-19 (CHRISTIANO) Blood Type Antibody Screen 02/18/20 02/18/20 02/18/20 19:35 19:35 19:40 WBC RBC Hgb Hct MCV MCH MCHC RDW Std Deviation RDW Coeff of Emili Plt Count MPV Immature Gran % (Auto) Neut % (Auto) Lymph % (Auto) Early % (Auto) Eos % (Auto) Baso % (Auto) Absolute Neuts (auto) Absolute Lymphs (auto) Nucleated RBC % PT INR APTT Sodium Potassium Chloride Carbon Dioxide Anion Gap BUN Creatinine Estim Creat Clear Calc Est GFR (MDRD) Af Amer Est GFR (MDRD) Non-Af BUN/Creatinine Ratio Glucose Calcium Troponin I B-Natriuretic Peptide 318.7 H COVID-19 (CHRISTIANO) Negative Blood Type O NEGATIVE Antibody Screen NEGATIVE - EKG Initial EKG Interpretation: Sinus Rhythm - Sinus at 82 with bifascicular block. - Medical Decision Making Patient's respiratory rate and O2 sat are normal on his regular 2 L nasal cannula. Patient's hematocrit is stable since he left the hospital AMA. His troponin has continued to trend down. He has mild vascular congestion with a BNP of 300 on blood work. At this time patient is requesting admission to have his stomach taken care of. I advised him multiple times that he needs to have a colonoscopy performed, however this is not something that will emergently be done in the hospital. He needs to call to schedule this to be done as an outpatient. This has been told to him previously as well. I did advise the patient that he would need to have oxygen to go home with. He is adamantly refusing to allow us to send him home by squad. He will be given short course of Lasix to help with diuresis. At this time I do not see any acute changes that warrant hospital admission. ED Disposition - Plan for ED Patient: Disposition: Home or Assisted Living Diagnosis: CHF (congestive heart failure), Anemia Instructions: ED CHF General, ED Anemia Type Not Specified Prescriptions: Furosemide [Lasix] 40 mg PO DAILY #5 tab Transmission Status: Pending to [facility] Referrals: Jovani Mendez PA [Primary Care Provider] - Jesse Mckeon MD [STAFF PHYSICIAN] - As soon as possible
[2020-02-18 19:46] LABS: Absolute Lymphocyte Count 1.15 X10^3/uL (0.83-4.51); Absolute Neutrophil Count 7.6 X10^3/uL (2.0-7.7); Basophil# 0.05 X10^3/uL; Basophil% 0.5 % (0-1); Eosinophil# 0.14 X10^3/uL; Eosinophils% 1.4 % (0-5); Hematocrit 27.7 % (40-54); Hemoglobin 8.2 g/dL (13.0-16.5); Lymphocyte # 1.15 X10^3/ul (4.0); Lymphocyte % 11.6 % (19-41); Mean Corp Hgb Conc 29.6 g/dL (32-36); Mean Corpuscular Hgb 29.8 pg (27.0-32.0); Mean Corpuscular Volume 100.7 fL (80-94); Mean Platelet Vol. 9.7 fl (6.2-12.0); Monocyte# 0.79 X10^3/uL; NRBC Flagged by Analyzer 0 % (0-5); Neutrophil # 7.55 X10^3/uL (2.7-7.7); Neutrophil % 76.4 % (47-70); Platelet Count 171 K/mm3 (150-450); Red Blood Count 2.75 M/mm3 (4.6-6.2); White Blood Count 9.9 K/mm3 (4.4-11.0)
--- NOTE | 2020-02-18 19:54 | RAD_ITS ---
STUDY: X-RAY CHEST REASON FOR EXAM: Male, 74 years old. Dyspnea TECHNIQUE: Frontal view of the chest COMPARISON: 02/10/20 FINDINGS: There are bilateral interstitial opacities which may be due to infection or edema. There are no pleural effusions. There is no pneumothorax. The heart is stable in size. The visualized osseous structures are within normal limits. RAD/Chest 1 View (Portable) IMPRESSION: Bilateral interstitial opacities which may be due to infection or edema. Electronically Signed: Eliud Steele, at 20:08 EST Tel , Service support ,
[2020-02-18 20:04] LABS: International Normalized Ratio 0.9; Prothrombin Time (Protime)PT. 12.1 SECONDS (11.7-14.9)
[2020-02-18 20:05] LABS: Partial Thromboplast Time 26.5 Seconds (24.1-36.2)
[2020-02-18 20:23] LABS: Anion Gap 2 (5-15); BUN 20 mg/dL (7-18); BUN/Creat Ratio 21.4 RATIO (10-20); Calcium,Total 8.3 mg/dL (8.5-10.1); Chloride 103 mmol/L (98-107); Creatinine, Serum 0.93 mg/dL (0.70-1.30); EST Glomerular Filtration Rate 84 mL/min (>60); Est Glom Filt Rate - Afr Amer 101 mL/min (>60); Estimated Creatinine Clearance 48.54 ml/min; Glucose 201 mg/dL (74-106); Potassium 4.4 mmol/L (3.5-5.1); Sodium Level 137 mmol/L (136-145)
[2020-02-18 20:31] VITALS: PULSE 87; RESP 17; O2SAT 92
--- NOTE | 2020-02-18 20:33 | ED.RN ---
PT DIDN'T WEAR HER O2 WHILE DRIVING HERE, STATES HE NEEDS TO GET A NEW ONE.
[2020-02-18 20:42] VITALS: BP 147/71; PULSE 86; RESP 20; O2SAT 95
[2020-02-18 20:57] LABS: Probe Check PASS; Specimen Processing Control PASS
[2020-02-18 20:58] LABS: BNP,B-Type NATRIURETIC PEPTIDE 318.7 pg/mL (0-100)
--- NOTE | 2020-02-18 21:14 | ED.RN ---
THIS RN SPOKE WITH PATIENT TO INITIATE HOME GOING INSTRUCTION AND FIGURE OUT HOW TO GET HIM HOME SINCE HE DOES NOT HAVE A PORTABLE OXYGEN TANK. HE WAS INFORMED WE COULD CALL A PRIVATE SQUAD TO SAFELY GET HIM HOME. HE SAID NO I AINT'T GOING BY NO SQUAD NO!. HE ALSO STATES I NEED A PILL FOR MY BREATHING. THIS RN ASKED HIM ABOUT BREATHING TREATMENTS AND INHALERS. HE SAID NO I NEED PILLS. DR. JADE NOTIFIED. NEW ORDERS GIVEN. THIS RN THEN SPOKE WITH PT ABOUT A SOCIAL WORK CONSULT TO HELP WITH HIS CONTINUED CARE. PT STATES I NEED IT IMMEDIATELY. PT WAS INFORMED THE SOCIAL WORK CONSULT WILL BE PUT IN TONIGHT BUT THEY WOULD NOT RECEIVE THE CONSULT UNTIL THEY ARE IN OFFICE TOMORROW. PT, WHILE NOT HAPPY, VERBALIZES UNDERSTANDING.
[2020-02-18] MEDS: Furosemide 40 MG Tablet PO (21:34)
[2020-02-18 21:35] VITALS: BP 131/91; PULSE 81; RESP 24; O2SAT 98
--- NOTE | 2020-02-18 21:36 | ED.RN ---
Went over discharge instructions and Dr. Mckeon's phone number at least 5 times at discharge. Instructed PT he needs to see Merlene tomorrow, she apparently wraps his legs for him as his left leg was weeping. PT instructed to get new RX at [facility] tomorrow.
--- NOTE | 2020-02-18 21:37 | ED.RN ---
PT wheeled to lobby in . PT did not bring his portable oxygen and refused other transport home. This RN has already discussed with PT the need to get new tanks. Social work consult already placed by charger.
== END 2020-02-18 21:39 | disposition home or self-care (01) ==
PROVIDERS: Emergency Provider Emergency Medicine; PCP Physician Assistant
DX: I50.9 Heart failure, unspecified (principal); D64.9 Anemia, unspecified; E03.9 Hypothyroidism, unspecified; E78.5 Hyperlipidemia, unspecified; E11.51 Type 2 diabetes mellitus with diabetic peripheral angiopathy without gangrene; Z87.891 Personal history of nicotine dependence; Z79.84 Long term (current) use of oral hypoglycemic drugs
CPT/HCPCS: 36415; 71045; 80048; 83880; 84484; 85025; 85610; 85730; 86850; 86900; 86901; 87635; 93005; 99284; A4216; U0002

== ENCOUNTER 2020-02-20 10:01 | Inpatient (IN) | payer MEDICARE, MEDICAID, SELFPAY ==
[2020-02-20] VITALS (17 sets, daily range): BP systolic 123–166; BP diastolic 53–132; PULSE 72–89; RESP 12–24; TEMP 36.1–36.8; O2SAT 82–98; BMI 44.5; BMI 50.8
--- NOTE | 2020-02-20 10:18 | RAD_ITS ---
STUDY: X-RAY CHEST REASON FOR EXAM: Male, 74 years old. Dyspnea, orthopnea, bilateral rales anasarca. TECHNIQUE: PA and lateral views of the chest. COMPARISON: Comparison is made with prior study dated 02/18/2020. FINDINGS: EKG electrodes are seen. Thoracic congestion and mild CHF with increased markings at the lung bases suggestive of bibasilar atelectasis and/or infiltrates. Blunting of both costophrenic angles worse on the right side. There is moderate cardiac enlargement. Normal mediastinum and shauna. Normal visualized pulmonary arteries. Normal visualized aortic arch and descending thoracic aorta. There are diffuse degenerative changes of the visualized thoracic spine. Normal visualized ribs, clavicles, and shoulders. There is no demonstrated abnormality of the visualized soft tissue structures of the upper abdomen. RAD/Chest PA and Lateral IMPRESSION: Cardiomegaly and CHF with bibasilar atelectasis. Electronically Signed: Wing Jeronimo, at 12:33 EST , Service support ,
--- NOTE | 2020-02-20 10:18 | EKG12_ITS ---
Test Reason : Blood Pressure : / mmHG Vent. Rate : 082 BPM Atrial Rate : 082 BPM P-R Int : 164 ms QRS Dur : 152 ms QT Int : 438 ms P-R-T Axes : 050 -63 063 degrees QTc Int : 511 ms Normal sinus rhythm Right bundle branch block Left anterior fascicular block Bifascicular block Abnormal ECG Confirmed by JENNIFER CARDOSO, LIZ ([id number]), features editor MEGA VALENTINE ([id number]) on 02/21/2020 1:49:21 PM Referred By: ADRIENNE Confirmed By:LIZ RODRIGUEZ MD
--- NOTE | 2020-02-20 10:26 | ED.VIS.GEN ---
History of Present Illness Chief Complaint: Lower Extremity Injury Informant: Patient Onset: Days - Patient is a poor informant he has not had his dressing changed for 2 weeks. He no longer has visiting home health nurse. Timing: Continuous Quality: Pain, swelling of lower extremities Location: Both lower extremities Current Severity: Moderate Maximum Severity: Moderate Worsened by: Unknown the patient Relieved by: Nothing Associated Symptoms: Orthopnea, increased swelling, drainage from legs Narrative: Patient is an elderly male with multiple medical problems who presents because of pain and swelling of his lower extremities. Patient had dressing applied 2 weeks ago at the wound center. Dressings have not been removed. He noted weepage from the wounds on his legs and saturation of the dressings. He denies fever, chills night sweats. He does admit to sleeping upright on a chair/sofa. He has dyspnea with minimal activity. Patient desaturated with movement from wheelchair to bed. He is normally on oxygen. He denies chest pain of any type. He does report history of heart disease and specifically heart failure. He is uncertain whether he is ever had a heart attack. He does have history of diabetes. He states his blood sugars have ranged when checked between 125?175. Prior similar symptoms: Yes Recent Illness/Hospitalization: No - Past Medical History (1) Anemia Status: Acute (2) Ulcer of left lower extremity with fat layer exposed Status: Acute (3) CHF (congestive heart failure) Status: Chronic (4) COPD exacerbation Status: Chronic (5) Chronic respiratory failure with hypoxia Status: Chronic (6) Hyperlipidemia Status: Chronic (7) Hypothyroid Status: Chronic (8) Morbid obesity Status: Chronic (9) PVD (peripheral vascular disease) Status: Chronic (10) STEMI (ST elevation myocardial infarction) Status: Chronic Past Medical History - Allergies and Home Meds Allergies/Adverse Reactions: Allergies bee venom protein (honey bee) Allergy (Verified 02/20/20 10:08) Angioedema Penicillins Allergy (Verified 02/20/20 10:08) Rash acetaminophen [From Vicodin] Adverse Reaction (Verified 02/20/20 10:08) Itching hydrocodone bitartrate [From Vicodin] Adverse Reaction (Verified 02/20/20 10:08) Itching Primary Care Physician: Jovani Mendez PA [Primary Care Provider] - Prior records reviewed: Yes Surgical History: noncontributory, - - Umbilical hernia repair, penile foreskin surgery. Lives: Alone Smoking Status: Former smoker Alcohol: None Drugs: None - Family History Maternal Family History: Reports: Cancer - Mother with history of colon cancer., Diabetes Paternal Family History: Reports: - - Patient denies any market paternal family history including heart disease, diabetes, cancer. Review of Systems General: Reports: Malaise. Denies: Chills, Fever, Subjective, Sweats, Weight loss Eyes: Denies: Visual changes - bilaterally, Blurred Vision - bilaterally ENT: Denies: Rhinorrhea, Sore throat Cardiovascular: Denies: Chest pain, Palpitations, Heart racing Respiratory: Reports: Dyspnea, Dyspnea on exertion, Orthopnea. Denies: Cough, Sputum, Paroxysmal nocturnal dyspnea Gastrointestinal: Reports: Abdominal pain, Nausea, Vomiting, Diarrhea, Melena, Hematochezia Genitourinary: Reports: Dysuria, Hematuria, Frequency Musculoskeletal: Reports: Swelling, Extremity Pain. Denies: Myalgias, Arthralgias, Neck pain, Back pain Skin: Reports: Rash, Wounds. Denies: Abscess, Abrasions Neurological: Reports: Weakness, Parasthesia. Denies: Headache Psych: Reports: Depression Endocrine: Denies: Polyuria, Polydipsia Hematologic: Denies: Easy bruising, Easy bleeding Allergy: Denies: Uticaria Physical Exam Vital Signs/Narrative: Vital Signs Temp Pulse Resp BP Pulse Ox 02/20/20 10:03 98 F 81 24 H 158/78 H 82 Inital Vital Signs reviewed: Yes General: Well nourished, Well developed, Obese, Unkempt, Acute Distress - Patient becomes dyspneic with minimal activity in the Head: Normocephalic, Atraumatic Eyes: Perrl, EOMI. Negative for: Pale conjunctiva, Scleral icterus ENT: Moist mucous membranes, No rhinorrhea Neck: Supple, Nontender, No lymphadenopathy, No JVD - Unable to determine the patient has JVD because of body habitus. Cardiovascular: Regular rate, Regular rhythm, No murmurs, Normal S1, Normal S2 Respiratory: Chest nontender, Rales - Rales noted bilaterally over the right and left lower lobe., Decreased Air Movement. Negative for: No distress, CTA bilaterally Abdomen: Soft - Patient's abdomen is firm due to anasarca., Nontender, Nondistended, Normal bowel sounds, No masses - Determine if he has any palpable masses because of body habitus. Rectal: Deferred Back: Nontender Extremities: Edema - She has marked pitting edema to the groin. There is evidence of cellulitis anterior distal right leg and a significant area of cellulitis anterior distal half of the left leg. There are wounds noted proximally as well. Unable to determine because of body habitus if he has inguinal or popliteal ly Skin: Pallor, Rash. Negative for: Jaundice Neurological: Alert, Oriented x3, Cranial nerves II-XII grossly intact Psychological: Depressed Diagnostic/Tx/Re-eval Chest X-Ray - ED: 2 View, Normal, Bony Structures, - - Underlying cardiomegaly. Interstitial fluffiness consistent with congestive heart failure. X-ray interpreted by me at 1148 02/20/20 10:18 Chest PA and Lateral [RAD] Stat Laboratory Results 02/20/20 02/20/20 02/20/20 10:50 11:00 11:00 WBC 8.2 RBC 2.81 L Hgb 8.5 L Hct 28.7 L MCV 102.1 H MCH 30.2 MCHC 29.6 L RDW Std Deviation 59.4 H RDW Coeff of Emili 15.9 H Plt Count 170 MPV 9.9 Immature Gran % (Auto) 2.800 H Neut % (Auto) 73.8 H Lymph % (Auto) 13.0 L Emmet % (Auto) 8.5 Eos % (Auto) 1.3 Baso % (Auto) 0.6 Absolute Neuts (auto) 6.1 Absolute Lymphs (auto) 1.07 Nucleated RBC % 0 PT 12.5 INR 1.0 APTT 27.8 Sodium Potassium Chloride Carbon Dioxide Anion Gap BUN Creatinine Estim Creat Clear Calc Est GFR (MDRD) Af Amer Est GFR (MDRD) Non-Af BUN/Creatinine Ratio Glucose Calcium Total Bilirubin AST ALT Alkaline Phosphatase Troponin I Total Protein Albumin Globulin Albumin/Globulin Ratio Urine Color Yellow Urine Clarity Cloudy Urine pH 6.0 Ur Specific [place] 1.020 Urine Protein 100 H Urine Glucose (UA) 250 H Urine Ketones Negative Urine Occult Blood 150 H Urine Nitrite Negative Urine Bilirubin Negative Urine Urobilinogen Normal Ur Leukocyte Esterase 500 H Urine RBC 0 SEEN Urine WBC >100 SEEN Ur Squamous Epith Cells 0 SEEN Urine Bacteria 1+ Urine Mucus 0 SEEN Urine Yeast RARE 02/20/20 11:00 WBC RBC Hgb Hct MCV MCH MCHC RDW Std Deviation RDW Coeff of Emili Plt Count MPV Immature Gran % (Auto) Neut % (Auto) Lymph % (Auto) Emmet % (Auto) Eos % (Auto) Baso % (Auto) Absolute Neuts (auto) Absolute Lymphs (auto) Nucleated RBC % PT INR APTT Sodium 139 Potassium 3.9 Chloride 101 Carbon Dioxide 35.0 H Anion Gap 3 L BUN 21 H Creatinine 0.96 Estim Creat Clear Calc 47.02 Est GFR (MDRD) Af Amer 99 Est GFR (MDRD) Non-Af 82 BUN/Creatinine Ratio 22.0 H Glucose 241 H Calcium 8.0 L Total Bilirubin 0.40 AST 22 ALT 38 Alkaline Phosphatase 177 H Troponin I 0.192 H Total Protein 7.1 Albumin 2.9 L Globulin 4.2 Albumin/Globulin Ratio 0.7 L Urine Color Urine Clarity Urine pH Ur Specific [place] Urine Protein Urine Glucose (UA) Urine Ketones Urine Occult Blood Urine Nitrite Urine Bilirubin Urine Urobilinogen Ur Leukocyte Esterase Urine RBC Urine WBC Ur Squamous Epith Cells Urine Bacteria Urine Mucus Urine Yeast - EKG Initial EKG Interpretation: Sinus Rhythm - Sinus rhythm with a ventricular 82. There is evidence of right bundle branch block which is old. DE interval 164 ms. QRS durations 152 ms. QT duration 438 ms. [place] to the left. There is evidence of a left anterior fascicular block. - Medical Decision Making She presents with infection of the right and left leg. He also has anasarca and clinically has exacerbation of congestive heart failure. To evaluate patient's presentation EKG was obtained to rule out ischemia as well as basic metabolic panel, CBC to rule out anemia and determine white count. BNP and troponin. Antibiotics were were initiated after cultures were obtained. Because of his allergy to penicillin with rash he was treated with Rocephin and vancomycin. Patient was informed he will require admission to the hospital. ED Disposition - Plan for ED Patient: Disposition: Acute Care Hospital [facility] Diagnosis: Acute exacerbation of congestive heart failure, Cellulitis of right lower extremity without foot, Cellulitis of left lower extremity without foot, Anasarca, Anemia, unspecified, Urinary tract infection, Hyperglycemia due to type 2 diabetes mellitus, End stage renal disease, Elevated troponin Referrals: Jovain Mendez PA [Primary Care Provider] -
[2020-02-20 11:00] LABS: Mucous, Urine 0 SEEN /hpf (<or=2+); Red Blood Cells-Urine 0 SEEN /hpf (0-5); Squamous Epithelial Cells - UA 0 SEEN /hpf (0-5)
[2020-02-20 11:02] LABS: Color, Urine Yellow (Yellow); Glucose, Dipstick 250 mg/dl (Normal); Ketone-Dipstick Negative (Negative); Leukocyte Esterase-Dipstick 500 /ul (Negative); Nitrite-Dipstick Negative (Negative); Occult Blood-Urine 150 /ul (Negative); Protein-Dipstick 100 mg/dl (Negative); Urine Bilirubin Dipstick Negative (Negative); Urine Clarity Cloudy (Clear); Urine Urobilinogen Normal (Normal)
[2020-02-20 11:10] LABS: White Blood Cells >100 SEEN /hpf (0-5)
[2020-02-20 11:13] LABS: Bacteria 1+ /hpf (None Seen); Yeast-Urine RARE /hpf (None Seen)
--- NOTE | 2020-02-20 11:13 | ED.RN ---
antibiotics held until BC could be drawn by lab.
[2020-02-20 11:32] LABS: Prothrombin Time (Protime)PT. 12.5 SECONDS (11.7-14.9)
[2020-02-20 11:33] LABS: Partial Thromboplast Time 27.8 Seconds (24.1-36.2)
--- NOTE | 2020-02-20 11:34 | ED.RN ---
pt refuses to stay in bed, his leg wounds are weeping fluid and need to be elevated. This nurse educated the pt to keep his legs elevated to help reduce the swelling and the pt replied I'm not doing that and I'm not going to be staying in the hospital I have pills at home. Dr. Downing made aware that pt will not stay in bed and does not want to stay. Md to see pt.
[2020-02-20 11:38] LABS: Absolute Lymphocyte Count 1.07 X10^3/uL (0.83-4.51); Absolute Neutrophil Count 6.1 X10^3/uL (2.0-7.7); Basophil# 0.05 X10^3/uL; Basophil% 0.6 % (0-1); Eosinophil# 0.11 X10^3/uL; Eosinophils% 1.3 % (0-5); Hematocrit 28.7 % (40-54); Hemoglobin 8.5 g/dL (13.0-16.5); Lymphocyte # 1.07 X10^3/ul (4.0); Mean Corp Hgb Conc 29.6 g/dL (32-36); Mean Corpuscular Hgb 30.2 pg (27.0-32.0); Mean Corpuscular Volume 102.1 fL (80-94); Mean Platelet Vol. 9.9 fl (6.2-12.0); Monocyte% 8.5 % (0-10); NRBC Flagged by Analyzer 0 % (0-5); Neutrophil # 6.05 X10^3/uL (2.7-7.7); Neutrophil % 73.8 % (47-70); Platelet Count 170 K/mm3 (150-450); RBC Distribution Width CV 15.9 % (11.6-14.6); RBC Distribution Width SD 59.4 fl (35.1-43.9); Red Blood Count 2.81 M/mm3 (4.6-6.2); White Blood Count 8.2 K/mm3 (4.4-11.0)
--- NOTE | 2020-02-20 11:40 | ED.RN ---
Pt standing next to bed when x-ray came to take pt for imaging. pt refused to get back in to bed to go down for images as he is supposed to remain on the monitor and. oxygen, and has iv antibiotics hooked up. pt went down to x-ray in a wheel chair. made aware.
[2020-02-20 11:43] LABS: ALB/GLOB Ratio 0.7 RATIO (0.9-2.4); AST(SGOT) 22 U/L (15-37); Alanine Aminotransfer ALT/SGPT 38 U/L (16-61); Albumin, Serum 2.9 g/dL (3.2-5.0); Alkaline Phosphatase 177 U/L (45-117); Anion Gap 3 (5-15); BUN 21 mg/dL (7-18); Chloride 101 mmol/L (98-107); Creatinine, Serum 0.96 mg/dL (0.70-1.30); EST Glomerular Filtration Rate 82 mL/min (>60); Est Glom Filt Rate - Afr Amer 99 mL/min (>60); Estimated Creatinine Clearance 47.02 ml/min; Globulin 4.2 g/dL (2.2-4.2); Glucose 241 mg/dL (74-106); Potassium 3.9 mmol/L (3.5-5.1); Protein, Total 7.1 g/dL (6.4-8.2); Sodium Level 139 mmol/L (136-145)
[2020-02-20 12:05] LABS: Lactic Acid 0.8 mmol/L (0.4-1.9)
--- NOTE | 2020-02-20 12:09 | NURSING ---
DR KENDRICK DELEON
--- NOTE | 2020-02-20 12:16 | NURSING ---
PCU [facility] INGESTIVE HEART FAILURE, RESP FAILURE, ANASARCA, CELLULITIS, UTI
[2020-02-20 12:19] LABS: BNP,B-Type NATRIURETIC PEPTIDE 345.2 pg/mL (0-100)
--- NOTE | 2020-02-20 12:21 | HP.PCM_ITS ---
Problem List (1) Acute exacerbation of congestive heart failure Status: Acute Qualifiers: Heart failure type: unspecified (2) Cellulitis of right lower extremity without foot Status: Acute (3) Cellulitis of left lower extremity without foot Status: Acute (4) Anasarca Status: Acute (5) Urinary tract infection Status: Acute (6) End stage renal disease Status: Acute (7) Elevated troponin Status: Acute (8) Ulcer of left lower extremity with fat layer exposed Status: Acute (9) PVD (peripheral vascular disease) Status: Chronic (10) Venous insufficiency Status: Chronic (11) Type 2 diabetes mellitus with diabetic polyneuropathy Status: Chronic (12) Malnutrition Status: Acute (13) Obesity Status: Chronic (14) GI bleed Status: Resolved Qualifiers: GI bleed type/associated pathology: unspecified gastrointestinal hemorrhage type Qualified Code(s): K92.2 - Gastrointestinal hemorrhage, unspecified (15) STEMI (ST elevation myocardial infarction) Status: Chronic Qualifiers: Involved coronary artery: unspecified coronary artery Qualified Code(s): I21.3 - ST elevation (STEMI) myocardial infarction of unspecified site (16) COPD exacerbation Status: Chronic (17) Chronic respiratory failure with hypoxia Status: Chronic (18) Decompensated heart failure Status: Chronic (19) Type 2 diabetes mellitus with hyperglycemia Status: Chronic Qualifiers: Diabetes mellitus buttermaker helper insulin use: without buttermaker helper use Qualified Code(s): E11.65 - Type 2 diabetes mellitus with hyperglycemia (20) Acute kidney injury Status: Acute (21) Morbid obesity Status: Chronic (22) Hypothyroidism Status: Chronic Qualifiers: Hypothyroidism type: unspecified Qualified Code(s): E03.9 - Hypothyroidism, unspecified (23) Hyperlipidemia Status: Chronic Qualifiers: Hyperlipidemia type: unspecified Qualified Code(s): E78.5 - Hyperlipidemia, unspecified (24) Former tobacco use Status: Chronic (25) Anemia Status: Acute Qualifiers: Anemia type: iron deficiency Iron deficiency anemia type: chronic blood loss Qualified Code(s): D50.0 - Iron deficiency anemia secondary to blood loss (chronic) (26) Hypoxemia Status: Chronic (27) Abdominal pain Status: Acute (28) Hypothyroid Status: Chronic (29) Diabetes Status: Chronic (30) CHF (congestive heart failure) Status: Chronic (31) Chest pain Status: Acute History of Present Illness Date of Admission: 02/20/20 Chief Complaint: Shortness of breath The patient is a 74 year old M with past medical history significant for chronic hypoxic respiratory failure secondary to COPD and obesity hypoventilation syndrome, hypertension diabetes mellitus type 2 who presented with shortness of breath. Patient reports weeks of progressive shortness of breath worsened with activity. He also reports orthopnea and is unable to lay flat in his bed and had to sit up. He also did notice increasing swelling involving both lower extremities. Presented to the emergency department as a result of worsening condition. In the emergency department his assessment consistent with acute congestive heart failure with infected bilateral stasis dermatitis and UTI antibiotics initiated in the ER admitted to a monitored bed for further management Past Medical History Past Medical History (Chronic Problems): Chronic Problems (Last Reviewed 02/20/20 @ 12:[address] Jesse Mckeon MD) PVD (peripheral vascular disease) (Chronic) Venous insufficiency (Chronic) Type 2 diabetes mellitus with diabetic polyneuropathy (Chronic) Obesity (Chronic) STEMI (ST elevation myocardial infarction) (Chronic) COPD exacerbation (Chronic) Chronic respiratory failure with hypoxia (Chronic) Decompensated heart failure (Chronic) Type 2 diabetes mellitus with hyperglycemia (Chronic) Morbid obesity (Chronic) Hypothyroidism (Chronic) Hyperlipidemia (Chronic) Former tobacco use (Chronic) Hypoxemia (Chronic) Hypothyroid (Chronic) Diabetes (Chronic) CHF (congestive heart failure) (Chronic) Medical History: Medical History (Last Reviewed 02/20/20 @ 13:[address] Agustín Diaz MD) Ulcer of left lower extremity with fat layer exposed (Acute) L97.922 PVD (peripheral vascular disease) (Chronic) I73.9 Venous insufficiency (Chronic) I87.2 Type 2 diabetes mellitus with diabetic polyneuropathy (Chronic) E11.42 Malnutrition (Acute) E46 Obesity (Chronic) E66.9 GI bleed (Resolved) K92.2 STEMI (ST elevation myocardial infarction) (Chronic) I21.3 COPD exacerbation (Chronic) J44.1 Chronic respiratory failure with hypoxia (Chronic) J96.11 Decompensated heart failure (Chronic) I50.9 Type 2 diabetes mellitus with hyperglycemia (Chronic) E11.65 Acute kidney injury (Acute) N17.9 Morbid obesity (Chronic) E66.01 Hypothyroidism (Chronic) E03.9 Hyperlipidemia (Chronic) E78.5 Former tobacco use (Chronic) Z87.891 Anemia (Acute) D64.9 Hypoxemia (Chronic) R09.02 Abdominal pain (Acute) R10.9 Hypothyroid (Chronic) E03.9 Diabetes (Chronic) E11.9 CHF (congestive heart failure) (Chronic) I50.9 Chest pain (Acute) R07.9 Abdominal pain R10.9 Allergies bee venom protein (honey bee) Allergy (Verified 02/20/20 10:08) Angioedema Penicillins Allergy (Verified 02/20/20 10:08) Rash acetaminophen [From Vicodin] Adverse Reaction (Verified 02/20/20 10:08) Itching hydrocodone bitartrate [From Vicodin] Adverse Reaction (Verified 02/20/20 10:08) Itching Home Medications: Ambulatory Orders Medication Instructions Recorded Levothyroxine [Synthroid] 112 mcg PO DAILY 09/10/13 metFORMIN HCl [Glucophage] 1,000 mg PO BIDCM 09/10/13 Atorvastatin Calcium [Lipitor] 20 mg PO QHS 01/16/17 Nitroglycerin 0.4 mg SL TID PRN PRN #20 tab.subl 01/17/20 Albuterol Inhaler [Ventolin Hfa] 2 puff INHALATION Q4H PRN PRN #1 01/22/20 inhaler Furosemide [Lasix] 20 mg PO DAILY 02/09/20 Pantoprazole Sodium [Protonix] 20 mg PO BID #20 tab 02/16/20 Sucralfate [Carafate] 1 gm PO 4X/DAY #40 tab 02/16/20 Surgical History: noncontributory, - - Umbilical hernia repair, penile foreskin surgery. Psychiatric History: No pertinent psych hx Lives: Alone Smoking Status: Never smoker Alcohol: None Drugs: None - *Family History Maternal History Items: Cancer - Mother with history of colon cancer., Diabetes Paternal History Items: - - Patient denies any market paternal family history including heart disease, diabetes, cancer. Review of Systems Constitutional: Reports: Malaise, Weakness, Weight Change, Fatigue HEENT: Denies: Head Aches, Sinus Congestion, Sinus Drainage Cardiovascular: Reports: Edema, Orthopnea Respiratory: Reports: Shortness of breath upon exertion Gastrointestinal: Denies: Abdominal Pain, Hematemesis, Hematochezia, Nausea, Melena, Vomiting Genitourinary: Denies: Dysuria, Frequency, Hematuria, Urgency Musculoskeletal: Denies: Joint Pain, Joint Tenderness Skin: Reports: Skin Changes Neurological: Denies: Focal weakness, Numbness, Tingling Psychiatric: Denies: Homicidal Ideations, Suicidal Ideations Hematologic/ Lymphatic: Denies: Easy Bruising, Easy Bleeding VTE Information - Inpt Only VTE Present on Admission: No VTE Mechan Device Prophylaxis: None VTE Pharm Prophylaxis ordered?: Yes Patient Problems: Active and Suspected Problems (Last Reviewed 02/20/20 @ 12:[address] Jesse Mckeon MD) Acute exacerbation of congestive heart failure (Acute) Cellulitis of right lower extremity without foot (Acute) Cellulitis of left lower extremity without foot (Acute) Anasarca (Acute) Urinary tract infection (Acute) End stage renal disease (Acute) Elevated troponin (Acute) Ulcer of left lower extremity with fat layer exposed (Acute) Anemia (Acute) Objective: GENERAL: Irritable HEENT: Atraumatic; EYES; Anicteric, Normal Conjunctiva NECK; supple, normal thyroid, RESPIRATORY: Diminished to auscultation CARDIOVASCULAR: Regular S1 S2, GI: soft, normoactive bowel sounds, : No Renal angle tenderness; EXTREMITIES: Bilateral stasis dermatitis with area of erythema with some warmth on both distal lower extremities MUSCULOSKELETAL: no muscle waisting NEURO: Awake; no lateralizing signs. SKIN: Described above PSYCH; Flat affect - Physical Exam Vitals/I&O's: Vital Signs Temp Pulse Resp BP Pulse Ox 98.3 F 89 22 H 166/132 H 92 02/20/20 11:18 02/20/20 11:07 02/20/20 11:07 02/20/20 11:07 02/20/20 11:07 Oxygen Flow Rate (L/min) 2 Oxygen Delivery Method Nasal Cannula Weight: 103.419 kg Body Mass Index (BMI) 44.5 Finger Stick Blood Glucose 298 Intake and Output for Last 24 Hours 02/18/20 02/19/20 02/20/20 23:59 23:59 23:59 Intake Total 50 / 50 Balance 50 / 50 Laboratory Results 02/20/20 10:50: Urine Color Yellow, Urine Clarity Cloudy, Urine pH 6.0, Ur Specific [place] 1.020, Urine Protein 100 H, Urine Glucose (UA) 250 H, Urine Ketones Negative, Urine Occult Blood 150 H, Urine Nitrite Negative, Urine Bilirubin Negative, Urine Urobilinogen Normal, Ur Leukocyte Esterase 500 H, Urine RBC 0 SEEN, Urine WBC >100 SEEN, Ur Squamous Epith Cells 0 SEEN, Urine Bacteria 1+, Urine Mucus 0 SEEN, Urine Yeast RARE 02/20/20 11:00: WBC 8.2, RBC 2.81 L, Hgb 8.5 L, Hct 28.7 L, MCV 102.1 H, MCH 30.2, MCHC 29.6 L, RDW Std Deviation 59.4 H, RDW Coeff of Emili 15.9 H, Plt Count 170, MPV 9.9, Immature Gran % (Auto) 2.800 H, Neut % (Auto) 73.8 H, Lymph % (Auto) 13.0 L, Brantley % (Auto) 8.5, Eos % (Auto) 1.3, Baso % (Auto) 0.6, Absolute Neuts (auto) 6.1, Absolute Lymphs (auto) 1.07, Nucleated RBC % 0 02/20/20 11:00: PT 12.5, INR 1.0, APTT 27.8 02/20/20 11:00: Sodium 139, Potassium 3.9, Chloride 101, Carbon Dioxide 35.0 H, Anion Gap 3 L, BUN 21 H, Creatinine 0.96, Estim Creat Clear Calc 47.02, Est GFR (MDRD) Af Amer 99, Est GFR (MDRD) Non-Af 82, BUN/Creatinine Ratio 22.0 H, Glucose 241 H, Calcium 8.0 L, Total Bilirubin 0.40, AST 22, ALT 38, Alkaline Phosphatase 177 H, Troponin I 0.192 H, Total Protein 7.1, Albumin 2.9 L, Globulin 4.2, Albumin/Globulin Ratio 0.7 L 02/20/20 11:00: Lactic Acid 0.8 02/20/20 11:00: B-Natriuretic Peptide 345.2 H Current Medications Atorvastatin Calcium (Atorvastatin Calcium 20 Mg Tablet) 20 mg PO QHS CHERYL Furosemide (Furosemide 20 Mg Tablet) 20 mg PO DAILY CHERYL Vancomycin HCl 2,000 mg/ (Sodium Chloride) 540 mls @ 250 mls/hr IV X1 ONE Stop: 02/20/20 12:39 Last Admin: 02/20/20 12:00 Dose: 250 mls/hr Documented by: Levothyroxine Sodium (Levothyroxine 112 Mcg Tablet) 112 mcg PO DAILY CHERYL Pantoprazole Sodium (Pantoprazole Sodium 20 Mg Tablet) 20 mg PO BID [facility] Sucralfate (Sucralfate 1 Gm Tablet) 1 gm PO 4X/DAY [facility] Assessment/Plan All Active Problems (Last Reviewed 02/20/20 @ 12:[address] Jesse Mckeon MD) Acute exacerbation of congestive heart failure (Acute) Cellulitis of right lower extremity without foot (Acute) Cellulitis of left lower extremity without foot (Acute) Anasarca (Acute) Urinary tract infection (Acute) End stage renal disease (Acute) Elevated troponin (Acute) Ulcer of left lower extremity with fat layer exposed (Acute) Malnutrition (Acute) GI bleed (Resolved) Acute kidney injury (Acute) Anemia (Acute) Abdominal pain (Acute) Chest pain (Acute) Patient is a 74-year-old gentleman with multiple comorbidities admitted with progressive shortness of breath with bilateral lower extremity swelling and erythema and warmth 1. Acute congestive heart failure ?EF unspecified. Patient has been admitted to monitored bed placed on strict input and output Daily weight initiation of IV Lasix and 2D echo ordered 2. Bilateral stasis dermatitis with superimposed cellulitis ?Patient started on Rocephin and consult placed to wound care nurse 3. Acute cystitis -patient is on Rocephin as above 4. Chronic hypoxic respiratory failure ?Due to combination of COPD, obesity hypoventilation syndrome as well as congestive heart failure patient is on supplemental oxygen 5. Hypothyroidism - Patient is on levothyroxine home dose continued 6. GERD ?Patient is on PPI 7. Dyslipidemia -Patient is on statin therapy, continued at home dose 8. Diabetes mellitus type II - Controlled/uncontrolled, -patient's oral hypoglycemics held. -Placed on long acting insulin, Accu-Cheks a.c. and at bedtime and covered with sliding scale insulin 9. DVT prophylaxis ?Lovenox 40 mg SC twice daily Advance planning; did discuss with the patient regarding advanced directives as well as CODE STATUS. Did explain the various scenarios involved ( FULL CODE, DNR CCA, DNR CCA with no intubation, and DNR CC and what each meant) patient elected full code with CPR and intubation if warranted. Order was placed. Time spent on discussion 18 minutes. Inpatient E&M: 23550 Init Hosp L3 Procedures: 40334 Advncd Care Plan 30 Min
--- NOTE | 2020-02-20 13:02 | CM.ED ---
Social Work Telephone call from [facility]. Quang inquiring if patient is currently in the emergency room due to active referral. This community mental health social worker confirmed that patient is currently in the emergency room and plan is for patient to admit to acute care setting. Quang asked to be notified when patient discharges from hospital. RANDY Barton, RACQUEL updated on above. Social Work to continue to follow as needed. Lory PADILLA, RACQUEL-S
--- NOTE | 2020-02-20 13:49 | ECHOCS_ITS ---
Reason For Study: Dyspnea/SOB Procedure This was a 2D Doppler, Color Flow transthoracic echocardiogram. Technically difficult study. Echo was done with patient sitting upright in the chair. Patient refused to have the echo performed unless it was done this way. The study was technically difficult. Contrast injection was performed. Exam performed portable in patient room. Left Ventricle Normal LV size. Severe concentric left ventricular hypertrophy. Left ventricular systolic function is normal. The estimated ejection fraction is 65 %. No regional wall motion abnormalities noted. Right Ventricle Normal RV size. Normal systolic function. Atria The left atrium is mildly enlarged. Normal right atrium. No doppler evidence for ASD. Mitral Valve There is moderate mitral annular calcification. Extension of the mitral annular calcification onto the base of the posterior mitral valve leaflet. Mild focal mitral valve calcification of the anterior leaflet. The mitral valve chordae are thickened and/or calcified. Mild (1+) mitral valve insufficiency. Tricuspid Valve Normal tricuspid valve. Trivial tricuspid valve insufficiency. Right ventricular systolic pressure estimated to be 50 mmHg. Aortic Valve Trisinus/trileaflet aortic valve. Moderate focal aortic valve calcification. Mild aortic stenosis. Pulmonic Valve The pulmonic valve is not well visualized. Great Vessels Normal sized aortic root. Pericardium/Pleural No pericardial effusion. Medication Diluted definity 3ml given slow IV push to enhance endocardial definition. MMode/2D Measurements & Calculations LVIDd: 5.5 cm IVSd: 1.7 cm LVOT diam: 2.1 cm LVIDs: 3.5 cm LVPWd: 1.7 cm FS: 37.3 % LVOT area: 3.3 cm2 Ao root diam: 3.2 cm LAV(MOD-bp): 89.6 ml LA A4 area: 24.6 cm2 LAV(MOD-sp2): 95.3 ml LAV(MOD-sp4): 84.8 ml RA A4 area: 19.3 cm2 Time Measurements MV dec time: 0.24 sec Doppler Measurements & Calculations MV E max eddie: 140.2 cm/sec Lat Peak E' Eddie: 10.3 cm/sec Med Peak E' Eddie: 6.0 cm/sec MV A max eddie: 124.7 cm/sec E/E' lat: 13.6 E/E' med: 23.4 MV E/A: 1.1 MV V2 max: 166.6 cm/sec MV P1/2t max eddie: 166.6 cm/sec Ao V2 max: 342.8 cm/sec MV max P.1 mmHg MV P1/2t: 71.0 msec Ao max P.0 mmHg MV V2 mean: 94.6 cm/sec MV dec slope: 687.4 cm/sec2 Ao V2 mean: 226.9 cm/sec MV mean P.2 mmHg MVA(P1/2t): 3.1 cm2 Ao mean P.7 mmHg MV V2 VTI: 49.6 cm Ao V2 VTI: 73.3 cm MVA(VTI): 2.4 cm2 OXANA(I,D): 1.6 cm2 OXANA(V,D): 1.5 cm2 LV V1 max: 151.8 cm/sec SV(LVOT): 119.7 ml PA V2 max: 142.5 cm/sec LV V1 max P.2 mmHg LV V1 mean P.2 mmHg LV V1 mean: 107.8 cm/sec LV V1 VTI: 35.9 cm TR max eddie: 324.1 cm/sec TR max P.0 mmHg Interpretation Summary The study was technically difficult. Contrast injection was performed. Left ventricular systolic function is normal. The estimated ejection fraction is 65 %. Severe concentric left ventricular hypertrophy. The left atrium is mildly enlarged. There is moderate mitral annular calcification. Extension of the mitral annular calcification onto the base of the posterior mitral valve leaflet. Mild focal mitral valve calcification of the anterior leaflet. The mitral valve chordae are thickened and/or calcified. Mild (1+) mitral valve insufficiency. Trivial tricuspid valve insufficiency. Mild aortic stenosis. Right ventricular systolic pressure estimated to be 50 mmHg c/w pulmonary hypertension. Transmitral diastolic flow velocities suggest diastolic dysfunction (pseudonormal pattern). Ordering Physician: Agustín Diaz Referring Physician: Ga Mendez Performed By: Jelani Schroeder RCS
--- NOTE | 2020-02-20 14:38 | CASEMGMT ---
LAUREEN spoke with [facility] as patient is active with their [employer] service. Per the coverage person at [facility] his case work aide is Maria E Reddy. He has an independent aid, [facility] and he goes to [facility]. LAUREEN and RN DEVON will follow for d/c planning. Jacklyn CLEMENT MSW
--- NOTE | 2020-02-20 15:09 | NURSING ---
Unable to upload wound photos d/t belly packer being down.
[2020-02-20 15:51] LABS: Probe Check PASS; Specimen Processing Control PASS
[2020-02-20 16:06] LABS: Bedside Glucose 229 mg/dL (70-110)
[2020-02-20] MEDS: Furosemide 40 MG/4 ML Vial IV ×2 (16:08→22:48)
[2020-02-20] MEDS: Insulin Lispro 100 UNIT/ML INSULN.PEN SC (16:08)
[2020-02-20] MEDS: 0.9% Saline Lock 10 ML Syringe IV ×3 (16:09→22:49)
[2020-02-20] MEDS: Ondansetron 4 MG/2 ML Vial IV (18:02)
[2020-02-20 20:16] LABS: Bedside Glucose 219 mg/dL (70-110)
--- NOTE | 2020-02-20 20:45 | CPS ---
WILFREDO critical values of pH 7.11 and CO2 of 123.[address] Ramon
[2020-02-20 20:50] LABS: Allen Test Positive; Base Excess 9 mmol/L (-2 to +2); Bicarbonate 38.9 mmol/L (22-26); Blood Gas Specimen Type ART; LPM 2.5 /min; O2 Delivery Device Cannula; PO2 75 mmHG (75-100); SITE L Radial; SO2 86 % (95-99); Total Carbon Dioxide 43 mmol/L; pCO2 123.2 mmHg (35-45); pH 7.11 (7.35-7.45)
--- NOTE | 2020-02-20 21:05 | PCM.HOSP.N ---
Hospitalist Note Patient following transition to the PCU, upright sitting in chair, sleeping, difficult to arouse per nursing staff. Physician examination with also difficulty arousing, able to awaken but falls quickly back asleep. Suspected likely underlying sleep apnea with placement of patient on BiPAP. ABG obtained with significant CO2 retention. Discussed with respiratory therapy and nursing staff with plan to continue BiPAP placement with repeat ABG in approximately 2 hours. We will continue patient in the PCU per discussion with RT and charge nurse.
[2020-02-20] MEDS: Enoxaparin 40 MG/0.4 ML Syringe SC (22:47)
[2020-02-20 23:02] LABS: Bedside Glucose 222 mg/dL (70-110)
--- NOTE | 2020-02-20 23:19 | CPS ---
Critical Values on ABG of pH 7.15 and CO2 113.[address] Ramon
[2020-02-20 23:26] LABS: Allen Test Positive; Base Excess 11 mmol/L (-2 to +2); Bicarbonate 39.7 mmol/L (22-26); Blood Gas Specimen Type ART; FI02 35; O2 Delivery Device BiPAP; PEEP 8; PO2 71 mmHG (75-100); RR 16; SITE L Radial; SO2 86 % (95-99); Total Carbon Dioxide 43 mmol/L; pCO2 113.9 mmHg (35-45); pH 7.15 (7.35-7.45)
[2020-02-21] VITALS (23 sets, daily range): BP systolic 97–140; BP diastolic 43–103; PULSE 70–86; RESP 12–22; TEMP 36.4–36.9; O2SAT 88–99
[2020-02-21] MEDS: Ibuprofen 400 MG Tablet PO ×2 (04:20→17:15)
[2020-02-21] MEDS: Furosemide 40 MG/4 ML Vial IV ×3 (05:58→21:44)
[2020-02-21] MEDS: 0.9% Saline Lock 10 ML Syringe IV ×3 (05:59→13:40)
[2020-02-21] MEDS: Insulin Lispro 100 UNIT/ML INSULN.PEN SC ×4 (06:54→21:45)
[2020-02-21 07:00] LABS: Bedside Glucose 178 mg/dL (70-110)
[2020-02-21 07:33] LABS: Absolute Lymphocyte Count 0.67 X10^3/uL (0.83-4.51); Absolute Neutrophil Count 11.4 X10^3/uL (2.0-7.7); Basophil# 0.04 X10^3/uL; Basophil% 0.3 % (0-1); Eosinophil# 0.06 X10^3/uL; Eosinophils% 0.4 % (0-5); Hematocrit 27.3 % (40-54); Hemoglobin 7.9 g/dL (13.0-16.5); Lymphocyte # 0.67 X10^3/ul (4.0); Lymphocyte % 4.9 % (19-41); Mean Corp Hgb Conc 28.9 g/dL (32-36); Mean Corpuscular Hgb 30.3 pg (27.0-32.0); Mean Corpuscular Volume 104.6 fL (80-94); Mean Platelet Vol. 9.8 fl (6.2-12.0); Monocyte# 1.38 X10^3/uL; Monocyte% 10.1 % (0-10); NRBC Flagged by Analyzer 0 % (0-5); Neutrophil # 11.37 X10^3/uL (2.7-7.7); Neutrophil % 82.8 % (47-70); Platelet Count 150 K/mm3 (150-450); RBC Distribution Width CV 16.1 % (11.6-14.6); RBC Distribution Width SD 61.1 fl (35.1-43.9); Red Blood Count 2.61 M/mm3 (4.6-6.2); White Blood Count 13.7 K/mm3 (4.4-11.0)
[2020-02-21 08:07] LABS: ALB/GLOB Ratio 0.7 RATIO (0.9-2.4); AST(SGOT) 17 U/L (15-37); Alanine Aminotransfer ALT/SGPT 32 U/L (16-61); Albumin, Serum 2.6 g/dL (3.2-5.0); Alkaline Phosphatase 151 U/L (45-117); Anion Gap 3 (5-15); BUN 22 mg/dL (7-18); BUN/Creat Ratio 23.4 RATIO (10-20); Calcium,Total 7.6 mg/dL (8.5-10.1); Chloride 101 mmol/L (98-107); Creatinine, Serum 0.94 mg/dL (0.70-1.30); EST Glomerular Filtration Rate 83 mL/min (>60); Est Glom Filt Rate - Afr Amer 100 mL/min (>60); Estimated Creatinine Clearance 112.66 ml/min; Globulin 3.7 g/dL (2.2-4.2); Glucose 182 mg/dL (74-106); Magnesium 1.7 mg/dL (1.6-2.6); Protein, Total 6.3 g/dL (6.4-8.2); Sodium Level 139 mmol/L (136-145); Thyroid Stim Hormone (TSH) 1.53 uIU/mL (0.358-3.74)
--- NOTE | 2020-02-21 08:14 | PCM.PN.HOSP ---
Patient Problems: Active and Suspected Problems (Last Reviewed 02/20/20 @ 13:[address] Agustín Diaz MD) Acute exacerbation of congestive heart failure (Acute) Cellulitis of right lower extremity without foot (Acute) Cellulitis of left lower extremity without foot (Acute) Anasarca (Acute) Urinary tract infection (Acute) End stage renal disease (Acute) Elevated troponin (Acute) Ulcer of left lower extremity with fat layer exposed (Acute) Malnutrition (Acute) Acute kidney injury (Acute) Anemia (Acute) Abdominal pain (Acute) Chest pain (Acute) Reason for Visit: Acute congestive heart failure Acute cystitis Cellulitis Subjective: Patient is a 74-year-old gentleman with multiple comorbidities admitted with progressive shortness of breath with bilateral lower extremity swelling and erythema and warmth Was found to be significantly lethargic during the night. ABGs obtained came back consistent with acute hypercapnic respiratory failure patient subsequently placed on noninvasive ventilation Objective: GENERAL: Irritable HEENT: Atraumatic; EYES; Anicteric, Normal Conjunctiva NECK; supple, normal thyroid, RESPIRATORY: Diminished to auscultation CARDIOVASCULAR: Regular S1 S2, GI: soft, normoactive bowel sounds, : No Renal angle tenderness; EXTREMITIES: Bilateral stasis dermatitis with area of erythema with some warmth on both distal lower extremities MUSCULOSKELETAL: no muscle waisting NEURO: Awake; no lateralizing signs. SKIN: Described above PSYCH; Flat affect Vitals/I&O's: Vital Signs Temp Pulse Resp BP Pulse Ox 97.6 F L 77 18 106/47 L 94 02/21/20 02:21 02/21/20 07:46 02/21/20 07:46 02/21/20 06:00 02/21/20 07:46 Oxygen Flow Rate (L/min) 4 Oxygen Delivery Method Bi-pap Weight: 117.3 kg Body Mass Index (BMI) 50.8 Finger Stick Blood Glucose 298 Intake and Output for Last 24 Hours 02/19/20 02/20/20 02/21/20 23:59 23:59 23:59 Intake Total 1040 / 1040 500 / 500 Output Total 250 / 250 Balance 790 / 790 500 / 500 Laboratory Results 02/20/20 10:50: Urine Color Yellow, Urine Clarity Cloudy, Urine pH 6.0, Ur Specific [place] 1.020, Urine Protein 100 H, Urine Glucose (UA) 250 H, Urine Ketones Negative, Urine Occult Blood 150 H, Urine Nitrite Negative, Urine Bilirubin Negative, Urine Urobilinogen Normal, Ur Leukocyte Esterase 500 H, Urine RBC 0 SEEN, Urine WBC >100 SEEN, Ur Squamous Epith Cells 0 SEEN, Urine Bacteria 1+, Urine Mucus 0 SEEN, Urine Yeast RARE 02/20/20 11:00: WBC 8.2, RBC 2.81 L, Hgb 8.5 L, Hct 28.7 L, MCV 102.1 H, MCH 30.2, MCHC 29.6 L, RDW Std Deviation 59.4 H, RDW Coeff of Emili 15.9 H, Plt Count 170, MPV 9.9, Immature Gran % (Auto) 2.800 H, Neut % (Auto) 73.8 H, Lymph % (Auto) 13.0 L, [place] % (Auto) 8.5, Eos % (Auto) 1.3, Baso % (Auto) 0.6, Absolute Neuts (auto) 6.1, Absolute Lymphs (auto) 1.07, Nucleated RBC % 0 02/20/20 11:00: PT 12.5, INR 1.0, APTT 27.8 02/20/20 11:00: Sodium 139, Potassium 3.9, Chloride 101, Carbon Dioxide 35.0 H, Anion Gap 3 L, BUN 21 H, Creatinine 0.96, Estim Creat Clear Calc 47.02, Est GFR (MDRD) Af Amer 99, Est GFR (MDRD) Non-Af 82, BUN/Creatinine Ratio 22.0 H, Glucose 241 H, Calcium 8.0 L, Total Bilirubin 0.40, AST 22, ALT 38, Alkaline Phosphatase 177 H, Troponin I 0.192 H, Total Protein 7.1, Albumin 2.9 L, Globulin 4.2, Albumin/Globulin Ratio 0.7 L 02/20/20 11:00: Lactic Acid 0.8 02/20/20 11:00: B-Natriuretic Peptide 345.2 H 02/20/20 14:15: COVID-19 (CHRISTIANO) Negative 02/20/20 14:35: Troponin I 0.182 H 02/20/20 16:01: POC Glucose 229 H 02/20/20 17:34: Troponin I 0.182 H 02/20/20 20:04: POC Glucose 219 H 02/20/20 20:45: Specimen Type ART, Sample Site L Radial, pH 7.11 L*, Bicarbonate Actual 38.9 H, Total CO2 43, Base Excess 9 H, O2 Saturation 86 L, ABG pCO2 123.2 H*, ABG pO2 75, Fernando Test Positive, O2 Delivery Device Cannula, Liter Flow 2.5 02/20/20 22:38: POC Glucose 222 H 02/20/20 23:19: Specimen Type ART, Sample Site L Radial, pH 7.15 L*, Bicarbonate Actual 39.7 H, Total CO2 43, Base Excess 11 H, O2 Saturation 86 L, O2 % 35, ABG pCO2 113.9 H*, ABG pO2 71 L, Fernando Test Positive, Respiration Rate 16, O2 Delivery Device BiPAP, POC PEEP 8 02/21/20 06:52: POC Glucose 178 H 02/21/20 07:22: WBC 13.7 H, RBC 2.61 L, Hgb 7.9 L, Hct 27.3 L, MCV 104.6 H, MCH 30.3, MCHC 28.9 L, RDW Std Deviation 61.1 H, RDW Coeff of Emili 16.1 H, Plt Count 150, MPV 9.8, Immature Gran % (Auto) 1.500 H, Neut % (Auto) 82.8 H, Lymph % (Auto) 4.9 L, [place] % (Auto) 10.1 H, Eos % (Auto) 0.4, Baso % (Auto) 0.3, Absolute Neuts (auto) 11.4 H, Absolute Lymphs (auto) 0.67 L, Nucleated RBC % 0 02/21/20 07:22: Sodium 139, Potassium 4.0, Chloride 101, Carbon Dioxide 35.0 H, Anion Gap 3 L, BUN 22 H, Creatinine 0.94, Estim Creat Clear Calc 112.66, Est GFR (MDRD) Af Amer 100, Est GFR (MDRD) Non-Af 83, BUN/Creatinine Ratio 23.4 H, Glucose 182 H, Calcium 7.6 L, Magnesium 1.7, Total Bilirubin 0.50, AST 17, ALT 32, Alkaline Phosphatase 151 H, Total Protein 6.3 L, Albumin 2.6 L, Globulin 3.7, Albumin/Globulin Ratio 0.7 L, TSH 1.53 Current Medications Al Hydroxide/Mg Hydroxide (Mag Hydrox/Al Hydrox/Simeth 30 Ml Udc) 30 ml PO Q6H PRN PRN PRN Reason: Gastric Burning Albuterol Sulfate (Albuterol 2.5 Mg/3 Ml Vial.Neb.) 2.5 mg INHALATION Q2H PRN PRN PRN Reason: SOB/Wheezing Atorvastatin Calcium (Atorvastatin Calcium 20 Mg Tablet) 20 mg PO QHS [facility] Last Admin: 02/20/20 22:34 Dose: Not Given Documented by: Dextrose (Dextrose 50%-Water 25 Gm/50 Ml Disp.Syrin) 0 gm IV X1 PRN; Protocol PRN Reason: Hypoglycemia Enoxaparin Sodium (Enoxaparin 40 Mg/0.4 Ml Syringe) 40 mg SC BID [facility] Last Admin: 02/20/20 22:47 Dose: 40 mg Documented by: Furosemide (Furosemide 40 Mg/4 Ml Vial) 40 mg IV Q8 [facility] Last Admin: 02/21/20 05:58 Dose: 40 mg Documented by: Glucagon (Glucagon 1 Mg/Ml Syringe) 1 mg IM .X1 PRN PRN Reason: Hypoglycemia Guaifenesin (Guaifenesin 10 Ml Udc (200mg/10ml)) 20 ml PO Q4H PRN PRN PRN Reason: COUGH Ceftriaxone Sodium (Rocephin) 1 gm in 50 mls @ 100 mls/hr IV Q24 [facility] Ibuprofen (Ibuprofen 400 Mg Tablet) 400 mg PO Q4H PRN PRN PRN Reason: Pain Score 1-10/Temp > 100.7 F Last Admin: 02/21/20 04:20 Dose: 400 mg Documented by: Insulin Glargine (Insulin Glargine 100 Units/Ml Pen) 10 units SC BREAKFAST [facility] Insulin Glargine (Insulin Glargine 100 Units/Ml Pen) 10 units SC QHS [facility] Last Admin: 02/20/20 22:40 Dose: Not Given Documented by: Insulin Human Lispro (Insulin Lispro 100 Unit/Ml Insuln.Pen) 0 unit SC ACHS [facility]; Protocol Last Admin: 02/21/20 06:54 Dose: 2 units Documented by: Levothyroxine Sodium (Levothyroxine 112 Mcg Tablet) 112 mcg PO DAILY@0600 [facility] Last Admin: 02/21/20 06:08 Dose: Not Given Documented by: Melatonin (Melatonin 3 Mg Tablet) 3 mg PO QHS PRN PRN PRN Reason: INSOMNIA Nitroglycerin (Nitroglycerin (Inpatient Use) 0.4 Mg Tab.Subl) 0.4 mg SUBLINGUAL Q5M PRN PRN Reason: CARDIAC/CHEST PAIN Ondansetron HCl (Ondansetron 4 Mg/2 Ml Vial) 4 mg IV Q8H PRN PRN PRN Reason: NAUSEA/VOMITING Last Admin: 02/20/20 18:02 Dose: 4 mg Documented by: Oxycodone HCl (Oxycodone 5 Mg Tablet) 5 mg PO Q4H PRN PRN PRN Reason: Pain Score 4-5 Oxycodone HCl (Oxycodone 5 Mg Tablet) 10 mg PO Q4H PRN PRN PRN Reason: Pain Score 6-10 Pantoprazole Sodium (Pantoprazole Sodium 20 Mg Tablet) 20 mg PO BID [facility] Last Admin: 02/20/20 22:35 Dose: Not Given Documented by: Senna/Docusate Sodium (Senna/Docusate Sodium 1 Tablet) 2 tablet PO BID PRN PRN PRN Reason: Constipation Sodium Chloride (0.9% Saline Lock 10 Ml Syringe) 10 - 40 ml IV UD PRN PRN Reason: SALINE FLUSH Last Admin: 02/21/20 05:59 Dose: 10 ml Documented by: Sucralfate (Sucralfate 1 Gm Tablet) 1 gm PO 1HR_ACHS [facility] Last Admin: 02/21/20 06:55 Dose: Not Given Documented by: STROKE Vital Signs/Narrative: Vital Signs Pulse Resp BP Pulse Ox 02/21/20 07:46 77 18 94 02/21/20 07:15 70 02/21/20 06:00 71 14 106/47 L 90 02/21/20 05:23 70 12 109/48 L 88 02/21/20 05:00 75 02/21/20 04:57 73 14 97/74 92 02/21/20 04:51 86 17 97/74 02/21/20 04:50 73 15 94 02/21/20 04:25 94 Medical Necessity - Tobacco Use Smoking Status: Never smoker Assessment/Plan All Active Problems (Last Reviewed 02/20/20 @ 13:[address] Agustín Diaz MD) Acute exacerbation of congestive heart failure (Acute) Cellulitis of right lower extremity without foot (Acute) Cellulitis of left lower extremity without foot (Acute) Anasarca (Acute) Urinary tract infection (Acute) End stage renal disease (Acute) Elevated troponin (Acute) Ulcer of left lower extremity with fat layer exposed (Acute) Malnutrition (Acute) GI bleed (Resolved) Acute kidney injury (Acute) Anemia (Acute) Abdominal pain (Acute) Chest pain (Acute) Patient is a 74-year-old gentleman with multiple comorbidities admitted with progressive shortness of breath with bilateral lower extremity swelling and erythema and warmth 1. Acute congestive heart failure ?EF unspecified. Patient has been admitted to monitored bed placed on strict input and output Daily weight initiation of IV Lasix and 2D echo ordered -02/21/2020 went into acute hypoxic and hypercapnic respiratory failure necessitating the use of noninvasive ventilation during the night 2. Bilateral stasis dermatitis with superimposed cellulitis ?Patient started on Rocephin and consult placed to wound care nurse 3. Acute cystitis -patient is on Rocephin as above 4. Acute hypoxic and hypercapnic respiratory failure -secondary to CO2 retention as a result of COPD and obesity hypoventilation syndrome patient was placed on noninvasive ventilation?BiPAP 5. Chronic hypoxic respiratory failure ?Due to combination of COPD, obesity hypoventilation syndrome as well as congestive heart failure patient is on supplemental oxygen 6. Hypothyroidism - Patient is on levothyroxine home dose continued 7. GERD ?Patient is on PPI 8. Dyslipidemia -Patient is on statin therapy, continued at home dose 9. Diabetes mellitus type II - Controlled/uncontrolled, -patient's oral hypoglycemics held. -Placed on long acting insulin, Accu-Cheks a.c. and at bedtime and covered with sliding scale insulin 10. DVT prophylaxis ?Lovenox 40 mg SC twice daily 11. Elevated troponin ?Consistent with demand ischemia from patient acute hypoxic and hypercapnic respiratory failure as well as congestive heart failure patient presentation not consistent with acute coronary syndrome Inpatient E&M: [id number] [facility] L3
[2020-02-21 10:55] LABS: Bedside Glucose 187 mg/dL (70-110)
[2020-02-21] MEDS: Enoxaparin 40 MG/0.4 ML Syringe SC (11:06)
[2020-02-21] MEDS: Ceftriaxone 1 GM/50 ML BAG IV (11:26)
--- NOTE | 2020-02-21 12:59 | CASEMGMT ---
Readmission chart review: Pt was admitted 02/08-02/10/2020 to ICU for GI bleed, NSTEMI, COPD/CHF exac. See assessment completed by Norma BRUNO CM on 02/10/2020. Pt then signed out AMA later that day. Pt has been to [facility] ED, the following dates: 01/17/2020, 01/22/2020, 02/06/2020, 02/15/2020, 02/16/2020, and 02/18/2020 as well as the two dates he was admitted 02/09/2020 and 02/20/2020. Per APS, pt is currently an active referral and they are aware that pt is admitted at this time. During last admission, EMS reported that home was in deplorable condition and SW was set to see pt regarding same but pt left AMA prior to them seeing pt. Pt readmitted 04/21/2019 for CHF with bilat stasis dermatitis w/ super-imposed cellulitis. CM to follow PT/OT and for any further discharge planning/needs. Rosana BRUNO CM
--- NOTE | 2020-02-21 14:52 | CASEMGMT ---
LAUREEN returned a phone call from Maria E Reddy with [facility]. She is patient's case monitor. He goes to [facility] Tuesdays and and he has an aide for 1 hour on Mondays. She is working on finding more aide services for patient. She just asked that LAUREEN let her know when he is discharged. Jacklyn CLEMENT MSW
[2020-02-21] MEDS: Sucralfate 1 GM Tablet PO ×2 (17:15→21:44)
[2020-02-21 17:35] LABS: Bedside Glucose 198 mg/dL (70-110)
[2020-02-21] MEDS: Pantoprazole Sodium 20 MG Tablet PO (21:44)
[2020-02-21] MEDS: Atorvastatin Calcium 20 MG Tablet PO (21:44)
[2020-02-21 21:56] LABS: Bedside Glucose 186 mg/dL (70-110)
[2020-02-22] VITALS (12 sets, daily range): BP systolic 111–135; BP diastolic 47–68; PULSE 73–89; RESP 20–24; TEMP 36.6–37.2; O2SAT 92–96
[2020-02-22] MEDS: Ibuprofen 400 MG Tablet PO ×2 (00:25→05:26)
--- NOTE | 2020-02-22 02:30 | NURSING ---
Pt awaken to put bipap on . Pt refused. Pt said to leave him alone. explained to co2 could build up but pt still refused
[2020-02-22 05:18] LABS: Absolute Lymphocyte Count 0.94 X10^3/uL (0.83-4.51); Absolute Neutrophil Count 9.6 X10^3/uL (2.0-7.7); Basophil# 0.03 X10^3/uL; Basophil% 0.3 % (0-1); Eosinophil# 0.11 X10^3/uL; Eosinophils% 0.9 % (0-5); Hematocrit 26.8 % (40-54); Hemoglobin 7.7 g/dL (13.0-16.5); Lymphocyte # 0.94 X10^3/ul (4.0); Lymphocyte % 7.9 % (19-41); Mean Corp Hgb Conc 28.7 g/dL (32-36); Mean Corpuscular Hgb 29.7 pg (27.0-32.0); Mean Corpuscular Volume 103.5 fL (80-94); Mean Platelet Vol. 9.6 fl (6.2-12.0); Monocyte# 1.16 X10^3/uL; Monocyte% 9.7 % (0-10); NRBC Flagged by Analyzer 0 % (0-5); Neutrophil # 9.55 X10^3/uL (2.7-7.7); Neutrophil % 79.9 % (47-70); Platelet Count 137 K/mm3 (150-450); Red Blood Count 2.59 M/mm3 (4.6-6.2); White Blood Count 11.9 K/mm3 (4.4-11.0)
[2020-02-22] MEDS: Furosemide 40 MG/4 ML Vial IV ×2 (05:27→16:40)
[2020-02-22] MEDS: Levothyroxine 112 MCG Tablet PO (05:27)
[2020-02-22] MEDS: Sucralfate 1 GM Tablet PO ×4 (05:27→22:18)
--- NOTE | 2020-02-22 05:39 | NURSING ---
PT DEMANDING MORE COOKIES. INFORM PT NO TO WAIT ON HIS BLOOD SUGAR TO BE DONE. PT TAKING HIS PILLS AND LAYED ON TABLE. PT PILLS BECAME MUSH AND UNABLE TO TELL WHAT PILLS HE TOOK AND DIDNT. PT BEGAN YELLING AT THIS TO GET HIM MORE PILLS INFORMED HIM I CANT UNSURE OF WHAT HE TOOK AND DIDNT. PT VERBALLY ABUSIVE YELLING AT THIS NURSE. PT GOWN CHANGED, TABLE AND FLOOR CLEANED. PT DEMANDING MORE WATER AND TOLD PT NO MORE OVER HIS LIMIT. PT DOESNT CARE AND WANTS MORE. WATER GIVEN AND INFORMED MDS WILL BE NOTIDIED IN AM OF REFUSING TO WEAR BIPAP AND FLUID RESTRICTION
[2020-02-22 05:43] LABS: ALB/GLOB Ratio 0.6 RATIO (0.9-2.4); AST(SGOT) 17 U/L (15-37); Alanine Aminotransfer ALT/SGPT 28 U/L (16-61); Albumin, Serum 2.5 g/dL (3.2-5.0); Alkaline Phosphatase 144 U/L (45-117); Anion Gap 4 (5-15); BUN 28 mg/dL (7-18); BUN/Creat Ratio 21.7 RATIO (10-20); Calcium,Total 7.7 mg/dL (8.5-10.1); Chloride 94 mmol/L (98-107); Creatinine, Serum 1.29 mg/dL (0.70-1.30); EST Glomerular Filtration Rate 58 mL/min (>60); Est Glom Filt Rate - Afr Amer 70 mL/min (>60); Estimated Creatinine Clearance 82.09 ml/min; Globulin 3.9 g/dL (2.2-4.2); Glucose 188 mg/dL (74-106); Potassium 3.5 mmol/L (3.5-5.1); Protein, Total 6.4 g/dL (6.4-8.2); Sodium Level 135 mmol/L (136-145)
--- NOTE | 2020-02-22 06:19 | CPS ---
PT REFUSED AVAPS LAST NIGHT
--- NOTE | 2020-02-22 07:53 | PCM.PN.HOSP ---
Patient Problems: Active and Suspected Problems (Last Reviewed 02/20/20 @ 13:[address] Agustín Diaz MD) Acute exacerbation of congestive heart failure (Acute) Cellulitis of right lower extremity without foot (Acute) Cellulitis of left lower extremity without foot (Acute) Anasarca (Acute) Urinary tract infection (Acute) End stage renal disease (Acute) Elevated troponin (Acute) Ulcer of left lower extremity with fat layer exposed (Acute) Malnutrition (Acute) Acute kidney injury (Acute) Anemia (Acute) Abdominal pain (Acute) Chest pain (Acute) Reason for Visit: Acute congestive heart failure Acute cystitis Cellulitis Subjective: Patient is a 74-year-old gentleman with multiple comorbidities admitted with progressive shortness of breath with bilateral lower extremity swelling and erythema and warmth 02/21/2020 was found to be significantly lethargic during the night. ABGs obtained came back consistent with acute hypercapnic respiratory failure patient subsequently placed on noninvasive ventilation 02/22/2020; adjusted patient Lasix dose with improving clinical condition. Patient much more awake and interactive. Urine cultures came back positive for mixed organisms with insignificant colony count Objective: GENERAL: Irritable HEENT: Atraumatic; EYES; Anicteric, Normal Conjunctiva NECK; supple, normal thyroid, RESPIRATORY: Diminished to auscultation CARDIOVASCULAR: Regular S1 S2, GI: soft, normoactive bowel sounds, : No Renal angle tenderness; EXTREMITIES: Bilateral saúl wrap MUSCULOSKELETAL: no muscle waisting NEURO: Awake; no lateralizing signs. SKIN: Described above PSYCH; Flat affect Vitals/I&O's: Vital Signs Temp Pulse Resp BP Pulse Ox 97.9 F 84 20 H 124/48 H 95 02/22/20 03:39 02/22/20 06:54 02/22/20 03:39 02/22/20 03:39 02/22/20 03:39 Oxygen Flow Rate (L/min) 2 Oxygen Delivery Method Nasal Cannula Weight: 117.3 kg Body Mass Index (BMI) 50.8 Finger Stick Blood Glucose 298 Intake and Output for Last 24 Hours 02/20/20 02/21/20 02/22/20 23:59 23:59 23:59 Intake Total 1040 / 1040 1270 / 1692 1222 / 1222 Output Total 250 / 250 Balance 790 / 790 1270 / 1692 1222 / 1222 Laboratory Results 02/21/20 07:22: Sodium 139, Potassium 4.0, Chloride 101, Carbon Dioxide 35.0 H, Anion Gap 3 L, BUN 22 H, Creatinine 0.94, Estim Creat Clear Calc 112.66, Est GFR (MDRD) Af Amer 100, Est GFR (MDRD) Non-Af 83, BUN/Creatinine Ratio 23.4 H, Glucose 182 H, Calcium 7.6 L, Magnesium 1.7, Total Bilirubin 0.50, AST 17, ALT 32, Alkaline Phosphatase 151 H, Total Protein 6.3 L, Albumin 2.6 L, Globulin 3.7, Albumin/Globulin Ratio 0.7 L, TSH 1.53 02/21/20 10:25: POC Glucose 187 H 02/21/20 16:59: POC Glucose 198 H 02/21/20 21:40: POC Glucose 186 H 02/22/20 04:44: WBC 11.9 H, RBC 2.59 L, Hgb 7.7 L, Hct 26.8 L, MCV 103.5 H, MCH 29.7, MCHC 28.7 L, RDW Std Deviation 61.0 H, RDW Coeff of Emili 16.0 H, Plt Count 137 L, MPV 9.6, Immature Gran % (Auto) 1.300 H, Neut % (Auto) 79.9 H, Lymph % (Auto) 7.9 L, [place] % (Auto) 9.7, Eos % (Auto) 0.9, Baso % (Auto) 0.3, Absolute Neuts (auto) 9.6 H, Absolute Lymphs (auto) 0.94, Nucleated RBC % 0 02/22/20 04:44: Sodium 135 L, Potassium 3.5, Chloride 94 L, Carbon Dioxide 37.0 H, Anion Gap 4 L, BUN 28 H, Creatinine 1.29, Estim Creat Clear Calc 82.09, Est GFR (MDRD) Af Amer 70, Est GFR (MDRD) Non-Af 58 L, BUN/Creatinine Ratio 21.7 H, Glucose 188 H, Calcium 7.7 L, Total Bilirubin 0.30, AST 17, ALT 28, Alkaline Phosphatase 144 H, Total Protein 6.4, Albumin 2.5 L, Globulin 3.9, Albumin/Globulin Ratio 0.6 L Current Medications Al Hydroxide/Mg Hydroxide (Mag Hydrox/Al Hydrox/Simeth 30 Ml Udc) 30 ml PO Q6H PRN PRN PRN Reason: Gastric Burning Albuterol Sulfate (Albuterol 2.5 Mg/3 Ml Vial.Neb.) 2.5 mg INHALATION Q2H PRN PRN PRN Reason: SOB/Wheezing Atorvastatin Calcium (Atorvastatin Calcium 20 Mg Tablet) 20 mg PO QHS [facility] Last Admin: 02/21/20 21:44 Dose: 20 mg Documented by: Dextrose (Dextrose 50%-Water 25 Gm/50 Ml Disp.Syrin) 0 gm IV X1 PRN; Protocol PRN Reason: Hypoglycemia Enoxaparin Sodium (Enoxaparin 40 Mg/0.4 Ml Syringe) 40 mg SC BID [facility] Last Admin: 02/21/20 21:53 Dose: Not Given Documented by: Furosemide (Furosemide 40 Mg/4 Ml Vial) 40 mg IV BID@1000,1800 [facility] Glucagon (Glucagon 1 Mg/Ml Syringe) 1 mg IM .X1 PRN PRN Reason: Hypoglycemia Guaifenesin (Guaifenesin 10 Ml Udc (200mg/10ml)) 20 ml PO Q4H PRN PRN PRN Reason: COUGH Ceftriaxone Sodium (Rocephin) 1 gm in 50 mls @ 100 mls/hr IV Q24 [facility] Last Infusion: 02/21/20 12:37 Dose: Infused Documented by: Ibuprofen (Ibuprofen 400 Mg Tablet) 400 mg PO Q4H PRN PRN PRN Reason: Pain Score 1-10/Temp > 100.7 F Last Admin: 02/22/20 05:26 Dose: 400 mg Documented by: Insulin Glargine (Insulin Glargine 100 Units/Ml Pen) 10 units SC BREAKFAST [facility] Last Admin: 02/21/20 11:07 Dose: 10 u Documented by: Insulin Glargine (Insulin Glargine 100 Units/Ml Pen) 10 units SC QHS [facility] Last Admin: 02/21/20 21:45 Dose: 10 units Documented by: Insulin Human Lispro (Insulin Lispro 100 Unit/Ml Insuln.Pen) 0 unit SC ACHS [facility]; Protocol Last Admin: 02/21/20 21:45 Dose: 2 units Documented by: Levothyroxine Sodium (Levothyroxine 112 Mcg Tablet) 112 mcg PO DAILY@0600 [facility] Last Admin: 02/22/20 05:27 Dose: 112 mcg Documented by: Melatonin (Melatonin 3 Mg Tablet) 3 mg PO QHS PRN PRN PRN Reason: INSOMNIA Nitroglycerin (Nitroglycerin (Inpatient Use) 0.4 Mg Tab.Subl) 0.4 mg SUBLINGUAL Q5M PRN PRN Reason: CARDIAC/CHEST PAIN Ondansetron HCl (Ondansetron 4 Mg/2 Ml Vial) 4 mg IV Q8H PRN PRN PRN Reason: NAUSEA/VOMITING Last Admin: 02/20/20 18:02 Dose: 4 mg Documented by: Oxycodone HCl (Oxycodone 5 Mg Tablet) 5 mg PO Q4H PRN PRN PRN Reason: Pain Score 4-5 Oxycodone HCl (Oxycodone 5 Mg Tablet) 10 mg PO Q4H PRN PRN PRN Reason: Pain Score 6-10 Pantoprazole Sodium (Pantoprazole Sodium 20 Mg Tablet) 20 mg PO BID [facility] Last Admin: 02/21/20 21:44 Dose: 20 mg Documented by: Senna/Docusate Sodium (Senna/Docusate Sodium 1 Tablet) 2 tablet PO BID PRN PRN PRN Reason: Constipation Sodium Chloride (0.9% Saline Lock 10 Ml Syringe) 10 - 40 ml IV UD PRN PRN Reason: SALINE FLUSH Last Admin: 02/21/20 13:40 Dose: 10 ml Documented by: Sucralfate (Sucralfate 1 Gm Tablet) 1 gm PO 1HR_ACHS [facility] Last Admin: 02/22/20 05:27 Dose: 1 gm Documented by: STROKE Vital Signs/Narrative: Vital Signs Pulse 02/22/20 06:54 84 Medical Necessity - Tobacco Use Smoking Status: Never smoker Assessment/Plan All Active Problems (Last Reviewed 02/20/20 @ 13:[address] Agustín Diaz MD) Acute exacerbation of congestive heart failure (Acute) Cellulitis of right lower extremity without foot (Acute) Cellulitis of left lower extremity without foot (Acute) Anasarca (Acute) Urinary tract infection (Acute) End stage renal disease (Acute) Elevated troponin (Acute) Ulcer of left lower extremity with fat layer exposed (Acute) Malnutrition (Acute) GI bleed (Resolved) Acute kidney injury (Acute) Anemia (Acute) Abdominal pain (Acute) Chest pain (Acute) Patient is a 74-year-old gentleman with multiple comorbidities admitted with progressive shortness of breath with bilateral lower extremity swelling and erythema and warmth 1. Acute congestive heart failure ?EF unspecified. Patient has been admitted to monitored bed placed on strict input and output Daily weight initiation of IV Lasix and 2D echo ordered -02/21/2020 went into acute hypoxic and hypercapnic respiratory failure necessitating the use of noninvasive ventilation during the night -02/22/2020; adjusted patient Lasix dose with improving clinical condition. 2. Bilateral stasis dermatitis with superimposed cellulitis ?Patient started on Rocephin and consult placed to wound care nurse 3. Acute cystitis ruled out -patient is on Rocephin urine culture sent however Urine cultures came back positive for mixed organisms with insignificant colony count 4. Acute hypoxic and hypercapnic respiratory failure -secondary to CO2 retention as a result of COPD and obesity hypoventilation syndrome patient was placed on noninvasive ventilation?BiPAP 5. Chronic hypoxic respiratory failure ?Due to combination of COPD, obesity hypoventilation syndrome as well as congestive heart failure patient is on supplemental oxygen 6. Hypothyroidism - Patient is on levothyroxine home dose continued 7. GERD ?Patient is on PPI 8. Dyslipidemia -Patient is on statin therapy, continued at home dose 9. Diabetes mellitus type II - Controlled/uncontrolled, -patient's oral hypoglycemics held. -Placed on long acting insulin, Accu-Cheks a.c. and at bedtime and covered with sliding scale insulin 10. DVT prophylaxis ?Lovenox 40 mg SC twice daily 11. Elevated troponin ?Consistent with demand ischemia from patient acute hypoxic and hypercapnic respiratory failure as well as congestive heart failure patient presentation not consistent with acute coronary syndrome 12. Physical deconditioning - Requested for PT OT eval and executive secretary social welfare to assist with discharge planning Inpatient E&M: [id number] [facility] L2
[2020-02-22] MEDS: Insulin Lispro 100 UNIT/ML INSULN.PEN SC ×3 (07:56→22:17)
[2020-02-22] MEDS: oxyCODONE 5 MG Tablet PO (07:57)
[2020-02-22] MEDS: Enoxaparin 40 MG/0.4 ML Syringe SC ×2 (07:57→22:17)
[2020-02-22] MEDS: Pantoprazole Sodium 20 MG Tablet PO ×2 (07:58→22:18)
[2020-02-22] MEDS: Ceftriaxone 1 GM/50 ML BAG IV (07:58)
[2020-02-22 08:06] LABS: Bedside Glucose 294 mg/dL (70-110)
--- NOTE | 2020-02-22 09:17 | NURSING ---
wound photo: bilateral lower legs
--- NOTE | 2020-02-22 09:21 | NURSING ---
wound photo: lower legs
[2020-02-22 11:30] LABS: Bedside Glucose 247 mg/dL (70-110)
--- NOTE | 2020-02-22 13:57 | NURSING ---
multiple times this RN has went into room and patient has had O2 off. Encouraged that patient put O2 back on. SpO2 in 60's on RA. Pt aggravated and yelling at staff. Frustrated with any care that staff attempt to provide. Pt refusing bipap, attempted to provide education, however patient states 'I don't take no bull shit from no one!' Pt frequently demanding more water, education provided on fluid restriction. MARKETING UNDERWRITER took in glass of water with 120 cc and patient dumped water all over the floor stating he wanted more water than that. Again, attempted to educate patient on fluid restriction but is resistive to any education.
--- NOTE | 2020-02-22 14:50 | CASEMGMT ---
Addendum entered by Jacklyn Islas 02/22/20 15:47: SW received a call from [facility] and she wanted to make sure SW knows that they cannot do daily dressing changes. SW told her SW is aware and that SW just wanted them to know what they were doing in the hospital. She said she will check with her director and she will call SW back with a definite yes or no. Jacklyn PADILLA Original Note: SW went to patient's room. He was sitting forward in his chair sleeping. He did wake up eventually when SW called his name a few times. LAUREEN introduced self and role at [facility]. SW asked patient about a d/c plan. SW asked if he would consider a retirement and he said no. SW then asked if he would be open to home health coming out such as a nurse and therapy. He said that is fine. He has had it before. SW asked if it was [facility] and he said something like that and they would be fine. LAUREEN will call [facility] to see if they have availability. LAUREEN called [facility]. They would be able to take patient. LAUREEN faxed the referral (H&P, face sheet, wound nurse notes and orders, and order for home health [facility], PT, OT, and aide to [phone]. Jacklyn PADILLA
--- NOTE | 2020-02-22 15:44 | NURSING ---
Agustín called in asking for an update on patient, states that he is the brother. Patient has no contact listed. Asked patient if this RN could share information with Augstín and patient responded 'N O, NO! No information whatsoever!'
[2020-02-22 16:36] LABS: Bedside Glucose 133 mg/dL (70-110)
[2020-02-22] MEDS: 0.9% Saline Lock 10 ML Syringe IV (16:40)
[2020-02-22] MEDS: Atorvastatin Calcium 20 MG Tablet PO (22:18)
[2020-02-22 22:20] LABS: Bedside Glucose 152 mg/dL (70-110)
[2020-02-23 04:30] VITALS: PULSE 61; PULSE 78; RESP 22; TEMP 36.3; O2SAT 96
--- NOTE | 2020-02-23 05:46 | NURSING ---
pt refusing to get his blood pressure taken and states he is going home
[2020-02-23] MEDS: Levothyroxine 112 MCG Tablet PO (06:00)
[2020-02-23] MEDS: Sucralfate 1 GM Tablet PO (06:00)
[2020-02-23 06:26] LABS: Bedside Glucose 97 mg/dL (70-110)
[2020-02-23 06:59] VITALS: PULSE 94
[2020-02-23 07:37] LABS: Absolute Lymphocyte Count 1.02 X10^3/uL (0.83-4.51); Absolute Neutrophil Count 6.2 X10^3/uL (2.0-7.7); Basophil# 0.03 X10^3/uL; Basophil% 0.4 % (0-1); Eosinophil# 0.09 X10^3/uL; Eosinophils% 1.1 % (0-5); Hematocrit 28.3 % (40-54); Hemoglobin 8.3 g/dL (13.0-16.5); Lymphocyte # 1.02 X10^3/ul (4.0); Lymphocyte % 12.4 % (19-41); Mean Corp Hgb Conc 29.3 g/dL (32-36); Mean Corpuscular Hgb 29.1 pg (27.0-32.0); Mean Corpuscular Volume 99.3 fL (80-94); Mean Platelet Vol. 9.7 fl (6.2-12.0); Monocyte# 0.79 X10^3/uL; Monocyte% 9.6 % (0-10); NRBC Flagged by Analyzer 0 % (0-5); Neutrophil # 6.19 X10^3/uL (2.7-7.7); Neutrophil % 75.2 % (47-70); Platelet Count 136 K/mm3 (150-450); RBC Distribution Width CV 15.8 % (11.6-14.6); RBC Distribution Width SD 57.4 fl (35.1-43.9); Red Blood Count 2.85 M/mm3 (4.6-6.2); White Blood Count 8.2 K/mm3 (4.4-11.0)
[2020-02-23 07:57] LABS: ALB/GLOB Ratio 0.6 RATIO (0.9-2.4); AST(SGOT) 17 U/L (15-37); Alanine Aminotransfer ALT/SGPT 27 U/L (16-61); Albumin, Serum 2.6 g/dL (3.2-5.0); Alkaline Phosphatase 141 U/L (45-117); Anion Gap 1 (5-15); BUN 28 mg/dL (7-18); BUN/Creat Ratio 26.7 RATIO (10-20); Calcium,Total 8.2 mg/dL (8.5-10.1); Chloride 97 mmol/L (98-107); Creatinine, Serum 1.05 mg/dL (0.70-1.30); EST Glomerular Filtration Rate 73 mL/min (>60); Est Glom Filt Rate - Afr Amer 88 mL/min (>60); Estimated Creatinine Clearance 100.85 ml/min; Globulin 4.2 g/dL (2.2-4.2); Glucose 127 mg/dL (74-106); Potassium 3.4 mmol/L (3.5-5.1); Protein, Total 6.8 g/dL (6.4-8.2); Sodium Level 137 mmol/L (136-145)
[2020-02-23] MEDS: Enoxaparin 40 MG/0.4 ML Syringe SC (08:22)
[2020-02-23] MEDS: Pantoprazole Sodium 20 MG Tablet PO (08:22)
[2020-02-23 08:24] VITALS: BP 131/42; PULSE 90; RESP 17; TEMP 36.8; O2SAT 94
[2020-02-23] MEDS: Ceftriaxone 1 GM/50 ML BAG IV (09:55)
[2020-02-23] MEDS: Furosemide 40 MG/4 ML Vial IV (09:58)
[2020-02-23] MEDS: 0.9% Saline Lock 10 ML Syringe IV (09:59)
--- NOTE | 2020-02-23 10:49 | NURSING ---
In to change dressings to bilateral lower legs. patient is standing up in room undressed stating he is going home. patient is trying to put pants on. seems quite unsteady, but insisting he is leaving. did assist pt in putting pants on so pt does not fall. talked patient into sitting back down so this nurse can change dressings to bilateral lower legs. removed JAMES wraps and dressings. both were soiled with urine. washed legs and feet with soap and water. there is slightly more edema noted bilaterally and more redness noted to the LLE. left posterior heel tender. there is some maceration noted. there is still a large amount of serous drainage noted. placed ABD pads to the weeping areas and wrapped with kerlix. reapplied the JAMES wraps from the base of the toes to just below the knees. pt tolerated well. dustin Irwin RN and DAMION Priest both aware pt states he is leaving AMA and wants the paper to sign. pt states he will call a cab to come pick him up.
[2020-02-23 11:54] VITALS: O2SAT 78; O2SAT 95
[2020-02-23 11:56] LABS: Bedside Glucose 289 mg/dL (70-110)
--- NOTE | 2020-02-23 12:02 | CASEMGMT ---
DAMION OSORIO received updated that patient has home oxygen at home but is not sure what company oxygen is setup with. DAMION OSORIO called [facility] and they are not in service with patient. DAMION OSORIO called [facility] and patient had oxygen setup with them. Per Chris at [facility], patient owns his own unit with fillable tank. Patient owns his own system because he failed to pay his bill. Sarthak Perez has owned his own system since 2018. DAMION OSORIO updated LAUREEN and Zayda BRUNO. Patient is refusing to contact someone to bring tank to hospital.
[2020-02-23] MEDS: oxyCODONE 5 MG Tablet PO (12:35)
--- NOTE | 2020-02-23 14:04 | CASEMGMT ---
Patient left AMA. LAUREEN called [facility] and they will not take him due to his leaving AMA. LAUREEN called [facility] and left Quang a message letting her know about patient leaving AMA. LAUREEN called Maria E Reddy with [facility] and let her know that patient left AMA and that home health was set up, but they will not accept him. LAUREEN also let her know SW left a message for [facility]. Plan: home with no skilled services as he left AMA and they would not accept him. Jacklyn CLEMENT MSW
--- NOTE | 2020-02-23 14:40 | CASEMGMT ---
SW received a call from Eryn, Administrative Accountant with [facility]. LAUREEN filled her in on patient and his behaviors, his recent admissions and ED visits, and leaving AMA. She said they will follow up. Jacklyn PADILLA
--- NOTE | 2020-02-23 17:32 | PN_ITS ---
Patient Problems: Active and Suspected Problems (Last Reviewed 02/20/20 @ 13:[address] Agustín Diaz MD) Acute exacerbation of congestive heart failure (Acute) Cellulitis of right lower extremity without foot (Acute) Cellulitis of left lower extremity without foot (Acute) Anasarca (Acute) Urinary tract infection (Acute) End stage renal disease (Acute) Elevated troponin (Acute) Ulcer of left lower extremity with fat layer exposed (Acute) Malnutrition (Acute) Acute kidney injury (Acute) Anemia (Acute) Abdominal pain (Acute) Chest pain (Acute) Subjective: Demanding to leave AMA. I discussed with him how risky that is he expressed understanding of the risks and benefits of leaving AMA and he decided to leave anyways. I did try to clarify whether not he at least has oxygen at home, he states that he does become not sure as to how much she is supposed to be using and whether or not that is true. Vitals/I&O's: Vital Signs Temp Pulse Resp BP Pulse Ox 98.2 F 90 17 131/42 H 78 02/23/20 08:24 02/23/20 08:24 02/23/20 08:24 02/23/20 08:24 02/23/20 11:54 Oxygen Flow Rate (L/min) [ 3.5 AMBULATION with Oxygen] Oxygen Flow Rate (L/min) 3 Oxygen Delivery Method Nasal Cannula Weight: 258 lb 9.636 oz Body Mass Index (BMI) 50.8 Finger Stick Blood Glucose 298 Intake and Output for Last 24 Hours 02/21/20 02/22/20 02/23/20 23:59 23:59 23:59 Intake Total 1270 / 1692 2112 / 2312 850 / 850 Output Total 825 / 825 Balance 1270 / 1692 2111 / 1936 General: Alert, Oriented x3, No apparent distress, Non-Cooperative HEENT: Atraumatic, PERRLA, EOMI, Normocephalic Oral: Moist Mucosa Neck: Supple, No JVD Lungs: Normal air movement, No rhonchi, No wheeze, No rales, Diminished Cardiovascular: Regular rate, Regular Rhythm, Normal S1, Normal S2, No murmurs Abdomen: Soft, Non Tender, Non-Distended, No Hepato-splenomegaly Extremities: No edema, Capillary Refill Less than 3 Seconds Skin: No rashes, No breakdown Neurological: Neuro grossly intact, Sensory exam intact to light touch and pain Psych/Mental Status: Agitated Microbiology Past 72 Hours 02/20/20 11:10 Blood Culture (Wb) - Anticubital Left Blood Culture - Preliminary No growth in 48 hours. 02/20/20 11:00 Blood Culture (Wb) - Anticubital Right Blood Culture - Pre liminary No growth in 48 hours. 02/20/20 10:50 Urine, Clean Catch Urine Culture - Final Mixed Gram Positive Organisms Laboratory Results 02/22/20 22:09: POC Glucose 152 H 02/23/20 06:22: POC Glucose 97 02/23/20 07:22: WBC 8.2, RBC 2.85 L, Hgb 8.3 L, Hct 28.3 L, MCV 99.3 H, MCH 29.1, MCHC 29.3 L, RDW Std Deviation 57.4 H, RDW Coeff of Emili 15.8 H, Plt Count 136 L, MPV 9.7, Immature Gran % (Auto) 1.300 H, Neut % (Auto) 75.2 H, Lymph % (Auto) 12.4 L, [place] % (Auto) 9.6, Eos % (Auto) 1.1, Baso % (Auto) 0.4, Absolute Neuts (auto) 6.2, Absolute Lymphs (auto) 1.02, Nucleated RBC % 0 02/23/20 07:22: Sodium 137, Potassium 3.4 L, Chloride 97 L, Carbon Dioxide 39.0 H, Anion Gap 1 L, BUN 28 H, Creatinine 1.05, Estim Creat Clear Calc 100.85, Est GFR (MDRD) Af Amer 88, Est GFR (MDRD) Non-Af 73, BUN/Creatinine Ratio 26.7 H, Glucose 127 H, Calcium 8.2 L, Total Bilirubin 0.50, AST 17, ALT 27, Alkaline Phosphatase 141 H, Total Protein 6.8, Albumin 2.6 L, Globulin 4.2, Albumin/Globulin Ratio 0.6 L 02/23/20 11:43: POC Glucose 289 H Medical Necessity - Tobacco Use Smoking Status: Never smoker Assessment/Plan All Active Problems (Last Reviewed 02/20/20 @ 13:[address] Agustín Diaz MD) Acute exacerbation of congestive heart failure (Acute) Cellulitis of right lower extremity without foot (Acute) Cellulitis of left lower extremity without foot (Acute) Anasarca (Acute) Urinary tract infection (Acute) End stage renal disease (Acute) Elevated troponin (Acute) Ulcer of left lower extremity with fat layer exposed (Acute) Malnutrition (Acute) GI bleed (Resolved) Acute kidney injury (Acute) Anemia (Acute) Abdominal pain (Acute) Chest pain (Acute) 1. Acute on chronic hypoxic and hypercapnic respiratory failure secondary to acute diastolic CHF/HLD/HTN/elevated troponin -Continue with Lasix, his oxygen requirements did improve and the echo demonstrated right ventricular systolic pressure of 50 mmHg with a normal EF -He was on BiPAP for his obesity hypoventilation syndrome as well as his history of COPD though not currently in exacerbation -He left AMA -Continue with statins and his home blood pressure medications -Elevated troponin is likely secondary to demand ischemia 2. DM 2 -Hold his oral hypoglycemics continue Accu-Cheks and sliding scale insulin 3. GERD -Stable -Continue with PPI 4. Hypothyroidism -Stable -Continue Synthroid DVT: Lovenox He left AMA despite multiple conversations to have him stay in the hospital for further treatment Inpatient E&M: [id number] [facility] L2
== END 2020-02-23 14:03 | disposition left against medical advice (07) | DRG 291 ==
LOC: ED 12:13 → PCU 12:37
PROVIDERS: Admitting Provider Internal Medicine; Emergency Provider Emergency Medicine; PCP Physician Assistant; Visit Provider Family Medicine
DX: I13.2 Hypertensive heart and chronic kidney disease with heart failure and with stage 5 chronic kidney disease, or end stage renal disease (principal); I50.31 Acute diastolic (congestive) heart failure; J96.22 Acute and chronic respiratory failure with hypercapnia; J96.21 Acute and chronic respiratory failure with hypoxia; E66.2 Morbid (severe) obesity with alveolar hypoventilation; Z68.43 Body mass index [BMI] 50.0-59.9, adult; N30.00 Acute cystitis without hematuria; L03.115 Cellulitis of right lower limb; L03.116 Cellulitis of left lower limb; I25.2 Old myocardial infarction; E78.5 Hyperlipidemia, unspecified; E03.9 Hypothyroidism, unspecified; E11.51 Type 2 diabetes mellitus with diabetic peripheral angiopathy without gangrene; J44.9 Chronic obstructive pulmonary disease, unspecified; K21.9 Gastro-esophageal reflux disease without esophagitis; E11.65 Type 2 diabetes mellitus with hyperglycemia; E11.42 Type 2 diabetes mellitus with diabetic polyneuropathy; D50.0 Iron deficiency anemia secondary to blood loss (chronic); Z87.891 Personal history of nicotine dependence; Z79.84 Long term (current) use of oral hypoglycemic drugs
CPT/HCPCS: 36415; 36600; 71045; 71046; 80048; 80053; 81001; 82803; 82962; 83605; 83735; 83880; 84443; 84484; 85025; 85610; 85730; 86850; 86900; 86901; 87040; 87086; 87088; 87635; 93005; 93306; 94002; 94003; 97110; 97162; 97166; 97530; 97535; 97802; 99284; 99285; J7040; J7050; Q9957; A4216; C8929; J0696; J1940; J2405; U0002

== ENCOUNTER 2020-02-24 13:08 | Inpatient (IN) | payer MEDICARE, MEDICAID, SELFPAY ==
[2020-02-20 13:27] VITALS: BMI 50.8
[2020-02-24 13:09] VITALS: BP 128/50; PULSE 82; RESP 20; TEMP 36.6; O2SAT 96; BMI 42.8
[2020-02-24 13:13] VITALS: BP 128/50; PULSE 78; RESP 17; TEMP 36.8; O2SAT 100
[2020-02-24 13:16] VITALS: O2SAT 100
--- NOTE | 2020-02-24 13:28 | EKG12_ITS ---
Test Reason : Blood Pressure : / mmHG Vent. Rate : 078 BPM Atrial Rate : 078 BPM P-R Int : 162 ms QRS Dur : 154 ms QT Int : 420 ms P-R-T Axes : 054 -67 043 degrees QTc Int : 478 ms Normal sinus rhythm Right bundle branch block Left anterior fascicular block Bifascicular block Abnormal ECG Confirmed by JENNIFER CARDOSO, LIZ ([id number]), editor managing director YULISA WILLARD ([id number]) on 02/26/2020 9:41:17 AM Referred By: CATE Confirmed By:LIZ RODRIGUEZ MD
[2020-02-24 14:09] LABS: Absolute Lymphocyte Count 0.64 X10^3/uL (0.83-4.51); Absolute Neutrophil Count 4.9 X10^3/uL (2.0-7.7); Basophil# 0.05 X10^3/uL; Basophil% 0.8 % (0-1); Eosinophils% 1.5 % (0-5); Hematocrit 28.2 % (40-54); Hemoglobin 8.3 g/dL (13.0-16.5); Lymphocyte # 0.64 X10^3/ul (4.0); Lymphocyte % 9.8 % (19-41); Mean Corp Hgb Conc 29.4 g/dL (32-36); Mean Corpuscular Hgb 30.1 pg (27.0-32.0); Mean Corpuscular Volume 102.2 fL (80-94); Mean Platelet Vol. 9.8 fl (6.2-12.0); Monocyte# 0.71 X10^3/uL; Monocyte% 10.9 % (0-10); NRBC Flagged by Analyzer 0 % (0-5); Neutrophil # 4.89 X10^3/uL (2.7-7.7); Neutrophil % 75.3 % (47-70); Platelet Count 154 K/mm3 (150-450); RBC Distribution Width CV 15.8 % (11.6-14.6); RBC Distribution Width SD 58.9 fl (35.1-43.9); Red Blood Count 2.76 M/mm3 (4.6-6.2); White Blood Count 6.5 K/mm3 (4.4-11.0)
[2020-02-24 14:16] LABS: ALB/GLOB Ratio 0.6 RATIO (0.9-2.4); AST(SGOT) 50 U/L (15-37); Alanine Aminotransfer ALT/SGPT 31 U/L (16-61); Albumin, Serum 2.4 g/dL (3.2-5.0); Alkaline Phosphatase 162 U/L (45-117); Anion Gap 2 (5-15); BUN 25 mg/dL (7-18); BUN/Creat Ratio 26.5 RATIO (10-20); Calcium,Total 7.8 mg/dL (8.5-10.1); Chloride 96 mmol/L (98-107); Creatinine, Serum 0.94 mg/dL (0.70-1.30); EST Glomerular Filtration Rate 83 mL/min (>60); Est Glom Filt Rate - Afr Amer 100 mL/min (>60); Estimated Creatinine Clearance 59.06 ml/min; Globulin 4.3 g/dL (2.2-4.2); Glucose 245 mg/dL (74-106); Potassium 4.3 mmol/L (3.5-5.1); Protein, Total 6.7 g/dL (6.4-8.2); Sodium Level 139 mmol/L (136-145)
--- NOTE | 2020-02-24 14:18 | ED.VISSUMM ---
- ER Visit Summary Date of Service: 02/24/20 Chief Complaint: Lower extremity redness, shortness of breath History of Present Illness: The patient is a 74 M who sees Brian Mendez. He is a poor informant. Patient was admitted to the hospital from February 19?February 22 and left AMA. He now reports I made a mistake. States that his home health workers come out to his house because he left AMA. He reports that he was not placed on an antibiotic. Patient reports that he has lower extremity redness that today. He denies any fever or chills. No nausea or vomiting. Does report he is mildly short of breath. He denies any cough or chest pain. Physical Examination: Vitals: Stable. Afebrile. General: Well-nourished and well-developed. Head: Normocephalic atraumatic. Neck: Supple, no lymphadenopathy. No JVD. Nontender. Cardiovascular: Regular rate and rhythm. 2 out of 6 systolic murmur. Respiratory: No respiratory distress. Clear to auscultation bilaterally. Abdominal: Soft, nontender, nondistended, normal bowel sounds. No guarding, rebound, or peritoneal signs. Back: Nontender. Extremities: 3+ pitting edema of his lower extremities bilaterally. There are chronic venous stasis changes. However, on the left there is erythema that surrounds this as well. There is no induration or fluctuance. Skin: Normal color, no rash. Neurologic: Alert and oriented ?3. Cranial nerves II through XII are intact. Normal strength and sensation. Psych: Normal affect. Test Results: CBC shows an H&H of 8.3 and 28.2, segment 8 with 75, monocytes of 11, lymphocytes of 10, immature granulocytes 1.7%. Chem-7 shows a chloride of 96, CO2 of 41, glucose of 245, calcium 7.8. LFTs show an albumin 2.4, globulin 4.3. Alk phos is 162 and AST is 50. Troponin is 0.038. Emergency Department Course and Treatment: Patient had an IV placed. Is given a dose of Rocephin IV and is resting comfortably. Treatment Plan: Patient lives by himself and does not have home health over the weekend. I did discuss the possibility of assisted living or assisted and he is refusing this. However, I do not think that he is a good candidate to go home with outpatient treatment at this time. He will be discussed with the hospitalist and admitted for further evaluation and treatment. Disposition: Admitted in stable condition. Impression: 1. Anasarca. 2. Cellulitis left leg. 3. Anemia. This note was generated with [employer] dictation software. It may contain incorrect words, spelling, and punctuation that were not noted in review of the chart prior to signing ED Disposition - Plan for ED Patient: Referrals: Jovani Mendez PA [Primary Care Provider] -
[2020-02-24] MEDS: Ceftriaxone 1 GM/50 ML BAG IV (14:36)
[2020-02-24 14:44] VITALS: BP 139/108; PULSE 86; RESP 16; TEMP 36.9; O2SAT 95
--- NOTE | 2020-02-24 15:05 | HP.PCM_ITS ---
Problem List (1) Acute exacerbation of congestive heart failure Status: Acute Qualifiers: Heart failure type: systolic Qualified Code(s): I50.23 - Acute on chronic systolic (congestive) heart failure (2) Cellulitis of right lower extremity without foot Status: Ruled-out (3) Cellulitis of left lower extremity without foot Status: Ruled-out (4) Anasarca Status: Chronic (5) Elevated troponin Status: Resolved (6) Ulcer of left lower extremity with fat layer exposed Status: Chronic (7) PVD (peripheral vascular disease) Status: Chronic (8) Venous insufficiency Status: Chronic (9) Type 2 diabetes mellitus with diabetic polyneuropathy Status: Chronic (10) Malnutrition Status: Chronic Qualifiers: Malnutrition type: protein-calorie malnutrition Protein-calorie malnutrition severity: moderate Qualified Code(s): E44.0 - Moderate protein- calorie malnutrition (11) Obesity Status: Chronic (12) GI bleed Status: Resolved Qualifiers: (13) STEMI (ST elevation myocardial infarction) Status: Chronic Qualifiers: (14) COPD exacerbation Status: Chronic (15) Chronic respiratory failure with hypoxia Status: Chronic (16) Decompensated heart failure Status: Chronic (17) Type 2 diabetes mellitus with hyperglycemia Status: Chronic Qualifiers: (18) Acute kidney injury Status: Inactive (19) Morbid obesity Status: Chronic (20) Hypothyroidism Status: Chronic Qualifiers: (21) Hyperlipidemia Status: Chronic Qualifiers: (22) Former tobacco use Status: Chronic (23) Anemia Status: Chronic Qualifiers: (24) Hypoxemia Status: Chronic (25) Hypothyroid Status: Chronic (26) Diabetes Status: Chronic (27) CHF (congestive heart failure) Status: Chronic History of Present Illness Date of Admission: 02/24/20 Chief Complaint: leg redness The patient is a 74 year old M who was hospitalized with a myocardial infarction from February 08 to the , he left AMA, ER visits on the , , and then again on the where he was subsequently admitted and then left again AGAINST MEDICAL ADVICE on the presents again to the emergency room. Patient had a myocardial infarction from to the refused evaluation and left AGAINST MEDICAL ADVICE. He presented on the with a GI bleed as he was having black stool that was brown. He presented on the with abdominal pain and signed out AMA. He presented with shortness of breath on the did receive Lasix and was discharged home with oxygen. And then was admitted from the of with anasarca and possible cellulitis and he left AGAINST MEDICAL ADVICE on the . Patient found out that home care would not see him as he has left AGAINST MEDICAL ADVICE and so he is concerned about the redness in his legs. Stated that he was sorry for leaving AGAINST MEDICAL ADVICE the previous 2 admissions though does not elaborate as to how he is going to listen to the physician's moving forward. Patient did receive antibiotics in the emergency room for possible cellulitis. The hospitalist service was contacted for evaluation for admission. Apparently at home, patient had oxygen tubing with rubber bands around the tubing unclear what purpose these rubber band served. [] Past Medical History Past Medical History (Chronic Problems): Chronic Problems (Last Reviewed 02/20/20 @ 13:[address] Agustín Diaz MD) Anasarca (Chronic) Ulcer of left lower extremity with fat layer exposed (Chronic) PVD (peripheral vascular disease) (Chronic) Venous insufficiency (Chronic) Type 2 diabetes mellitus with diabetic polyneuropathy (Chronic) Malnutrition (Chronic) Obesity (Chronic) STEMI (ST elevation myocardial infarction) (Chronic) COPD exacerbation (Chronic) Chronic respiratory failure with hypoxia (Chronic) Decompensated heart failure (Chronic) Type 2 diabetes mellitus with hyperglycemia (Chronic) Morbid obesity (Chronic) Hypothyroidism (Chronic) Hyperlipidemia (Chronic) Former tobacco use (Chronic) Anemia (Chronic) Hypoxemia (Chronic) Hypothyroid (Chronic) Diabetes (Chronic) CHF (congestive heart failure) (Chronic) Medical History: Medical History (Last Reviewed 02/24/20 @ 15:[address] Marlo Helms DO) Ulcer of left lower extremity with fat layer exposed (Chronic) L97.922 PVD (peripheral vascular disease) (Chronic) I73.9 Venous insufficiency (Chronic) I87.2 Type 2 diabetes mellitus with diabetic polyneuropathy (Chronic) E11.42 Malnutrition (Chronic) E46 Obesity (Chronic) E66.9 GI bleed (Resolved) K92.2 STEMI (ST elevation myocardial infarction) (Chronic) I21.3 COPD exacerbation (Chronic) J44.1 Chronic respiratory failure with hypoxia (Chronic) J96.11 Decompensated heart failure (Chronic) I50.9 Type 2 diabetes mellitus with hyperglycemia (Chronic) E11.65 Acute kidney injury (Inactive) N17.9 Morbid obesity (Chronic) E66.01 Hypothyroidism (Chronic) E03.9 Hyperlipidemia (Chronic) E78.5 Former tobacco use (Chronic) Z87.891 Anemia (Chronic) D64.9 Hypoxemia (Chronic) R09.02 Hypothyroid (Chronic) E03.9 Diabetes (Chronic) E11.9 CHF (congestive heart failure) (Chronic) I50.9 Abdominal pain R10.9 Allergies bee venom protein (honey bee) Allergy (Verified 02/24/20 13:13) Angioedema Penicillins Allergy (Verified 02/24/20 13:13) Rash acetaminophen [From Vicodin] Adverse Reaction (Verified 02/24/20 13:13) Itching hydrocodone bitartrate [From Vicodin] Adverse Reaction (Verified 02/24/20 13:13) Itching Home Medications: Ambulatory Orders Medication Instructions Recorded Levothyroxine [Synthroid] 112 mcg PO DAILY 09/10/13 metFORMIN HCl [Glucophage] 1,000 mg PO BIDCM 09/10/13 Atorvastatin Calcium [Lipitor] 20 mg PO QHS 01/16/17 Nitroglycerin 0.4 mg SL TID PRN PRN #20 tab.subl 01/17/20 Albuterol Inhaler [Ventolin Hfa] 2 puff INHALATION Q4H PRN PRN #1 01/22/20 inhaler Furosemide [Lasix] 20 mg PO DAILY 02/09/20 Pantoprazole Sodium [Protonix] 20 mg PO BID #20 tab 02/16/20 Sucralfate [Carafate] 1 gm PO 4X/DAY #40 tab 02/16/20 Surgical History: noncontributory, - - Umbilical hernia repair, penile foreskin surgery. Psychiatric History: No pertinent psych hx Smoking Status: Former smoker - *Family History Maternal History Items: Cancer - Mother with history of colon cancer., Diabetes Paternal History Items: - - Patient denies any market paternal family history including heart disease, diabetes, cancer. Review of Systems Constitutional: Denies: Anorexia, Chills, Fever, Night Sweats Eyes: Denies: Blurred vision, Double vision HEENT: Denies: Head Aches, Sinus Congestion, Sinus Drainage Cardiovascular: Denies: Chest Pain, Palpitations Respiratory: Denies: Cough, Shortness of breath at rest, Sputum production Gastrointestinal: Denies: Abdominal Pain, Nausea, Vomiting Genitourinary: Denies: Dysuria Musculoskeletal: Denies: Joint Pain, Joint Tenderness Skin: Reports: - - Redness on his lower extremities Comment: All review of systems were negative except as mentioned above in the history of present illness and the other review of systems. VTE Information - Inpt Only VTE Present on Admission: No VTE Mechan Device Prophylaxis: None VTE Pharm Prophylaxis ordered?: Yes - Physical Exam Vitals/I&O's: Vital Signs Temp Pulse Resp BP Pulse Ox 36.9 C 86 16 139/108 H 95 02/24/20 14:44 02/24/20 14:44 02/24/20 14:44 02/24/20 14:44 02/24/20 14:44 Oxygen Flow Rate (L/min) 2 Oxygen Delivery Method Room Air Weight: 116.9 kg Body Mass Index (BMI) 42.8 Finger Stick Blood Glucose 298 Intake and Output for Last 24 Hours 02/22/20 02/23/20 02/24/20 23:59 23:59 23:59 Intake Total 2.5 / 2.5 Balance 2.5 / 2.5 General: Alert, Cooperative, No apparent distress, - - Mini cog was performed and patient got 0 out of 5. Patient's clock drawing started off with 12 at the top but then starting writing the numbers in reverse order. And his recall was 0 out of 3. HEENT: Atraumatic, Normocephalic Oral: Moist Mucosa, No Gingival or Mucosal Lesions/ Ulcerations Neck: No Nodes, Thyroid Normal Size and Texture Lungs: Clear to auscultation, Normal air movement, No rhonchi, No wheeze, No rales Cardiovascular: Regular rate, Regular Rhythm, Normal S1, Normal S2, - - 2-6 systolic ejection murmur at the right upper sternal border Abdomen: Bowel Sounds Present, Soft, Non Tender, Non-Distended Extremities: - - Lymphedema in lower extremities with venous stasis changes. Skin: - - Well-defined venous stasis changes of the lower extremities. Patient has these concentric red lesions on the anterior shins but also on the left that was extending more laterally. Musculoskeletal: No Tenderness to Palpation of Joints or Extremities, No Muscle Wasting Neurological: Muscle tone normal, Coordination normal Psych/Mental Status: Agitated, Anxious Laboratory Results 02/24/20 13:49: WBC 6.5, RBC 2.76 L, Hgb 8.3 L, Hct 28.2 L, MCV 102.2 H, MCH 30.1, MCHC 29.4 L, RDW Std Deviation 58.9 H, RDW Coeff of Emili 15.8 H, Plt Count 154, MPV 9.8, Immature Gran % (Auto) 1.700 H, Neut % (Auto) 75.3 H, Lymph % (Auto) 9.8 L, Traill % (Auto) 10.9 H, Eos % (Auto) 1.5, Baso % (Auto) 0.8, Absolute Neuts (auto) 4.9, Absolute Lymphs (auto) 0.64 L, Nucleated RBC % 0 02/24/20 13:49: Sodium 139, Potassium 4.3, Chloride 96 L, Carbon Dioxide 41.0 H, Anion Gap 2 L, BUN 25 H, Creatinine 0.94, Estim Creat Clear Calc 59.06, Est GFR (MDRD) Af Amer 100, Est GFR (MDRD) Non-Af 83, BUN/Creatinine Ratio 26.5 H, Glucose 245 H, Calcium 7.8 L, Total Bilirubin 0.40, AST 50 H, ALT 31, Alkaline Phosphatase 162 H, Troponin I 0.038, Total Protein 6.7, Albumin 2.4 L, Globulin 4.3 H, Albumin/Globulin Ratio 0.6 L Echocardiogram from showed an EF of 65% with concentric LVH, left atrium mildly enlarged, mild aortic stenosis. Ventricular systolic pressure at 50 mmHg consistent with pulmonary hypertension. EKG reviewed and showed normal sinus rhythm with a right bundle branch block. This was unchanged from the . Current Medications Sodium Chloride () 250 mls @ 15 mls/hr IV .[id number] PRN PRN Reason: Saline Flush Last Infusion: 02/24/20 14:46 Dose: 0 mls/hr Documented by: Sodium Chloride () 250 mls @ 15 mls/hr IV .[id number] PRN PRN Reason: Additional IVPB Infusion Assessment/Plan All Active Problems (Last Reviewed 02/20/20 @ 13:[address] Agustín Diaz MD) Acute exacerbation of congestive heart failure (Acute) Cellulitis of right lower extremity without foot (Ruled-out) Cellulitis of left lower extremity without foot (Ruled-out) Elevated troponin (Resolved) GI bleed (Resolved) 1. Anasarca: Complicated picture due to heart failure with preserved ejection fraction, pulmonary hypertension, medical noncompliance. Will initiate the patient on IV furosemide and monitor his output. Patient will need constant reassurance and reminding of appropriate usage of medication and daily weights and dietary recommendations. 2. Venous stasis dermatitis: Patient has very marked erythema bilaterally. Is not symmetric but I do not feel the patient does have cellulitis. Patient did receive Rocephin in the emergency room. Going to hold off on antibiotics for now but reconsider if his legs to become more erythematous. 3. Suspected dementia: Patient's mini cog was 0 out of 5. He did not know the year. Patient has poor insight into his medical issues as well as care for himself. I do not feel the patient is competent to make a decision to leave AGAINST MEDICAL ADVICE and if he insists on doing so before he is medically ready that he would not be able to make that with any level of competency. I have advised the charge nurse on [facility] floor about this and that he under no circumstances can leave AGAINST MEDICAL ADVICE at this point time. May need to consider a competency evaluation. 4. Diabetes mellitus type 2: Continue with metformin as well as sliding scale insulin. 5. Recent non-STEMI: Continue with statin. Start aspirin as well as JAMES inhibitor. 6. Recent GI bleed. Patient hemoglobin of 4.8 back in February 08. Was transfused and hemoglobin has remained stable. Been no evidence of any further bleeding. Despite all the patient's noncompliance he did follow-up with Dr. Mckeon on the and given his medical complexity did not feel endoscopy is immediately necessary. Continue with PPI and sucralfate. 7. Pulmonary hypertension: Likely group 2 or 3 related with CHF as well as sleep apnea. Patient would benefit from getting an outpatient polysomnogram though compliance will enter this. 8. VTE prophylaxis: Low molecular weight heparin. Inpatient E&M: 43237 Init Hosp L3
[2020-02-24 15:09] VITALS: BP 146/62; PULSE 85; RESP 20; TEMP 36.7; O2SAT 93
[2020-02-24 16:17] VITALS: BMI 41.8
--- NOTE | 2020-02-24 16:37 | ED.RN ---
1T 1530 PT CUSTOMER SERVICE DONE FOR PT NEEDS. PT DENIES NEEDING ANYTHING PER THIS RN AT THAT TIME. PT INFORMED OF AWAITING A BED FOR ADMISSION, PT CALL LIGHT IN PLACE ON LEFT SIDE RAIL TO RING FOR ASSISTANCE. AT 1540 PT OUT OF BED SITTING IN CHAIR. BINDERY CHIEF RIPPED OFF OF CHEST. PT TANGLED IN IV TUBING. THIS RN UNTANGLED PT LINES AND REPLACED BINDERY CHIEF. ASSISTED PT BACK INTO BED. PT EDUCTED NOT TO GET OUT OF BED WITHOUT ASSISTANCE. PT VERBALIZES UNDERSTANDING.
[2020-02-24 16:51] LABS: Bedside Glucose 203 mg/dL (70-110)
[2020-02-24] MEDS: metFORMIN HCl 1,000 MG Tablet 1000 MG PO (17:51)
[2020-02-24] MEDS: 0.9% Saline Lock 10 ML Syringe IV (17:51)
[2020-02-24] MEDS: Insulin Lispro 100 UNIT/ML INSULN.PEN SC ×2 (17:51→22:11)
[2020-02-24] MEDS: Furosemide 40 MG/4 ML Vial IV (17:51)
[2020-02-24 21:20] VITALS: BP 146/57; PULSE 77; RESP 18; TEMP 36.6; O2SAT 96
[2020-02-24] MEDS: Acetaminophen 325 MG Tablet 650 MG PO (21:40)
[2020-02-24] MEDS: Sucralfate 1 GM Tablet PO (21:40)
[2020-02-24] MEDS: Atorvastatin Calcium 20 MG Tablet PO (21:41)
[2020-02-24] MEDS: Pantoprazole Sodium 20 MG Tablet PO (21:41)
[2020-02-24] MEDS: CLARIFY ORDER NOTE (21:43)
[2020-02-24 21:50] LABS: Bedside Glucose 263 mg/dL (70-110)
[2020-02-25 03:20] VITALS: BP 112/47; PULSE 64; RESP 16; TEMP 36.9; O2SAT 96
[2020-02-25] MEDS: Acetaminophen 325 MG Tablet 650 MG PO (04:37)
[2020-02-25] MEDS: Levothyroxine 112 MCG Tablet PO (06:42)
[2020-02-25] MEDS: Sucralfate 1 GM Tablet PO ×4 (06:42→21:28)
[2020-02-25 06:50] LABS: Bedside Glucose 146 mg/dL (70-110)
[2020-02-25 07:37] LABS: Absolute Lymphocyte Count 1.14 X10^3/uL (0.83-4.51); Absolute Neutrophil Count 4.5 X10^3/uL (2.0-7.7); Basophil# 0.05 X10^3/uL; Basophil% 0.8 % (0-1); Eosinophil# 0.18 X10^3/uL; Eosinophils% 2.7 % (0-5); Hematocrit 28.4 % (40-54); Lymphocyte # 1.14 X10^3/ul (4.0); Lymphocyte % 17.2 % (19-41); Mean Corp Hgb Conc 28.2 g/dL (32-36); Mean Corpuscular Hgb 29.1 pg (27.0-32.0); Mean Corpuscular Volume 103.3 fL (80-94); Mean Platelet Vol. 9.5 fl (6.2-12.0); Monocyte# 0.66 X10^3/uL; NRBC Flagged by Analyzer 0 % (0-5); Neutrophil # 4.46 X10^3/uL (2.7-7.7); Neutrophil % 67.3 % (47-70); Platelet Count 154 K/mm3 (150-450); RBC Distribution Width CV 15.8 % (11.6-14.6); RBC Distribution Width SD 59.9 fl (35.1-43.9); Red Blood Count 2.75 M/mm3 (4.6-6.2); White Blood Count 6.6 K/mm3 (4.4-11.0)
[2020-02-25 07:56] LABS: Anion Gap 1 (5-15); BUN 23 mg/dL (7-18); BUN/Creat Ratio 25.7 RATIO (10-20); Calcium,Total 7.9 mg/dL (8.5-10.1); Chloride 96 mmol/L (98-107); EST Glomerular Filtration Rate 88 mL/min (>60); Est Glom Filt Rate - Afr Amer 106 mL/min (>60); Estimated Creatinine Clearance 61.69 ml/min; Glucose 150 mg/dL (74-106); Potassium 3.4 mmol/L (3.5-5.1); Sodium Level 139 mmol/L (136-145)
[2020-02-25] MEDS: Aspirin 81 MG TAB.CHEW PO (09:39)
[2020-02-25] MEDS: metFORMIN HCl 1,000 MG Tablet 1000 MG PO (09:39)
[2020-02-25] MEDS: Enoxaparin 40 MG/0.4 ML Syringe SC (09:43)
[2020-02-25] MEDS: Pantoprazole Sodium 20 MG Tablet PO ×2 (09:44→21:28)
[2020-02-25] MEDS: Furosemide 40 MG/4 ML Vial IV ×2 (09:44→16:20)
[2020-02-25] MEDS: Lisinopril 5 MG Tablet PO (09:44)
[2020-02-25 10:12] VITALS: BP 132/43; PULSE 79; RESP 20; TEMP 36.7; O2SAT 96
[2020-02-25] MEDS: Ibuprofen 400 MG Tablet 800 MG PO ×2 (10:56→21:28)
[2020-02-25] MEDS: Insulin Lispro 100 UNIT/ML INSULN.PEN SC ×3 (11:01→21:28)
[2020-02-25 12:00] LABS: Bedside Glucose 314 mg/dL (70-110)
--- NOTE | 2020-02-25 12:24 | PN_ITS ---
Patient Problems: Active and Suspected Problems (Last Reviewed 02/24/20 @ 15:[address] Marlo Helms, DO) Acute exacerbation of congestive heart failure (Acute) Subjective: Confused, does not know what year it is. Does not answer questions appropriately. When I try to assess him for at least some competence about what the risks are if he stays to get treatment versus the risks of going home he is unable to answer appropriately Vitals/I&O's: Vital Signs Temp Pulse Resp BP Pulse Ox 98.1 F 79 20 H 132/43 H 96 02/25/20 10:12 02/25/20 10:12 02/25/20 10:12 02/25/20 10:12 02/25/20 10:12 Oxygen Flow Rate (L/min) 2 Oxygen Delivery Method Nasal Cannula Weight: 251 lb 7 oz Body Mass Index (BMI) 41.8 Finger Stick Blood Glucose 298 Intake and Output for Last 24 Hours 02/23/20 02/24/20 02/25/20 23:59 23:59 23:59 Intake Total 65.0 / 65.0 Output Total 300 / 300 750 / 750 Balance -235.0 / -235.0 -750 / -750 General: Alert, confused and disoriented aggressive HEENT: Atraumatic, PERRLA, EOMI, Normocephalic Oral: Moist Mucosa Neck: Supple, No JVD Lungs: Normal air movement, No rhonchi, No wheeze, No rales, Diminished Cardiovascular: Regular rate, Regular Rhythm, Normal S1, Normal S2, No murmurs Abdomen: Soft, Non Tender, Non-Distended, No Hepato-splenomegaly Extremities: Lymphedema, Capillary Refill Less than 3 Seconds Skin: Venous stasis changes Neurological: Neuro grossly intact, Sensory exam intact to light touch and pain Psych/Mental Status: Agitated Laboratory Results 02/24/20 13:49: WBC 6.5, RBC 2.76 L, Hgb 8.3 L, Hct 28.2 L, MCV 102.2 H, MCH 30.1, MCHC 29.4 L, RDW Std Deviation 58.9 H, RDW Coeff of Emili 15.8 H, Plt Count 154, MPV 9.8, Immature Gran % (Auto) 1.700 H, Neut % (Auto) 75.3 H, Lymph % (Auto) 9.8 L, Bates % (Auto) 10.9 H, Eos % (Auto) 1.5, Baso % (Auto) 0.8, Absolute Neuts (auto) 4.9, Absolute Lymphs (auto) 0.64 L, Nucleated RBC % 0 02/24/20 13:49: Sodium 139, Potassium 4.3, Chloride 96 L, Carbon Dioxide 41.0 H, Anion Gap 2 L, BUN 25 H, Creatinine 0.94, Estim Creat Clear Calc 59.06, Est GFR (MDRD) Af Amer 100, Est GFR (MDRD) Non-Af 83, BUN/Creatinine Ratio 26.5 H, Glucose 245 H, Calcium 7.8 L, Total Bilirubin 0.40, AST 50 H, ALT 31, Alkaline Phosphatase 162 H, Troponin I 0.038, Total Protein 6.7, Albumin 2.4 L, Globulin 4.3 H, Albumin/Globulin Ratio 0.6 L 02/24/20 16:46: POC Glucose 203 H 02/24/20 21:38: POC Glucose 263 H 02/25/20 06:39: POC Glucose 146 H 02/25/20 07:25: WBC 6.6, RBC 2.75 L, Hgb 8.0 L, Hct 28.4 L, MCV 103.3 H, MCH 29.1, MCHC 28.2 L, RDW Std Deviation 59.9 H, RDW Coeff of Emili 15.8 H, Plt Count 154, MPV 9.5, Immature Gran % (Auto) 2.000 H, Neut % (Auto) 67.3, Lymph % (Auto) 17.2 L, Bates % (Auto) 10.0, Eos % (Auto) 2.7, Baso % (Auto) 0.8, Absolute Neuts (auto) 4.5, Absolute Lymphs (auto) 1.14, Nucleated RBC % 0 02/25/20 07:25: Sodium 139, Potassium 3.4 L, Chloride 96 L, Carbon Dioxide 42.0 H, Anion Gap 1 L, BUN 23 H, Creatinine 0.90, Estim Creat Clear Calc 61.69, Est GFR (MDRD) Af Amer 106, Est GFR (MDRD) Non-Af 88, BUN/Creatinine Ratio 25.7 H, Glucose 150 H, Calcium 7.9 L 02/25/20 11:00: POC Glucose 314 H Current Medications Acetaminophen (Acetaminophen 325 Mg Tablet) 650 mg PO Q6H PRN PRN PRN Reason: Pain Score 1-10/Temp > 100.7 F Last Admin: 02/25/20 04:37 Dose: 650 mg Documented by: Albuterol Sulfate (Albuterol 2.5 Mg/3 Ml Vial.Neb.) 2.5 mg INHALATION Q4H PRN PRN PRN Reason: WHEEZING Aspirin (Aspirin 81 Mg Tab.Chew) 81 mg PO DAILY@0800 [facility] Last Admin: 02/25/20 09:39 Dose: 81 mg Documented by: Atorvastatin Calcium (Atorvastatin Calcium 20 Mg Tablet) 20 mg PO QHS [facility] Last Admin: 02/24/20 21:41 Dose: 20 mg Documented by: Dextrose (Dextrose 50%-Water 25 Gm/50 Ml Disp.Syrin) 0 gm IV X1 PRN; Protocol PRN Reason: Hypoglycemia Enoxaparin Sodium (Enoxaparin 40 Mg/0.4 Ml Syringe) 40 mg SC DAILY [facility] Last Admin: 02/25/20 09:43 Dose: 40 mg Documented by: Furosemide (Furosemide 40 Mg/4 Ml Vial) 40 mg IV BID@1000,1800 [facility] Last Admin: 02/25/20 09:44 Dose: 40 mg Documented by: Glucagon (Glucagon 1 Mg/Ml Syringe) 1 mg IM .X1 PRN PRN Reason: Hypoglycemia Sodium Chloride () 250 mls @ 15 mls/hr IV .[id number] PRN PRN Reason: Saline Flush Sodium Chloride () 250 mls @ 15 mls/hr IV .[id number] PRN PRN Reason: Additional IVPB Infusion Ibuprofen (Ibuprofen 400 Mg Tablet) 800 mg PO Q6H PRN PRN PRN Reason: Pain 1-10 or Fever Last Admin: 02/25/20 10:56 Dose: 800 mg Documented by: Insulin Human Lispro (Insulin Lispro 100 Unit/Ml Insuln.Pen) 0 unit SC ACHS [facility]; Protocol Last Admin: 02/25/20 11:01 Dose: 6 units Documented by: Levothyroxine Sodium (Levothyroxine 112 Mcg Tablet) 112 mcg PO DAILY@0600 [facility] Last Admin: 02/25/20 06:42 Dose: 112 mcg Documented by: Lisinopril (Lisinopril 5 Mg Tablet) 5 mg PO DAILY [facility] Last Admin: 02/25/20 09:44 Dose: 5 mg Documented by: Metformin HCl (Metformin Hcl 1,000 Mg Tablet) 1,000 mg PO BIDCM [facility] Last Admin: 02/25/20 09:39 Dose: 1,000 mg Documented by: Nitroglycerin (Nitroglycerin (Inpatient Use) 0.4 Mg Tab.Subl) 0.4 mg SUBLINGUAL Q5M PRN PRN Reason: CARDIAC/CHEST PAIN Pantoprazole Sodium (Pantoprazole Sodium 20 Mg Tablet) 20 mg PO BID [facility] Last Admin: 02/25/20 09:44 Dose: 20 mg Documented by: Sodium Chloride (0.9% Saline Lock 10 Ml Syringe) 10 - 40 ml IV UD PRN PRN Reason: SALINE FLUSH Last Admin: 02/24/20 17:51 Dose: 10 ml Documented by: Sucralfate (Sucralfate 1 Gm Tablet) 1 gm PO ACHS [facility] Last Admin: 02/25/20 10:57 Dose: 1 gm Documented by: STROKE Vital Signs/Narrative: Vital Signs Temp Pulse Resp BP Pulse Ox 02/25/20 10:12 98.1 F 79 20 H 132/43 H 96 Medical Necessity - Tobacco Use Smoking Status: Former smoker Assessment/Plan All Active Problems (Last Reviewed 02/24/20 @ 15:[address] Marlo Helms, DO) Acute exacerbation of congestive heart failure (Acute) Cellulitis of right lower extremity without foot (Ruled-out) Cellulitis of left lower extremity without foot (Ruled-out) Elevated troponin (Resolved) GI bleed (Resolved) 1. Anasarca secondary to acute diastolic CHF/HLD/HTN/recent non-STEMI/dementia with and inability to make his own decisions/pulmonary hypertension -Continue with Lasix, his oxygen requirements did improve and the echo demonstrated right ventricular systolic pressure of 50 mmHg with a normal EF -He was on BiPAP for his obesity hypoventilation syndrome as well as his history of COPD though not currently in exacerbation -He left AMA 2 days ago from his previous admission. He does have significant signs of dementia and there is a concern for being incompetent to make his decisions. He does not know what year it is and when you ask what year it is he gets extremely aggressive. He is already demanding to leave again and when I asked him what the risk is of him leaving he cannot answer he just says that he is fine. I do recommend that we pursue aggressive course in getting him a guardian to make appropriate healthcare decisions as he does not appear able to make those decisions on his own behalf at this time. -Continue with statins and his home blood pressure medications 2. DM 2 -Hold his oral hypoglycemics continue Accu-Cheks and sliding scale insulin 3. GERD -Stable -Continue with PPI and Carafate -Had followed up with Dr. Mckeon as an outpatient no need for an EGD 4. Hypothyroidism -Stable -Continue Synthroid DVT: Lovenox Inpatient E&M: 03914 Subs Hosp L2
[2020-02-25 15:49] VITALS: BP 128/45; PULSE 75; RESP 18; TEMP 36.9; O2SAT 95
[2020-02-25] MEDS: 0.9% Saline Lock 10 ML Syringe IV (16:20)
[2020-02-25 16:31] LABS: Bedside Glucose 195 mg/dL (70-110)
[2020-02-25 17:35] LABS: Bedside Glucose 163 mg/dL (70-110)
[2020-02-25 20:55] VITALS: BP 138/66; PULSE 77; RESP 18; TEMP 36.6; O2SAT 99
[2020-02-25] MEDS: Atorvastatin Calcium 20 MG Tablet PO (21:28)
[2020-02-25 22:15] LABS: Bedside Glucose 204 mg/dL (70-110)
[2020-02-26] MEDS: Acetaminophen 325 MG Tablet 650 MG PO (01:11)
[2020-02-26] MEDS: MELATONIN 3 MG TABLET PO (02:02)
[2020-02-26 02:52] VITALS: BP 131/51; PULSE 76; RESP 18; TEMP 36.6; O2SAT 98
[2020-02-26] MEDS: Ibuprofen 400 MG Tablet 800 MG PO (06:09)
[2020-02-26] MEDS: Sucralfate 1 GM Tablet PO ×2 (06:09→10:50)
[2020-02-26] MEDS: Levothyroxine 112 MCG Tablet PO (06:09)
[2020-02-26] MEDS: Insulin Lispro 100 UNIT/ML INSULN.PEN SC (06:43)
[2020-02-26 06:45] LABS: Absolute Lymphocyte Count 1.25 X10^3/uL (0.83-4.51); Absolute Neutrophil Count 4.2 X10^3/uL (2.0-7.7); Basophil# 0.04 X10^3/uL; Basophil% 0.6 % (0-1); Eosinophil# 0.16 X10^3/uL; Eosinophils% 2.5 % (0-5); Lymphocyte # 1.25 X10^3/ul (4.0); Lymphocyte % 19.6 % (19-41); Mean Corp Hgb Conc 29.6 g/dL (32-36); Mean Corpuscular Hgb 29.4 pg (27.0-32.0); Mean Corpuscular Volume 99.3 fL (80-94); Mean Platelet Vol. 9.7 fl (6.2-12.0); Monocyte# 0.65 X10^3/uL; Monocyte% 10.2 % (0-10); NRBC Flagged by Analyzer 0 % (0-5); Neutrophil % 65.8 % (47-70); Platelet Count 167 K/mm3 (150-450); RBC Distribution Width CV 15.6 % (11.6-14.6); RBC Distribution Width SD 55.6 fl (35.1-43.9); Red Blood Count 2.72 M/mm3 (4.6-6.2); White Blood Count 6.4 K/mm3 (4.4-11.0)
[2020-02-26 06:51] LABS: Bedside Glucose 161 mg/dL (70-110)
[2020-02-26 07:15] LABS: Anion Gap 2 (5-15); BUN 22 mg/dL (7-18); BUN/Creat Ratio 23.1 RATIO (10-20); Calcium,Total 7.7 mg/dL (8.5-10.1); Chloride 93 mmol/L (98-107); Creatinine, Serum 0.95 mg/dL (0.70-1.30); EST Glomerular Filtration Rate 82 mL/min (>60); Est Glom Filt Rate - Afr Amer 99 mL/min (>60); Estimated Creatinine Clearance 58.44 ml/min; Glucose 156 mg/dL (74-106); Potassium 3.4 mmol/L (3.5-5.1); Sodium Level 139 mmol/L (136-145)
[2020-02-26 08:30] VITALS: BP 131/53; PULSE 78; RESP 18; TEMP 36.4; O2SAT 100
--- NOTE | 2020-02-26 08:33 | NURSING ---
pt in hallway, employment program representative remains with patient as pt refusing to stay in his room and wanting to leave. verbal explination given to patient. discussed talking with physician as well as social sciences chair/case management regarding home care. primary RN with patient as well.
--- NOTE | 2020-02-26 08:59 | NURSING ---
skin photo: right lower leg
--- NOTE | 2020-02-26 09:00 | NURSING ---
wound photo: left lower leg
--- NOTE | 2020-02-26 09:00 | NURSING ---
skin photo: left medial lower leg
--- NOTE | 2020-02-26 09:30 | NURSING ---
Patient out to desk multiple times, pleasant, but agitated expressing desire to leave and requesting to see the physician. Informed patient multiple times that Dr Helms is aware and will be up to the floor to see him when he is available. Upon leaving patient's room on one occurrence Dr Helms was in the hallway. Dr Helms again notified of patient's desire to leave. Dr Helms expressed his concerns with patient's capacity for decision making and stated that he wanted to ensure adequate discharge planning and did not feel the patient had the capacity to leave AMA at this time. Dr Helms stated that he was going to perform another assessment to determine discharge planning. Patient had previously reported a brother that could help to check on him if discharged home. Discussed discharge plan with Carmita from Case Management who stated that home health was set up on Wednesday but could not see the patient since he elected to leave AMA on that visit. Carmita confirmed that patient would be accepted to home health if discharged through appropriate channels. This nurse and Carmita attempted to find contact information for patient's brother. He stated that his name was Agustín oWlf but he could not remember the phone number. This nurse requested permission to view patient's phone to help him locate a contact number. Unable to find Agustín wolf listed as no contacts were entered. Carmita able to find contact information in a previous visit information. Brother Agustín notified by Carmita
--- NOTE | 2020-02-26 09:30 | CASEMGMT ---
DAMION OSORIO updated by wound nurse that patient is wanting to discharge home with [facility]. Patient not active with [facility] as patient left AMA last admission on 02/23/20. DAMION OSORIO in to discuss discharge planning with patient. Patient would like [facility], DAMION OSORIO called [facility] that had accepted him prior to leaving AMA. DAMION OSORIO called [facility] regarding reacceptance for [facility]. [facility] is willing to accept the patient. Patient tells staff he has a brother but is not listed on contacts. Patient gave permission for this DAMION OSORIO and Damion BRUNO to look at cell phone for brothers number. No names for contacts in phone. DAMION OSORIO reviewed past facesheets and found number for brother Eamon Parks. DAMION OSORIO called brother with patient's permission. Eamon states that patient lives alone. Eamon also states that they are working on HPOA and Living Will for patient. Brother states he will take patient to next doctor's appointment. DAMION OSORIO encouraged brother to look into guardianship as patient is forgetful and not making safe decisions for self. Brother voiced understanding. DAMION OSORIO sent updated clinical information to [facility]. DAMION OSORIO updated floor nurse Delia BRUNO regarding conversation with brother. Delia BRUNO to updated brother regarding discharge instructions at discharge. DAMION OSORIO updated hospitalist regarding discharge planning and conversation with brother.
[2020-02-26] MEDS: Aspirin 81 MG TAB.CHEW PO (10:49)
[2020-02-26] MEDS: Lisinopril 5 MG Tablet PO (10:49)
[2020-02-26] MEDS: Pantoprazole Sodium 20 MG Tablet PO (10:49)
[2020-02-26 11:06] LABS: Bedside Glucose 254 mg/dL (70-110)
--- NOTE | 2020-02-26 11:55 | DCINST_ITS ---
- Discharge Diagnoses Current Active Problems: Current Active and Chronic Problems (Last Reviewed 02/24/20 @ 15:[address] Marlo Helms, DO) Acute exacerbation of congestive heart failure (Acute) Anasarca (Chronic) Ulcer of left lower extremity with fat layer exposed (Chronic) PVD (peripheral vascular disease) (Chronic) Venous insufficiency (Chronic) Type 2 diabetes mellitus with diabetic polyneuropathy (Chronic) Malnutrition (Chronic) Obesity (Chronic) STEMI (ST elevation myocardial infarction) (Chronic) COPD exacerbation (Chronic) Chronic respiratory failure with hypoxia (Chronic) Decompensated heart failure (Chronic) Type 2 diabetes mellitus with hyperglycemia (Chronic) Morbid obesity (Chronic) Hypothyroidism (Chronic) Hyperlipidemia (Chronic) Former tobacco use (Chronic) Anemia (Chronic) Hypoxemia (Chronic) Hypothyroid (Chronic) Diabetes (Chronic) CHF (congestive heart failure) (Chronic) You will use the following diet at home:: Calorie/Carbohydrate Controlled (specify 1200, 1400, etc) - 2000, Cardiac, Fluid restricted (specify 2000 mls, 1500 mls) - 1500 ml/day Your food should be the consistency of: Regular Your liquids should be the consistency of: Regular/Thin Discharge Activity: Return to Normal Activity Call your doctor if you observe: Shortness of breath, - - increased redness in LE. Additional Instructions: Legs will need lymphedema wraps 3 times weekly, ideally Wednesday. Allergies/Adverse Reactions: Allergies bee venom protein (honey bee) Allergy (Verified 02/24/20 13:13) Angioedema Penicillins Allergy (Verified 02/24/20 13:13) Rash acetaminophen [From Vicodin] Adverse Reaction (Verified 02/24/20 13:13) Itching hydrocodone bitartrate [From Vicodin] Adverse Reaction (Verified 02/24/20 13:13) Itching Medications to take at Discharge Levothyroxine [Synthroid] 112 mcg PO DAILY 09/10/13 metFORMIN HCl [Glucophage] 1,000 mg PO BIDCM 09/10/13 Atorvastatin Calcium [Lipitor] 20 mg PO QHS 01/16/17 Nitroglycerin 0.4 mg SL TID PRN PRN #20 tab.subl 01/17/20 Albuterol Inhaler [Ventolin Hfa] 2 puff INHALATION Q4H PRN PRN #1 inhaler 01/22/20 Pantoprazole Sodium [Protonix] 20 mg PO BID #20 tab 02/16/20 Sucralfate [Carafate] 1 gm PO 4X/DAY #40 tab 02/16/20 Nitroglycerin 0.4 mg SL PRN PRN 02/24/20 Acetaminophen [Tylenol Tablet] 650 mg PO Q6H PRN PRN tablet 02/26/20 Aspirin [Aspirin, Baby] 81 mg PO DAILY@0800 tab.chew 02/26/20 Furosemide [Lasix] 40 mg PO BID #60 tab 02/26/20 Lisinopril [Zestril] 5 mg PO DAILY #30 tab 02/26/20 Potassium Chloride [K-Dur] 20 meq PO DAILY #30 tab 02/26/20 The following prescriptions were given: Potassium Chloride [K-Dur] 20 meq PO DAILY #30 tab Transmission Status: Pending to [facility] Furosemide [Lasix] 40 mg PO BID #60 tab Transmission Status: Pending to [facility] Lisinopril [Zestril] 5 mg PO DAILY #30 tab Transmission Status: Pending to [facility] Primary Care Physician: Jovani Mendez, PA [Primary Care Provider] - Within 1 Week Test Results: Test results from this visit will be discussed in further detail at your follow- up appointment, if applicable. Please Follow Up With: Vinicio Fernandez NP, TOOLS DEVELOPER-C When: 02/27/2020, already scheduled Proposed Discharge Date: 02/26/20
--- NOTE | 2020-02-26 11:57 | DS.PCM_ITS ---
Discharge Date and Diagnosis - Problem List Patient Problems: Active and Suspected Problems (Last Reviewed 02/24/20 @ 15:[address] Marlo Helms DO) Acute exacerbation of congestive heart failure (Acute) Date of Admission: 02/24/20 Date of Discharge: 02/26/20 - Primary Discharge Diagnosis Acute Problems: Active Problems (Last Reviewed 02/24/20 @ 15:[address] Marlo Helms DO) Acute exacerbation of congestive heart failure (Acute) - Secondary Discharge Diagnosis Chronic Problems: Chronic Problems (Last Reviewed 02/24/20 @ 15:[address] Marlo Helms DO) Anasarca (Chronic) Ulcer of left lower extremity with fat layer exposed (Chronic) PVD (peripheral vascular disease) (Chronic) Venous insufficiency (Chronic) Type 2 diabetes mellitus with diabetic polyneuropathy (Chronic) Malnutrition (Chronic) Obesity (Chronic) STEMI (ST elevation myocardial infarction) (Chronic) COPD exacerbation (Chronic) Chronic respiratory failure with hypoxia (Chronic) Decompensated heart failure (Chronic) Type 2 diabetes mellitus with hyperglycemia (Chronic) Morbid obesity (Chronic) Hypothyroidism (Chronic) Hyperlipidemia (Chronic) Former tobacco use (Chronic) Anemia (Chronic) Hypoxemia (Chronic) Hypothyroid (Chronic) Diabetes (Chronic) CHF (congestive heart failure) (Chronic) Hospital Course and Treatment Consultations 02/24/20 18:49 Consult: Onc/Wound/drop forge operator Routine Comment: Reason for Consult:: BLE seeping blisters and scattered sores. Operations: None Procedures: None Summary of Care Provided: The patient is a 74 year old M presents on the with increased redness in his legs. He reached out to his home health care agency but they declined to see him as he left the hospital AGAINST MEDICAL ADVICE on the . With that he decided to come into the emergency room. Patient stated that he was going to be compliant and then was very resistant actually listening. Did a mini cog on him and in the emergency room and he got a 0 out of 5 so is concerned about the patient's competency. The patient was diuresis he did have very profound l ymphedema and redness on his legs but no clinical evidence of cellulitis. Patient was put on IV furosemide. Today I saw the patient and he is alert and oriented x3. I did another mini cog on him and he got 3 out of 5. He got 3 out of 5 for memorization, the clock face he did it more properly this time where he went in the proper clockwise order of numbering but forgot to put in the #11. I had put in for 820 and then he wrote down in aerobic numbers 820. Case management reached out to his brother and he will be able to help with the patient. He will look into getting guardianship. Patient does have limited insight though I cannot definitely stable patient is incompetent but would benefit from better guardianship and oversight to his overall care as patient is obviously made bad decisions is to leave AGAINST MEDICAL ADVICE twice already this month. Patient will continue with furosemide will increase him from 20 to 40 mg twice daily. Complicating this is patient does have pulmonary hypertension which could be related with sleep apnea and would benefit from an outpatient polysomnogram. Given patient myocardial infarction, patient will continue with aspirin and atorvastatin. Patient has a follow-up appointment with cardiology tomorrow. [] Patient Problems: Active and Suspected Problems (Last Reviewed 02/24/20 @ 15:[address] Marlo Helms, DO) Acute exacerbation of congestive heart failure (Acute) - Physical Exam Vitals/I&O's: Vital Signs Temp Pulse Resp BP Pulse Ox 36.4 C L 78 18 131/53 H 100 02/26/20 08:30 02/26/20 08:30 02/26/20 08:30 02/26/20 08:30 02/26/20 08:30 Oxygen Flow Rate (L/min) 2 Oxygen Delivery Method Room Air Weight: 114.05 kg Body Mass Index (BMI) 41.8 Finger Stick Blood Glucose 298 Intake and Output for Last 24 Hours 02/24/20 02/25/20 02/26/20 23:59 23:59 23:59 Intake Total 65.0 / 65.0 420 / 420 0 / 0 Output Total 300 / 300 1250 / 2300 1385 / 1385 Balance -235.0 / -235.0 -830 / -1880 -1385 / -1385 General: Alert, No apparent distress HEENT: Atraumatic, Normocephalic Oral: Moist Mucosa, No Gingival or Mucosal Lesions/ Ulcerations Neck: No Nodes, Thyroid Normal Size and Texture Lungs: Clear to auscultation, Normal air movement, No rhonchi, No wheeze Cardiovascular: Regular rate, Regular Rhythm, Normal S1, Normal S2 Abdomen: Bowel Sounds Present, Soft, Non Tender, Non-Distended, No Hepato- splenomegaly Extremities: - - Legs wrapped and did not remove. Reviewed the images today from wound nurse and patient does have anterior black lymphedema venous stasis changes essentially unchanged from the 21st. On the left does extend more proximally on the lateral aspect of his lower leg. Neurological: - - Ambulating with a walker. No unsteadiness appreciated. Psych/Mental Status: Normal Affect, Appropriate Laboratory Results 02/25/20 11:00: POC Glucose 314 H 02/25/20 16:15: POC Glucose 195 H 02/25/20 17:28: POC Glucose 163 H 02/25/20 21:32: POC Glucose 204 H 02/26/20 06:24: WBC 6.4, RBC 2.72 L, Hgb 8.0 L, Hct 27.0 L, MCV 99.3 H, MCH 29.4, MCHC 29.6 L, RDW Std Deviation 55.6 H, RDW Coeff of Emili 15.6 H, Plt Count 167, MPV 9.7, Immature Gran % (Auto) 1.300 H, Neut % (Auto) 65.8, Lymph % (Auto) 19.6, Clare % (Auto) 10.2 H, Eos % (Auto) 2.5, Baso % (Auto) 0.6, Absolute Neuts (auto) 4.2, Absolute Lymphs (auto) 1.25, Nucleated RBC % 0 02/26/20 06:24: Sodium 139, Potassium 3.4 L, Chloride 93 L, Carbon Dioxide 44.0 H, Anion Gap 2 L, BUN 22 H, Creatinine 0.95, Estim Creat Clear Calc 58.44, Est GFR (MDRD) Af Amer 99, Est GFR (MDRD) Non-Af 82, BUN/Creatinine Ratio 23.1 H, Glucose 156 H, Calcium 7.7 L 02/26/20 06:41: POC Glucose 161 H 02/26/20 11:01: POC Glucose 254 H Current Medications Acetaminophen (Acetaminophen 325 Mg Tablet) 650 mg PO Q6H PRN PRN PRN Reason: Pain Score 1-10/Temp > 100.7 F Last Admin: 02/26/20 01:11 Dose: 650 mg Documented by: Albuterol Sulfate (Albuterol 2.5 Mg/3 Ml Vial.Neb.) 2.5 mg INHALATION Q4H PRN PRN PRN Reason: WHEEZING Aspirin (Aspirin 81 Mg Tab.Chew) 81 mg PO DAILY@0800 [facility] Last Admin: 02/26/20 10:49 Dose: 81 mg Documented by: Atorvastatin Calcium (Atorvastatin Calcium 20 Mg Tablet) 20 mg PO QHS [facility] Last Admin: 02/25/20 21:28 Dose: 20 mg Documented by: Dextrose (Dextrose 50%-Water 25 Gm/50 Ml Disp.Syrin) 0 gm IV X1 PRN; Protocol PRN Reason: Hypoglycemia Enoxaparin Sodium (Enoxaparin 40 Mg/0.4 Ml Syringe) 40 mg SC DAILY [facility] Last Admin: 02/26/20 10:49 Dose: Not Given Documented by: Furosemide (Furosemide 40 Mg/4 Ml Vial) 40 mg IV BID@1000,1800 [facility] Last Admin: 02/26/20 10:49 Dose: Not Given Documented by: Glucagon (Glucagon 1 Mg/Ml Syringe) 1 mg IM .X1 PRN PRN Reason: Hypoglycemia Sodium Chloride () 250 mls @ 15 mls/hr IV .[id number] PRN PRN Reason: Saline Flush Sodium Chloride () 250 mls @ 15 mls/hr IV .[id number] PRN PRN Reason: Additional IVPB Infusion Ibuprofen (Ibuprofen 400 Mg Tablet) 800 mg PO Q6H PRN PRN PRN Reason: Pain 1-10 or Fever Last Admin: 02/26/20 06:09 Dose: 800 mg Documented by: Insulin Human Lispro (Insulin Lispro 100 Unit/Ml Insuln.Pen) 0 unit SC ACHS [facility]; Protocol Last Admin: 02/26/20 06:43 Dose: 2 units Documented by: Levothyroxine Sodium (Levothyroxine 112 Mcg Tablet) 112 mcg PO DAILY@0600 [facility] Last Admin: 02/26/20 06:09 Dose: 112 mcg Documented by: Lisinopril (Lisinopril 5 Mg Tablet) 5 mg PO DAILY [facility] Last Admin: 02/26/20 10:49 Dose: 5 mg Documented by: Melatonin (Melatonin 3 Mg Tablet) 3 mg PO QHS [facility] Last Admin: 02/26/20 02:02 Dose: 3 mg Documented by: Nitroglycerin (Nitroglycerin (Inpatient Use) 0.4 Mg Tab.Subl) 0.4 mg SUBLINGUAL Q5M PRN PRN Reason: CARDIAC/CHEST PAIN Pantoprazole Sodium (Pantoprazole Sodium 20 Mg Tablet) 20 mg PO BID [facility] Last Admin: 02/26/20 10:49 Dose: 20 mg Documented by: Potassium Chloride (Potassium Chloride 20 Meq Tablet) 40 meq PO X1 ONE Stop: 02/26/20 11:54 Sodium Chloride (0.9% Saline Lock 10 Ml Syringe) 10 - 40 ml IV UD PRN PRN Reason: SALINE FLUSH Last Admin: 02/25/20 16:20 Dose: 10 ml Documented by: Sucralfate (Sucralfate 1 Gm Tablet) 1 gm PO ACHS [facility] Last Admin: 02/26/20 10:50 Dose: 1 gm Documented by: Discharge Diet: 1999 Calorie Control Diet Discharge Activity: Return to Normal Activity Call your doctor if you observe: Shortness of breath, - - increased redness in LE. Home Medications: Medications to take at Discharge Levothyroxine [Synthroid] 112 mcg PO DAILY 09/10/13 metFORMIN HCl [Glucophage] 1,000 mg PO BIDCM 09/10/13 Atorvastatin Calcium [Lipitor] 20 mg PO QHS 01/16/17 Nitroglycerin 0.4 mg SL TID PRN PRN #20 tab.subl 01/17/20 Albuterol Inhaler [Ventolin Hfa] 2 puff INHALATION Q4H PRN PRN #1 inhaler 01/22/20 Pantoprazole Sodium [Protonix] 20 mg PO BID #20 tab 02/16/20 Sucralfate [Carafate] 1 gm PO 4X/DAY #40 tab 02/16/20 Nitroglycerin 0.4 mg SL PRN PRN 02/24/20 Acetaminophen [Tylenol Tablet] 650 mg PO Q6H PRN PRN tablet 02/26/20 Aspirin [Aspirin, Baby] 81 mg PO DAILY@0800 tab.chew 02/26/20 Furosemide [Lasix] 40 mg PO BID #60 tab 02/26/20 Lisinopril [Zestril] 5 mg PO DAILY #30 tab 02/26/20 Potassium Chloride [K-Dur] 20 meq PO DAILY #30 tab 02/26/20 Following Prescriptions Were Given to Patient: Potassium Chloride [K-Dur] 20 meq PO DAILY #30 tab Transmission Status: Pending to [facility] Furosemide [Lasix] 40 mg PO BID #60 tab Transmission Status: Pending to [facility] Lisinopril [Zestril] 5 mg PO DAILY #30 tab Transmission Status: Pending to [facility] Primary Care Physician: Jovani Mendez PA, PA [Primary Care Provider] - Within 1 Week Please Follow Up With: Vinicio Fernandez PARCEL WRAPPER, PARCEL WRAPPER-C When: 02/27/2020, already scheduled Disposition: Home with Home Health Minutes spent on discharge:: 32 Patient Condition:: Fair Medical Necessity - Tobacco Use Smoking Status: Former smoker Meaningful Use Info Meaningful Use Diagnoses (Choose all that apply): CHF - CHF JAMES/ARB ordered at discharge?: Yes Documented LVEF (%): 65 Inpatient E&M: 55012 Disch Hosp
--- NOTE | 2020-02-26 15:09 | CASEMGMT ---
Social Work Note LAUREEN received call from Maria E Reddy CM at [facility]. LAUREEN updated Maria E that pt was discharged home today with HHC. Maria E states she was aware of Agustín Parks but didn't know it was pt's brother and thar Agustín Parks is pt's emergency contact. LAUREEN updated Maria E that HHC was arranged. Maria E states pt will not allow aides to do personal care. LAUREEN faxed discharge paperwork to Maria E Reddy. LAUREEN placed a call to Quang at [facility] and updated her that pt was admitted back to [facility] and then discharged home today with HHC. Quang also confirms she knew pt had a brother Agustín Parks. LAUREEN updated Quang that it was being recommended that pt and Agustín follow up with pt regarding guardianship. Quang states she doesn't necessarily agree with this, states she has known pt for a long time and pt has to have some kind of learning disability. Quang thanked this worker for the information. Carmita Ramires IT HELP DESK ASSOCIATE, [employer] DEVELOPER
--- NOTE | 2020-02-27 15:41 | CASEMGMT ---
DAMION OSORIO Discharge Follow-up Phone Call: CHANDANAAnia: Barron Strata: 4 Call Date: 02/27/20 Discharge Date: 02/26/20 Time of Call: [id number] Duration: 3 min Admitting Diagnosis: Lymphedema DAMION OSORIO completed follow-up phone call after recent hospitalization. Patient states he is doing well. Patient had no questions or concerns regarding discharge instructions. Patient states he was able to fill prescriptions without any issues. Patient says he has been in contact with [facility]. Patient states he has follow-up appt scheduled. Patient had no questions or concerns at this time.
== END 2020-02-26 12:29 | disposition home health service (06) | DRG 281 ==
LOC: ED 13:37 → MS3 15:48
PROVIDERS: Family Medicine; Emergency Provider Emergency Medicine; PCP Physician Assistant
DX: I50.43 Acute on chronic combined systolic (congestive) and diastolic (congestive) heart failure (principal); I21.3 ST elevation (STEMI) myocardial infarction of unspecified site; J96.11 Chronic respiratory failure with hypoxia; E44.0 Moderate protein-calorie malnutrition; L03.116 Cellulitis of left lower limb; Z68.41 Body mass index [BMI] 40.0-44.9, adult; E66.2 Morbid (severe) obesity with alveolar hypoventilation; E03.9 Hypothyroidism, unspecified; E78.5 Hyperlipidemia, unspecified; E11.42 Type 2 diabetes mellitus with diabetic polyneuropathy; J44.9 Chronic obstructive pulmonary disease, unspecified; E11.51 Type 2 diabetes mellitus with diabetic peripheral angiopathy without gangrene; D64.9 Anemia, unspecified; E11.65 Type 2 diabetes mellitus with hyperglycemia; I27.20 Pulmonary hypertension, unspecified; Z87.19 Personal history of other diseases of the digestive system; Z87.891 Personal history of nicotine dependence; K21.9 Gastro-esophageal reflux disease without esophagitis; I89.0 Lymphedema, not elsewhere classified
CPT/HCPCS: 36415; 80048; 80053; 82962; 84484; 85025; 87040; 93005; 97802; 99285; J7050; A4216; J1940

== ENCOUNTER 2020-03-02 20:16 | Inpatient (IN) | payer MEDICARE, MEDICAID, SELFPAY ==
[2020-02-24 16:17] VITALS: BMI 41.8
[2020-03-02] VITALS (22 sets, daily range): BP systolic 64–183; BP diastolic 32–157; PULSE 53–143; RESP 12–27; TEMP 36.8; O2SAT 88–100; BMI 20.9
--- NOTE | 2020-03-02 20:25 | EKG12_ITS ---
Test Reason : REPEAT Blood Pressure : / mmHG Vent. Rate : 144 BPM Atrial Rate : 131 BPM P-R Int : 000 ms QRS Dur : 140 ms QT Int : 342 ms P-R-T Axes : 000 -68 071 degrees QTc Int : 529 ms Atrial Flutter with RVR Left axis deviation Right bundle branch block Abnormal ECG Confirmed by JENNIFER CARDOSO, LIZ ([id number]), newspaper copy editor YULISA WILLARD ([id number]) on 03/05/2020 9:16:17 AM Referred By: FABIO Confirmed By:LIZ RODRIGUEZ MD
--- NOTE | 2020-03-02 20:40 | ED.DCSUM_ITS ---
History of Present Illness Chief Complaint: Abd Pain Informant: Patient, Lighter Onset: Today Context: Sudden Onset Timing: Continuous Current Severity: Moderate Maximum Severity: Severe Narrative: The patient is a 74-year-old male with medical history significant for COPD who is on chronic oxygen therapy, CHF, prior NSTEMI, GI bleed, who presents to the emergency department with abdominal cramping and shortness of breath. The patient describes tightness across his lower ribs into his upper abdomen. He states it started suddenly at about 730 tonight. He called squad. On squad arrival, the patient was hypoxic. They found that his oxygen tubing was kinked. When they changed the tubing and moved his concentrator, he did come up into the mid 90s. The patient has had a rather complex recent medical history. He is admitted multiple times for NSTEMI, GI bleed, and CHF. He has left AGAINST MEDICAL ADVICE multiple times. He is unsure if he is compliant with his medications. He is a diabetic and sugar was in the 300s. He denies cough but does admit to increasing edema. Prior similar symptoms: Yes Recent Illness/Hospitalization: Yes Past Medical History - Allergies and Home Meds Allergies/Adverse Reactions: Allergies bee venom protein (honey bee) Allergy (Verified 03/02/20 20:38) Angioedema Penicillins Allergy (Verified 03/02/20 20:38) Rash acetaminophen [From Vicodin] Adverse Reaction (Verified 03/02/20 20:38) Itching hydrocodone bitartrate [From Vicodin] Adverse Reaction (Verified 03/02/20 20:38) Itching Primary Care Physician: Jovani Mendez PA [Primary Care Provider] - Prior records reviewed: Yes Past Medical History: - - Diabetes, hypertension, coronary vascular disease, peripheral edema, CHF, COPD Surgical History: noncontributory, - - Umbilical hernia repair, penile foreskin surgery. Smoking Status: Former smoker - Family History Maternal Family History: Reports: Cancer - Mother with history of colon cancer., Diabetes Paternal Family History: Reports: - - Patient denies any market paternal family history including heart disease, diabetes, cancer. Review of Systems General: Denies: Chills, Fever, Sweats Eyes: Denies: Visual changes - bilaterally, Diplopia ENT: Denies: Rhinorrhea, Sore throat Cardiovascular: Reports: Chest pain. Denies: Palpitations Respiratory: Reports: Dyspnea. Denies: Cough, Dyspnea on exertion Gastrointestinal: Reports: Abdominal pain. Denies: Nausea, Vomiting, Diarrhea, Melena, Hematochezia Genitourinary: Denies: Dysuria, Hematuria, Frequency Musculoskeletal: Denies: Back pain, Extremity Pain Skin: Denies: Rash, Wounds Neurological: Denies: Headache, Weakness, Numbness Physical Exam Vital Signs/Narrative: Vital Signs Temp Pulse Resp BP Pulse Ox 03/02/20 20:17 98.2 F 143 H 24 H 99/71 96 Inital Vital Signs reviewed: Yes General: Well nourished, Well developed, No Acute Distress Head: Normocephalic, Atraumatic Eyes: Perrl, EOMI ENT: Moist mucous membranes, No rhinorrhea Neck: Supple, Nontender Cardiovascular: No murmurs, Tachycardia Respiratory: No distress, Chest nontender, Rales, Diminished Abdomen: Soft, Nontender, Nondistended, Normal bowel sounds Back: Nontender, Normal Inspection Extremities: Nontender, Edema Skin: Normal color, No rash Neurological: Alert, Oriented x3, Cranial nerves II-XII grossly intact, Normal Strength, Normal Sensation Psychological: Normal affect, Normal Mood Diagnostic/Tx/Re-eval Clinical Impression(s) from Imaging Studies Chest X-Ray 03/02/20 21:08 IMPRESSION: Decreasing lung volumes. Worsening opacification in the lower right hemithorax with volume loss. CT scan recommended. Electronically Signed: Arnold Romo MD at 21:43 EST , Service support , Chest X-Ray 03/02/20 22:45 IMPRESSION: Interval placement endotracheal tube, tip in midthoracic trachea. Interval placement of an enteric tube, tip in the proximal to mid stomach. Electronically Signed: Eliceo Walters, at 23:26 EST Tel , Service support , KUB X-Ray 03/02/20 22:45 IMPRESSION: Enteric tube tip in the proximal to mid stomach in the left upper abdomen. Electronically Signed: Eliceo Walters at 23:32 EST Tel , Service support , Abnormal Lab Results 03/02/20 03/02/20 03/02/20 20:40 20:40 20:40 WBC 6.6 RBC 3.18 L Hgb 9.3 L Hct 31.6 L MCV 99.4 H MCH 29.2 MCHC 29.4 L RDW Std Deviation 60.6 H RDW Coeff of Emili 16.5 H Plt Count 459 H MPV 10.7 Immature Gran % (Auto) 4.000 H Neut % (Auto) 69.0 Lymph % (Auto) 16.4 L [place] % (Auto) 9.1 Eos % (Auto) 0.9 Baso % (Auto) 0.6 Absolute Neuts (auto) 4.5 Absolute Lymphs (auto) 1.08 Nucleated RBC % 0 Specimen Type Sample Site pH Bicarbonate Actual Total CO2 Base Excess O2 Saturation O2 % ABG pCO2 ABG pO2 Fernando Test O2 Delivery Device Sodium 136 Potassium 4.8 Chloride 94 L Carbon Dioxide 34.0 H Anion Gap 8 BUN 79 H Creatinine 2.64 H Estim Creat Clear Calc 18.92 Est GFR (MDRD) Af Amer 31 L Est GFR (MDRD) Non-Af 25 L BUN/Creatinine Ratio 29.9 H Glucose 302 H Lactic Acid Calcium 8.3 L Total Bilirubin 0.30 AST 39 H ALT 35 Alkaline Phosphatase 181 H Troponin I 1.120 H* B-Natriuretic Peptide 292.6 H Total Protein 6.3 L Albumin 2.7 L Globulin 3.6 Albumin/Globulin Ratio 0.8 L 03/02/20 03/02/20 21:58 22:00 WBC RBC Hgb Hct MCV MCH MCHC RDW Std Deviation RDW Coeff of Emili Plt Count MPV Immature Gran % (Auto) Neut % (Auto) Lymph % (Auto) [place] % (Auto) Eos % (Auto) Baso % (Auto) Absolute Neuts (auto) Absolute Lymphs (auto) Nucleated RBC % Specimen Type ART Sample Site R Radial pH 6.97 L* Bicarbonate Actual 27.9 H Total CO2 32 Base Excess -4 L O2 Saturation 95 O2 % 100 ABG pCO2 122.1 H* ABG pO2 119 H Fernando Test Positive O2 Delivery Device Bagging Sodium Potassium Chloride Carbon Dioxide Anion Gap BUN Creatinine Estim Creat Clear Calc Est GFR (MDRD) Af Amer Est GFR (MDRD) Non-Af BUN/Creatinine Ratio Glucose Lactic Acid 6.8 H* Calcium Total Bilirubin AST ALT Alkaline Phosphatase Troponin I B-Natriuretic Peptide Total Protein Albumin Globulin Albumin/Globulin Ratio - Rhythm Strip Rhythm Strip: A-fib Rate: 140 Ectopy: PVC(s) - EKG Initial EKG Interpretation: Atrial Flutter, S-T Depression, Non-Specific ST Changes Prior: Changed - Medical Decision Making The patient presents with shortness of breath. His oxygen tubing was kinked prior to arrival. However, the patient is tachycardic. He does have a rather complex recent medical history, and is signed out from the hospital multiple times. EKG was obtained. The patient is a new onset atrial flutter 2-1. Patient was started on diltiazem drip. Screening labs were obtained. He does not have a significant leukocytosis. His anemia is stable. He does have worsening renal dysfunction. He also has an elevated troponin of 1.1. He did have good rate control with the diltiazem. I discussed his care with Dr. Wilson, buckle attaching machine operator stock preparation supervisor. Given the patient's recent hospitalization with significant GI bleed, we are going to hold on anticoagulation. Prior to admission, the patient had a rate change. He became increasingly bradycardic. The patient had lost pulses. He did appear as if he also aspirated. CPR was started. The patient was given 2 rounds of epinephrine. He was also given calcium and his diltiazem was stopped. The patient was intubated at the bedside. An 8 oh tube was used. This was done with glide scope. There was good color change. There is bilateral breath sounds. The patient did have spontaneous return of pulses. However, prior to x-ray, he did lose pulses again. He was given epinephrine and CPR was resumed. After 1 round, he had return of pulses. Decision was made to place a central venous catheter. This was done under ultrasound in the right IJ. This was placed without issue. Repeat x-ray was obtained. He does have evidence of new rib fracture. There is pleural effusion and consolidation. There is no pneumothorax. I did discuss the patient with the subcontract administrator. He was kept on the ventilator. ABG was obtained which showed significant hypercapnia and acidosis. The patient was aggressively ventilated. However, the patient did lose pulses again multiple times. He would have 1 round of CPR and epinephrine and then his pulse on return. This went on for approximately an hour. Levophed was changed for epinephrine. He was covered with broad-spectrum antibiotics. I was finally able to get a hold of the patient's brother, Eamon. I did explain the patient's dire condition. He was very upfront and his brother would not want aggressive measures. He did agree that if he were to have cardiac arrest again, to withhold any aggressive treatment including CPR. The patient was made DNR-CCA. He was discussed with the hospitalist, but based on his significant critical illness, my suspicion is that he will likely arrest again. Impression 1. Atrial flutter with rapid ventricular response 2. Acute kidney injury 3. History of recent NSTEMI 4. History of recent GI bleed 5. Cardiac arrest 6. Respiratory acidosis 7. Intubation by ED physician 8. Central line by ED physician - Critical Care Time Critical care time (excluding procedures): 75-104 minutes, Discussing w/Patient &/or Family/Solution Architect, Discussing w/Consultants, Arranging Admission or Transfer, Performing Direct Patient Care at Bedside ED Disposition - Plan for ED Patient: Referrals: Jovani Mendez PA [Primary Care Provider] -
[2020-03-02] MEDS: dilTIAZem 25 MG/5 ML Vial 20 MG IV BOLUS (20:50)
[2020-03-02 20:52] LABS: Absolute Lymphocyte Count 1.08 X10^3/uL (0.83-4.51); Absolute Neutrophil Count 4.5 X10^3/uL (2.0-7.7); Basophil# 0.04 X10^3/uL; Basophil% 0.6 % (0-1); Eosinophil# 0.06 X10^3/uL; Eosinophils% 0.9 % (0-5); Hematocrit 31.6 % (40-54); Hemoglobin 9.3 g/dL (13.0-16.5); Lymphocyte # 1.08 X10^3/ul (4.0); Lymphocyte % 16.4 % (19-41); Mean Corp Hgb Conc 29.4 g/dL (32-36); Mean Corpuscular Hgb 29.2 pg (27.0-32.0); Mean Corpuscular Volume 99.4 fL (80-94); Mean Platelet Vol. 10.7 fl (6.2-12.0); Monocyte% 9.1 % (0-10); NRBC Flagged by Analyzer 0 % (0-5); Neutrophil # 4.54 X10^3/uL (2.7-7.7); Platelet Count 459 K/mm3 (150-450); RBC Distribution Width CV 16.5 % (11.6-14.6); RBC Distribution Width SD 60.6 fl (35.1-43.9); Red Blood Count 3.18 M/mm3 (4.6-6.2); White Blood Count 6.6 K/mm3 (4.4-11.0)
--- NOTE | 2020-03-02 21:08 | RAD_ITS ---
STUDY: X-RAY CHEST REASON FOR EXAM: Male, 74 years old. LEFT SIDED ABDOMEN PAIN AND TROUBLE URINATING. TECHNIQUE: Single AP portable view of the chest. COMPARISON: 02/20/2020. FINDINGS: Opacification of the lower right hemithorax, consistent with pleural effusion and atelectasis or infiltrate. There is also volume loss of the right lung. All these findings are significantly worse than prior exam. Probable mild scarring or atelectasis in the left lung base. Overall decreased lung volumes since previous study. Mild cardiomegaly. RAD/Chest 1 View (Portable) IMPRESSION: Decreasing lung volumes. Worsening opacification in the lower right hemithorax with volume loss. CT scan recommended. Electronically Signed: Arnold Romo MD at 21:43 EST , Service support ,
[2020-03-02 21:09] LABS: BNP,B-Type NATRIURETIC PEPTIDE 292.6 pg/mL (0-100)
--- NOTE | 2020-03-02 21:11 | EKG12_ITS ---
Test Reason : ABD PAIN Blood Pressure : / mmHG Vent. Rate : 139 BPM Atrial Rate : 147 BPM P-R Int : 000 ms QRS Dur : 134 ms QT Int : 338 ms P-R-T Axes : 000 -72 034 degrees QTc Int : 514 ms Atrial fibrillation Left axis deviation Right bundle branch block Abnormal ECG Confirmed by JENNIFER CARDOSO, LIZ ([id number]), editor index YULISA WILLARD ([id number]) on 03/05/2020 9:15:50 AM Referred By: FABIO Confirmed By:LIZ RODRIGUEZ MD
[2020-03-02 21:17] LABS: ALB/GLOB Ratio 0.8 RATIO (0.9-2.4); AST(SGOT) 39 U/L (15-37); Alanine Aminotransfer ALT/SGPT 35 U/L (16-61); Albumin, Serum 2.7 g/dL (3.2-5.0); Alkaline Phosphatase 181 U/L (45-117); Anion Gap 8 (5-15); BUN 79 mg/dL (7-18); BUN/Creat Ratio 29.9 RATIO (10-20); Calcium,Total 8.3 mg/dL (8.5-10.1); Chloride 94 mmol/L (98-107); Creatinine, Serum 2.64 mg/dL (0.70-1.30); EST Glomerular Filtration Rate 25 mL/min (>60); Est Glom Filt Rate - Afr Amer 31 mL/min (>60); Estimated Creatinine Clearance 18.92 ml/min; Globulin 3.6 g/dL (2.2-4.2); Glucose 302 mg/dL (74-106); Potassium 4.8 mmol/L (3.5-5.1); Protein, Total 6.3 g/dL (6.4-8.2); Sodium Level 136 mmol/L (136-145)
[2020-03-02] MEDS: Calcium Chloride 1 GM/10 ML Syringe IV (21:43)
--- NOTE | 2020-03-02 21:55 | CM.ED ---
Social Work Responding to [employer]. No family present. Telephone call to patient brother, Eamon Parks as listed on patient demographics. No answer. Voicemail left. Updated medical team on above. Lory PADILLA, AMOR
[2020-03-02 22:06] LABS: Allen Test Positive; Base Excess -4 mmol/L (-2 to +2); Bicarbonate 27.9 mmol/L (22-26); Blood Gas Specimen Type ART; FI02 100; O2 Delivery Device Bagging; PO2 119 mmHG (75-100); SITE R Radial; SO2 95 % (95-99); Total Carbon Dioxide 32 mmol/L; pCO2 122.1 mmHg (35-45); pH 6.97 (7.35-7.45)
--- NOTE | 2020-03-02 22:31 | CPS ---
Critical Results from ABGs were told to Dr Rodrigues @ 2206. 03/02/2020 ABG was repeated and verified per MICHELE RECEIVING ASSOCIATE
--- NOTE | 2020-03-02 22:45 | RAD_ITS ---
STUDY: X-RAY CHEST REASON FOR EXAM: Male, 74 years old. Enteric and endotracheal tube placement. TECHNIQUE: AP portable supine COMPARISON: 9:08 PM same date. FINDINGS: Interval placement endotracheal tube, tip in midthoracic trachea. Interval placement of an enteric tube, tip in the proximal to mid stomach. No apparent pneumothorax. Right pleural effusion with adjacent atelectasis again demonstrated. As before the trachea is shifted to the right. RAD/CXR for Line Placement IMPRESSION: Interval placement endotracheal tube, tip in midthoracic trachea. Interval placement of an enteric tube, tip in the proximal to mid stomach. Electronically Signed: Eliceo Walters, at 23:26 EST Tel , Service support ,
--- NOTE | 2020-03-02 22:45 | RAD_ITS ---
STUDY: RADIOGRAPH- ABDOMEN/PELVIS REASON FOR EXAM: Male, 74 years old. ETT/OG PLACEMENT TECHNIQUE: KUB COMPARISON: None. FINDINGS: Enteric tube tip in the proximal to mid stomach in the left upper abdomen. Right pleural effusion, volume loss and right-sided central venous catheter partially visible. No apparent free air. RAD/Abdomen Single View IMPRESSION: Enteric tube tip in the proximal to mid stomach in the left upper abdomen. Electronically Signed: Eliceo Walters, at 23:32 EST Tel , Service support ,
[2020-03-02 23:00] LABS: Lactic Acid 6.8 mmol/L (0.4-1.9)
--- NOTE | 2020-03-02 23:05 | ED.RN ---
multiple more attempts made to contact brother Eamon.
--- NOTE | 2020-03-02 23:31 | ED.RN ---
was able to get in contact with brother donnie wolf via telephone. Dr Rodrigues spoke with brother. Patient now DNR-CCA
[2020-03-02] MEDS: Epinephrine (POST-RESUSCITATION) 1 mg in 0.9% NS 250 mL 15 MG CONT INF (23:33)
--- NOTE | 2020-03-02 23:56 | PCM.HP.STD ---
Problem List (1) Anasarca Status: Chronic (2) Elevated troponin Status: Acute (3) Ulcer of left lower extremity with fat layer exposed Status: Chronic (4) PVD (peripheral vascular disease) Status: Chronic (5) Venous insufficiency Status: Chronic (6) Type 2 diabetes mellitus with diabetic polyneuropathy Status: Chronic (7) Malnutrition Status: Chronic Qualifiers: Malnutrition type: protein-calorie malnutrition Protein-calorie malnutrition severity: moderate Qualified Code(s): E44.0 - Moderate protein-calorie malnutrition (8) Obesity Status: Chronic (9) STEMI (ST elevation myocardial infarction) Status: Chronic Qualifiers: (10) COPD exacerbation Status: Acute (11) Chronic respiratory failure with hypoxia Status: Chronic (12) Decompensated heart failure Status: Chronic (13) Type 2 diabetes mellitus with hyperglycemia Status: Chronic Qualifiers: (14) Acute kidney injury Status: Acute (15) Morbid obesity Status: Chronic (16) Hypothyroidism Status: Chronic Qualifiers: (17) Hyperlipidemia Status: Chronic Qualifiers: (18) Former tobacco use Status: Chronic (19) Anemia Status: Chronic Qualifiers: (20) Hypoxemia Status: Chronic (21) Hypothyroid Status: Chronic (22) Diabetes Status: Chronic (23) CHF (congestive heart failure) Status: Chronic (24) Cardiac arrest Status: Acute History of Present Illness Date of Admission: 03/02/20 Chief Complaint: Shortness of breath History was taken for emergency department doctor because at the time of patient examination patient was intubated and comatose. The patient is a 74 year old M with a significant history of morbid obesity; congestive heart failure; COPD on 4 L home nasal cannula oxygen and hypothyroidism who presents emergency department with shortness of breath. Associated with his symptoms is pain and his bilateral anterior rib cage and in his epigastric area. Reportedly when paramedics went to his home his oxygen tubing was kinked and his oxygen saturation was in the 70s. After the kink was reached relates his oxygen went to the 90s. At the emergency department patient was seen in a follow-up 2-1 with heart rate in the 140s. He received Cardizem bolus and drip. Thereafter the patient's bradycardia down with pulse in the 20s he eventually lost his pulse and required CPR and epinephrine. He required multiple courses of CPR and epinephrine at emergency department. Initially he was put on Levophed drip but changed to epinephrine. Later on he received both epinephrine and Levophed. ABG showed a pH of 6.97 and a CO2 of more than 100. Patient received bicarbonate. Emergent department doctor discussed the case with fire code inspector and with patient's brother. Per emergent department doctor patient brother would not want any more CPR if patient is to code. Past Medical History Past Medical History (Chronic Problems): Chronic Problems (Last Reviewed 03/03/20 @ 02:[address] Castillo Lopes MD) Anasarca (Chronic) Ulcer of left lower extremity with fat layer exposed (Chronic) PVD (peripheral vascular disease) (Chronic) Venous insufficiency (Chronic) Type 2 diabetes mellitus with diabetic polyneuropathy (Chronic) Malnutrition (Chronic) Obesity (Chronic) STEMI (ST elevation myocardial infarction) (Chronic) Chronic respiratory failure with hypoxia (Chronic) Decompensated heart failure (Chronic) Type 2 diabetes mellitus with hyperglycemia (Chronic) Morbid obesity (Chronic) Hypothyroidism (Chronic) Hyperlipidemia (Chronic) Former tobacco use (Chronic) Anemia (Chronic) Hypoxemia (Chronic) Hypothyroid (Chronic) Diabetes (Chronic) CHF (congestive heart failure) (Chronic) Medical History: Medical History (Last Reviewed 03/03/20 @ 02:[address] Castillo Lopes MD) Ulcer of left lower extremity with fat layer exposed (Chronic) L97.922 PVD (peripheral vascular disease) (Chronic) I73.9 Venous insufficiency (Chronic) I87.2 Type 2 diabetes mellitus with diabetic polyneuropathy (Chronic) E11.42 Malnutrition (Chronic) E46 Obesity (Chronic) E66.9 GI bleed (Inactive) K92.2 STEMI (ST elevation myocardial infarction) (Chronic) I21.3 COPD exacerbation (Acute) J44.1 Chronic respiratory failure with hypoxia (Chronic) J96.11 Decompensated heart failure (Chronic) I50.9 Type 2 diabetes mellitus with hyperglycemia (Chronic) E11.65 Acute kidney injury (Acute) N17.9 Morbid obesity (Chronic) E66.01 Hypothyroidism (Chronic) E03.9 Hyperlipidemia (Chronic) E78.5 Former tobacco use (Chronic) Z87.891 Anemia (Chronic) D64.9 Hypoxemia (Chronic) R09.02 Hypothyroid (Chronic) E03.9 Diabetes (Chronic) E11.9 CHF (congestive heart failure) (Chronic) I50.9 Abdominal pain R10.9 Allergies bee venom protein (honey bee) Allergy (Verified 03/02/20 20:38) Angioedema Penicillins Allergy (Verified 03/02/20 20:38) Rash acetaminophen [From Vicodin] Adverse Reaction (Verified 03/02/20 20:38) Itching hydrocodone bitartrate [From Vicodin] Adverse Reaction (Verified 03/02/20 20:38) Itching Home Medications: Ambulatory Orders Medication Instructions Recorded Levothyroxine [Synthroid] 112 mcg PO DAILY 09/10/13 metFORMIN HCl [Glucophage] 1,000 mg PO BIDCM 09/10/13 Atorvastatin Calcium [Lipitor] 20 mg PO QHS 01/16/17 Nitroglycerin 0.4 mg SL TID PRN PRN #20 tab.subl 01/17/20 Albuterol Inhaler [Ventolin Hfa] 2 puff INHALATION Q4H PRN PRN #1 01/22/20 inhaler Pantoprazole Sodium [Protonix] 20 mg PO BID #20 tab 02/16/20 Sucralfate [Carafate] 1 gm PO 4X/DAY #40 tab 02/16/20 Nitroglycerin 0.4 mg SL PRN PRN 02/24/20 Acetaminophen [Tylenol Tablet] 650 mg PO Q6H PRN PRN tab 02/26/20 Aspirin [Aspirin, Baby] 81 mg PO DAILY@0800 tab.chew 02/26/20 Furosemide [Lasix] 40 mg PO BID #60 tab 02/26/20 Lisinopril [Zestril] 5 mg PO DAILY #30 tab 02/26/20 Potassium Chloride [K-Dur] 20 meq PO DAILY #30 tab 02/26/20 Surgical History: - - Umbilical hernia repair, penile foreskin surgery. Psychiatric History: No pertinent psych hx Smoking Status: Former smoker Tobacco Use: Cigarettes - *Family History Maternal History Items: Cancer - Mother with history of colon cancer., Diabetes Paternal History Items: - - Patient denies any market paternal family history including heart disease, diabetes, cancer. Review of Systems Unable to obtain accurate/complete ROS d/t: Comatose. VTE Information - Inpt Only VTE Present on Admission: No VTE Mechan Device Prophylaxis: None VTE Pharm Prophylaxis ordered?: Yes Patient Problems: Active and Suspected Problems (Last Reviewed 03/03/20 @ 02:[address] Castillo Lopes MD) Elevated troponin (Acute) Cardiac arrest (Acute) COPD exacerbation (Acute) Acute kidney injury (Acute) - Physical Exam Vitals/I&O's: Vital Signs Temp Pulse Resp BP Pulse Ox 98.2 F 112 H 23 H 121/50 H 97 03/02/20 20:17 03/02/20 23:14 03/02/20 23:14 03/02/20 23:14 03/02/20 22:55 Oxygen Flow Rate (L/min) 4 Oxygen Delivery Method Nasal Cannula Weight: 55.3 kg Body Mass Index (BMI) 20.9 Finger Stick Blood Glucose 298 Intake and Output for Last 24 Hours 02/29/20 03/01/20 03/02/20 23:59 23:59 23:59 Intake Total 3.75 / 3.75 Balance 3.75 / 3.75 General: - HEENT: Normocephalic, - - ulcer on forehead; miotic bilaterally people Neck: No Nodes, Trachea Midline Lungs: Rhonchi, - - On mechanical ventilation and not breathing events. Cardiovascular: Regular rate, - - Rhonchorus sound overshadowing heart sounds. Abdomen: Hypoactive Bowel Sounds, Obese Extremities: Edema - Bilateral legs Skin: - - Excoriation on bilateral legs. Musculoskeletal: No Muscle Wasting Neurological: Cranial nerves II-XII grossly intact, - - Comatose not breathing over vent occasionally exhibits decerebrate posture Psych/Mental Status: - - Comatose Laboratory Results 03/02/20 20:40: WBC 6.6, RBC 3.18 L, Hgb 9.3 L, Hct 31.6 L, MCV 99.4 H, MCH 29.2, MCHC 29.4 L, RDW Std Deviation 60.6 H, RDW Coeff of Emili 16.5 H, Plt Count 459 H, MPV 10.7, Immature Gran % (Auto) 4.000 H, Neut % (Auto) 69.0, Lymph % (Auto) 16.4 L, [place] % (Auto) 9.1, Eos % (Auto) 0.9, Baso % (Auto) 0.6, Absolute Neuts (auto) 4.5, Absolute Lymphs (auto) 1.08, Nucleated RBC % 0 03/02/20 20:40: Sodium 136, Potassium 4.8, Chloride 94 L, Carbon Dioxide 34.0 H, Anion Gap 8, BUN 79 H, Creatinine 2.64 H, Estim Creat Clear Calc 18.92, Est GFR (MDRD) Af Amer 31 L, Est GFR (MDRD) Non-Af 25 L, BUN/Creatinine Ratio 29.9 H, Glucose 302 H, Calcium 8.3 L, Total Bilirubin 0.30, AST 39 H, ALT 35, Alkaline Phosphatase 181 H, Troponin I 1.120 H*, Total Protein 6.3 L, Albumin 2.7 L, Globulin 3.6, Albumin/Globulin Ratio 0.8 L 03/02/20 20:40: B-Natriuretic Peptide 292.6 H 03/02/20 21:58: Lactic Acid 6.8 H* 03/02/20 22:00: Specimen Type ART, Sample Site R Radial, pH 6.97 L*, Bicarbonate Actual 27.9 H, Total CO2 32, Base Excess -4 L, O2 Saturation 95, O2 % 100, ABG pCO2 122.1 H*, ABG pO2 119 H, Fernando Test Positive, O2 Delivery Device Bagging Current Medications Diltiazem HCl 125 mg/ Dextrose 125 mls @ 5 mls/hr IV .Q25H CHERYL; Protocol Last Titration: 03/02/20 21:40 Dose: 0 mg/hr, 0 mls/hr Documented by: Norepinephrine Bitartrate 8 mg (/ Sodium Chloride) 250 mls @ 9.375 mls/hr CONT INF .[id number] CHERYL; Protocol Last Admin: 03/02/20 22:55 Dose: 5 mcg/min, 9.4 mls/hr Documented by: Vancomycin HCl 1,500 mg/ (Sodium Chloride) 530 mls @ 250 mls/hr IV X1 ONE Stop: 03/03/20 01:07 Last Admin: 03/02/20 23:14 Dose: 250 mls/hr Documented by: Epinephrine HCl 1 mg/ Sodium (Chloride) 250 mls @ 15 mls/hr CONT INF .[id number] CHERYL; Protocol Aztreonam 2 gm/ Sodium (Chloride) 100 mls @ 150 mls/hr IV X1 ONE Stop: 03/03/20 00:18 Assessment/Plan All Active Problems (Last Reviewed 03/03/20 @ 02:[address] Castillo Lopes MD) Elevated troponin (Acute) Cardiac arrest (Acute) COPD exacerbation (Acute) Acute kidney injury (Acute) Cardiac arrest Etiology unclear. Could secondary to acute mucous plug; COPD exacerbation or other. Place on ventilator at emergency department; continue Continue epinephrine drip and levophed drip Plastics Fabricator Or Welder and cardiology consult COPD exacerbation Solu-Medrol 125 mg given at emergency department. Continue Solu-Medrol 40 mg every 8 hours Vancomycin and aztreonam ordered emergency department. Continued. Levaquin ordered CHUY Received normal saline bolus at emergency department. Trend CMP. Nephrology consult Elevated troponin Recent GI bleed. Emergency department discussed the case with custom shoe designer and maker who will follow on consult. Cardiology consult. Heart failure with preserved ejection fraction Echocardiogram on 02/21/2020 showed severe concentric left ventricular hypertrophy. Left ventricular systolic function was normal. Estimated EF was 65%. Left ventricular systolic pressure was 50. Check BNP Bilateral Leg wound. ABD pads; Kerlex roll and saúl wrap to bilateral lower extremities. Wound care consult. DVT prophylaxis Subcutaneous Heparin Critical care time: Sixty minutes (from 03/02/2020 2300 to 03/03/2020 0000). This involved time at bedside assessing patient's; reviewing charts and discussing case with nurses. Inpatient E&M: 08358 Init Hosp L3 Procedures: 50865 Critial Care 1st Hr
[2020-03-03] VITALS (77 sets, daily range): BP systolic 30–144; BP diastolic 18–101; PULSE 71–108; RESP 7–26; TEMP 35.9–36.3; O2SAT 85–100; BMI 42.8
--- NOTE | 2020-03-03 00:45 | ED.RN ---
patient no longer having any purposeful movement, not pulling at tubes and wires, not trying to move around in bed. meets criteria for restraint removal. restraints removed at this time.
--- NOTE | 2020-03-03 00:49 | ED.RN ---
Per Dr Lopes patient must remain in ED 2 more [address] for stabilization. Dr Dewitt and charge nurse Lexi Florence made aware.
[2020-03-03] MEDS: MethylPREDNISolone 125 MG/2 ML Vial IV (00:52)
[2020-03-03 02:11] LABS: Reflex Lactate? Y
--- NOTE | 2020-03-03 02:24 | NURSING ---
Eamon Parks, pt's brother, contacted to notify of pt's impending arrival to ICU. Updated family that pt was on an extreme amt of medicine to keep his heart working and things do not look good. Pt's brother stated I'm ok knowing that he's going to be with you guys. I don't need to come see him, I can't see to drive at night. Pt's brother asked to provide home preference and sruthi Figueroa in [place].
[2020-03-03] MEDS: Epinephrine (POST-RESUSCITATION) 1 mg in 0.9% NS 250 mL 90 MG CONT INF (03:00)
[2020-03-03] MEDS: Ipratropium/Albuterol Sulfate 3 ML AMPUL.NEB INHALATION ×5 (03:10→18:55)
[2020-03-03 03:46] LABS: Absolute Lymphocyte Count 0.47 X10^3/uL (0.83-4.51); Absolute Neutrophil Count 2.5 X10^3/uL (2.0-7.7); Basophil# 0.04 X10^3/uL; Basophil% 1.1 % (0-1); Eosinophil# 0.01 X10^3/uL; Eosinophils% 0.3 % (0-5); Hematocrit 30.6 % (40-54); Hemoglobin 8.6 g/dL (13.0-16.5); Lymphocyte # 0.47 X10^3/ul (4.0); Mean Corp Hgb Conc 28.1 g/dL (32-36); Mean Corpuscular Hgb 29.1 pg (27.0-32.0); Mean Corpuscular Volume 103.4 fL (80-94); Mean Platelet Vol. 10.5 fl (6.2-12.0); Monocyte% 13.9 % (0-10); NRBC Flagged by Analyzer 1.7 % (0-5); Neutrophil # 2.53 X10^3/uL (2.7-7.7); POSITIVE DIFFERENTIAL YES; POSITIVE MORPHOLOGY YES; Platelet Count 474 K/mm3 (150-450); RBC Distribution Width CV 16.5 % (11.6-14.6); RBC Distribution Width SD 62.1 fl (35.1-43.9); Red Blood Count 2.96 M/mm3 (4.6-6.2); White Blood Count 3.6 K/mm3 (4.4-11.0)
[2020-03-03 03:57] LABS: Differential Indicated SCAN CRITERIA MET
[2020-03-03] MEDS: levoFLOXacin IV 500 MG/100 ML BAG 100 MG IV (04:00)
[2020-03-03 04:02] LABS: ALB/GLOB Ratio 0.5 RATIO (0.9-2.4); AST(SGOT) 45 U/L (15-37); Alanine Aminotransfer ALT/SGPT 35 U/L (16-61); Alkaline Phosphatase 138 U/L (45-117); Anion Gap 14 (5-15); BUN 85 mg/dL (7-18); BUN/Creat Ratio 27.6 RATIO (10-20); Calcium,Total 8.1 mg/dL (8.5-10.1); Chloride 100 mmol/L (98-107); Creatinine, Serum 3.08 mg/dL (0.70-1.30); EST Glomerular Filtration Rate 21 mL/min (>60); Est Glom Filt Rate - Afr Amer 26 mL/min (>60); Globulin 3.8 g/dL (2.2-4.2); Glucose 220 mg/dL (74-106); Magnesium 1.8 mg/dL (1.6-2.6); Phosphorus 5.4 mg/dL (2.5-4.9); Potassium 4.9 mmol/L (3.5-5.1); Protein, Total 5.8 g/dL (6.4-8.2); Sodium Level 141 mmol/L (136-145)
[2020-03-03] MEDS: 0.9% Saline Lock 10 ML Syringe IV ×3 (04:05→20:03)
[2020-03-03 04:20] LABS: Lactic Acid 9.5 mmol/L (0.4-1.9)
[2020-03-03 04:25] LABS: Differential Comment SCANNED
--- NOTE | 2020-03-03 04:41 | PCM.RX.CS ---
Consult Pharmacy has been consulted to manage selected antiobiotic: Vancomycin Type of Consult: New start Suspected Infection: Other Prior Doses of Antibiotics Received/Current Regimen: Medications Vancomycin HCl 1,500 mg/ (Sodium Chloride) 530 mls @ 250 mls/hr IV Q24H CHERYL Discontinued Medications Vancomycin HCl 1,500 mg/ (Sodium Chloride) 530 mls @ 250 mls/hr IV X1 ONE Stop: 03/03/20 01:07 Last Admin: 03/03/20 01:26 Dose: Infused Labs: Sodium 141 mmol/L (136-145) 03/03/20 03:30 Potassium 4.9 mmol/L (3.5-5.1) 03/03/20 03:30 Chloride 100 mmol/L (98-107) 03/03/20 03:30 Carbon Dioxide 27.0 mmol/L (21.0-32.0) 03/03/20 03:30 Anion Gap 14 (5-15) 03/03/20 03:30 BUN 85 mg/dL (7-18) H 03/03/20 03:30 Creatinine 3.08 mg/dL (0.70-1.30) H 03/03/20 03:30 Est GFR (MDRD) Af Amer 26 mL/min (>60) L 03/03/20 03:30 Est GFR (MDRD) Non-Af 21 mL/min (>60) L 03/03/20 03:30 BUN/Creatinine Ratio 27.6 RATIO (10-20) H 03/03/20 03:30 Glucose 220 mg/dL (74-106) H 03/03/20 03:30 Weight used for dosin.4 kg Estimated Creatinine Clearance: 29.5 Goal Trough: 15-20 mcg/mL Pharmacy Plan for Drug Dosing: Pharmacy Service will continue to monitor and adjust dosing as required. Follow-Up Labs: Trough Vancomycin Labs to be done on [date and time ordered]: 03/04/20 @9599
[2020-03-03 04:55] LABS: BNP,B-Type NATRIURETIC PEPTIDE 391.7 pg/mL (0-100)
[2020-03-03] MEDS: Heparin Injection (Vial) 5,000 UNIT/ML VIAL 5000 UNIT SC ×2 (05:22→13:38)
--- NOTE | 2020-03-03 07:20 | PCM.CON.CC ---
Problem List (1) Acute exacerbation of congestive heart failure Status: Inactive Qualifiers: Heart failure type: systolic Qualified Code(s): I50.23 - Acute on chronic systolic (congestive) heart failure (2) Cellulitis of right lower extremity without foot Status: Inactive (3) Cellulitis of left lower extremity without foot Status: Inactive (4) Anasarca Status: Chronic (5) Cardiac arrest Status: Acute (6) Ulcer of left lower extremity with fat layer exposed Status: Chronic (7) PVD (peripheral vascular disease) Status: Chronic (8) Type 2 diabetes mellitus with diabetic polyneuropathy Status: Chronic (9) Obesity Status: Chronic (10) COPD exacerbation Status: Acute (11) Chronic respiratory failure with hypoxia Status: Chronic (12) Acute kidney injury Status: Acute (13) Morbid obesity Status: Chronic (14) Hypothyroidism Status: Chronic Qualifiers: (15) Hyperlipidemia Status: Chronic Qualifiers: (16) Hypothyroid Status: Chronic (17) Diabetes Status: Chronic Reason for Consult Date of Consultation: 03/03/20 Reason for Consultation: Respiratory failure History of Present Illness: The patient is a 74 year old M, with past medical history listed below, who presented [facility] on 03/02/2020 secondary to abdominal cramping and shortness of breath. Patient has had multiple admissions over the last 2 months and continues to leave AGAINST MEDICAL ADVICE. Patient had reported a tightness across his lower ribs to up to her abdomen. Patient stated that the symptoms started suddenly at approximately 7:30 PM, 3 hours prior to presentation. Patient's had called EMS and EMS noted patient to be hypoxic. Patient reportedly is a diabetic and has noted blood sugars in the 300s. Patient had denied any cough, but did have some increasing edema. On presentation to the ER, patient was noted to be in A. fib with RVR with a heart rate of 143 bpm and a blood pressure of 99/71. Initial blood work showed an anemia of 9.3 with platelet count of 459. Patient's BUN and creatinine were noted to be 79 and 2.64. Bicarbonate was elevated at 34 and glucose was 302. Initial troponin was elevated at 1.12 and BNP was approximately 300. Lactic acid was noted to be 6.8 and an ABG completed later showed a pH of around 7. Patient was initially started on diltiazem secondary to A. fib with RVR with good rate control. Shortly thereafter, patient became significantly bradycardic he went into PEA. To summarize, patient reportedly has had 5 episodes of CPR totaling at least 20 minutes per the medical record. Patient was transferred to the intensive care unit and made a DNR Comfort Care arrest. Patient is currently on Levophed and epinephrine. Patient was covered with broad-spectrum antibiotics and transferred to the intensive care unit. Since being in the intensive care unit, patient has had some posturing, but also opens his eyes spontaneously and has an appropriate respiratory drive. Patient has multiple skin wounds including on the forehead and bilateral lower extremities with sloughing of the left lower extremity. Patient also appears to have some weeping noted. Patient was opening his eyes during my evaluation and looking around, but not making purposeful movements. Unable to obtain a review of systems secondary to acute condition. Past Medical History Past Medical History (Chronic Problems): Chronic Problems (Last Reviewed 03/03/20 @ 02:[address] Castillo Lopes MD) Anasarca (Chronic) Ulcer of left lower extremity with fat layer exposed (Chronic) PVD (peripheral vascular disease) (Chronic) Venous insufficiency (Chronic) Type 2 diabetes mellitus with diabetic polyneuropathy (Chronic) Malnutrition (Chronic) Obesity (Chronic) STEMI (ST elevation myocardial infarction) (Chronic) Chronic respiratory failure with hypoxia (Chronic) Decompensated heart failure (Chronic) Type 2 diabetes mellitus with hyperglycemia (Chronic) Morbid obesity (Chronic) Hypothyroidism (Chronic) Hyperlipidemia (Chronic) Former tobacco use (Chronic) Anemia (Chronic) Hypoxemia (Chronic) Hypothyroid (Chronic) Diabetes (Chronic) CHF (congestive heart failure) (Chronic) Medical History: Medical History (Last Reviewed 03/03/20 @ 02:[address] Castillo Lopes MD) Ulcer of left lower extremity with fat layer exposed (Chronic) L97.922 PVD (peripheral vascular disease) (Chronic) I73.9 Venous insufficiency (Chronic) I87.2 Type 2 diabetes mellitus with diabetic polyneuropathy (Chronic) E11.42 Malnutrition (Chronic) E46 Obesity (Chronic) E66.9 GI bleed (Inactive) K92.2 STEMI (ST elevation myocardial infarction) (Chronic) I21.3 COPD exacerbation (Acute) J44.1 Chronic respiratory failure with hypoxia (Chronic) J96.11 Decompensated heart failure (Chronic) I50.9 Type 2 diabetes mellitus with hyperglycemia (Chronic) E11.65 Acute kidney injury (Acute) N17.9 Morbid obesity (Chronic) E66.01 Hypothyroidism (Chronic) E03.9 Hyperlipidemia (Chronic) E78.5 Former tobacco use (Chronic) Z87.891 Anemia (Chronic) D64.9 Hypoxemia (Chronic) R09.02 Hypothyroid (Chronic) E03.9 Diabetes (Chronic) E11.9 CHF (congestive heart failure) (Chronic) I50.9 Abdominal pain R10.9 Allergies bee venom protein (honey bee) Allergy (Verified 03/02/20 20:38) Angioedema Penicillins Allergy (Verified 03/02/20 20:38) Rash acetaminophen [From Vicodin] Adverse Reaction (Verified 03/02/20 20:38) Itching hydrocodone bitartrate [From Vicodin] Adverse Reaction (Verified 03/02/20 20:38) Itching Home Medications: Ambulatory Orders Medication Instructions Recorded Levothyroxine [Synthroid] 112 mcg PO DAILY 09/10/13 metFORMIN HCl [Glucophage] 1,000 mg PO BIDCM 09/10/13 Atorvastatin Calcium [Lipitor] 20 mg PO QHS 01/16/17 Nitroglycerin 0.4 mg SL TID PRN PRN #20 tab.subl 01/17/20 Albuterol Inhaler [Ventolin Hfa] 2 puff INHALATION Q4H PRN PRN #1 01/22/20 inhaler Pantoprazole Sodium [Protonix] 20 mg PO BID #20 tab 02/16/20 Sucralfate [Carafate] 1 gm PO 4X/DAY #40 tab 02/16/20 Nitroglycerin 0.4 mg SL PRN PRN 02/24/20 Acetaminophen [Tylenol Tablet] 650 mg PO Q6H PRN PRN tab 02/26/20 Aspirin [Aspirin, Baby] 81 mg PO DAILY@0800 tab.chew 02/26/20 Furosemide [Lasix] 40 mg PO BID #60 tab 02/26/20 Lisinopril [Zestril] 5 mg PO DAILY #30 tab 02/26/20 Potassium Chloride [K-Dur] 20 meq PO DAILY #30 tab 02/26/20 Surgical History: - - Umbilical hernia repair, penile foreskin surgery. Psychiatric History: No pertinent psych hx Smoking Status: Former smoker Tobacco Use: Cigarettes - *Family History Maternal History Items: Cancer - Mother with history of colon cancer., Diabetes Paternal History Items: - - Patient denies any market paternal family history including heart disease, diabetes, cancer. Review of Systems Unable to obtain accurate/complete ROS d/t: Intubation acute condition Patient Problems: Active and Suspected Problems (Last Reviewed 03/03/20 @ 02:[address] Castillo Lopes MD) Elevated troponin (Acute) Cardiac arrest (Acute) COPD exacerbation (Acute) Acute kidney injury (Acute) Objective: All imaging was personally reviewed. Increased infiltrates on the right following intubation, but endotracheal tube is in good position. An echocardiogram was obtained in February of this year showing an EF of 65% with valvular calcifications and a right ventricular systolic pressure of 50 mmHg. Patient did have some mild aortic stenosis reported. Patient also had diastolic dysfunction noted. Patient has never had pulmonary function testing. - Physical Exam Vitals/I&O's: Vital Signs Temp Pulse Resp BP Pulse Ox 35.9 C L 96 26 H 67/42 L 96 03/03/20 03:00 03/03/20 03:45 03/03/20 03:45 03/03/20 03:45 03/03/20 03:45 Oxygen Flow Rate (L/min) 4 Oxygen Delivery Method Mechanical Ventilator Weight: 120.4 kg Body Mass Index (BMI) 42.8 Finger Stick Blood Glucose 298 Intake and Output for Last 24 Hours 03/01/20 03/02/20 03/03/20 23:59 23:59 23:59 Intake Total 3.75 / 3.75 1326.63 / 1326.63 Output Total 0 / 0 Balance 3.75 / 3.75 1326.63 / 1326.63 General: - - Intubated and not following commands. Morbidly obese. HEENT: PERRLA, EOMI, - - Some scleral injection noted. Oral: Moist Mucosa, - - Crowded posterior pharynx Neck: Supple, No Nodes, Trachea Midline, - - Difficult to assess JVD secondary to body habitus and lines Lungs: No wheeze, No rales, Diminished, Rhonchi - Bilateral, - - Symmetric expansion Cardiovascular: Regular rate, Regular Rhythm, Normal S1, Normal S2, Murmur - Grade 2 out of 6 systolic ejection murmur at the right sternal border, No rub noted, No Gallop Abdomen: Bowel Sounds Present, Soft, Non Tender, Non-Distended, Obese Extremities: No clubbing, No cyanosis, Edema Skin: - - Pressure ulcer noted on the forehead. Sloughing of bilateral lower extremities. Musculoskeletal: No Tenderness to Palpation of Joints or Extremities Lymphatic: No Cervical, Supraclavicular, or Inguinal Adenopathy Neurological: Cranial nerves II-XII grossly intact, Neuro grossly intact Psych/Mental Status: Flat Affect Laboratory Results 03/02/20 20:40: WBC 6.6, RBC 3.18 L, Hgb 9.3 L, Hct 31.6 L, MCV 99.4 H, MCH 29.2, MCHC 29.4 L, RDW Std Deviation 60.6 H, RDW Coeff of Emili 16.5 H, Plt Count 459 H, MPV 10.7, Immature Gran % (Auto) 4.000 H, Neut % (Auto) 69.0, Lymph % (Auto) 16.[address] L, [place] % (Auto) 9.1, Eos % (Auto) 0.9, Baso % (Auto) 0.6, Absolute Neuts (auto) 4.5, Absolute Lymphs (auto) 1.08, Nucleated RBC % 0 03/02/20 20:40: Sodium 136, Potassium 4.8, Chloride 94 L, Carbon Dioxide 34.0 H, Anion Gap 8, BUN 79 H, Creatinine 2.64 H, Estim Creat Clear Calc 18.92, Est GFR (MDRD) Af Amer 31 L, Est GFR (MDRD) Non-Af 25 L, BUN/Creatinine Ratio 29.9 H, Glucose 302 H, Calcium 8.3 L, Total Bilirubin 0.30, AST 39 H, ALT 35, Alkaline Phosphatase 181 H, Troponin I 1.120 H*, Total Protein 6.3 L, Albumin 2.7 L, Globulin 3.6, Albumin/Globulin Ratio 0.8 L 03/02/20 20:40: B-Natriuretic Peptide 292.6 H 03/02/20 21:58: Lactic Acid 6.8 H* 03/02/20 22:00: Specimen Type ART, Sample Site R Radial, pH 6.97 L*, Bicarbonate Actual 27.9 H, Total CO2 32, Base Excess -4 L, O2 Saturation 95, O2 % 100, ABG pCO2 122.1 H*, ABG pO2 119 H, Fernando Test Positive, O2 Delivery Device Bagging 03/03/20 03:30: Lactic Acid 9.5 H* 03/03/20 03:30: B-Natriuretic Peptide 391.7 H 03/03/20 03:30: WBC 3.6 L, RBC 2.96 L, Hgb 8.6 L, Hct 30.6 L, MCV 103.4 H, MCH 29.1, MCHC 28.1 L, RDW Std Deviation 62.1 H, RDW Coeff of Emili 16.5 H, Plt Count 474 H, MPV 10.5, Immature Gran % (Auto) 1.700 H, Neut % (Auto) 70.0, Lymph % (Auto) 13.[address] L, [place] % (Auto) 13.9 H, Eos % (Auto) 0.3, Baso % (Auto) 1.1 H, Absolute Neuts (auto) 2.5, Absolute Lymphs (auto) 0.47 L, Nucleated RBC % 1.7, Differential Comment SCANNED, Diff Path Review August03/03/20 03:30: Sodium 141, Potassium 4.9, Chloride 100, Carbon Dioxide 27.0, Anion Gap 14, BUN 85 H, Creatinine 3.08 H, Estim Creat Clear Calc 18.70, Est GFR (MDRD) Af Amer 26 L, Est GFR (MDRD) Non-Af 21 L, BUN/Creatinine Ratio 27.6 H, Glucose 220 H, Calcium 8.1 L, Phosphorus 5.4 H, Magnesium 1.8, Total Bilirubin 0.40, AST 45 H, ALT 35, Alkaline Phosphatase 138 H, Total Protein 5.8 L, Albumin 2.0 L, Globulin 3.8, Albumin/Globulin Ratio 0.5 L 03/03/20 03:30: Troponin I 2.430 H* Current Medications Acetaminophen (Acetaminophen 325 Mg Tablet) 650 mg PO Q6H PRN PRN PRN Reason: Pain Score 1-10/Temp > 100.7 F Albuterol Sulfate (Albuterol 2.5 Mg/3 Ml Vial.Neb.) 2.5 mg INHALATION Q2H PRN PRN PRN Reason: SOB/Wheezing Albuterol/Ipratropium (Ipratropium/Albuterol Sulfate 3 Ml Ampul.Neb) 3 ml INHALATION Q4H.RT CHERYL Last Admin: 03/03/20 03:10 Dose: 3 ml Documented by: Heparin Sodium (Porcine) (Heparin Injection (Vial) 5,000 Unit/Ml Vial) 5,000 unit SC Q8 [facility] Last Admin: 03/03/20 05:22 Dose: 5,000 unit Documented by: Epinephrine HCl 1 mg/ Sodium (Chloride) 250 mls @ 15 mls/hr CONT INF .[id number] [facility]; Protocol Last Admin: 03/03/20 03:00 Dose: 6 mcg/min, 90 mls/hr Documented by: Vancomycin IV Pharmacy to Dose (1 ea/ Sodium Chloride) 500 mls @ 250 mls/hr IV PRN PRN; Protocol PRN Reason: Rx to Dose Pantoprazole Sodium 40 mg/ (Sodium Chloride) 110 mls @ 330 mls/hr IV BID [facility] Last Infusion: 03/03/20 04:20 Dose: Infused Documented by: Aztreonam 1 gm/ Dextrose 50 mls @ 150 mls/hr IV Q8 [facility] Last Infusion: 03/03/20 06:00 Dose: Infused Documented by: Epinephrine HCl 1 mg/ Sodium (Chloride) 251 mls @ 15.06 mls/hr CONT INF .[id number] [facility]; Protocol Norepinephrine Bitartrate 8 mg (/ Sodium Chloride) 250 mls @ 9.375 mls/hr CONT INF .[id number] [facility]; Protocol Last Admin: 03/03/20 05:15 Dose: 30 mcg/min, 56.3 mls/hr Documented by: Levofloxacin (Levaquin Iv) 250 mg in 50 mls @ 100 mls/hr IV Q48@2200 CHERYL Sodium Chloride () 250 mls @ 15 mls/hr IV .[id number] PRN PRN Reason: Saline Flush Vancomycin HCl 1,500 mg/ (Sodium Chloride) 530 mls @ 250 mls/hr IV Q24H [facility] Vasopressin 20 units/ Sodium (Chloride) 25 mls @ 3 mls/hr IV .[id number] [facility] Last Admin: 03/03/20 07:00 Dose: 0.04 units/min, 3 mls/hr Documented by: Methylprednisolone (Methylprednisolone 40 Mg/Ml Vial) 40 mg IV Q8 [facility] Last Admin: 03/03/20 05:22 Dose: 40 mg Documented by: Ondansetron HCl (Ondansetron 4 Mg/2 Ml Vial) 4 mg IV Q8H PRN PRN PRN Reason: NAUSEA/VOMITING Sodium Chloride (0.9% Saline Lock 10 Ml Syringe) 10 - 40 ml IV UD PRN PRN Reason: SALINE FLUSH Last Admin: 03/03/20 04:05 Dose: 40 ml Documented by: Clinical Impression(s) from Imaging Studies Chest X-Ray 03/02/20 21:08 IMPRESSION: Decreasing lung volumes. Worsening opacification in the lower right hemithorax with volume loss. CT scan recommended. Electronically Signed: Arnold Romo MD at 21:43 EST , Service support , Chest X-Ray 03/02/20 22:45 IMPRESSION: Interval placement endotracheal tube, tip in midthoracic trachea. Interval placement of an enteric tube, tip in the proximal to mid stomach. Electronically Signed: Eliceo Walters at 23:26 EST Tel , Service support , KUB X-Ray 03/02/20 22:45 IMPRESSION: Enteric tube tip in the proximal to mid stomach in the left upper abdomen. Electronically Signed: Eliceo Walters at 23:32 EST Tel , Service support , Assessment/Plan Active and Suspected Problems (Last Reviewed 03/03/20 @ 02:[address] Castillo Lopes MD) Elevated troponin (Acute) Cardiac arrest (Acute) COPD exacerbation (Acute) Acute kidney injury (Acute) RECOMMENDATIONS: 1. Add stress dose steroids and vasopressin 2. Increase Levophed max dose 3. Continue mechanical ventilation 4. Continue empiric antibiotics for now IMPRESSIONS: 1. PEA cardiac arrest Unclear etiology at this time. Patient appears to be in multisystem organ failure at this time. Patient is on epinephrine and Levophed. Will add vasopressin and stress dose steroids. Patient did have some findings on chest x-ray consistent with a mucous plug. Peak airway pressures appear to be responding to suctioning. Patient has had multiple admissions in the last 2 months with CHF and COPD. Patient will be placed on empiric antibiotics with vancomycin and aztreonam. 2. Acute hypoxic respiratory failure secondary to #1 Patient with higher peak airway and plateau pressures. This has been responsive to bronchodilators and suctioning. Patient with multiple comorbidities complicating overall condition. Continue with bronchodilators. Will use stress dose steroids to help with airway dilation. Oxygenation appears to be doing okay at this time, so we will continue with IV fluids for now, but do anticipate some issues with hypoxia if this were to continue. 3. Probable acute on chronic diastolic congestive heart failure with elevated troponin Patient with recent echocardiogram showing diastolic dysfunction. Patient weeping from bilateral lower extremities. Patient with recent arrest, but appears to be in sinus rhythm at this time. We will continue to monitor. Rate control if patient develops RVR will be difficult given the required pressors. This will complicate diastolic functioning. Elevated troponin may be secondary to arrest, but patient is not showing signs or symptoms of ST elevations on telemetry. 4. Acute kidney injury Recent baseline creatinine of 0.95 and presented with a creatinine of 2.64 and a BUN of 80. Patient also has a baseline bicarbonate in the 40s and has developed a significant gap, nongap metabolic acidosis. Probable prerenal etiology secondary to #1, #2 and #3 problems. Patient would be a very poor dialysis candidate at this time given hemodynamics. 5. Multiple wounds/morbid obesity/multiple discharges AMA/CODE STATUS Complicates care, management, recovery and prognosis. Patient appears to be on maximal support at this time. Patient is a DNR Comfort Care arrest. Plan on capping vasoactive medications for now. Grim prognosis for the next 24 hours given multiple arrests initially. TIME: 35 minutes critical care time spent addressing patient's multiple arrests, respiratory failure, CHF, acute kidney injury, review of all data and collaboration with care team (6:20 AM to 7:20 AM) [id number]: [id number] Critical care first hour
--- NOTE | 2020-03-03 07:28 | PN_ITS ---
Patient Problems: Active and Suspected Problems (Last Reviewed 03/03/20 @ 02:[address] Castillo Lopes MD) Elevated troponin (Acute) Cardiac arrest (Acute) COPD exacerbation (Acute) Acute kidney injury (Acute) Reason for Visit: Follow-up on cardiopulmonary arrest/respiratory failure/hypertension Subjective: Patient was seen and examined. Patient remains on 3 pressors. Blood pressure remains hypotensive. Patient's brother had discussed in person with Dr. Pulido, patient was made DO NOT RESUSCITATE comfort care, with intubation as patient was already intubated. He agreed to not having the patient undergo CPR again. Objective: Physical exam: Physical exam: General: -Intubated, on mechanical ventilator, alert, responsive HEENT: Normocephalic, - - ulcer on forehead Neck: No Nodes, Trachea Midline Lungs: Rhonchi, - - On mechanical ventilation and not breathing events. Cardiovascular: Diminished AE Abdomen: Hypoactive Bowel Sounds, Obese Extremities: Edema - Bilateral legs Skin: - - Excoriation on bilateral legs. Vitals/I&O's: Vital Signs Temp Pulse Resp BP Pulse Ox 96.7 F L 77 19 H 67/42 L 96 03/03/20 03:00 03/03/20 07:23 03/03/20 07:23 03/03/20 03:45 03/03/20 03:45 Oxygen Flow Rate (L/min) 4 Oxygen Delivery Method Mechanical Ventilator Weight: 120.4 kg Body Mass Index (BMI) 42.8 Finger Stick Blood Glucose 298 Intake and Output for Last 24 Hours 03/01/20 03/02/20 03/03/20 23:59 23:59 23:59 Intake Total 3.75 / 3.75 1326.63 / 1326.63 Output Total 0 / 0 Balance 3.75 / 3.75 1326.63 / 1326.63 Laboratory Results 03/02/20 20:40: WBC 6.6, RBC 3.18 L, Hgb 9.3 L, Hct 31.6 L, MCV 99.4 H, MCH 29.2, MCHC 29.4 L, RDW Std Deviation 60.6 H, RDW Coeff of Emili 16.5 H, Plt Count 459 H, MPV 10.7, Immature Gran % (Auto) 4.000 H, Neut % (Auto) 69.0, Lymph % (Auto) 16.4 L, [place] % (Auto) 9.1, Eos % (Auto) 0.9, Baso % (Auto) 0.6, Absolute Neuts (auto) 4.5, Absolute Lymphs (auto) 1.08, Nucleated RBC % 0 03/02/20 20:40: Sodium 136, Potassium 4.8, Chloride 94 L, Carbon Dioxide 34.0 H, Anion Gap 8, BUN 79 H, Creatinine 2.64 H, Estim Creat Clear Calc 18.92, Est GFR (MDRD) Af Amer 31 L, Est GFR (MDRD) Non-Af 25 L, BUN/Creatinine Ratio 29.9 H, Glucose 302 H, Calcium 8.3 L, Total Bilirubin 0.30, AST 39 H, ALT 35, Alkaline Phosphatase 181 H, Troponin I 1.120 H*, Total Protein 6.3 L, Albumin 2.7 L, Globulin 3.6, Albumin/Globulin Ratio 0.8 L 03/02/20 20:40: B-Natriuretic Peptide 292.6 H 03/02/20 21:58: Lactic Acid 6.8 H* 03/02/20 22:00: Specimen Type ART, Sample Site R Radial, pH 6.97 L*, Bicarbonate Actual 27.9 H, Total CO2 32, Base Excess -4 L, O2 Saturation 95, O2 % 100, ABG pCO2 122.1 H*, ABG pO2 119 H, Fernando Test Positive, O2 Delivery Device Bagging 03/03/20 03:30: Lactic Acid 9.5 H* 03/03/20 03:30: B-Natriuretic Peptide 391.7 H 03/03/20 03:30: WBC 3.6 L, RBC 2.96 L, Hgb 8.6 L, Hct 30.6 L, MCV 103.4 H, MCH 29.1, MCHC 28.1 L, RDW Std Deviation 62.1 H, RDW Coeff of Emlii 16.5 H, Plt Count 474 H, MPV 10.5, Immature Gran % (Auto) 1.700 H, Neut % (Auto) 70.0, Lymph % (Auto) 13.0 L, [place] % (Auto) 13.9 H, Eos % (Auto) 0.3, Baso % (Auto) 1.1 H, Absolute Neuts (auto) 2.5, Absolute Lymphs (auto) 0.47 L, Nucleated RBC % 1.7, Differential Comment SCANNED, Diff Path Review August foll 03/03/20 03:30: Sodium 141, Potassium 4.9, Chloride 100, Carbon Dioxide 27.0, Anion Gap 14, BUN 85 H, Creatinine 3.08 H, Estim Creat Clear Calc 18.70, Est GFR (MDRD) Af Amer 26 L, Est GFR (MDRD) Non-Af 21 L, BUN/Creatinine Ratio 27.6 H, Glucose 220 H, Calcium 8.1 L, Phosphorus 5.4 H, Magnesium 1.8, Total Bilirubin 0.40, AST 45 H, ALT 35, Alkaline Phosphatase 138 H, Total Protein 5.8 L, Albumin 2.0 L, Globulin 3.8, Albumin/Globulin Ratio 0.5 L 03/03/20 03:30: Troponin I 2.430 H* Current Medications Acetaminophen (Acetaminophen 325 Mg Tablet) 650 mg PO Q6H PRN PRN PRN Reason: Pain Score 1-10/Temp > 100.7 F Albuterol Sulfate (Albuterol 2.5 Mg/3 Ml Vial.Neb.) 2.5 mg INHALATION Q2H PRN PRN PRN Reason: SOB/Wheezing Albuterol/Ipratropium (Ipratropium/Albuterol Sulfate 3 Ml Ampul.Neb) 3 ml INHALATION Q4H.RT [facility] Last Admin: 03/03/20 07:20 Dose: 3 ml Documented by: Heparin Sodium (Porcine) (Heparin Injection (Vial) 5,000 Unit/Ml Vial) 5,000 unit SC Q8 [facility] Last Admin: 03/03/20 05:22 Dose: 5,000 unit Documented by: Epinephrine HCl 1 mg/ Sodium (Chloride) 250 mls @ 15 mls/hr CONT INF .[id number] [facility]; Protocol Last Admin: 03/03/20 03:00 Dose: 6 mcg/min, 90 mls/hr Documented by: Vancomycin IV Pharmacy to Dose (1 ea/ Sodium Chloride) 500 mls @ 250 mls/hr IV PRN PRN; Protocol PRN Reason: Rx to Dose Pantoprazole Sodium 40 mg/ (Sodium Chloride) 110 mls @ 330 mls/hr IV BID [facility] Last Infusion: 03/03/20 04:20 Dose: Infused Documented by: Aztreonam 1 gm/ Dextrose 50 mls @ 150 mls/hr IV Q8 [facility] Last Infusion: 03/03/20 06:00 Dose: Infused Documented by: Epinephrine HCl 1 mg/ Sodium (Chloride) 251 mls @ 15.06 mls/hr CONT INF .[id number] CHERYL; Protocol Norepinephrine Bitartrate 8 mg (/ Sodium Chloride) 250 mls @ 9.375 mls/hr CONT INF .[id number] [facility]ERYL; Protocol Last Admin: 03/03/20 05:15 Dose: 30 mcg/min, 56.3 mls/hr Documented by: Levofloxacin (Levaquin Iv) 250 mg in 50 mls @ 100 mls/hr IV Q48@2200 CHERYL Sodium Chloride () 250 mls @ 15 mls/hr IV .[id number] PRN PRN Reason: Saline Flush Vancomycin HCl 1,500 mg/ (Sodium Chloride) 530 mls @ 250 mls/hr IV Q24H CHERYL Vasopressin 20 units/ Sodium (Chloride) 25 mls @ 3 mls/hr IV .[id number] [facility] Last Admin: 03/03/20 07:00 Dose: 0.04 units/min, 3 mls/hr Documented by: Methylprednisolone (Methylprednisolone 40 Mg/Ml Vial) 40 mg IV Q8 [facility]ERYL Last Admin: 03/03/20 05:22 Dose: 40 mg Documented by: Ondansetron HCl (Ondansetron 4 Mg/2 Ml Vial) 4 mg IV Q8H PRN PRN PRN Reason: NAUSEA/VOMITING Sodium Chloride (0.9% Saline Lock 10 Ml Syringe) 10 - 40 ml IV UD PRN PRN Reason: SALINE FLUSH Last Admin: 03/03/20 04:05 Dose: 40 ml Documented by: STROKE Vital Signs/Narrative: Vital Signs Pulse Resp BP Pulse Ox 03/03/20 07:23 74 19 H 03/03/20 03:45 96 26 H 67/42 L 96 03/03/20 03:30 79 24 H 80/56 L 92 Medical Necessity - Tobacco Use Smoking Status: Former smoker Tobacco Use: Cigarettes Assessment/Plan All Active Problems (Last Reviewed 03/03/20 @ 02:[address] Castillo Lopes MD) Elevated troponin (Acute) Cardiac arrest (Acute) COPD exacerbation (Acute) Acute kidney injury (Acute) 1. Acute respiratory failure, status post cardiopulmonary arrests, remains intubated CODE STATUS DNR CCA with intubation Senior Sous Chef consulted; continue on current ventilator settings 2. Hypotension/shock, unclear etiology, likely septic shock Patient remains on 3 pressors and IV hydrocortisone Continue on IV Aztreonam, Levofloxacin and vancomycin Will continue to monitor 3. Right pleural effusion, likely secondary to acute on chronic systolic CHF Remains intubated, on mechanical ventilation 4. Acute COPD exacerbation, on IV steroid, breathing treatments 5. CHUY, prerenal from shock, on gentle IVF Repeat blood work in am 6. Lactic acidosis secondary to respiratory failure, worsening 7. Elevated troponins, likely demand from cardiopulmonary arrests/respiratory failure Cardiology consulted 8. Acute GI bleed, NG tube shows dark blood-tinge aspirate Continue on IV Pantoprazole BID 9.Type 2 DM, BS is uncontrolled, continue with ISS with blood glucose checks 10. DVT PPx- Heparin SC Inpatient E&M: [id number] [facility] [[email or web address]] Hosp L3
[2020-03-03] MEDS: 0.9% Normal Saline 1,000 ML 75 ML IV (08:30)
--- NOTE | 2020-03-03 08:33 | NURSING ---
Pt's brother-Agustín here to visit. Update given on patient's progress.
[2020-03-03] MEDS: EPINEPHRINE CONT INF (10:30)
[2020-03-03] MEDS: NS 0.9% CONT INF (10:30)
[2020-03-03] MEDS: Chlorhexidine 15 ML PO (10:34)
[2020-03-03] MEDS: TITRATION PARAMETER CHANGE 1 EACH IV (11:47)
--- NOTE | 2020-03-03 12:15 | CON.PCM_ITS ---
Problem List (1) Elevated troponin Status: Acute Reason for Consult Date of Consultation: 03/03/20 Reason for Consultation: Atrial fibrillation with fast ventricular rate, respiratory failure and elevated troponin History of Present Illness: The patient is a 74 year old M intubated. Most of the history obtained through the chart. No family member at the bedside. Apparently, this is one of his many recent admission. Patient usually signed himself out when he got better. He was admitted with shortness of breath and left-sided chest pain. The emergency room he was found to be hypoxic with respiratory acidosis and compe nsated metabolic alkalosis. Patient has had end-stage COPD. He has been using home oxygen. He is known to have hypertension, diabetes and hyperlipidemia. Echocardiogram done on 19 February read as ejection fraction of 65%. Chest x- ray showed cardiomegaly and right pleural effusion. Patient had 5 PEA episodes which was successfully resuscitated. At the moment patient is on the ventilator with no purposeful movement. He is known to have hypertension, diabetes, hyperlipidemia and obesity. At the moment patient has had stage IV renal insufficiency [] Past Medical History Allergies/Adverse Reactions: Allergies bee venom protein (honey bee) Allergy (Verified 03/02/20 20:38) Angioedema Penicillins Allergy (Verified 03/02/20 20:38) Rash acetaminophen [From Vicodin] Adverse Reaction (Verified 03/02/20 20:38) Itching hydrocodone bitartrate [From Vicodin] Adverse Reaction (Verified 03/02/20 20:38) Itching Home Medications: Ambulatory Orders Medication Instructions Recorded Levothyroxine [Synthroid] 112 mcg PO DAILY 09/10/13 metFORMIN HCl [Glucophage] 1,000 mg PO BIDCM 09/10/13 Atorvastatin Calcium [Lipitor] 20 mg PO QHS 01/16/17 Nitroglycerin 0.4 mg SL TID PRN PRN #20 tab.subl 01/17/20 Albuterol Inhaler [Ventolin Hfa] 2 puff INHALATION Q4H PRN PRN #1 01/22/20 inhaler Pantoprazole Sodium [Protonix] 20 mg PO BID #20 tab 02/16/20 Sucralfate [Carafate] 1 gm PO 4X/DAY #40 tab 02/16/20 Nitroglycerin 0.4 mg SL PRN PRN 11/21/20 Acetaminophen [Tylenol Tablet] 650 mg PO Q6H PRN PRN tab 02/26/20 Aspirin [Aspirin, Baby] 81 mg PO DAILY@0800 tab.chew 02/26/20 Furosemide [Lasix] 40 mg PO BID #60 tab 02/26/20 Lisinopril [Zestril] 5 mg PO DAILY #30 tab 02/26/20 Potassium Chloride [K-Dur] 20 meq PO DAILY #30 tab 02/26/20 Past Medical History (Chronic Problems): Chronic Problems (Last Reviewed 03/03/20 @ 02:[address] Castillo Lopes MD) Anasarca (Chronic) Ulcer of left lower extremity with fat layer exposed (Chronic) PVD (peripheral vascular disease) (Chronic) Venous insufficiency (Chronic) Type 2 diabetes mellitus with diabetic polyneuropathy (Chronic) Malnutrition (Chronic) Obesity (Chronic) STEMI (ST elevation myocardial infarction) (Chronic) Chronic respiratory failure with hypoxia (Chronic) Decompensated heart failure (Chronic) Type 2 diabetes mellitus with hyperglycemia (Chronic) Morbid obesity (Chronic) Hypothyroidism (Chronic) Hyperlipidemia (Chronic) Former tobacco use (Chronic) Anemia (Chronic) Hypoxemia (Chronic) Hypothyroid (Chronic) Diabetes (Chronic) CHF (congestive heart failure) (Chronic) Surgical History: - - Umbilical hernia repair, penile foreskin surgery. Psychiatric History: No pertinent psych hx - *Family History Maternal History Items: Cancer - Mother with history of colon cancer., Diabetes Paternal History Items: - - Patient denies any market paternal family history including heart disease, diabetes, cancer. Smoking Status: Former smoker Tobacco Use: Cigarettes Review of Systems - Review of Systems General: Reports: Fever, Fatigue, Night Sweats, - - Unobtainable patient is intubated Cardiovascular: Reports: Chest Discomfort, Shortness of Breath, Orthopnea, PND, Peripheral Edema, Palpitations, Lightheadedness, Dizziness, Near Syncope, Syncope Respiratory: Reports: Cough, Sputum Production, Hemoptysis Gastrointestinal: Reports: Hematemesis, Hematochezia. Denies: Melena Genitourinary: Reports: Dysuria, Hematuria Skin: Reports: Rash Objective: Vital Signs Temp Pulse Resp BP Pulse Ox 97.1 F L 88 15 86/72 L 94 03/03/20 12:00 03/03/20 12:00 03/03/20 12:00 03/03/20 12:00 03/03/20 12:00 Oxygen Flow Rate (L/min) 4 Oxygen Delivery Method Mechanical Ventilator Weight: 265 lb 6.985 oz Body Mass Index (BMI) 42.8 Finger Stick Blood Glucose 298 Intake and Output for Last 24 Hours 03/01/20 03/02/20 03/03/20 23:59 23:59 23:59 Intake Total 3.75 / 3.75 2596.13 / 2596.13 Output Total 50 / 50 Balance 3.75 / 3.75 2546.13 / 2546.13 General: Obese, - - Intubated HEENT: Atraumatic Neck: Supple Lungs: Diminished Right Base, - - Intubated Cardiovascular: Regular Rhythm, No Murmurs - Heart sounds very distant Abdomen: Obese, Distended, RUQ Tenderness, - Extremities: Bilateral Edema +3 Neurological: - - Intubated and sedated 03/02/20 20:40: WBC 6.6, RBC 3.18 L, Hgb 9.3 L, Hct 31.6 L, MCV 99.4 H, MCH 29.2, MCHC 29.4 L, Plt Count 459 H, MPV 10.7, Immature Gran % (Auto) 4.000 H, Neut % (Auto) 69.0, Lymph % (Auto) 16.4 L, [place] % (Auto) 9.1, Eos % (Auto) 0.9, Baso % (Auto) 0.6, Absolute Neuts (auto) 4.5, Nucleated RBC % 0 03/02/20 20:40: Sodium 136, Potassium 4.8, Chloride 94 L, Carbon Dioxide 34.0 H, Anion Gap 8, BUN 79 H, Creatinine 2.64 H, Est GFR (MDRD) Af Amer 31 L, Est GFR (MDRD) Non-Af 25 L, BUN/Creatinine Ratio 29.9 H, Glucose 302 H, Calcium 8.3 L, Total Bilirubin 0.30, Troponin I 1.120 H* 03/02/20 20:40: B-Natriuretic Peptide 292.6 H 03/02/20 21:58: Lactic Acid 6.8 H* 03/02/20 22:00: pH 6.97 L*, Bicarbonate Actual 27.9 H, Base Excess -4 L, O2 Saturation 95, ABG pCO2 122.1 H*, ABG pO2 119 H, Fernando Test Positive 03/03/20 03:30: Lactic Acid 9.5 H* 03/03/20 03:30: B-Natriuretic Peptide 391.7 H 03/03/20 03:30: WBC 3.6 L, RBC 2.96 L, Hgb 8.6 L, Hct 30.6 L, MCV 103.4 H, MCH 29.1, MCHC 28.1 L, Plt Count 474 H, MPV 10.5, Immature Gran % (Auto) 1.700 H, Neut % (Auto) 70.0, Lymph % (Auto) 13.0 L, [place] % (Auto) 13.9 H, Eos % (Auto) 0.3, Baso % (Auto) 1.1 H, Absolute Neuts (auto) 2.5, Nucleated RBC % 1.7 03/03/20 03:30: Sodium 141, Potassium 4.9, Chloride 100, Carbon Dioxide 27.0, Anion Gap 14, BUN 85 H, Creatinine 3.08 H, Est GFR (MDRD) Af Amer 26 L, Est GFR (MDRD) Non-Af 21 L, BUN/Creatinine Ratio 27.6 H, Glucose 220 H, Calcium 8.1 L, Phosphorus 5.4 H, Magnesium 1.8, Total Bilirubin 0.40 03/03/20 03:30: Troponin I 2.430 H* 03/03/20 07:25: Troponin I 3.130 H* 03/03/20 10:45: Troponin I 3.400 H* Rhythm: EKG: ECHO: Stress Test: Cardiac Cath: PCI: CT Surgery: Holter monitor: EPS: PPM: CXR: Chest CT Scan: Assessment/Plan #1 respiratory failure, due to COPD with acute exacerbation, patient has had severe underlying COPD on home oxygen, accumulations of right pleural effusion. Blood gas on admission showed severe respiratory acidosis with compensated metabolic alkalosis. Patient is intubated. The pulmonary status has been managed by the real estate sales agent Dr. Pulido #2 heart failure with preserved ejection fraction, echocardiogram done February 19 reported ejection fraction of 65%. Patient does have had 5 episodes of PEA successfully resuscitated. Prognosis is poor. Patient is a DNR. He will be treated conservatively #3 stage IV chronic renal insufficiency #4 hypertension, diabetes, hyperlipidemia and obesity
[2020-03-03] MEDS: Insulin Lispro 100 UNIT/ML INSULN.PEN SC ×2 (12:24→17:45)
[2020-03-03 12:36] LABS: Bedside Glucose 277 mg/dL (70-110)
[2020-03-03] MEDS: Norepinephrine 16 mg/250 mL 0.9% NS 28.1 MG CONT INF (13:37)
[2020-03-03] MEDS: Hydrocortisone Sod Succinate 100 MG/2 ML Vial IV (13:38)
--- NOTE | 2020-03-03 14:50 | CON.PCM_ITS ---
Consultation - Renal PCP/ Referring MD: Requesting physician: [] Primary care physician: JODY Schumacher - History of Present Illness History of Present Illness: The patient is a 74 year old M PMH DM, CRF on 4l/m NC at home, morbid obesity, legs wound, HPLD, hypothyroidism. Patient called for EMS for SOB and chest/epigastric pain. when EMS arrived he was hypoxemic. Patient was brought to ED where he was found to have Afib with RVR. Patient then started on dilt drip. shortly after that he has CPA with bradycardia needed multiple round of CPR. Patient survived . Now he is in ICU , intubated on 3 BP pressors Troponin was found to be elevated.cardiology consulted Renal team is consulted today due to CHUY. Patient presented with Cr 2.6 mg/dl and increased to 3.0 today. he is oliguric today ROS: unobtainable [] - Allergies Allergies: Allergies bee venom protein (honey bee) Allergy (Verified 03/02/20 20:38) Angioedema Penicillins Allergy (Verified 03/02/20 20:38) Rash acetaminophen [From Vicodin] Adverse Reaction (Verified 03/02/20 20:38) Itching hydrocodone bitartrate [From Vicodin] Adverse Reaction (Verified 03/02/20 20:38) Itching - Current Medications Current Medications: Current Medications Acetaminophen (Acetaminophen 325 Mg Tablet) 650 mg PO Q6H PRN PRN PRN Reason: Pain Score 1-10/Temp > 100.7 F Albuterol Sulfate (Albuterol 2.5 Mg/3 Ml Vial.Neb.) 2.5 mg INHALATION Q2H PRN PRN PRN Reason: SOB/Wheezing Albuterol/Ipratropium (Ipratropium/Albuterol Sulfate 3 Ml Ampul.Neb) 3 ml INHALATION Q4H.RT [facility]ERYL Last Admin: 03/03/20 14:38 Dose: 3 ml Documented by: Chlorhexidine Gluconate (Chlorhexidine 15 Ml) 15 ml PO BID [facility] Last Admin: 03/03/20 10:34 Dose: 15 ml Documented by: Heparin Sodium (Porcine) (Heparin Injection (Vial) 5,000 Unit/Ml Vial) 5,000 unit SC Q8 [facility] Last Admin: 03/03/20 13:38 Dose: 5,000 unit Documented by: Hydrocortisone Sodium Succinate (Hydrocortisone Sod Succinate 100 Mg/2 Ml Vial) 100 mg IV Q8 [facility] Last Admin: 03/03/20 13:38 Dose: 100 mg Documented by: Vancomycin IV Pharmacy to Dose (1 ea/ Sodium Chloride) 500 mls @ 250 mls/hr IV PRN PRN; Protocol PRN Reason: Rx to Dose Pantoprazole Sodium 40 mg/ (Sodium Chloride) 110 mls @ 330 mls/hr IV BID [facility] Last Infusion: 03/03/20 11:15 Dose: Infused Documented by: Aztreonam 1 gm/ Dextrose 50 mls @ 150 mls/hr IV Q8 [facility] Last Admin: 03/03/20 13:37 Dose: 150 mls/hr Documented by: Levofloxacin (Levaquin Iv) 250 mg in 50 mls @ 100 mls/hr IV Q48@2200 [facility]ERY[facility] Sodium Chloride () 250 mls @ 15 mls/hr IV .[id number] PRN PRN Reason: Saline Flush Vancomycin HCl 1,500 mg/ (Sodium Chloride) 530 mls @ 250 mls/hr IV Q24H [facility] Vasopressin 20 units/ Sodium (Chloride) 25 mls @ 3 mls/hr IV .Q8H20M [facility] Last Admin: 03/03/20 11:11 Dose: 0.04 units/min, 3 mls/hr Documented by: Sodium Chloride () 1,000 mls @ 75 mls/hr IV .[id number] [facility] Last Admin: 03/03/20 08:30 Dose: 75 mls/hr Documented by: Epinephrine HCl 16 mg/ Sodium (Chloride) 250 mls @ 9.375 mls/hr CONT INF .[id number] [facility]; Protocol Last Titration: 03/03/20 13:00 Dose: 10 mcg/min, 9.4 mls/hr Documented by: Norepinephrine Bitartrate 16 (mg/ Sodium Chloride) 250 mls @ 28.125 mls/hr CONT INF .Q8H54M [facility]; Protocol Last Admin: 03/03/20 13:37 Dose: 30 mcg/min, 28.1 mls/hr Documented by: Fentanyl Citrate 1,000 mcg/ (Sodium Chloride) 100 mls @ 5 mls/hr CONT INF .Q20H [facility]; Protocol Last Admin: 03/03/20 13:20 Dose: Not Given Documented by: Magnesium Sulfate 1 gm/ Sodium (Chloride) 102 mls @ 52 mls/hr IV X1 ONE Stop: 03/03/20 16:27 Insulin Human Lispro (Insulin Lispro 100 Unit/Ml Insuln.Pen) 0 unit SC Q6 [facility]; Protocol Last Admin: 03/03/20 12:24 Dose: 4 u Documented by: Ondansetron HCl (Ondansetron 4 Mg/2 Ml Vial) 4 mg IV Q8H PRN PRN PRN Reason: NAUSEA/VOMITING Sodium Chloride (0.9% Saline Lock 10 Ml Syringe) 10 - 40 ml IV UD PRN PRN Reason: SALINE FLUSH Last Admin: 03/03/20 10:43 Dose: 40 ml Documented by: - Past Medical History Past Medical History (Chronic Problems): Chronic Problems (Last Reviewed 03/03/20 @ 02:[address] Castillo Lopes MD) Anasarca (Chronic) Ulcer of left lower extremity with fat layer exposed (Chronic) PVD (peripheral vascular disease) (Chronic) Venous insufficiency (Chronic) Type 2 diabetes mellitus with diabetic polyneuropathy (Chronic) Malnutrition (Chronic) Obesity (Chronic) STEMI (ST elevation myocardial infarction) (Chronic) Chronic respiratory failure with hypoxia (Chronic) Decompensated heart failure (Chronic) Type 2 diabetes mellitus with hyperglycemia (Chronic) Morbid obesity (Chronic) Hypothyroidism (Chronic) Hyperlipidemia (Chronic) Former tobacco use (Chronic) Anemia (Chronic) Hypoxemia (Chronic) Hypothyroid (Chronic) Diabetes (Chronic) CHF (congestive heart failure) (Chronic) - Past Surgical History Surgical History: - - Umbilical hernia repair, penile foreskin surgery. - Social History Smoking Status: Former smoker - Family History Maternal History Items: Cancer - Mother with history of colon cancer., Diabetes Paternal History Items: - - Patient denies any market paternal family history including heart disease, diabetes, cancer. Patient Problems: Active and Suspected Problems (Last Reviewed 03/03/20 @ 02:[address] Castillo Lopes MD) Elevated troponin (Acute) Cardiac arrest (Acute) COPD exacerbation (Acute) Acute kidney injury (Acute) - Physical Exam Vitals/I&O's: Vital Signs Temp Pulse Resp BP Pulse Ox 97.1 F L 103 H 15 84/67 L 92 03/03/20 12:00 03/03/20 14:40 03/03/20 14:40 03/03/20 13:00 03/03/20 14:38 Oxygen Flow Rate (L/min) 4 Oxygen Delivery Method Mechanical Ventilator Weight: 120.4 kg Body Mass Index (BMI) 42.8 Finger Stick Blood Glucose 298 Intake and Output for Last 24 Hours 03/01/20 03/02/20 03/03/20 23:59 23:59 23:59 Intake Total 3.75 / 3.75 2738.18 / 2738.18 Output Total 155 / 155 Balance 3.75 / 3.75 2583.18 / 2583.18 General: - - intubated, unresponsive HEENT: Atraumatic Oral: Moist Mucosa Neck: Supple, No JVD Lungs: - - On vent support. equal air entry. No wheezing Cardiovascular: Regular rate, Regular Rhythm, Normal S1, Normal S2 Abdomen: Soft, Non-Distended, Hypoactive Bowel Sounds Extremities: No clubbing, Edema - +1 edema of LE Skin: Ulcer/ Wound Lymphatic: No Cervical, Supraclavicular, or Inguinal Adenopathy Neurological: - - cannot evaluate Microbiology Past 72 Hours 03/03/20 09:35 Urine Catheter - Catheter Legionella Antigen - Final 03/03/20 09:35 Urine Catheter - Catheter Streptococcus pneumoniae Antigen (M - Final Laboratory Results 03/02/20 20:40: WBC 6.6, RBC 3.18 L, Hgb 9.3 L, Hct 31.6 L, MCV 99.4 H, MCH 29. 2, MCHC 29.4 L, RDW Std Deviation 60.6 H, RDW Coeff of Emili 16.5 H, Plt Count 459 H, MPV 10.7, Immature Gran % (Auto) 4.000 H, Neut % (Auto) 69.0, Lymph % (Auto) 16.4 L, [place] % (Auto) 9.1, Eos % (Auto) 0.9, Baso % (Auto) 0.6, Absolute Neuts (auto) 4.5, Absolute Lymphs (auto) 1.08, Nucleated RBC % 0 03/02/20 20:40: Sodium 136, Potassium 4.8, Chloride 94 L, Carbon Dioxide 34.0 H, Anion Gap 8, BUN 79 H, Creatinine 2.64 H, Estim Creat Clear Calc 18.92, Est GFR (MDRD) Af Amer 31 L, Est GFR (MDRD) Non-Af 25 L, BUN/Creatinine Ratio 29.9 H, Glucose 302 H, Calcium 8.3 L, Total Bilirubin 0.30, AST 39 H, ALT 35, Alkaline Phosphatase 181 H, Troponin I 1.120 H*, Total Protein 6.3 L, Albumin 2.7 L, Globulin 3.6, Albumin/Globulin Ratio 0.8 L 03/02/20 20:40: B-Natriuretic Peptide 292.6 H 03/02/20 21:58: Lactic Acid 6.8 H* 03/02/20 22:00: Specimen Type ART, Sample Site R Radial, pH 6.97 L*, Bicarbonate Actual 27.9 H, Total CO2 32, Base Excess -4 L, O2 Saturation 95, O2 % 100, ABG pCO2 122.1 H*, ABG pO2 119 H, Fernando Test Positive, O2 Delivery Device Bagging 03/03/20 03:30: Lactic Acid 9.5 H* 03/03/20 03:30: B-Natriuretic Peptide 391.7 H 03/03/20 03:30: WBC 3.6 L, RBC 2.96 L, Hgb 8.6 L, Hct 30.6 L, MCV 103.4 H, MCH 29.1, MCHC 28.1 L, RDW Std Deviation 62.1 H, RDW Coeff of Emili 16.5 H, Plt Count 474 H, MPV 10.5, Immature Gran % (Auto) 1.700 H, Neut % (Auto) 70.0, Lymph % (Auto) 13.0 L, [place] % (Auto) 13.9 H, Eos % (Auto) 0.3, Baso % (Auto) 1.1 H, Absolute Neuts (auto) 2.5, Absolute Lymphs (auto) 0.47 L, Nucleated RBC % 1.7, Differential Comment SCANNED, Diff Path Review August03/03/20 03:30: Sodium 141, Potassium 4.9, Chloride 100, Carbon Dioxide 27.0, Anion Gap 14, BUN 85 H, Creatinine 3.08 H, Estim Creat Clear Calc 18.70, Est GFR (MDRD) Af Amer 26 L, Est GFR (MDRD) Non-Af 21 L, BUN/Creatinine Ratio 27.6 H, Glucose 220 H, Calcium 8.1 L, Phosphorus 5.4 H, Magnesium 1.8, Total Bilirubin 0.40, AST 45 H, ALT 35, Alkaline Phosphatase 138 H, Total Protein 5.8 L, Albumin 2.0 L, Globulin 3.8, Albumin/Globulin Ratio 0.5 L 03/03/20 03:30: Troponin I 2.430 H* 03/03/20 07:25: Troponin I 3.130 H* 03/03/20 10:45: Troponin I 3.400 H* 03/03/20 12:14: COVID-19 (CHRISTIANO) Not Detected 03/03/20 12:19: POC Glucose 277 H Current Medications Acetaminophen (Acetaminophen 325 Mg Tablet) 650 mg PO Q6H PRN PRN PRN Reason: Pain Score 1-10/Temp > 100.7 F Albuterol Sulfate (Albuterol 2.5 Mg/3 Ml Vial.Neb.) 2.5 mg INHALATION Q2H PRN PRN PRN Reason: SOB/Wheezing Albuterol/Ipratropium (Ipratropium/Albuterol Sulfate 3 Ml Ampul.Neb) 3 ml INHALATION Q4H.RT [facility] Last Admin: 03/03/20 14:38 Dose: 3 ml Documented by: Chlorhexidine Gluconate (Chlorhexidine 15 Ml) 15 ml PO BID [facility] Last Admin: 03/03/20 10:34 Dose: 15 ml Documented by: Heparin Sodium (Porcine) (Heparin Injection (Vial) 5,000 Unit/Ml Vial) 5,000 unit SC Q8 [facility] Last Admin: 03/03/20 13:38 Dose: 5,000 unit Documented by: Hydrocortisone Sodium Succinate (Hydrocortisone Sod Succinate 100 Mg/2 Ml Vial) 100 mg IV Q8 [facility] Last Admin: 03/03/20 13:38 Dose: 100 mg Documented by: Vancomycin IV Pharmacy to Dose (1 ea/ Sodium Chloride) 500 mls @ 250 mls/hr IV PRN PRN; Protocol PRN Reason: Rx to Dose Pantoprazole Sodium 40 mg/ (Sodium Chloride) 110 mls @ 330 mls/hr IV BID [facility] Last Infusion: 03/03/20 11:15 Dose: Infused Documented by: Aztreonam 1 gm/ Dextrose 50 mls @ 150 mls/hr IV Q8 [facility] Last Admin: 03/03/20 13:37 Dose: 150 mls/hr Documented by: Levofloxacin (Levaquin Iv) 250 mg in 50 mls @ 100 mls/hr IV Q48@2200 [facility] Sodium Chloride () 250 mls @ 15 mls/hr IV .[id number] PRN PRN Reason: Saline Flush Vancomycin HCl 1,500 mg/ (Sodium Chloride) 530 mls @ 250 mls/hr IV Q24H [facility] Vasopressin 20 units/ Sodium (Chloride) 25 mls @ 3 mls/hr IV .Q8H20M [facility] Last Admin: 03/03/20 11:11 Dose: 0.04 units/min, 3 mls/hr Documented by: Sodium Chloride () 1,000 mls @ 75 mls/hr IV .[id number] [facility] Last Admin: 03/03/20 08:30 Dose: 75 mls/hr Documented by: Epinephrine HCl 16 mg/ Sodium (Chloride) 250 mls @ 9.375 mls/hr CONT INF .[id number] [facility]; Protocol Last Titration: 03/03/20 13:00 Dose: 10 mcg/min, 9.4 mls/hr Documented by: Norepinephrine Bitartrate 16 (mg/ Sodium Chloride) 250 mls @ 28.125 mls/hr CONT INF .Q8H54M [facility]; Protocol Last Admin: 03/03/20 13:37 Dose: 30 mcg/min, 28.1 mls/hr Documented by: Fentanyl Citrate 1,000 mcg/ (Sodium Chloride) 100 mls @ 5 mls/hr CONT INF .Q20H [facility]; Protocol Last Admin: 03/03/20 13:20 Dose: Not Given Documented by: Magnesium Sulfate 1 gm/ Sodium (Chloride) 102 mls @ 52 mls/hr IV X1 ONE Stop: 03/03/20 16:27 Insulin Human Lispro (Insulin Lispro 100 Unit/Ml Insuln.Pen) 0 unit SC Q6 [facility]; Protocol Last Admin: 03/03/20 12:24 Dose: 4 u Documented by: Ondansetron HCl (Ondansetron 4 Mg/2 Ml Vial) 4 mg IV Q8H PRN PRN PRN Reason: NAUSEA/VOMITING Sodium Chloride (0.9% Saline Lock 10 Ml Syringe) 10 - 40 ml IV UD PRN PRN Reason: SALINE FLUSH Last Admin: 03/03/20 10:43 Dose: 40 ml Documented by: Assessment/Plan All Active Problems (Last Reviewed 03/03/20 @ 02:[address] Castillo Lopes MD) Elevated troponin (Acute) Cardiac arrest (Acute) COPD exacerbation (Acute) Acute kidney injury (Acute) 1- CHUY likely ischemic ATN Cr is up to 3.0 mg/dl. Normal Cr at baseline check UA and urine indices No urgent need for INTEGRITY ANALYST . hope he will more hemodynamically stable by tomorrow so he would tolerate HD if indicated Keep MAP > 65 with vasopressors as you do Check RFP in am 2- s/p CPA needed 20 minutes of CPR now on 3 pressors. Will defer to ICU 3- Acute hypercapnic hypoxic RF.Patient has h/o COPD. On vent support as directed by Dr Pulido Can use lasix when more hemodynamically stable thank you for the consult Will continue to follow Malissa Dugan MD
[2020-03-03] MEDS: Magnesium Sulfate 1 GM in 0.9% Normal Saline 100 ML IV (15:39)
[2020-03-03 18:01] LABS: Bedside Glucose 350 mg/dL (70-110)
--- NOTE | 2020-03-03 18:27 | NURSING ---
update on patient's worsening condition given to patient's brother, Agustín. Agustín states he will be in shortly to see patient.
[2020-03-03 18:28] LABS: Hematocrit 28.7 % (40-54); Hemoglobin 8.4 g/dL (13.0-16.5)
[2020-03-03 18:35] LABS: Base Excess -4 mmol/L (-2 to +2); Blood Gas Specimen Type ART; FI02 75; Mode AC; O2 Delivery Device Adult Vent; PEEP 5; PO2 132 mmHG (75-100); RR 14; SITE Art Line; SO2 99 % (95-99); Total Carbon Dioxide 25 mmol/L; Vt 500; pCO2 49.8 mmHg (35-45); pH 7.27 (7.35-7.45)
--- NOTE | 2020-03-03 19:45 | NURSING ---
Pt's brother arrived at bedside, updated on current condition; use of medicine to increase BP and how it works by shunting circulation from extremities to his core vital organs. Brother states understanding and There's nothing more we can do. Educated Eamon on the option of making his brother Comfort Care status, which we can gradually do. Offered to discontinue vasopressors first, start Fentanyl for pain control while leaving pt on ventilator. Eamon is agreeable to this and then states, we can take him off the ventilator in an hour if he doesn't pass right away. DAIMON Dillon at bedside to be second front maker of family wishes. paged to notify of above information.
[2020-03-03] MEDS: LORazepam 2 MG/ML Syringe IV (20:02)
--- NOTE | 2020-03-03 20:02 | NURSING ---
Vasopressors stopped, ativan 2mg IVP given for restlessness, Fentanyl drip connected and running for comfort. Pt's brother remains at bedside.
--- NOTE | 2020-03-03 21:05 | CPS ---
Terminal extubation Per Dr. Darby
--- NOTE | 2020-03-03 21:40 | EXP.PCM_ITS ---
Preliminary Cause of Acute on chronic diastolic congestive heart failure Date of Admission: 03/02/20 Date of : 03/03/20 - Principle Diagnosis Acute on chronic diastolic congestive heart failure Problem List: Active and Suspected Problems (Last Reviewed 03/03/20 @ 02:[address] Castillo Lopes MD) Elevated troponin (Acute) Cardiac arrest (Acute) COPD exacerbation (Acute) Acute kidney injury (Acute) Hospital Course hpi: The patient is a 74 year old M with a significant history of morbid obesity; congestive heart failure; COPD on 4 L home nasal cannula oxygen and hypothyroidism who presents emergency department with shortness of breath. Associated with his symptoms is pain and his bilateral anterior rib cage and in his epigastric area. Reportedly when paramedics went to his home his oxygen tubing was kinked and his oxygen saturation was in the 70s. After the kink was reached relates his oxygen went to the 90s. At the emergency department patient was seen in a flutter 2-1 with heart rate in the 140s. He received Cardizem bolus and drip. Thereafter the patient's bradycardia down with pulse in the 20s he eventually lost his pulse and required CPR and epinephrine. He required multiple courses of CPR and epinephrine at emergency department. Initially he was put on Levophed drip but changed to epinephrine. Later on he received both epinephrine and Levophed. ABG showed a pH of 6.97 and a CO2 of more than 100. Patient received bicarbonate. Emergent department doctor discussed the case with customer development representative and with patient's brother. Per emergent department doctor patient brother would not want any more CPR if patient is to code. Hospital course: Patient had no gag reflex and was was not breathing over vent. Patient was maintained on 3 pressors at emergency department and received IV antibiotics vancomycin and azithromycin. He also received Levaquin. Further his electrolytes were replaced and he received IV hydrocortisone. Because patient had a poor prognosis his brother upon discussion with hospitalist requested that I assess be stopped and 1 hour after pressures have been stopped his ET tube should be pulled. His brother was sure that that patient would not have wanted any aggressive therapy to prolong life. Pressors were stopped on 03/03/2020 at 2000. ET tube was pulled on 03/03/2020 at 210. Patient went into asystole at 2114. To nurses confirm that the patient was stated. Time of is 211403/03/2020. Patient was examined at the bedside. Patient had no heart sounds or lung sounds. His pupils were miotic and did not reactive to light. He had no gag reflex. He had no corneal reflex. Cause of is acute diastolic heart failure. Other diagnosis contributing to include acute exacerbation of COPD.
[2020-03-04 13:07] LABS: Pathologist Review Reviewed
== END 2020-03-03 21:15 | DRG 871 ==
LOC: ED 23:37 → ICU 23:58
PROVIDERS: Internal Medicine Cardiovascular Disease; Admitting Provider Hospitalist; Emergency Provider Emergency Medicine; PCP Physician Assistant; Visit Provider Internal Medicine
DX: A41.9 Sepsis, unspecified organism (principal); I50.33 Acute on chronic diastolic (congestive) heart failure; J96.21 Acute and chronic respiratory failure with hypoxia; N17.0 Acute kidney failure with tubular necrosis; J96.02 Acute respiratory failure with hypercapnia; R65.21 Severe sepsis with septic shock; J44.1 Chronic obstructive pulmonary disease with (acute) exacerbation; N18.4 Chronic kidney disease, stage 4 (severe); I13.0 Hypertensive heart and chronic kidney disease with heart failure and stage 1 through stage 4 chronic kidney disease, or unspecified chronic kidney disease; I48.92 Unspecified atrial flutter; E44.0 Moderate protein-calorie malnutrition; Z68.41 Body mass index [BMI] 40.0-44.9, adult; K92.2 Gastrointestinal hemorrhage, unspecified; E87.4 Mixed disorder of acid-base balance; D62 Acute posthemorrhagic anemia; I46.9 Cardiac arrest, cause unspecified; E66.01 Morbid (severe) obesity due to excess calories; E03.9 Hypothyroidism, unspecified; I25.2 Old myocardial infarction; E11.42 Type 2 diabetes mellitus with diabetic polyneuropathy; E11.65 Type 2 diabetes mellitus with hyperglycemia; E11.51 Type 2 diabetes mellitus with diabetic peripheral angiopathy without gangrene; D64.9 Anemia, unspecified; E78.5 Hyperlipidemia, unspecified; Z66 Do not resuscitate; Z87.891 Personal history of nicotine dependence; Z99.81 Dependence on supplemental oxygen; E11.22 Type 2 diabetes mellitus with diabetic chronic kidney disease
CPT/HCPCS: 31500; 31720; 36556; 36600; 36620; 51702; 71045; 74018; 80053; 82803; 82962; 83605; 83735; 83880; 84100; 84484; 85014; 85018; 85025; 87040; 87070; 87205; 87449; 87635; 92950; 93005; 94002; 94003; 94640; 97802; 99285; J7030; J7040; J7050; A4216; J3010; J3490; U0002